=== PATIENT | male | born 1935 | race Caucasian/White ===

== ENCOUNTER 2017-06-28 01:07 | Inpatient (IN) | payer MEDICARE, BC ==
[2017-06-28] MEDS ORDERED: NS 0.9% 1000 ML* 1,000 ML IV SCH (01:30)
[2017-06-28 01:51] LABS: ABS Basophils 0 10^3/ul (0-0.2); ABS Eosinophils 0.3 10^3/ul (0-0.6); ABS Lymphocytes 0.7 10^3/ul (1.0-4.8); ABS Monocytes 0.5 10^3/ul (0-0.8); ABS Neutrophils 2.4 10^3/ul (1.5-7.7); ABS Nucleated RBC 0 10^3/ul; Eosinophil % 8.4 % (0-6); Hematocrit 36 % (42-52); Hemoglobin 11.8 g/dl (14.0-18.0); Lymphocyte % 16.8 % (25-47); Mean Corpuscular HGB Conc 33 g/dl (31-36); Mean Corpuscular Hemoglobin 34 pg (27-31); Mean Corpuscular Volume 101 fL (80-94); Mean Platelet Volume 8 um3 (7.4-10.4); Nucleated Red Blood Cells % 0.1; Platelet Count 123 10^3/ul (150-450); Red Blood Count 3.52 10^6/ul (4.0-5.4); Red Cell Distribution Width 16 % (10.5-15)
[2017-06-28 02:01] LABS: EGFR Non-African American 12.4 (>60)
[2017-06-28] MEDS ORDERED: Aspirin TAB* 325 MG PO ONE (02:47)
[2017-06-28] MEDS ORDERED: Iodixanol* (CONTRAST) 320 MG/ML 100 ML SDV IV ONE (02:54)
[2017-06-28 05:16] LABS: Urine Appearance Cloudy; Urine Blood 1+ (Negative); Urine Color Yellow; Urine Ketones Negative (Negative); Urine Protein 2+(100 mg/dL) (Negative); Urine Specific Gravity 1.014 (1.010-1.030); Urine Urobilinogen Negative (Negative)
[2017-06-28] MEDS ORDERED: cefTRIAXone(*) 1 GM in NS 0.9% 50 ML* 50 ML IVPB ONE (06:21)
--- NOTE | 2017-06-28 06:23 | ED ---
Lexa Daniel Abhishek, scribed for Kasia Boles MD on 06/28/17 at 0208 . Neurological HPI - HPI Summary HPI Summary: This patient is a 81 year old M presenting to [facility] accompanied by and daughter with a chief complaint of aphasia since 2300. The symptoms are described as intermittent. Time of the first episode was 2300. Pt was having a cocktail according to pts at the onset of the first episode. Symptoms seemed to have resolved after first episode. 2nd episode occurred around midnight. Slurred speech episodes lasted 12 to 15 minutes. When asked why the pt did not enter the ED at midnight after the occurrence of the second episode, the pts stated they are novices and she also stated he was getting better. The patient rates the pain 0/10 in severity. Symptoms aggravated by nothing. Symptoms alleviated by nothing. Patient reports confusion, slurred speech and poor memory recall. Patient denies fever, chills, RODRIGUEZ, chest pain, and SOB. - History of Current Complaint Chief Complaint: EDGeneral Stated Complaint: SLURRING WORDS/CONFUSED Time Seen by Provider: 06/28/17 01:17 Hx Obtained From: Family/Meat Slicer Onset/Duration: Sudden Onset Timing: Intermittent Episodes Lasting: - 5 to 7 minutes. 2 episodes. Pain Intensity: 0 Pain Scale Used: 0-10 Numeric Character: Impaired Speech - slurred speech, Confusion - Allergy/Home Medications Allergies/Adverse Reactions: Allergies Allergy/AdvReac Type Severity Reaction Status Date / Time Hydrochlorothiazide Allergy Unknown Verified 06/28/17 03:27 Reaction Details PMH/Surg Hx/FS Hx/Imm Hx Infectious Disease History: No Infectious Disease History: Denies: Traveled Outside the [place] in Last 30 Days Review of Systems Negative: Fever, Chills Eyes: Negative ENT: Negative Negative: Chest Pain Negative: Shortness Of Breath Gastrointestinal: Negative Genitourinary: Negative Musculoskeletal: Negative Skin: Negative Neurological: Other - aphasia, confusion, poor memory recall, Positive: Slurred Speech. Negative: Headache Psychological: Normal All Other Systems Reviewed And Are Negative: No Physical Exam - Summary Physical Exam Summary: Appearance: Alert, conversive, nontoxic appearing, Bag in place urine, Skin: Warm, dry, no mottling, no rashes, no contusions, Dry skin HEENT: EOMI, PERRL, moist mucous membranes Neck: No masses on the neck, supple Respiratory: Clear to auscultation, breath sounds present, no rales, no rhonchi , no wheezes Cardiovascular: RRR, pulses are symmetrical in both lower and upper extremities Abdomen: Soft, non-tender Bowel Sounds: Present Musculoskeletal: No CVA tenderness, no obvious deformity, moving all extremities in a grossly normal manner Neurological: Droop on the left side First time it has been to the hospital Deviates to the right Some difficulty following finger to nose, Difficulty following simple instruction Psychiatric: Normal affect and mood Triage Information Reviewed: Yes Vital Signs On Initial Exam: Initial Vitals Temp Pulse Resp BP Pulse Ox 98.9 F 57 18 201/80 100 06/28/17 01:12 06/28/17 01:12 06/28/17 01:12 06/28/17 01:12 06/28/17 01:12 Vital Signs Reviewed: Yes Diagnostics - Vital Signs Vital Signs Temp Pulse Resp BP Pulse Ox 06/28/17 01:12 98.9 F 57 18 201/80 100 - Laboratory Lab Results: Lab Results 06/28/17 06/28/17 06/28/17 Range/Units 01:32 01:32 01:32 WBC 4.0 (3.5-10.8) 10^3/ul RBC 3.52 L (4.0-5.4) 10^6/ul Hgb 11.8 L (14.0-18.0) g/dl Hct 36 L (42-52) % MCV 101 H (80-94) fL MCH 34 H (27-31) pg MCHC 33 (31-36) g/dl RDW 16 H (10.5-15) % Plt Count 123 L (150-450) 10^3/ul MPV 8 (7.4-10.4) um3 Neut % (Auto) 61.4 (38-83) % Lymph % (Auto) 16.8 L (25-47) % [place] % (Auto) 12.3 H (1-9) % Eos % (Auto) 8.4 H (0-6) % Baso % (Auto) 1.1 (0-2) % Absolute Neuts (auto) 2.4 (1.5-7.7) 10^3/ul Absolute Lymphs (auto) 0.7 L (1.0-4.8) 10^3/ul Absolute Monos (auto) 0.5 (0-0.8) 10^3/ul Absolute Eos (auto) 0.3 (0-0.6) 10^3/ul Absolute Basos (auto) 0 (0-0.2) 10^3/ul Absolute Nucleated RBC 0 10^3/ul Nucleated RBC % 0.1 INR (Anticoag Therapy) 1.00 (0.77-1.02) APTT 30.1 (26.0-36.3) seconds Sodium 138 (133-145) mmol/L Potassium 3.4 L (3.5-5.0) mmol/L Chloride 102 (101-111) mmol/L Carbon Dioxide 29 (22-32) mmol/L Anion Gap 7 (2-11) mmol/L BUN 33 H (6-24) mg/dL Creatinine 4.58 H (0.67-1.17) mg/dL Est GFR ( Amer) 16.0 (>60) Est GFR (Non-Af Amer) 12.4 (>60) BUN/Creatinine Ratio 7.2 L (8-20) Glucose 96 (70-100) mg/dL Calcium 9.4 (8.6-10.3) mg/dL Magnesium 2.4 (1.9-2.7) mg/dL Total Bilirubin 0.40 (0.2-1.0) mg/dL AST 15 (13-39) U/L ALT 7 (7-52) U/L Alkaline Phosphatase 74 (34-104) U/L Total Protein 6.9 (6.4-8.9) g/dL Albumin 3.8 (3.2-5.2) g/dL Globulin 3.1 (2-4) g/dL Albumin/Globulin Ratio 1.2 (1-3) TSH Pending Serum Alcohol Pending Blood Type Antibody Screen 06/28/17 Range/Units 01:32 WBC (3.5-10.8) 10^3/ul RBC (4.0-5.4) 10^6/ul Hgb (14.0-18.0) g/dl Hct (42-52) % MCV (80-94) fL MCH (27-31) pg MCHC (31-36) g/dl RDW (10.5-15) % Plt Count (150-450) 10^3/ul MPV (7.4-10.4) um3 Neut % (Auto) (38-83) % Lymph % (Auto) (25-47) % Kittson % (Auto) (1-9) % Eos % (Auto) (0-6) % Baso % (Auto) (0-2) % Absolute Neuts (auto) (1.5-7.7) 10^3/ul Absolute Lymphs (auto) (1.0-4.8) 10^3/ul Absolute Monos (auto) (0-0.8) 10^3/ul Absolute Eos (auto) (0-0.6) 10^3/ul Absolute Basos (auto) (0-0.2) 10^3/ul Absolute Nucleated RBC 10^3/ul Nucleated RBC % INR (Anticoag Therapy) (0.77-1.02) APTT (26.0-36.3) seconds Sodium (133-145) mmol/L Potassium (3.5-5.0) mmol/L Chloride (101-111) mmol/L Carbon Dioxide (22-32) mmol/L Anion Gap (2-11) mmol/L BUN (6-24) mg/dL Creatinine (0.67-1.17) mg/dL Est GFR ( Amer) (>60) Est GFR (Non-Af Amer) (>60) BUN/Creatinine Ratio (8-20) Glucose (70-100) mg/dL Calcium (8.6-10.3) mg/dL Magnesium (1.9-2.7) mg/dL Total Bilirubin (0.2-1.0) mg/dL AST (13-39) U/L ALT (7-52) U/L Alkaline Phosphatase (34-104) U/L Total Protein (6.4-8.9) g/dL Albumin (3.2-5.2) g/dL Globulin (2-4) g/dL Albumin/Globulin Ratio (1-3) TSH Serum Alcohol Blood Type A Positive Antibody Screen Pending Result Diagrams: 06/28/17 01:32 06/28/17 01:32 Lab Statement: Any lab studies that have been ordered have been reviewed, and results considered in the medical decision making process. - CT Head CT CT Interpretation Completed By: Radiologist - CT Head reveals no acute pathology as per radiologist ED Physician reviewed the radiology report. CTA Head and Neck CT Interpretation Completed By: Radiologist - CTA Head and Neck reveals Multiple foci of atherosclerosis in the neck and brain. The ED Physician has reviewed this radiology report and agrees. - EKG 0126 EKG Rhythm: Sinus Bradycardia - 58 bpm EKG Interpretation: Time taken at 0126 Wided QRS, normal QTC, No AMI Course/Dx - Course Course Of Treatment: This patient is a 81 year old M presenting to [facility] accompanied by and daughter with a chief complaint of slurred speech since 2300. Patient reports confusion, slurred speech and poor memory recall. Patient denies fever chills, RODRIGUEZ, chest pain, and SOB. Time of the first episode was 2300. Pt was having a cocktail according to pts at the onset of the first episode. Symptoms seemed to have resolved after first episode. 2nd episode occurred around midnight. Slurred speech episodes lasted 12 to 15 minutes. When asked why the pt did not enter the ED at midnight after the occurrence of the second episode, the pts stated they are novices and she also stated he was getting better. We contacted [facility] at 0245. We consulted Dr. Bennett at 0310, the neurologist grain operations manager, at [facility]. He recommended giving aspirin and also recommended following on CTA Head to decide admittance for the pt. We discussed pt care with Dr. Lamb at 0320 and he suggested wating on the CTA head results before deciding disposition. After recieving CTA head and neck we conveyed the results to Dr. Lamb and he accept pt care. The pt is admitted to the [facility]. Dx will be TIA and stroke. - Diagnoses Provider Diagnoses: TIA (transient ischemic attack), Stroke - Critical Care Time Critical Care Time: 30-74 min - spoke with [facility]rologist and our hospitalist. multiple reevaluations. Discharge - Discharge Plan Condition: Stable Disposition: ADMITTED TO [facility] Referrals: Mayda Morris MD [Primary Care Provider] - The documentation as recorded by the Lexa eden Abhishek accurately reflects the service I personally performed and the decisions made by , Kasia Boles MD.
--- NOTE | 2017-06-28 07:41 | RAD ---
INDICATION: Slurred speech. COMPARISON: There are no prior studies available for comparison. TECHNIQUE: Contiguous axial sections of the brain were obtained from the skull base to the vertex without contrast. FINDINGS: The ventricles, cisterns and sulci are enlarged consistent with severe diffuse atrophy. There are small areas of decreased density in the subcortical and periventricular white matter suggestive of mild chronic small vessel ischemic changes. No other focal abnormality or mass effect is seen. There is no evidence for hemorrhage. No significant focal osseous abnormality is seen. The visualized portion of the paranasal sinuses and mastoid air cells appear clear. IMPRESSION: 1. NO EVIDENCE FOR GROSS ACUTE INFARCT, MASS EFFECT OR HEMORRHAGE. 2. RELATIVELY SEVERE ATROPHY AND MILD CHRONIC SMALL VESSEL ISCHEMIC CHANGES.
[2017-06-28] MEDS ORDERED: amLODIPine TAB* 5 MG PO ONE (08:35)
[2017-06-28] MEDS ORDERED: hydrALAZINE IV* 20 MG/ML VIAL IV SLOW PU PRN (08:35)
[2017-06-28] MEDS ORDERED: Potassium Chlor TAB* 20 MEQ TAB.ER PO ONE (08:44)
--- NOTE | 2017-06-28 08:56 | RAD ---
INDICATION: Altered mental status, left facial droop. COMPARISON: Comparison is made with a prior CT of the brain from June 28 2017. TECHNIQUE: A CT angiogram of the head and neck was performed following intravenous injection of 80 ml of Visipaque 320 nonionic contrast. Contiguous axial sections were obtained from the thoracic inlet through the skull vertex. Images were reconstructed in the coronal and sagittal planes and in a 3-D volume rendered format. The distal cervical internal carotid artery diameter is used as the denominator for stenosis measurement. FINDINGS: RIGHT CAROTID: The common and internal carotid arteries appear patent without evidence for hemodynamically significant stenosis. LEFT CAROTID: The common and internal carotid arteries appear patent without evidence for hemodynamically significant stenosis. There is mild to moderate calcific plaque present within the carotid bulb and proximal internal carotid artery giving rise to approximately a 20% stenosis. VERTEBRALS: The right vertebral artery appears small in caliber throughout. The left vertebral artery is dominant with mild to moderate atherosclerotic change without gross evidence for high-grade stenosis. CTA BRAIN: The internal carotid, anterior and middle cerebral arteries appear patent without evidence for high-grade stenosis or occlusion. There is moderate calcific plaque present within the cavernous portion of the internal carotid arteries without evidence for high-grade stenosis. The vertebral, basilar and posterior cerebral arteries appear patent without evidence for high-grade stenosis or occlusion. No gross focal perfusion abnormalities are seen. No aneurysm or vascular malformation is seen. NECK: No significant enlarged lymph nodes are seen within the neck. The thyroid, parotid and submandibular glands appear to be within normal limits. The lung apices appear clear. The paranasal sinuses and mastoid air cells appear clear IMPRESSION: 1. NO EVIDENCE FOR HEMODYNAMICALLY SIGNIFICANT CAROTID STENOSIS. 2. NO EVIDENCE FOR LARGE VESSEL INTRACRANIAL THROMBUS. CPT II Codes: 3100F
[2017-06-28] MEDS: Aspirin Low Dose CHEW TAB* 81 MG PO SCH (12:27)
[2017-06-28] MEDS: Nitroglycerin 2% OINT* 1 GM PAK TOPICAL SCH ×3 (12:27→17:33)
[2017-06-28] MEDS: Enalaprilat IV* 1.25 MG/ML 1 ML VIAL (1.25 MG) IV PRN (12:47)
[2017-06-28] MEDS ORDERED: cefTRIAXone(*) 1 GM in NS 0.9% 50 ML* 50 ML IVPB SCH (15:00)
[2017-06-28] MEDS: Heparin VIAL(*) 5000 UNITS/ML VIAL (FIVE THOUSAND) SUBCUT SCH ×2 (16:34→20:37)
[2017-06-28] MEDS: Atorvastatin* 40 MG TAB PO SCH ×2 (17:31→20:36)
--- NOTE | 2017-06-28 20:08 | HP ---
CC: Dr. Morris; Dr. Wooten; Dr. Solo * HISTORY AND PHYSICAL: DATE OF ADMISSION: 06/28/17 PRIMARY CARE PROVIDER: Dr. Morris. ATTENDING PHYSICIAN WHILE IN THE HOSPITAL: Cassandra Tillman MD * (report dictated by Burton Ralph NP) CONSULTING NEUROLOGIST: Dr. Wooten. CONSULTING SPIKE MACHINE FEEDER: Dr. Solo. CHIEF COMPLAINT: Garbled speech. HISTORY OF PRESENTING ILLNESS: Mr. Montelongo is an 81-year-old male patient who has a history of hypertension, hyperlipidemia, according to the patient CAD, he has had a stent in before in [place] and he has a history of end-stage renal disease, he was born with one kidney. The patient relocated from [facility]. He is staying part-time here with his daughter and part-time in [place]. The patient states that yesterday it was noted that he had an episode about 10 minutes of garbled speech and lasting for about 10 minutes. He knew what he wanted to say but he could not get his words out. He said that he had no blurry vision, no weakness to one extremity. There was no trouble with his gait. The family was concerned particularly the patient's . They felt that this could be a warning sign for something more significant, so they came into the ED around the midnight last night. The patient denies having any recurrent symptoms. There was no facial drooping. No slurring of the words. I will note that the patient was recently seen by Dr. Ahumada for bradycardia in the outpatient setting and did have a Holter monitor ordered and echo but I do not have reports though they do not believe he had the echo done yet. The patient says he has not been feeling under the weather as of late. He denies having any upper respiratory symptoms. No abdominal pain, no nausea, no vomiting. No dysuria and no fevers or chills and no change in medications, but I will state that it was noted on Dr. Ahumada's notes that the patient was supposed to be on 5 medications and he has not really been taking the medications. The patient was evaluated in the ED today. There was a concern for TIA and we were asked to evaluate for admission. PAST MEDICAL HISTORY: Significant for: 1. End-stage renal disease, he is on dialysis. 2. Hypertension. 3. CAD. 4. Hyperlipidemia. PAST SURGICAL HISTORY: He has had an AV fistula placement. He has had a heart catheterization according to the patient. MEDICATIONS: His home medications according to the list that I was able to pull from Dr. Ahumada's notes include: 1. Benazepril 40 mg p.o. daily. 2. Linzess 145 mcg p.o. daily that has not been filled since 03/26/2017. 3. Flomax 0.4 mg daily. 4. Amlodipine 10 mg daily. 5. Simvastatin 20 mg p.o. daily. ALLERGIES TO MEDICATIONS: Include HYDROCHLOROTHIAZIDE. FAMILY HISTORY: Mother had a heart attack. Father had a history of Parkinson' s. SOCIAL HISTORY: The patient is . He is a former smoker. He does drink occasionally. Surrogate decision maker is his and daughter. REVIEW OF SYSTEMS: There is no documented fever. He denied any significant weight change. There was no double vision. He denies having any ear discharge. There was no rhinorrhea, no sore throat, no thyroid enlargement. Denied having any chest pain. There was no orthopnea, no nocturnal dyspnea. There was no abdominal pain, no nausea, no vomiting. No dysuria, no frequency. There was no seizure, no loss of consciousness. No pruritus and no skin ulcerations. Review of 14 systems completed, all others were negative. PHYSICAL EXAMINATION GENERAL: At this time, Mr. Montelongo is an 81-year-old male patient. He is sitting in the ED stretcher. He does not appear to be in any acute distress. VITAL SIGNS: Blood pressure 181/65, pulse 53, respirations 15, O2 sat 95%, temperature 98.9. HEENT: Head: Atraumatic and normocephalic. Eyes: EOMs are intact. Sclerae were anicteric and not pale. Throat: Oral mucosa appears to be moist. No oropharyngeal erythema. NECK: Supple. LUNGS: Clear to auscultation bilaterally. There were no wheezes, rales, or rhonchi. HEART: Sounds S1, S2. Regular rate and rhythm. No murmurs, rubs, or gallops. He is bradycardic. ABDOMEN: Soft, it was flat and nontender. Bowel sounds were present. EXTREMITIES: Pulses were 2+ throughout. He is moving all 4 extremities with 5/ 5 strength. NEUROLOGICAL: The patient is awake, he is alert, he is oriented x3. His tongue is midline. His automotive collision repair instructor were equal. Dijyzr-qi-aahy is intact bilaterally. Heel-to- coleman is intact bilaterally. He had no facial drooping. Speech appeared to be clear. EOMs were intact. Cranial nerves were intact. No gross focal deficits. SKIN: Intact. LABORATORY DATA/DIAGNOSTIC STUDIES: Today revealed WBC of 4.0, RBC of 3.52, hemoglobin of 11.8, hematocrit of 36, and a platelet count of 123. His INR was 1, PTT was 30. His sodium was 138, potassium was 3.4, chloride was 102, bicarb 29, BUN 33, creatinine of 4.58, glucose was 96, calcium 9.4, mag 2.4, total bili 0.4. AST 15, ALT 7, alk phos 74. Albumin was 3.8. TSH was normal. Urine showed 1+ blood, 2+ protein, 3+ leukocyte esterase, 3+ wbc's, 1+ bacteria. Toxicology: He did have a alcohol level of 39. He had a brain CT obtained today, impression: No evidence for gross or acute infarct, mass effect, or hemorrhage; relatively severe atrophy and mild chronic small vessel ischemic changes. He did have a head CTA, our radiologists were waiting for the report but the impression from the [facility]: Multiple foci or atherosclerosis in the neck and brain without hemodynamically significant stenosis involving the [place] or either ICA. He did have an EKG obtained today, unfortunately I do not have a previous for comparison. 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 Old medical records were reviewed. ASSESSMENT AND PLAN: Mr. Montelongo is an 81-year-old male patient with multiple medical problems coming into the ED today with complaints of trouble with speech and on evaluation there was concern for transient ischemic attack. He will be admitted under observation status for: 1. Transient ischemic attack. I did touch base with Dr. Wooten. At this point, he will be evaluating the patient. We will get him on aspirin, I would like to try to keep his blood pressure less than 190. The last one here was in the 200s actually, so I am going to get him back on his Norvasc and we will go ahead and continue hydralazine. We will continue to follow him closely. We will get an MRI of the brain, echo with bubble study, and Neuro checks every hour, place the patient on telemetry and we will continue to follow closely. 2. End-stage renal disease. I did touch base with Dr. Solo. He will be evaluating the patient. Hopefully, he will dialyze him tomorrow and we will continue to follow closely. 3. Hypertension. In Dr. Ahumada's office actually his blood pressure was in the 100s and now that it is 180s consistently here, I am going to get him back just on the Norvas and see if we can get him down to an acceptable range and we will follow. 4. Coronary artery disease. I am going to continue his aspirin. It is unclear if he is taking a statin or not, we will continue this. We will try to get records from his PCP and try to get records from his PCP in [place] if possible, that is going to be tough to those as today is Thursday. 5. Abnormal UA. Again at this point, he has a chronic catheter. He is not having any urinary symptoms. He has no fever, no white counts, so I am not inclined to treat this UA just yet as this could be a chronic colonization. Should he spike a fever then I would, but at this point we will hold off. 6. DVT prophylaxis. He will be placed on heparin subcutaneously. 7. Code status. He is a full code. 8. Fluids, electrolytes, and nutrition. He can have a heart healthy diet. TIME SPENT: Time spent on the admission was approximately 60 minutes, greater than half the time was spent [id number] with the patient obtaining my history and physical, other half time was spent going over the plan of care with the patient and implementing plan of care. I did discuss the plan of care with my attending, Dr. Tillman; she is in agreement. BURTON RALPH NP [id number]/[facility] #: [id number] ANTON
[2017-06-29 05:22] LABS: ABS Basophils 0.1 10^3/ul (0-0.2); ABS Eosinophils 0.3 10^3/ul (0-0.6); ABS Lymphocytes 0.8 10^3/ul (1.0-4.8); ABS Monocytes 0.5 10^3/ul (0-0.8); ABS Neutrophils 2.6 10^3/ul (1.5-7.7); ABS Nucleated RBC 0 10^3/ul; Eosinophil % 7.2 % (0-6); Hematocrit 33 % (42-52); Hemoglobin 10.9 g/dl (14.0-18.0); Lymphocyte % 19.7 % (25-47); Mean Corpuscular HGB Conc 34 g/dl (31-36); Mean Corpuscular Hemoglobin 34 pg (27-31); Mean Corpuscular Volume 100 fL (80-94); Mean Platelet Volume 8 um3 (7.4-10.4); Nucleated Red Blood Cells % 0; Platelet Count 122 10^3/ul (150-450); Red Blood Count 3.24 10^6/ul (4.0-5.4); Red Cell Distribution Width 15 % (10.5-15); White Blood Count 4.3 10^3/ul (3.5-10.8)
[2017-06-29 05:27] LABS: INR 1.03 (0.77-1.02)
[2017-06-29 05:40] LABS: EGFR Non-African American 9.6 (>60)
[2017-06-29] MEDS: Heparin VIAL(*) 5000 UNITS/ML VIAL (FIVE THOUSAND) SUBCUT SCH ×3 (06:34→20:24)
[2017-06-29] MEDS: Aspirin Low Dose CHEW TAB* 81 MG PO SCH (08:32)
[2017-06-29] MEDS: amLODIPine TAB* 5 MG PO SCH (08:32)
[2017-06-29] MEDS ORDERED: Perflutren Lipid Microsphere* 3 ML VIAL ONE (09:14)
--- NOTE | 2017-06-29 10:27 | ECHO ---
Patient: GAURI PENA [facility] Rec#: [id number] : 1935 Date: 06/29/2017 Age: 81y Height: 185.42 cm / 73.0 in Weight: 90.72 kg / 199.9 lbs Sex: M BSA: 2.15 Room#: 440 Admit Date#: 06/28/2017 Type: Inpatient Referring: Srini Ralph NP Reading: Augustin Albrecht MD Support Architect: Katalina Hewitt RDCS CC: Mayda Morris MD Transthoracic Echocardiogram Indication: TIA BP: 157/76 HR: 58 Rhythm: Bradycardia Findings History: ESRD with dialysis,HTN,CAD with PCI,HLD,bradycardia. Technical Comments: The study is technically difficult. Definity used to enhance images. The study is technically limited due to patient body habitus. Left Ventricle: The left ventricular chamber size is decreased. Posterior wall hypertrophy is observed. There is normal left ventricular systolic function. The estimated ejection fraction is 55-60%. There is no consistent Doppler evidence of clinically significant diastolic dysfunction. Left Atrium: The left atrium is normal in size. Right Ventricle: The right ventricular chamber size and systolic function are within normal limits. The right ventricular global systolic function is normal. Right Atrium: The right atrium is not well visualized. There is no patent foramen ovale visualized. There is no evidence of patent foramen ovale shunting. A patent foramen ovale is not demonstrated with color Doppler and agitated contrast. Normal saline was used as agitated contrast for the Bubble Study. Aortic Valve: The aortic valve structure is not well visualized. There is trace to mild aortic regurgitation. There is no evidence of aortic stenosis. Mitral Valve: The mitral valve leaflets are mildly thickened. There is mild mitral regurgitation. There is no evidence of mitral stenosis. Tricuspid Valve: The tricuspid valve structure is not well visualized. Pulmonic Valve: The pulmonic valve structure is not well visualized. Pericardium: The pericardium is not well visualized. Aorta: There is mild dilatation of the ascending aorta. The aortic arch is not well visualized. The aortic root is not well visualized. Pulmonary Artery: The main pulmonary artery is not well visualized. Venous: The venous system is not well visualized. Contrast: Definity was used to optimize study. A total of 4 ml used. Intravenous contrast was used to enhance endocardial border definition. Summary: There was not any prior study for comparison. Conclusions There is normal left ventricular systolic function. The estimated ejection fraction is 55-60%. The right ventricular chamber size and systolic function are within normal limits. There is no patent foramen ovale visualized. A patent foramen ovale is not demonstrated with color Doppler and agitated contrast. Normal saline was used as agitated contrast for the Bubble Study. There is trace to mild aortic regurgitation. There is no evidence of aortic stenosis. There is mild mitral regurgitation. The tricuspid valve structure is not well visualized. There is mild dilatation of the ascending aorta. Measurements Name Value Normal Range LVPWd (2D) 1.4 cm (0.6 - 1) LVIDd (2D) 3.4 cm (3.6 - 5.4) Ascending Ao 3.7 cm (2.1 - 3.4) Name Value Normal Range MV E-wave Vmax 0.7 m/sec - MV deceleration time 299 msec - MV A-wave Vmax 1.1 m/sec - MV E:A ratio 0.69 ratio - LV septal e' Vmax 0.05 m/sec - LV lateral e' Vmax 0.08 m/sec - LV E:e' septal ratio 14 ratio - LV E:e' lateral ratio 8.75 ratio - Name Value Normal Range AV Vmax 1.4 m/sec - AV VTI 31 cm - AV peak gradient 8.18 mmHg - AV mean gradient 3.59 mmHg - LVOT Vmax 1.3 m/sec - LVOT VTI 30 cm - LVOT peak gradient 6.78 mmHg - LVOT mean gradient 2.71 mmHg - AR PHT 772 msec - AR peak gradient 26.83 mmHg - Name Value Normal Range MR Vmax 2.1 m/sec - MR VTI 59 cm -
[2017-06-29] MEDS: Nitroglycerin 2% OINT* 1 GM PAK TOPICAL SCH ×2 (11:56→20:21)
[2017-06-29] MEDS ORDERED: cefTRIAXone(*) 1 GM in D5W 50 ML BAG* 50 ML IVPB SCH ×2 (15:00→20:00)
[2017-06-29] MEDS: Atorvastatin* 40 MG TAB PO SCH (20:24)
--- NOTE | 2017-06-29 20:41 | PN ---
Subjective Date of Service: 06/29/17 Interval History: Alert, no complaints at this time, resting in bed, Denies chest pain, shortness of breath or abd pain, Denies nausea , vomiting or diarrhea. Family History: Unchanged from Admission Social History: Unchanged from Admission Past Medical History: Unchanged from Admission Objective Active Medications: Amlodipine Besylate (Norvasc Tab*) 10 mg PO DAILY [facility] Last Admin: 06/29/17 08:32 Dose: 10 mg Aspirin (Aspirin Low Dose Tab*) 81 mg PO DAILY [facility] Last Admin: 06/29/17 08:32 Dose: 81 mg Atorvastatin Calcium (Lipitor*) 40 mg PO 1700 [facility] Last Admin: 06/29/17 20:24 Dose: 40 mg Enalaprilat (Vasotec Iv*) 0.625 mg IV Q6H PRN PRN Reason: BLOOD PRESSURE Last Admin: 06/28/17 12:47 Dose: 0.625 mg Heparin Sodium (Porcine) (Heparin Vial(*)) 5,000 units SUBCUT Q8HR [facility] Last Admin: 06/29/17 20:24 Dose: 5,000 units Ceftriaxone Sodium 1 gm/ (Dextrose) 50 mls @ 200 mls/hr IVPB 2000 [facility] Nitroglycerin (Nitroglycerin 2% Oint*) 0.5 inch TOPICAL 1200,1800 [facility] PRN Reason: Protocol Last Admin: 06/29/17 20:21 Dose: 0.5 inch Pharmacy Profile Note (Nitro Patch/Oint Remove*) 1 note TOPICAL DAILY@0000 [facility] Oxygen Devices in Use Now: None Appearance: alert, oriented x3 , apears comfortable, no complaints Eyes: No Scleral Icterus Ears/Nose/Mouth/Throat: NL Teeth, Lips, Gums, Mucous Membranes Moist Neck: NL Appearance and Movements; NL JVP, Trachea Midline Respiratory: Symmetrical Chest Expansion and Respiratory Effort, Clear to Auscultation Cardiovascular: NL Sounds; No Murmurs; No JVD, RRR, No Edema Abdominal: NL Sounds; No Tenderness; No Distention Extremities: No Edema, No Clubbing, Cyanosis Skin: No Rash or Ulcers Neurological: Alert and Oriented x 3 Nutrition: Taking PO's Result Diagrams: 06/30/17 05:01 06/30/17 05:01 Additional Lab and Data: Lab Results 06/28/17 06/28/17 06/28/17 Range/Units 01:32 01:32 01:32 WBC 4.0 (3.5-10.8) 10^3/ul RBC 3.52 L (4.0-5.4) 10^6/ul Hgb 11.8 L (14.0-18.0) g/dl Hct 36 L (42-52) % MCV 101 H (80-94) fL MCH 34 H (27-31) pg MCHC 33 (31-36) g/dl RDW 16 H (10.5-15) % Plt Count 123 L (150-450) 10^3/ul MPV 8 (7.4-10.4) um3 Neut % (Auto) 61.4 (38-83) % Lymph % (Auto) 16.8 L (25-47) % Isabella % (Auto) 12.3 H (1-9) % Eos % (Auto) 8.4 H (0-6) % Baso % (Auto) 1.1 (0-2) % Absolute Neuts (auto) 2.4 (1.5-7.7) 10^3/ul Absolute Lymphs (auto) 0.7 L (1.0-4.8) 10^3/ul Absolute Monos (auto) 0.5 (0-0.8) 10^3/ul Absolute Eos (auto) 0.3 (0-0.6) 10^3/ul Absolute Basos (auto) 0 (0-0.2) 10^3/ul Absolute Nucleated RBC 0 10^3/ul Nucleated RBC % 0.1 INR (Anticoag Therapy) 1.00 (0.77-1.02) APTT 30.1 (26.0-36.3) seconds Sodium 138 (133-145) mmol/L Potassium 3.4 L (3.5-5.0) mmol/L Chloride 102 (101-111) mmol/L Carbon Dioxide 29 (22-32) mmol/L Anion Gap 7 (2-11) mmol/L BUN 33 H (6-24) mg/dL Creatinine 4.58 H (0.67-1.17) mg/dL Est GFR ( Amer) 16.0 (>60) Est GFR (Non-Af Amer) 12.4 (>60) BUN/Creatinine Ratio 7.2 L (8-20) Glucose 96 (70-100) mg/dL Calcium 9.4 (8.6-10.3) mg/dL Magnesium 2.4 (1.9-2.7) mg/dL Total Bilirubin 0.40 (0.2-1.0) mg/dL AST 15 (13-39) U/L ALT 7 (7-52) U/L Alkaline Phosphatase 74 (34-104) U/L Total Protein 6.9 (6.4-8.9) g/dL Albumin 3.8 (3.2-5.2) g/dL Globulin 3.1 (2-4) g/dL Albumin/Globulin Ratio 1.2 (1-3) TSH Pending Serum Alcohol Pending Blood Type Antibody Screen 06/28/17 Range/Units 01:32 WBC (3.5-10.8) 10^3/ul RBC (4.0-5.4) 10^6/ul Hgb (14.0-18.0) g/dl Hct (42-52) % MCV (80-94) fL MCH (27-31) pg MCHC (31-36) g/dl RDW (10.5-15) % Plt Count (150-450) 10^3/ul MPV (7.4-10.4) um3 Neut % (Auto) (38-83) % Lymph % (Auto) (25-47) % Isabella % (Auto) (1-9) % Eos % (Auto) (0-6) % Baso % (Auto) (0-2) % Absolute Neuts (auto) (1.5-7.7) 10^3/ul Absolute Lymphs (auto) (1.0-4.8) 10^3/ul Absolute Monos (auto) (0-0.8) 10^3/ul Absolute Eos (auto) (0-0.6) 10^3/ul Absolute Basos (auto) (0-0.2) 10^3/ul Absolute Nucleated RBC 10^3/ul Nucleated RBC % INR (Anticoag Therapy) (0.77-1.02) APTT (26.0-36.3) seconds Sodium (133-145) mmol/L Potassium (3.5-5.0) mmol/L Chloride (101-111) mmol/L Carbon Dioxide (22-32) mmol/L Anion Gap (2-11) mmol/L BUN (6-24) mg/dL Creatinine (0.67-1.17) mg/dL Est GFR ( Amer) (>60) Est GFR (Non-Af Amer) (>60) BUN/Creatinine Ratio (8-20) Glucose (70-100) mg/dL Calcium (8.6-10.3) mg/dL Magnesium (1.9-2.7) mg/dL Total Bilirubin (0.2-1.0) mg/dL AST (13-39) U/L ALT (7-52) U/L Alkaline Phosphatase (34-104) U/L Total Protein (6.4-8.9) g/dL Albumin (3.2-5.2) g/dL Globulin (2-4) g/dL Albumin/Globulin Ratio (1-3) TSH Serum Alcohol Blood Type A Positive Antibody Screen Pending Microbiology and Other Data: Microbiology 06/28/17 16:00 Nasal Screen MRSA (PCR)(MARLENA) - Final Nasal Mrsa Negative Assess/Plan/Problems-Billing Assessment: This is an 81 y.o male with ESRD on hemo dialysis, presented to the emergency room with - Patient Problems (1) TIA (transient ischemic attack) Current Visit: Yes Status: Acute Comment: Dr. Wooten consulted Neuro checks Q2 hours ASA Echo with bubble study MRI of brain- pending Continue Norvasc and Hydralizine (2) ESRD (end stage renal disease) on dialysis Current Visit: Yes Status: Acute Code(s): N18.6 - END STAGE RENAL DISEASE; Z99.2 - DEPENDENCE ON RENAL DIALYSIS SNOMED Code(s): 782824455 Comment: inpatient HD (3) HTN (hypertension) Current Visit: Yes Status: Acute Code(s): I10 - ESSENTIAL (PRIMARY) HYPERTENSION SNOMED Code(s): 79170185 Comment: Continue Norvasc Will consider restarting benazepril (4) CAD (coronary artery disease) Current Visit: Yes Status: Acute Code(s): I25.10 - ATHSCL HEART DISEASE OF [place] CORONARY ARTERY W/O ANG PCTRS SNOMED Code(s): 72468010 (5) Full code status Current Visit: Yes Status: Acute Code(s): Z78.9 - OTHER SPECIFIED HEALTH STATUS SNOMED Code(s): 205963132 (6) Hyperlipidemia Current Visit: Yes Status: Acute Code(s): E78.5 - HYPERLIPIDEMIA, UNSPECIFIED SNOMED Code(s): 00612161 Comment: continue simvastatin (7) UTI (urinary tract infection) Current Visit: Yes Status: Acute Comment: Klebsiella pneumoniae- Continue on ceftriaxone (8) DVT prophylaxis Current Visit: Yes Status: Acute Code(s): OOC2204 - SNOMED Code(s): 380039363 Comment: Heparin Sub Q Status and Disposition: Will need PT evaluation Urinary cultures pending Neuro consult pending
--- NOTE | 2017-06-29 21:32 | RAD ---
HISTORY: TIA COMPARISONS: Head CT dated January 08, 2018 TECHNIQUE: The following sequences were obtained of the head: Sagittal T1-weighted images, axial T2-weighted images, axial FLAIR images, axial susceptibility weighted images, axial T1-weighted images. Additionally, axial diffusion-weighted images were obtained with calculated apparent diffusion coefficients. FINDINGS: HEMORRHAGE/INFARCT: There is no hemorrhage or acute infarct. MASSES/SHIFT: There is no mass or shift. EXTRA-AXIAL SPACES/MENINGES: There are no extra-axial fluid collections. SULCI AND VENTRICLES: There is diffuse and proportional enlargement of the sulci and ventricles. CEREBRUM: There is diffusely dilated T2/FLAIR signal in the periventricular and subcortical white matter. BRAINSTEM: There are no focal parenchymal abnormalities. CEREBELLUM: There are no focal parenchymal abnormalities. The cerebellar tonsils are normal in size and position. SELLA: The sella is normal. PINEAL: The pineal region is clear. CP ANGLE/TEMPORAL BONES: The labyrinthine structures are grossly normal. VESSELS: Normal flow-voids are noted within the visualized vertebral vasculature. DIFFUSION ABNORMALITIES: There are no diffusion abnormalities. PARANASAL SINUSES/MASTOIDS: The paranasal sinuses are clear. ORBITS: The orbits are unremarkable. BONES AND SOFT TISSUE: No bone or soft tissue abnormalities are noted. OTHER: None IMPRESSION: 1. DIFFUSE INVOLUTIONAL CHANGE WITH CHRONIC SMALL VESSEL ISCHEMIC CHANGES. 2. NO RESTRICTED DIFFUSION TO SUGGEST ACUTE INFARCT.
[2017-06-30] MEDS: Nitro Patch/OINT Remove TOPICAL SCH ×2 (00:41→23:44)
[2017-06-30] MEDS: Enalaprilat IV* 1.25 MG/ML 1 ML VIAL (1.25 MG) IV PRN (04:18)
[2017-06-30 05:11] LABS: Hematocrit 34 % (42-52); Hemoglobin 11.3 g/dl (14.0-18.0); Mean Corpuscular HGB Conc 34 g/dl (31-36); Mean Corpuscular Hemoglobin 34 pg (27-31); Mean Corpuscular Volume 100 fL (80-94); Mean Platelet Volume 7 um3 (7.4-10.4); Platelet Count 114 10^3/ul (150-450); Red Blood Count 3.37 10^6/ul (4.0-5.4); Red Cell Distribution Width 15 % (10.5-15)
[2017-06-30 05:26] LABS: EGFR Non-African American 14.1 (>60)
[2017-06-30 05:36] LABS: ABS Basophils 0 10^3/ul (0-0.2); ABS Eosinophils 0.3 10^3/ul (0-0.6); ABS Lymphocytes 0.7 10^3/ul (1.0-4.8); ABS Monocytes 0.4 10^3/ul (0-0.8); ABS Neutrophils 2.5 10^3/ul (1.5-7.7); ABS Nucleated RBC 0 10^3/ul; Eosinophil % 7.1 % (0-6); Lymphocyte % 17.9 % (25-47); Nucleated Red Blood Cells % 0
[2017-06-30] MEDS: Heparin VIAL(*) 5000 UNITS/ML VIAL (FIVE THOUSAND) SUBCUT SCH ×3 (06:00→20:41)
[2017-06-30] MEDS: amLODIPine TAB* 5 MG PO SCH (08:25)
[2017-06-30] MEDS: Aspirin Low Dose CHEW TAB* 81 MG PO SCH (08:25)
[2017-06-30] MEDS: Nitroglycerin 2% OINT* 1 GM PAK TOPICAL SCH ×2 (13:01→18:29)
--- NOTE | 2017-06-30 16:52 | PN ---
Subjective Date of Service: 06/30/17 Interval History: alert, no complaints at this time, resting in bed, Denies chest pain, shortness of breath or abd pain, Denies nausea , vomiting or diarrhea. Family History: Unchanged from Admission Social History: Unchanged from Admission Past Medical History: Unchanged from Admission Objective Active Medications: Amlodipine Besylate (Norvasc Tab*) 10 mg PO DAILY [facility] Last Admin: 06/30/17 08:25 Dose: 10 mg Aspirin (Aspirin Low Dose Tab*) 81 mg PO DAILY [facility] Last Admin: 06/30/17 08:25 Dose: 81 mg Atorvastatin Calcium (Lipitor*) 40 mg PO 1700 [facility] Last Admin: 06/29/17 20:24 Dose: 40 mg Ciprofloxacin (Cipro Tab*) 250 mg PO Q12HR [facility] Enalaprilat (Vasotec Iv*) 0.625 mg IV Q6H PRN PRN Reason: BLOOD PRESSURE Last Admin: 06/30/17 04:18 Dose: 0.625 mg Heparin Sodium (Porcine) (Heparin Vial(*)) 5,000 units SUBCUT Q8HR [facility] Last Admin: 06/30/17 13:00 Dose: 5,000 units Nitroglycerin (Nitroglycerin 2% Oint*) 0.5 inch TOPICAL 1200,1800 [facility] PRN Reason: Protocol Last Admin: 06/30/17 13:01 Dose: 0.5 inch Pharmacy Profile Note (Nitro Patch/Oint Remove*) 1 note TOPICAL DAILY@0000 [facility] Last Admin: 06/30/17 00:41 Dose: 1 patch Vital Signs - 8 hr 06/30/17 06/30/17 11:20 15:39 Temperature 98.0 F 98.2 F Pulse Rate 52 51 Respiratory 20 20 Rate Blood Pressure 164/63 160/72 (mmHg) O2 Sat by Pulse 99 99 Oximetry Oxygen Devices in Use Now: None Appearance: appears comfortable resting in bed Eyes: No Scleral Icterus Ears/Nose/Mouth/Throat: Clear Oropharnyx, Mucous Membranes Moist Neck: NL Appearance and Movements; NL JVP, Trachea Midline Respiratory: Symmetrical Chest Expansion and Respiratory Effort, Clear to Auscultation Cardiovascular: NL Sounds; No Murmurs; No JVD, RRR, No Edema Abdominal: NL Sounds; No Tenderness; No Distention Extremities: No Edema, No Clubbing, Cyanosis Skin: No Rash or Ulcers Neurological: Alert and Oriented x 3, NL Muscle Strength and Tone Nutrition: Taking PO's Result Diagrams: 06/30/17 05:01 06/30/17 05:01 Additional Lab and Data: Lab Results 06/28/17 06/28/17 06/28/17 Range/Units 01:32 01:32 01:32 WBC 4.0 (3.5-10.8) 10^3/ul RBC 3.52 L (4.0-5.4) 10^6/ul Hgb 11.8 L (14.0-18.0) g/dl Hct 36 L (42-52) % MCV 101 H (80-94) fL MCH 34 H (27-31) pg MCHC 33 (31-36) g/dl RDW 16 H (10.5-15) % Plt Count 123 L (150-450) 10^3/ul MPV 8 (7.4-10.4) um3 Neut % (Auto) 61.4 (38-83) % Lymph % (Auto) 16.8 L (25-47) % Quay % (Auto) 12.3 H (1-9) % Eos % (Auto) 8.4 H (0-6) % Baso % (Auto) 1.1 (0-2) % Absolute Neuts (auto) 2.4 (1.5-7.7) 10^3/ul Absolute Lymphs (auto) 0.7 L (1.0-4.8) 10^3/ul Absolute Monos (auto) 0.5 (0-0.8) 10^3/ul Absolute Eos (auto) 0.3 (0-0.6) 10^3/ul Absolute Basos (auto) 0 (0-0.2) 10^3/ul Absolute Nucleated RBC 0 10^3/ul Nucleated RBC % 0.1 INR (Anticoag Therapy) 1.00 (0.77-1.02) APTT 30.1 (26.0-36.3) seconds Sodium 138 (133-145) mmol/L Potassium 3.4 L (3.5-5.0) mmol/L Chloride 102 (101-111) mmol/L Carbon Dioxide 29 (22-32) mmol/L Anion Gap 7 (2-11) mmol/L BUN 33 H (6-24) mg/dL Creatinine 4.58 H (0.67-1.17) mg/dL Est GFR ( Amer) 16.0 (>60) Est GFR (Non-Af Amer) 12.4 (>60) BUN/Creatinine Ratio 7.2 L (8-20) Glucose 96 (70-100) mg/dL Calcium 9.4 (8.6-10.3) mg/dL Magnesium 2.4 (1.9-2.7) mg/dL Total Bilirubin 0.40 (0.2-1.0) mg/dL AST 15 (13-39) U/L ALT 7 (7-52) U/L Alkaline Phosphatase 74 (34-104) U/L Total Protein 6.9 (6.4-8.9) g/dL Albumin 3.8 (3.2-5.2) g/dL Globulin 3.1 (2-4) g/dL Albumin/Globulin Ratio 1.2 (1-3) TSH Pending Serum Alcohol Pending Blood Type Antibody Screen 06/28/17 Range/Units 01:32 WBC (3.5-10.8) 10^3/ul RBC (4.0-5.4) 10^6/ul Hgb (14.0-18.0) g/dl Hct (42-52) % MCV (80-94) fL MCH (27-31) pg MCHC (31-36) g/dl RDW (10.5-15) % Plt Count (150-450) 10^3/ul MPV (7.4-10.4) um3 Neut % (Auto) (38-83) % Lymph % (Auto) (25-47) % Quay % (Auto) (1-9) % Eos % (Auto) (0-6) % Baso % (Auto) (0-2) % Absolute Neuts (auto) (1.5-7.7) 10^3/ul Absolute Lymphs (auto) (1.0-4.8) 10^3/ul Absolute Monos (auto) (0-0.8) 10^3/ul Absolute Eos (auto) (0-0.6) 10^3/ul Absolute Basos (auto) (0-0.2) 10^3/ul Absolute Nucleated RBC 10^3/ul Nucleated RBC % INR (Anticoag Therapy) (0.77-1.02) APTT (26.0-36.3) seconds Sodium (133-145) mmol/L Potassium (3.5-5.0) mmol/L Chloride (101-111) mmol/L Carbon Dioxide (22-32) mmol/L Anion Gap (2-11) mmol/L BUN (6-24) mg/dL Creatinine (0.67-1.17) mg/dL Est GFR ( Amer) (>60) Est GFR (Non-Af Amer) (>60) BUN/Creatinine Ratio (8-20) Glucose (70-100) mg/dL Calcium (8.6-10.3) mg/dL Magnesium (1.9-2.7) mg/dL Total Bilirubin (0.2-1.0) mg/dL AST (13-39) U/L ALT (7-52) U/L Alkaline Phosphatase (34-104) U/L Total Protein (6.4-8.9) g/dL Albumin (3.2-5.2) g/dL Globulin (2-4) g/dL Albumin/Globulin Ratio (1-3) TSH Serum Alcohol Blood Type A Positive Antibody Screen Pending Microbiology and Other Data: Microbiology 06/28/17 16:00 Nasal Screen MRSA (PCR)(MARLENA) - Final Nasal Mrsa Negative Assess/Plan/Problems-Billing Assessment: This is an 81 y.o male with ESRD on hemo dialysis, who also has a history of hypertension, hyperlipidemia, according to the patient CAD, he was born with one kidney. The patient states that yesterday it was noted that he had an episode about 10 minutes of garbled speech and lasting for about 10 minutes. He knew what he wanted to say but he could not get his words out. He said that he had no blurry vision, no weakness to one extremity. - Patient Problems (1) TIA (transient ischemic attack) Current Visit: Yes Status: Acute Comment: Dr. Wooten consulted Neuro checks Q2 hours ASA Echo with bubble study- there is no patent foramen ovale visualized, There is normal left ventricular systolic function. The estimated ejection fraction is 55-60%. The right ventricular chamber size and systolic function are within normal limits. MRI of brain- pending - no infacrt Continue Norvasc and Hydralizine (2) ESRD (end stage renal disease) on dialysis Current Visit: Yes Status: Acute Code(s): N18.6 - END STAGE RENAL DISEASE; Z99.2 - DEPENDENCE ON RENAL DIALYSIS SNOMED Code(s): 234341412 Comment: inpatient HD (3) HTN (hypertension) Current Visit: Yes Status: Acute Code(s): I10 - ESSENTIAL (PRIMARY) HYPERTENSION SNOMED Code(s): 65916279 Comment: Continue Norvasc Will consider restarting benazepril (4) CAD (coronary artery disease) Current Visit: Yes Status: Acute Code(s): I25.10 - ATHSCL HEART DISEASE OF [place] CORONARY ARTERY W/O ANG PCTRS SNOMED Code(s): 33087588 (5) Full code status Current Visit: Yes Status: Acute Code(s): Z78.9 - OTHER SPECIFIED HEALTH STATUS SNOMED Code(s): 876373483 (6) Hyperlipidemia Current Visit: Yes Status: Acute Code(s): E78.5 - HYPERLIPIDEMIA, UNSPECIFIED SNOMED Code(s): 11248900 Comment: continue simvastatin (7) UTI (urinary tract infection) Current Visit: Yes Status: Acute Comment: Klebsiella pneumoniae- ESLB- will discontinue ceftriaxone and start Cipro 250 mg po bid for 7 days (8) DVT prophylaxis Current Visit: Yes Status: Acute Code(s): CYL1157 - SNOMED Code(s): 956055500 Comment: Heparin Sub Q Status and Disposition: Will need PT evaluation Urinary cultures pending Neuro consult pending
[2017-06-30] MEDS: Atorvastatin* 40 MG TAB PO SCH (18:29)
[2017-06-30] MEDS: Lisinopril TAB* 10 MG PO SCH (20:41)
[2017-06-30] MEDS: Ciprofloxacin TAB* 250 MG PO SCH (20:41)
[2017-07-01] MEDS: Heparin VIAL(*) 5000 UNITS/ML VIAL (FIVE THOUSAND) SUBCUT SCH ×2 (05:05→15:12)
[2017-07-01] MEDS: Enalaprilat IV* 1.25 MG/ML 1 ML VIAL (1.25 MG) IV PRN (07:31)
--- NOTE | 2017-07-01 09:29 | PN ---
Subjective Date of Service: 07/01/17 Interval History: Alert to verbal, states that he is feeling tired. Denies chest pain, shortness of breath or abd pain. Denies N/V/D. Family History: Unchanged from Admission Social History: Unchanged from Admission Past Medical History: Unchanged from Admission Objective Active Medications: Amlodipine Besylate (Norvasc Tab*) 10 mg PO DAILY [facility] Last Admin: 06/30/17 08:25 Dose: 10 mg Aspirin (Aspirin Low Dose Tab*) 81 mg PO DAILY [facility] Last Admin: 06/30/17 08:25 Dose: 81 mg Atorvastatin Calcium (Lipitor*) 40 mg PO 1700 [facility] Last Admin: 06/30/17 18:29 Dose: 40 mg Ciprofloxacin (Cipro Tab*) 250 mg PO Q12HR [facility] Last Admin: 06/30/17 20:41 Dose: 250 mg Enalaprilat (Vasotec Iv*) 0.625 mg IV Q6H PRN PRN Reason: BLOOD PRESSURE Last Admin: 07/01/17 07:31 Dose: 0.625 mg Heparin Sodium (Porcine) (Heparin Vial(*)) 5,000 units SUBCUT Q8HR [facility] Last Admin: 07/01/17 05:05 Dose: 5,000 units Lisinopril (Prinivil Tab*) 20 mg PO DAILY [facility] Last Admin: 06/30/17 20:41 Dose: 20 mg Nitroglycerin (Nitroglycerin 2% Oint*) 0.5 inch TOPICAL 1200,1800 [facility] PRN Reason: Protocol Last Admin: 06/30/17 18:29 Dose: 0.5 inch Pharmacy Profile Note (Nitro Patch/Oint Remove*) 1 note TOPICAL DAILY@0000 [facility] Last Admin: 06/30/17 23:44 Dose: 1 patch Vital Signs - 8 hr 07/01/17 07/01/17 07/01/17 03:32 07:19 08:00 Temperature 97.8 F 98.2 F Pulse Rate 64 56 Respiratory 16 20 16 Rate Blood Pressure 159/76 200/91 (mmHg) O2 Sat by Pulse 99 96 Oximetry Oxygen Devices in Use Now: None Appearance: alert, slow to respond but appropriate, appears comfortable Eyes: No Scleral Icterus Ears/Nose/Mouth/Throat: Clear Oropharnyx, Mucous Membranes Moist Neck: NL Appearance and Movements; NL JVP, Trachea Midline Respiratory: Symmetrical Chest Expansion and Respiratory Effort, Clear to Auscultation Cardiovascular: NL Sounds; No Murmurs; No JVD, RRR, No Edema Abdominal: NL Sounds; No Tenderness; No Distention Extremities: No Edema, No Clubbing, Cyanosis Skin: No Rash or Ulcers Neurological: Alert and Oriented x 3, - - with periods of confustion, able to be reoriented Nutrition: Taking PO's Result Diagrams: 06/30/17 05:01 06/30/17 05:01 Additional Lab and Data: Lab Results 06/28/17 06/28/17 06/28/17 Range/Units 01:32 01:32 01:32 WBC 4.0 (3.5-10.8) 10^3/ul RBC 3.52 L (4.0-5.4) 10^6/ul Hgb 11.8 L (14.0-18.0) g/dl Hct 36 L (42-52) % MCV 101 H (80-94) fL MCH 34 H (27-31) pg MCHC 33 (31-36) g/dl RDW 16 H (10.5-15) % Plt Count 123 L (150-450) 10^3/ul MPV 8 (7.4-10.4) um3 Neut % (Auto) 61.4 (38-83) % Lymph % (Auto) 16.8 L (25-47) % Smyth % (Auto) 12.3 H (1-9) % Eos % (Auto) 8.4 H (0-6) % Baso % (Auto) 1.1 (0-2) % Absolute Neuts (auto) 2.4 (1.5-7.7) 10^3/ul Absolute Lymphs (auto) 0.7 L (1.0-4.8) 10^3/ul Absolute Monos (auto) 0.5 (0-0.8) 10^3/ul Absolute Eos (auto) 0.3 (0-0.6) 10^3/ul Absolute Basos (auto) 0 (0-0.2) 10^3/ul Absolute Nucleated RBC 0 10^3/ul Nucleated RBC % 0.1 INR (Anticoag Therapy) 1.00 (0.77-1.02) APTT 30.1 (26.0-36.3) seconds Sodium 138 (133-145) mmol/L Potassium 3.4 L (3.5-5.0) mmol/L Chloride 102 (101-111) mmol/L Carbon Dioxide 29 (22-32) mmol/L Anion Gap 7 (2-11) mmol/L BUN 33 H (6-24) mg/dL Creatinine 4.58 H (0.67-1.17) mg/dL Est GFR ( Amer) 16.0 (>60) Est GFR (Non-Af Amer) 12.4 (>60) BUN/Creatinine Ratio 7.2 L (8-20) Glucose 96 (70-100) mg/dL Calcium 9.4 (8.6-10.3) mg/dL Magnesium 2.4 (1.9-2.7) mg/dL Total Bilirubin 0.40 (0.2-1.0) mg/dL AST 15 (13-39) U/L ALT 7 (7-52) U/L Alkaline Phosphatase 74 (34-104) U/L Total Protein 6.9 (6.4-8.9) g/dL Albumin 3.8 (3.2-5.2) g/dL Globulin 3.1 (2-4) g/dL Albumin/Globulin Ratio 1.2 (1-3) TSH Pending Serum Alcohol Pending Blood Type Antibody Screen 06/28/17 Range/Units 01:32 WBC (3.5-10.8) 10^3/ul RBC (4.0-5.4) 10^6/ul Hgb (14.0-18.0) g/dl Hct (42-52) % MCV (80-94) fL MCH (27-31) pg MCHC (31-36) g/dl RDW (10.5-15) % Plt Count (150-450) 10^3/ul MPV (7.4-10.4) um3 Neut % (Auto) (38-83) % Lymph % (Auto) (25-47) % [place] % (Auto) (1-9) % Eos % (Auto) (0-6) % Baso % (Auto) (0-2) % Absolute Neuts (auto) (1.5-7.7) 10^3/ul Absolute Lymphs (auto) (1.0-4.8) 10^3/ul Absolute Monos (auto) (0-0.8) 10^3/ul Absolute Eos (auto) (0-0.6) 10^3/ul Absolute Basos (auto) (0-0.2) 10^3/ul Absolute Nucleated RBC 10^3/ul Nucleated RBC % INR (Anticoag Therapy) (0.77-1.02) APTT (26.0-36.3) seconds Sodium (133-145) mmol/L Potassium (3.5-5.0) mmol/L Chloride (101-111) mmol/L Carbon Dioxide (22-32) mmol/L Anion Gap (2-11) mmol/L BUN (6-24) mg/dL Creatinine (0.67-1.17) mg/dL Est GFR ( Amer) (>60) Est GFR (Non-Af Amer) (>60) BUN/Creatinine Ratio (8-20) Glucose (70-100) mg/dL Calcium (8.6-10.3) mg/dL Magnesium (1.9-2.7) mg/dL Total Bilirubin (0.2-1.0) mg/dL AST (13-39) U/L ALT (7-52) U/L Alkaline Phosphatase (34-104) U/L Total Protein (6.4-8.9) g/dL Albumin (3.2-5.2) g/dL Globulin (2-4) g/dL Albumin/Globulin Ratio (1-3) TSH Serum Alcohol Blood Type A Positive Antibody Screen Pending Microbiology and Other Data: Microbiology 06/28/17 16:00 Nasal Screen MRSA (PCR)(MARLENA) - Final Nasal Mrsa Negative Assess/Plan/Problems-Billing Assessment: This is an 81 y.o male with ESRD on hemo dialysis, who also has a history of hypertension, hyperlipidemia, according to the patient CAD, he was born with one kidney. The patient states that yesterday it was noted that he had an episode about 10 minutes of garbled speech and lasting for about 10 minutes. He knew what he wanted to say but he could not get his words out. He said that he had no blurry vision, no weakness to one extremity. - Patient Problems (1) TIA (transient ischemic attack) Status: Acute Comment: Dr. Wooten consulted Neuro checks Q2 hours ASA Echo with bubble study- there is no patent foramen ovale visualized, There is normal left ventricular systolic function. The estimated ejection fraction is 55-60%. The right ventricular chamber size and systolic function are within normal limits. MRI of brain- pending - no infacrt Continue Norvasc and Hydralizine (2) ESRD (end stage renal disease) on dialysis Status: Acute Code(s): N18.6 - END STAGE RENAL DISEASE; Z99.2 - DEPENDENCE ON RENAL DIALYSIS SNOMED Code(s): 446477286 Comment: inpatient HD (3) HTN (hypertension) Status: Acute Code(s): I10 - ESSENTIAL (PRIMARY) HYPERTENSION SNOMED Code(s) : 77791877 Comment: Continue Norvasc Will consider restarting benazepril (4) CAD (coronary artery disease) Status: Acute Code(s): I25.10 - ATHSCL HEART DISEASE OF [place] CORONARY ARTERY W/O ANG PCTRS SNOMED Code(s): 83968690 (5) Full code status Status: Acute Code(s): Z78.9 - OTHER SPECIFIED HEALTH STATUS SNOMED Code(s) : 697482273 (6) Hyperlipidemia Status: Acute Code(s): E78.5 - HYPERLIPIDEMIA, UNSPECIFIED SNOMED Code(s): 21273555 Comment: continue simvastatin (7) UTI (urinary tract infection) Status: Acute Comment: Klebsiella pneumoniae- ESLB- will discontinue ceftriaxone and start Cipro 250 mg po bid for 7 days (8) DVT prophylaxis Status: Acute Code(s): [id number] - SNOMED Code(s): 187177075 Comment: Heparin Sub Q Status and Disposition: Will need PT evaluation Urinary cultures Esbl klebsiella pneumoniae - will continue on cipro 250 mg po 2x daily for 6 days Patient, and daughter would like the patient discharged ; advised that the patient should stay and be evaluated by PT for the ability to climb stairs, patient and family have declined this and wish to sign out AMA. Patient, and daughter were advised of the risks of leaving including fall, , permanent disability or worsening of his condition. All have verbalized understanding and wish to continue with the AMA. AMA paperwork completed.
[2017-07-01] MEDS: amLODIPine TAB* 5 MG PO SCH (15:11)
[2017-07-01 15:12] VITALS: BP 158/79
[2017-07-01] MEDS: Lisinopril TAB* 10 MG PO SCH (15:12)
[2017-07-01] MEDS: Aspirin Low Dose CHEW TAB* 81 MG PO SCH (15:12)
[2017-07-01] MEDS: Nitroglycerin 2% OINT* 1 GM PAK TOPICAL SCH (15:14)
[2017-07-01] MEDS: Ciprofloxacin TAB* 250 MG PO SCH (15:15)
[2017-07-01] MEDS: Atorvastatin* 40 MG TAB PO SCH (17:18)
--- NOTE | 2017-07-02 15:07 | DS ---
CC: Dr. Morris; Dr. Solo * DISCHARGE SUMMARY: DATE OF ADMISSION: 06/28/17 DATE OF DISCHARGE: 07/01/17 ATTENDING PHYSICIAN: Dr. Juliann Guzman * (dictated by Laura Sumner NP). PRIMARY CARE PROVIDER: Dr. Morris. CHIEF COMPLAINT: 1. Garbled speech. 2. Urinary tract infection with extended-spectrum beta lactamase Klebsiella pneumoniae noted in the culture. 3. Possible transient ischemic attack. SECONDARY DIAGNOSES: 1. End-stage renal disease, he is on hemodialysis. 2. Hypertension. 3. Coronary artery disease. 4. Hyperlipidemia. 5. Bradycardia, which he is receiving outpatient workup with Dr. Ahumada at this time. STUDIES WHILE IN THE HOSPITAL: He had a CT of the brain on 06/28/17. Impression : 1. No evidence of gross acute infarct, mass effect, or hemorrhage. 2. Relatively severe atrophy and mild chronic small vessel ischemic changes. CT of the head on 06/28/17. Impression: 1. No evidence of hemodynamically significant carotid stenosis. 2. No evidence of large vessel intracranial thrombus. He had a transthoracic echocardiogram on 06/28/17. Conclusion: There is normal left ventricular systolic function, ejection fraction was 55% to 60%. The right ventricular chamber size and systolic function were within normal limits. There is no patent foramen ovale visualized. There is a trace mild aortic regurgitation. There is no evidence of aortic stenosis. There is mild mitral regurgitation. The tricuspid valve structure is not well visualized and there is mild dilation of the ascending aorta. MRI of the brain on 06/29/17. Radiologist's impression: 1. Diffuse involutional changes with chronic small vessel ischemic changes. 2. No restrictive diffusion to suggest acute infarct. DISCHARGE MEDICATIONS: 1. Ciprofloxacin 250 mg p.o. b.i.d. x6 days for his urinary tract infection. Continued home medications: 1. Benazepril 40 mg p.o. daily. 2. Aspirin 81 mg p.o. daily. 3. Amlodipine 10 mg p.o. daily. 4. Flomax 0.4 mg p.o. daily. 5. Simvastatin 20 mg p.o. daily. 6. Linzess 145 mcg p.o. daily. HISTORY OF PRESENT ILLNESS/HOSPITAL COURSE: Mr. Montelongo is an 81-year-old male patient with a history of hypertension; hyperlipidemia and according to the patient coronary artery disease, he had a stent in [place]; has a history of end -stage renal disease and was born with 1 kidney. He recently relocated from [facility]. He is staying part-time here with his daughter and part-time in [place]. The patient states that yesterday, he noted that he had an episode of about 10 minutes of garbled speech, lasting about 10 minutes. The patient knew what he wanted, but could not get out the words. He had no blurry vision and no weakness to one extremity. There was no trouble with his gait. Family was concerned, particularly his and felt that warning signs could be more significant and was brought to the ED around midnight last night. The patient denies any recurrent symptoms. There is no facial drooping, no slurring of words. The patient was recently seen by Dr. Ahumada for bradycardia in the outpatient setting and did have a Holter monitor and an echo. I was able to get the echo report from Dr. Ahumada's office. There was normal left ventricular systolic function, estimated ejection fraction was 55% to 60%, right ventricular chamber size and systolic function were within normal limits. The echo was completed at Dr. Ahumada's office. He denied any respiratory symptoms. Due to the concern of TIA, he was placed in the hospital for admission. While in the emergency room, he had a CT of his head and a CTA of his head, which both showed ischemic small vessel disease. While in the hospital, he continued to receive his hemodialysis. He received hemodialysis on Thursday. He did receive hemodialysis today. A urinary culture was obtained and noted to have ESBL Klebsiella pneumoniae. He was placed on ciprofloxacin 250 mg p.o. b.i.d. He will be discharged home with this medication. He was noted to have episodes of bradycardia. He was asymptomatic with bradycardia. His heart rate dipped down to 39 momentarily and then back into the 50s. He was sinus bradycardic during his stay here. He denied any symptoms. He denied any dizziness. Denied any weakness. He does have periods of confusion. It was felt that he did have a PT evaluation, which showed that he would need contact guard assistance. They did not assess his ability to climb stairs. The patient was requesting to go home. It was recommended that he have a PT evaluation in the morning with evaluation on the ability to climb stairs. The patient and his family declined and wished to sign out AMA. The patient and family, daughter, "Sherice Felipe," and his were all advised of the risk of leaving including falls, , permanent disability, and worsening of his condition. They verbalized understanding and AMA form was signed. Mr. Montelongo is an 81-year-old gentleman. It was felt that he should be evaluated by PT for the ability to climb stairs. The family declined that advice and he was signed out AMA. His vital signs were 98.7, heart rate was 62 , respirations 18, O2 sat 100% on room air, and blood pressure was 158/79. DISCHARGE PLAN: The patient will be discharged AMA to his home with his and daughter. Activity as tolerated. He should follow up with his primary care physician in 4 to 7 days. He should also follow up with Dr. Ahumada, the diving judge, to continue to evaluate his bradycardia. He should also follow up with Dr. Solo from Nephrology and continue his hemodialysis as outpatient as previously scheduled. This is a summary of his complex medical history and hospital stay. For further details, please see the entire record. TIME SPENT: Time spent on this discharge was approximately 60 minutes, greater than half the time was spent with the patient discussing discharge plans and instructions. LAURA SUMNER, ALBINA [id number]/[facility] #: [id number] [place]
== END 2017-07-01 19:55 | disposition left against medical advice (07) | DRG 69 ==
LOC: ED 01:07 → MEDTELE 09:20 → OBSVTOIN 06-29 10:00
PROVIDERS: ADMIT Internal Medicine; ATTEND Internal Medicine
PROC: 5A1D70Z Performance of Urinary Filtration, Intermittent, Less than 6 Hours Per Day (ICD-10-PCS; principal; 2017-06-29)
PROC: 5A1D70Z Performance of Urinary Filtration, Intermittent, Less than 6 Hours Per Day (ICD-10-PCS; 2017-07-01)
DX: G45.9 Transient cerebral ischemic attack, unspecified (principal); 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 with stage 5 chronic kidney disease or end stage renal disease; B96.1 Klebsiella pneumoniae [K. pneumoniae] as the cause of diseases classified elsewhere; N18.6 End stage renal disease; R00.1 Bradycardia, unspecified; I34.0 Nonrheumatic mitral (valve) insufficiency; I77.819 Aortic ectasia, unspecified site; N39.0 Urinary tract infection, site not specified; Z99.2 Dependence on renal dialysis; I25.10 Atherosclerotic heart disease of native coronary artery without angina pectoris; E78.5 Hyperlipidemia, unspecified; Z88.8 Allergy status to other drugs, medicaments and biological substances; Z95.5 Presence of coronary angioplasty implant and graft; Z82.49 Family history of ischemic heart disease and other diseases of the circulatory system; Z81.8 Family history of other mental and behavioral disorders; Z87.891 Personal history of nicotine dependence; Z72.89 Other problems related to lifestyle; Z79.82 Long term (current) use of aspirin
CPT/HCPCS: 36415; 70450; 70496; 70498; 70551; 80048; 80053; 80061; 80320; 81003; 81015; 82140; 82607; 83036; 83735; 84443; 85025; 85610; 85730; 86850; 86900; 86901; 87077; 87086; 87186; 87641; 93005; 93306; 96374; 99284; A9270-GY; C8929; G0378; G0480; J0696; J1644; Q9967

== ENCOUNTER 2017-09-14 19:27 | Emergency (ER) | payer MEDICARE, BC ==
[2017-09-14 20:52] VITALS: BP 186/73
== END 2017-09-14 20:51 | disposition left against medical advice (07) ==
LOC: ED 19:27
DX: Z43.6 Encounter for attention to other artificial openings of urinary tract (principal); Z53.20 Procedure and treatment not carried out because of patient's decision for unspecified reasons
CPT/HCPCS: 99281

== ENCOUNTER 2017-09-16 17:02 | Emergency (ER) | payer MEDICARE, BC ==
[2017-09-16 21:22] LABS: ABS Basophils 0 10^3/ul (0-0.2); ABS Eosinophils 0.1 10^3/ul (0-0.6); ABS Lymphocytes 0.7 10^3/ul (1.0-4.8); ABS Monocytes 0.4 10^3/ul (0-0.8); ABS Neutrophils 2.5 10^3/ul (1.5-7.7); ABS Nucleated RBC 0 10^3/ul; Eosinophil % 3.9 % (0-6); Hematocrit 35 % (42-52); Hemoglobin 11.6 g/dl (14.0-18.0); Mean Corpuscular HGB Conc 33 g/dl (31-36); Mean Corpuscular Hemoglobin 32 pg (27-31); Mean Corpuscular Volume 97 fL (80-94); Nucleated Red Blood Cells % 0; Platelet Count 109 10^3/ul (150-450); Red Blood Count 3.59 10^6/ul (4.0-5.4); Red Cell Distribution Width 16 % (10.5-15); White Blood Count 3.7 10^3/ul (3.5-10.8)
[2017-09-16 21:32] LABS: INR 1.02 (0.77-1.02)
[2017-09-16 21:40] LABS: EGFR Non-African American 18.3 (>60)
--- NOTE | 2017-09-16 21:41 | RAD ---
CLINICAL HISTORY: Tenderness overlying the right flank nephrostomy catheter. COMPARISON: None TECHNIQUE: Noncontrast CT examination of the abdomen and pelvis from the lung bases through the initial tuberosities. FINDINGS: VISUALIZED LUNG BASES: There are pleural-based linear densities at the bilateral lung bases. There is mild groundglass opacification. There are trace bibasilar pleural effusions. ABDOMEN AND PELVIS: Evaluation of the solid organs and vasculature is limited without intravenous contrast. The liver, spleen, pancreas and adrenal glands are grossly normal in appearance. The gallbladder is normal. There is a right-sided percutaneous nephrostomy catheter in position. The pigtail loop of the catheter is extending to the ureteropelvic junction. There is no right-sided hydronephrosis. Renal cysts are noted bilaterally. Evaluation of the gastrointestinal tract is limited without oral contrast. The small and large bowel are not distended. There is no gross retroperitoneal or mesenteric lymphadenopathy. The pelvic viscera is normal in appearance. The coarsely calcified abdominal aorta and iliac arteries are normal in course and diameter. Degenerative changes include multilevel loss of intervertebral disc height involving the lower thoracic and lumbar spine.There are no sinister bone lesions. IMPRESSION: 1. The right percutaneous nephrostomy catheter pigtail loop is located at the ureteropelvic junction. There is no right-sided hydronephrosis. There is no evidence of right perinephric urinoma. If clinically warranted further characterization of the percutaneous nephrostomy catheter can be made with a nephrostogram on a nonemergent basis. 2. Additional chronic and degenerative changes described in body the report.
[2017-09-16] MEDS ORDERED: Clindamycin CAP* 150 MG PO ONE (21:50)
--- NOTE | 2017-09-16 22:19 | ED ---
Rigoberto Daniel Julia, scribed for Jayson Lr on 09/16/17 at 1958 . Complex/Multi-Sys Presentation - HPI Summary HPI Summary: This patient is a 81 year old M presenting [place] [facility] [place] by his with a chief complaint of a potentially infected nephrosomy tube. Patient reports pain at insertion (R flank). The tube was placed two years ago, but pt was not followed up with a physician the have it evaluated since then. Pt states he is a pt of Dr. Solo. Pts states urine is coming out okay. Patient had regular dialysis this morning. - History Of Current Complaint Chief Complaint: EDGeneral Time Seen by Provider: 09/16/17 19:53 Hx Obtained From: Patient Onset/Duration: Gradual Onset Location: Pain At: - R flank Related History: Other - dialysis - Allergies/Home Medications Allergies/Adverse Reactions: Allergies Allergy/AdvReac Type Severity Reaction Status Date / Time No Known Allergies Allergy Verified 09/14/17 19:33 PMH/Surg Hx/FS Hx/Imm Hx Cardiovascular History: Denies: Hx Pacemaker/ICD History: Reports: Hx Chronic Renal Failure, Hx Dialysis - CURRENT, Hx Renal Disease, Other Problems/Disorders - states he has only ever had one kidney Sensory History: Reports: Hx Contacts or Glasses - readers, Hx Hearing Aid - needs bilat, only has left here, Hx Hearing Problem - [place] Denies: Hx Cataracts Opthamlomology History: Reports: 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 hernia Infectious Disease History: No Infectious Disease History: Denies: Traveled Outside the US in Last 30 Days - Family History Known Family History: Positive: Hypertension - Social History Alcohol Use: Occasionally Substance Use Type: Reports: None Smoking Status (MU): Unknown if Ever Smoked Review of Systems Negative: Fever Positive: flank pain All Other Systems Reviewed And Are Negative: Yes Physical Exam - Summary Physical Exam Summary: Appearance: Well appearing, no pain distress Skin: warm, dry, reflects adequate perfusion Head/face: normal Eyes: EOMI, OPAL ENT: normal Neck: supple, non-tender Respiratory: CTA, breath sounds present Cardiovascular: RRR, pulses symmetrical Abdomen: tenderness in RUQ and RLQ, nephrostomy tube in R flank with mild discharge Bowel: present Musculoskeletal: normal, strength/ROM intact Neuro: normal, sensory motor intact, A&Ox3 Triage Information Reviewed: Yes Vital Signs On Initial Exam: Initial Vitals Temp Pulse Resp BP Pulse Ox 98.1 F 51 20 102/87 97 09/16/17 17:11 09/16/17 17:11 09/16/17 17:11 09/16/17 17:11 09/16/17 17:11 Vital Signs Reviewed: Yes Diagnostics - Vital Signs Vital Signs Temp Pulse Resp BP Pulse Ox 09/16/17 19:00 97.8 F 51 16 191/82 98 09/16/17 17:11 98.1 F 51 20 102/87 97 - Laboratory Lab Results: Lab Results 09/16/17 09/16/17 09/16/17 Range/Units 21:05 21:05 21:05 WBC 3.7 (3.5-10.8) 10^3/ul RBC 3.59 L (4.0-5.4) 10^6/ul Hgb 11.6 L (14.0-18.0) g/dl Hct 35 L (42-52) % MCV 97 H (80-94) fL MCH 32 H (27-31) pg MCHC 33 (31-36) g/dl RDW 16 H (10.5-15) % Plt Count 109 L (150-450) 10^3/ul MPV 7.0 L (7.4-10.4) um3 Neut % (Auto) 66.5 (38-83) % Lymph % (Auto) 18.0 L (25-47) % [place] % (Auto) 11.2 H (0-7) % Eos % (Auto) 3.9 (0-6) % Baso % (Auto) 0.4 (0-2) % Absolute Neuts (auto) 2.5 (1.5-7.7) 10^3/ul Absolute Lymphs (auto) 0.7 L (1.0-4.8) 10^3/ul Absolute Monos (auto) 0.4 (0-0.8) 10^3/ul Absolute Eos (auto) 0.1 (0-0.6) 10^3/ul Absolute Basos (auto) 0 (0-0.2) 10^3/ul Absolute Nucleated RBC 0 10^3/ul Nucleated RBC % 0 INR (Anticoag Therapy) 1.02 (0.77-1.02) APTT 31.9 (26.0-36.3) seconds Sodium 140 (139-145) mmol/L Potassium 3.6 (3.5-5.0) mmol/L Chloride 101 (101-111) mmol/L Carbon Dioxide 31 (22-32) mmol/L Anion Gap 8 (2-11) mmol/L BUN 22 (6-24) mg/dL Creatinine 3.28 H (0.67-1.17) mg/dL Est GFR ( Amer) 23.5 (>60) Est GFR (Non-Af Amer) 18.3 (>60) BUN/Creatinine Ratio 6.7 L (8-20) Glucose 98 (70-100) mg/dL Lactic Acid (0.5-2.0) mmol/L Calcium 9.5 (8.6-10.3) mg/dL Total Bilirubin 0.50 (0.2-1.0) mg/dL AST 10 L (13-39) U/L ALT 8 (7-52) U/L Alkaline Phosphatase 73 (34-104) U/L Total Protein 7.0 (6.4-8.9) g/dL Albumin 3.8 (3.2-5.2) g/dL Globulin 3.2 (2-4) g/dL Albumin/Globulin Ratio 1.2 (1-3) Lipase 122 H (11.0-82.0) U/L 09/16/17 Range/Units 21:05 WBC (3.5-10.8) 10^3/ul RBC (4.0-5.4) 10^6/ul Hgb (14.0-18.0) g/dl Hct (42-52) % MCV (80-94) fL MCH (27-31) pg MCHC (31-36) g/dl RDW (10.5-15) % Plt Count (150-450) 10^3/ul MPV (7.4-10.4) um3 Neut % (Auto) (38-83) % Lymph % (Auto) (25-47) % [place] % (Auto) (0-7) % Eos % (Auto) (0-6) % Baso % (Auto) (0-2) % Absolute Neuts (auto) (1.5-7.7) 10^3/ul Absolute Lymphs (auto) (1.0-4.8) 10^3/ul Absolute Monos (auto) (0-0.8) 10^3/ul Absolute Eos (auto) (0-0.6) 10^3/ul Absolute Basos (auto) (0-0.2) 10^3/ul Absolute Nucleated RBC 10^3/ul Nucleated RBC % INR (Anticoag Therapy) (0.77-1.02) APTT (26.0-36.3) seconds Sodium (139-145) mmol/L Potassium (3.5-5.0) mmol/L Chloride (101-111) mmol/L Carbon Dioxide (22-32) mmol/L Anion Gap (2-11) mmol/L BUN (6-24) mg/dL Creatinine (0.67-1.17) mg/dL Est GFR ( Amer) (>60) Est GFR (Non-Af Amer) (>60) BUN/Creatinine Ratio (8-20) Glucose (70-100) mg/dL Lactic Acid 0.8 (0.5-2.0) mmol/L Calcium (8.6-10.3) mg/dL Total Bilirubin (0.2-1.0) mg/dL AST (13-39) U/L ALT (7-52) U/L Alkaline Phosphatase (34-104) U/L Total Protein (6.4-8.9) g/dL Albumin (3.2-5.2) g/dL Globulin (2-4) g/dL Albumin/Globulin Ratio (1-3) Lipase (11.0-82.0) U/L Result Diagrams: 09/16/17 21:05 09/16/17 21:05 Lab Statement: Any lab studies that have been ordered have been reviewed, and results considered in the medical decision making process. - CT A/P CT Interpretation Completed By: Radiologist - 1. The right percutaneous nephrostomy catheter pigtail loop is located at the ureteropelvic junction. There is no right-sided hydronephrosis. There is no evidence of right perinephric urinoma. If clinically warranted further characterization of the percutaneous nephrostomy catheter can be made with a nephrostogram on a nonemergent basis. 2. Additional chronic and degenerative changes described in body the report. ED Physician Complex Multi-Symp Course/Dx Course Of Treatment: Pt presents with a potentially infected nephrosomy tube. Patient reports pain at insertion (R flank). The tube was placed two years ago, but pt was not followed up with a physician the have it evaluated since then. A CT A/P is of no acute conern. Bloodwork is unremarkable. Pt is given Clindamycin. Pt is instructed to follow up with a urologist. - Diagnoses Differential Diagnoses/HQI/PQRI: Sepsis, Other - NEPHROSTOMY COMPLICATIONS Provider Diagnoses: End stage renal disease, Nephrostomy complication - Physician Notifications Discussed Care Of Patient With: Deshawn Solo Time Discussed With Above Provider: 21:00 Instructed by Provider To: Other - Pt can be discharged if results vehicle return associate okay and should follow up with urology. Discharge - Sign-Out/Discharge Documenting (check all that apply): Discharge - Discharge Plan Condition: Stable Disposition: HOME Prescriptions: Clindamycin Cap(NF) [Clindamycin Cap 300 mg Cap(NF)] 300 mg PO TID #30 cap Patient Education Materials: Nephrostomy Tube Care (ED) Referrals: John Ballesteros MD [Medical Doctor] - As Soon As Possible (Follow up with the urologist as soon as possible. ) - Billing Disposition and Condition Condition: STABLE Disposition: HOME The documentation as recorded by the Rigoberto eden Julia accurately reflects the service I personally performed and the decisions made by Be mulligan Emmanuel.
[2017-09-16 22:20] VITALS: BP 152/80
== END 2017-09-16 22:17 | disposition home or self-care (01) ==
LOC: ED 17:02
DX: N99.528 Other complication of incontinent external stoma of urinary tract (principal); N18.6 End stage renal disease
CPT/HCPCS: 36415; 74176; 80053; 83605; 83690; 85025; 85610; 85730; 87040; 87070; 87205; 87640; 87641; 99284; A9270-GY

== ENCOUNTER 2017-11-05 06:15 | Emergency (ER) | payer MEDICARE, BC ==
[2017-11-05 06:24] VITALS: BP 142/89
--- NOTE | 2017-11-05 07:04 | ED ---
Dom Daniel Nilda, scribed for Raymon Williamson MD on 11/05/17 at 0650 . GI/ HPI - HPI Summary HPI Summary: This patient is an 82 year old M [facility] [place] [facility] [place] by with a chief complaint of leaking nephrostomy bag this morning. states pt had nephrostomy tubes placed yesterday by Dr. Levy. Pt states he is on dialysis 3x per week. Patient denies fever and pain. PMHx includes end stage renal disease on dialysis. - History of Current Complaint Chief Complaint: EDGeneral Time Seen by Provider: 11/05/17 06:30 Stated Complaint: GENERAL Hx Obtained From: Patient, Family/Emotional Support Teacher - Onset/Duration: Started Minutes Ago Timing: Constant Current Severity: None Pain Intensity: 0 Associated Signs and Symptoms: Positive: Other: - Patient denies fever and pain. Aggravating Factor(s): Nothing Alleviating Factor(s): Nothing - Additional Pertinent History Primary Care Physician: [id number] - Allergy/Home Medications Allergies/Adverse Reactions: Allergies Allergy/AdvReac Type Severity Reaction Status Date / Time No Known Allergies Allergy Verified 11/03/17 08:15 PMH/Surg Hx/FS Hx/Imm Hx Cardiovascular History: Denies: Hx Pacemaker/ICD History: Reports: Hx Chronic Renal Failure, Hx Dialysis - CURRENT, Hx Renal Disease, Other Problems/Disorders - states he has only ever had one kidney Sensory History: Reports: Hx Contacts or Glasses - readers, Hx Hearing Aid - needs bilat, only has left here, Hx Hearing Problem - [place] Denies: Hx Cataracts Opthamlomology History: Reports: 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 hernia Infectious Disease History: No Infectious Disease History: Denies: Traveled Outside the US in Last 30 Days - Family History Known Family History: Positive: Hypertension - Social History Alcohol Use: Occasionally Substance Use Type: Reports: None Smoking Status (MU): Unknown if Ever Smoked Review of Systems Negative: Fever Positive: other - leaking nephrostomy bag; negative pain. All Other Systems Reviewed And Are Negative: Yes Physical Exam - Summary Physical Exam Summary: Appearance: Well appearing, no pain distress Skin: warm, dry, reflects adequate perfusion Head/face: normal Eyes: EOMI, OPAL ENT: normal Neck: supple, non-tender Respiratory: CTA, breath sounds present Cardiovascular: RRR, pulses symmetrical Abdomen: non-tender, soft Bowel Sounds: present : Nephrostomy tube in right flank draining clear yellow urine with pen stuck on outlet of urine bag. Musculoskeletal: normal, strength/ROM intact Neuro: normal, sensory motor intact, A&Ox3 Triage Information Reviewed: Yes Vital Signs On Initial Exam: Initial Vitals Temp Pulse Resp BP Pulse Ox 97.9 F 61 20 142/89 98 11/05/17 06:17 11/05/17 06:17 11/05/17 06:17 11/05/17 06:17 11/05/17 06:17 Vital Signs Reviewed: Yes Diagnostics - Vital Signs Vital Signs Temp Pulse Resp BP Pulse Ox 11/05/17 06:17 97.9 F 61 20 142/89 98 - Laboratory Lab Statement: Any lab studies that have been ordered have been reviewed, and results considered in the medical decision making process. GIGU Course/Dx - Course Course Of Treatment: Patient presents after the cap from the urine bag of his nephrostomy tube fell off while in bed. We replaced the urine bag and at the family request secured it to the bag with a safety pin. There is no leaking on the patient was discharged in good condition. - Diagnoses Provider Diagnoses: Other mechanical complication of nephrostomy catheter, initial encounter, ESRD (end stage renal disease) on dialysis Discharge - Sign-Out/Discharge Documenting (check all that apply): Discharge/Admit/Transfer - Discharge Plan Condition: Improved Disposition: HOME Patient Education Materials: Nephrostomy Tube Care (ED) Referrals: Mayda Morris MD [Primary Care Provider] - Additional Instructions: Return if worse, new symptoms or other concerns. - Billing Disposition and Condition Condition: IMPROVED Disposition: HOME The documentation as recorded by the Dom eden Nilda accurately reflects the service I personally performed and the decisions made by , Raymon Williamson MD.
== END 2017-11-05 06:53 | disposition home or self-care (01) ==
LOC: ED 06:15
DX: T83.032A Leakage of nephrostomy catheter, initial encounter (principal); N18.6 End stage renal disease; Z99.2 Dependence on renal dialysis
CPT/HCPCS: 99281

== ENCOUNTER 2018-02-23 10:28 | Inpatient (IN) | payer MEDICARE, BC ==
[2018-02-23] MEDS ORDERED: ZOSYN 3.375 GM x ONE DOSE over 30 miuntes IVPB ×2 (11:00)
[2018-02-23 11:22] LABS: ABS Basophils 0 10^3/ul (0-0.2); ABS Eosinophils 0.1 10^3/ul (0-0.6); ABS Lymphocytes 0.7 10^3/ul (1.0-4.8); ABS Monocytes 0.4 10^3/ul (0-0.8); ABS Neutrophils 5.2 10^3/ul (1.5-7.7); ABS Nucleated RBC 0 10^3/ul; Eosinophil % 1.8 % (0-6); Hematocrit 29 % (42-52); Lymphocyte % 11.5 % (25-47); Mean Corpuscular HGB Conc 35 g/dl (31-36); Mean Corpuscular Hemoglobin 34 pg (27-31); Mean Corpuscular Volume 99 fL (80-94); Mean Platelet Volume 6.8 um3 (7.4-10.4); Nucleated Red Blood Cells % 0; Platelet Count 141 10^3/ul (150-450); Red Blood Count 2.92 10^6/ul (4.00-5.40); Red Cell Distribution Width 13 % (10.5-15); White Blood Count 6.4 10^3/ul (3.5-10.8)
--- NOTE | 2018-02-23 11:35 | ED ---
Sepsis HPI - HPI Summary HPI Summary: Pt is an 82 y/o male who presents to the ED c/o nausea since yesterday. Pt is a dialysis patient at [facility], and had his last dialysis yesterday. As per daughter on phone, he was recently on Cipro for a UTI with positive blood cultures, taken in [place]. As per , he felt like he had a fever last night and was restless. Pt still makes a small amount of urine. He denies any vomiting or cough. As per pharmacist Vivian, sepsis fluids were not given due to patient being on dialysis. Vitals while in room: HR 57 bpm, BP 112/70. Home Medications Medication Instructions Recorded Confirmed Type Aspirin EC TAB* [Ecotrin EC Low 81 mg PO DAILY 06/28/17 02/23/18 History Dose 81 MG*] Tamsulosin CAP* [Flomax CAP*] 0.4 mg PO DAILY 06/28/17 02/23/18 History Atorvastatin* [Lipitor 20 MG*] 20 mg PO DAILY 02/23/18 02/23/18 History Lisinopril TAB* [Prinivil TAB 10 10 mg PO DAILY 02/23/18 02/23/18 History MG*] Sevelamer Carbonate 800 mg PO AC 02/23/18 02/23/18 History - History of Current Complaint Chief Complaint: EDGeneral Time Seen by Provider: 02/23/18 10:42 Stated Complaint: FEVER/NAUSEA Hx Obtained From: Patient, Family/Packing Machine Operator - /daughter Onset/Duration: Started Days Ago - 1 Timing: Constant Current Severity: None Pain Intensity: 0 Pain Scale Used: 0-10 Numeric Aggravating Symptom(s): Nothing Alleviating Factor(s): Nothing Associated Signs & Symptoms: Nausea, Other - Fever - Additional Pertinent History Primary Care Physician: [id number] - Allergy/Home Medications Allergies/Adverse Reactions: Allergies Allergy/AdvReac Type Severity Reaction Status Date / Time No Known Allergies Allergy Verified 11/03/17 08:15 Home Medications: Home Medications Atorvastatin* [Lipitor 20 MG*] 20 mg PO DAILY 02/23/18 [History Confirmed ] Lisinopril TAB* [Prinivil TAB 10 MG*] 10 mg PO DAILY 02/23/18 [History Confirmed 02/23/18] Sevelamer Carbonate 800 mg PO AC 02/23/18 [History Confirmed 02/23/18] PMH/Surg Hx/FS Hx/Imm Hx Cardiovascular History: Denies: Hx Pacemaker/ICD History: Reports: Hx Chronic Renal Failure, Hx Dialysis - CURRENT, Hx Renal Disease, Other Problems/Disorders - states he has only ever had one kidney Sensory History: Reports: 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 hernia Infectious Disease History: No Infectious Disease History: Denies: Traveled Outside the [place] in Last 30 Days - Family History Known Family History: Positive: Hypertension - Social History Alcohol Use: Occasionally Hx Substance Use: No Substance Use Type: Reports: None Smoking Status (MU): Unknown if Ever Smoked Review of Systems Positive: Fever, Other - Restless Negative: Cough Positive: Nausea. Negative: Vomiting All Other Systems Reviewed And Are Negative: Yes Physical Exam - Summary Physical Exam Summary: Appearance: Well-appearing, moderate pain distress, well-nourished Skin: Warm, color reflects adequate perfusion, dry Head: Normal Head/Face inspection, atraumatic Eyes: Conjunctiva clear ENT: Normal inspection Neck: Supple, no nodes, no JVD Respiratory: Lungs clear, normal breath sounds, no respiratory distress Cardio: RRR, No murmur, pulses normal, brisk capillary refill Abdomen: Soft, nontender Bowel sounds: Present Musculoskeletal: Strength Intact/ROM intact, no calf tenderness, no edema. Psychological: Normal Neuro: Alert, muscle tone normal, no focal deficit Triage Information Reviewed: Yes Vital Signs On Initial Exam: Initial Vitals Temp Pulse Resp BP Pulse Ox 98.3 F 64 16 99/87 98 02/23/18 10:30 02/23/18 10:30 02/23/18 10:30 02/23/18 10:30 02/23/18 10:30 Vital Signs Reviewed: Yes Diagnostics - Vital Signs Vital Signs Temp Pulse Resp BP Pulse Ox 02/23/18 10:30 98.3 F 64 16 99/87 98 - Laboratory Lab Results: Lab Results 02/23/18 Range/Units 11:09 WBC 6.4 (3.5-10.8) 10^3/ul RBC 2.92 L (4.00-5.40) 10^6/ul Hgb 10.0 L (14.0-18.0) g/dl Hct 29 L (42-52) % MCV 99 H (80-94) fL MCH 34 H (27-31) pg MCHC 35 (31-36) g/dl RDW 13 (10.5-15) % Plt Count 141 L (150-450) 10^3/ul MPV 6.8 L (7.4-10.4) um3 Neut % (Auto) 80.2 (38-83) % Lymph % (Auto) 11.5 L (25-47) % Pettis % (Auto) 5.9 (0-7) % Eos % (Auto) 1.8 (0-6) % Baso % (Auto) 0.6 (0-2) % Absolute Neuts (auto) 5.2 (1.5-7.7) 10^3/ul Absolute Lymphs (auto) 0.7 L (1.0-4.8) 10^3/ul Absolute Monos (auto) 0.4 (0-0.8) 10^3/ul Absolute Eos (auto) 0.1 (0-0.6) 10^3/ul Absolute Basos (auto) 0 (0-0.2) 10^3/ul Absolute Nucleated RBC 0 10^3/ul Nucleated RBC % 0 ESR Pending Result Diagrams: 02/23/18 11:09 02/23/18 16:46 Lab Statement: Any lab studies that have been ordered have been reviewed, and results considered in the medical decision making process. - Radiology CXR Xray Interpretation: Positive (See Comments) - Elevated lung volumes suggest probable obstructive lung disease. No acute cardiopulmonary process evident. Mild nonspecific gas distention of the thoracic esophagus. ED physician reviewed radiology report. Radiology Interpretation Completed By: Radiologist - EKG 14:52 Cardiac Rate: Bradycardia - 56 bpm EKG Interpretation: 1st degree AV block, prolonged QRS (154), QTc, LAD (55), LBBB pattern EKG Comparison: No Significant Change - Consistent with 07/02/17 Sepsis Re-assessment - Sepsis Re-Assessment First Eval Re-Evaluation Time: 14:02 - Discussed admission with pt Patient's Vitals Signs: Vital Signs Temp Pulse Resp BP Pulse Ox 02/23/18 13:52 48 7 142/63 96 02/23/18 13:22 52 3 136/76 96 02/23/18 13:00 54 11 99 02/23/18 12:00 56 2 97 02/23/18 11:44 99.1 F 02/23/18 11:20 13 02/23/18 11:15 57 13 112/70 98 02/23/18 10:43 96 02/23/18 10:30 98.3 F 64 16 99/87 98 Course/Dx - Course Course Of Treatment: At 10:40 spoke to pharmacist Vivian about his doses for hemodialysis. Pt was not given sepsis fluids due to pt beign on dialysis. A CXR revealed Elevated lung volumes suggest probable obstructive lung disease. No acute cardiopulmonary process evident. Mild nonspecific gas distention of the thoracic esophagus. An EKG revealed bradycardia at 56 bpm, 1st degree AV block, prolonged QRS (154), QTc, LAD (55), LBBB pattern. - Differential Dx/Clinical Impression Provider Diagnosis: UTI (urinary tract infection), ESRD on hemodialysis - Provider Notifications Discussed Care Of Patient With: Juliann Guzman Time Discussed With Above Provider: 13:30 Instructed by Provider To: MD Will See In ED Discharge - Sign-Out/Discharge Documenting (check all that apply): Patient Departure - Admit - Discharge Plan Condition: Stable Disposition: ADMITTED TO [facility] - Attestation Statements Document Initiated by Scribe: Yes Documenting Scribe: Aranza Page Provider For Whom Scribe is Documenting (Include Credential): Yady Abdi MD Scribe Attestation: Aranza Daniel, scribed for Yady Abdi MD on 02/23/18 at 1906.
[2018-02-23 11:44] LABS: EGFR Non-African American 8.6 (>60)
--- NOTE | 2018-02-23 11:58 | RAD ---
Indication: Nausea since yesterday. Recent urinary tract infection. Comparison: September 16, 2017 CT abdomen. Technique: Upright AP 1115 hours Report: Elevated lung volumes. No focal pulmonary lesion, compelling alveolar consolidation, pleural effusion, pneumothorax. Costochondral calcifications noted. Upper normal heart size. Unremarkable central pulmonary vasculature. Mild gas distention of the thoracic esophagus. Negative for free air beneath the diaphragm. IMPRESSION: #. Elevated lung volumes suggest probable obstructive lung disease. No acute cardiopulmonary process evident. #. Mild nonspecific gas distention of the thoracic esophagus.
[2018-02-23] MEDS ORDERED: Zosyn per Pharmacy* NOTE FOLLOW UP SCH ×2 (12:00→15:00)
[2018-02-23 12:12] LABS: INR 0.95 (0.77-1.02)
[2018-02-23 12:29] LABS: Urine Appearance Cloudy; Urine Blood 2+ (Negative); Urine Color Yellow; Urine Ketones Negative (Negative); Urine Protein 2+(100 mg/dL) (Negative); Urine Red Blood Cell 2+(6-10/hpf) (Absent); Urine Specific Gravity 1.013 (1.010-1.030); Urine Urobilinogen Negative (Negative); Urine White Blood Cell 2+(11-20/hpf) (Absent)
[2018-02-23] MEDS ORDERED: Piperacillin/Tazobac ADVAN(*) 3.375 GM in NS 0.9% 100 ML* 100 ML IVPB ONE (14:42)
[2018-02-23] MEDS ORDERED: Ondansetron INJ* 2 MG/ML VIAL IV PRN (14:42)
[2018-02-23] MEDS ORDERED: Acetaminophen TAB* 325 MG PO PRN (14:42)
[2018-02-23] MEDS: ZOSYN 3.375 GM Q12H per EXTENDED INFUSION IVPB SCH ×2 (16:26)
[2018-02-23] MEDS: Sevelamer TAB* 800 MG PO SCH (17:04)
[2018-02-23 17:19] LABS: INR 0.96 (0.77-1.02)
[2018-02-23 17:25] LABS: EGFR Non-African American 8.3 (>60)
[2018-02-23] MEDS: Heparin VIAL(*) 5000 UNITS/ML VIAL (FIVE THOUSAND) SUBCUT SCH (20:23)
--- NOTE | 2018-02-23 21:09 | HP ---
CC: Dr. Morris; Dr. Duarte; Dr. Solo; Dr. Chapman * HISTORY AND PHYSICAL: DATE OF ADMISSION: 02/23/18 PRIMARY CARE PROVIDER: Dr. Morris. ATTENDING PROVIDER: Dr. Guzman * (DICTATED BY BURTON CAMP NP) HISTORY OF PRESENT ILLNESS: Mr. Montelongo is an 82-year-old male patient who has a history of hypertension, hyperlipidemia, BPH, history of end-stage renal disease, CAD, and a history of TIA. He is coming into the ED today, again he is a poor historian, along with his . I think his has underlying history of dementia, though it is unclear. According to the patient, he recently was in [place]. He was told that he had a UTI. He also was found to have positive blood cultures. According to the patient and the patient's daughter, the patient was told that Cipro should cover both bacteria; however, should he become more lethargic or weak or have any chills or feel warm, they should seek medical care. He this morning was feeling weak, was not feeling well. There was concern that the infection may be getting worse. They called the patient's primary. The primary instructed the patient to come to the ER to be evaluated. The patient came to the ED. It was noted that he appeared to have another UTI. Out of his right nephrostomy tube, the urine was collected and because of the recent reports of positive blood cultures, we were asked to evaluate. There was concern for subjective fevers and chills, although none was documented here. The patient denied having any chest pain. He denies any flank pain. He denied any abdominal pain. He denied any vomiting or diarrhea. He denies any dysuria or any penile discharge, but he does again have a chronic right-sided nephrostomy tube. They did not report any pain on that side. The patient denied flank pain on the right side and he denied having any discharge to their knowledge. He does state that he is due for a nephrostomy tube change. Again, because of the cultures and concern for fever, he came into the ED and we were asked to evaluate for admission. PAST MEDICAL HISTORY: Significant for: 1. Hypertension. 2. Hyperlipidemia. 3. BPH. 4. End-stage renal disease. 5. CAD. 6. History of TIA. PAST SURGICAL HISTORY: 1. The patient has had AV fistula. 2. Heart catheterization. MEDICATIONS: The home medications according to the list provided include: 1. Sevelamer carbonate 800 mg p.o. before meals. 2. Flomax 0.4 mg daily. 3. Lipitor 20 mg daily. 4. Aspirin 81 mg daily. 5. Lisinopril 10 mg daily. ALLERGIES TO MEDICATIONS: Include no known drug allergies. FAMILY HISTORY: Mother had a history of [place]. Father had a history of Parkinson' s. SOCIAL HISTORY: The patient is a former smoker. He does not drink alcohol. He may drink a glass of wine at night occasionally. Surrogate decision maker is his daughter. REVIEW OF SYSTEMS: Subjective chills. No documented fever. Denied any significant weight change. No double vision. No ear discharge. Denied having any rhinorrhea. No sore throat. No thyroid enlargement. Denied having any chest pain. There is no orthopnea. He did admit to nausea, but no vomiting. No dysuria, no frequency. No seizure, no loss of consciousness. No pruritus and no skin ulcerations. Review of 14 systems completed, all others negative. PHYSICAL EXAMINATION GENERAL: At this time, Mr. Montelongo is an 82-year-old male patient. He is sitting in the ED stretcher. He is chronically ill appearing. He does not appear to be in any acute distress. VITAL SIGNS: Blood pressure 142/63, pulse 51, respirations 17, O2 sat 96%, temperature 99.1. HEENT: Head: Atraumatic, normocephalic. Eyes: EOMs are intact. Sclerae anicteric and not pale. Throat: Oral mucosa appears to be moist. No oropharyngeal erythema. NECK: Supple. LUNGS: Clear to auscultation bilaterally. There are no wheezes, rales, or rhonchi. HEART: Heart sounds S1, S2. He is bradycardic. He had no murmurs, rubs, or gallops. ABDOMEN: Soft. It was flat, nontender. He had no CVA tenderness around the right neph tube. He had no pain on palpation on the abdominal exam. No CVA tenderness. NEUROLOGICAL: He is awake. He is alert. He is oriented. His speech is clear. His tongue is midline. He had no gross focal deficits. SKIN: Grossly intact. He does have a nephrostomy tube noted to the right flank which is covered with a dressing. There was again noted some purulent type discharge at that site but the skin did not appear to be erythematic. Otherwise, intact. LABORATORY DATA/DIAGNOSTIC STUDIES: Labs today revealing WBC 6.4, RBC of 2.92 , hemoglobin 10.0, hematocrit 29, platelet count of 141,000. ESR 57. INR 0.95. PTT 26.8. Sodium 140, potassium 4.1, chloride 101, bicarb 32, BUN 37, creatinine is 6.27, previous creatinines were 3.2 and 4.1. He does have a glucose of 120. Lactate 1.4. Calcium 9.0. Total bili 0.4, AST 15, ALT 12, alk phos 70. Troponin 0.03. BNP of 235. Albumin 3.7, procalcitonin 0.5. Urine showed 2+ protein, 2+ blood, 1+ leukocyte esterase, 2+ wbc's, 2+ rbc's, 1+ bacteria. He did have a chest x-ray obtained today as well. Impression: Elevated lung volumes suggest probable obstructive lung disease, no acute cardiopulmonary process evident, nonspecific gas distention into the thoracic esophagus. Old medical records were reviewed. ASSESSMENT AND PLAN: Mr. Montelongo is an 82-year-old male patient coming into the ED today with complaints of feeling warm and a little bit more weakness and fatigue. We were asked to evaluate for admission. He will be admitted under inpatient status for: 1. Urinary tract infection. I suspect this is contributing to the fact that he is weak. He apparently had positive blood cultures in hospital in [place], [place], and he also was seen in [place], [place]. I am trying to get records from those hospitals. We have cultured him here. A urine culture has been sent. I would like to get those records. Previous urine cultures here did show Klebsiella pneumonia which was ESBL producing, so we will put him on Zosyn. I did touch base with Dr. Chapman. He will evaluate. I left a note with Dr. Duarte as his neph tube will probably need to be changed that some point. I also did touch base with Dr. Solo given his end-stage renal disease. He has been pancultured. I am holding off on hydrating him as he is not hypotensive. He does not appear to be shocky. I think hydration could be more detrimental at this point given his end- stage renal disease. We will continue him on antibiotics and follow. 2. End-stage renal disease. Again, continue dialysis schedule as prescribed. 3. Hyperlipidemia. Continue his current medical regimen, stable. 4. Hypertension. Continue his lisinopril. 5. History of transient ischemic attack. Continue his aspirin. 6. Coronary artery disease. He is not on a beta-trino. He has baseline bradycardia. I am checking an EKG for this. We will continue to monitor this. He is asymptomatic. His blood pressure is stable. He has run this way previously. We are getting an EKG. 7. Transient ischemic attack. Continue with secondary prevention. 8. DVT prophylaxis. He is high risk. He will be placed on heparin subcu. 9. Code status. He is full code. 10. Fluids, electrolytes, and nutrition. He can have a renal diet. TIME SPENT: On admission was 60 minutes, greater than half the time was spent [id number] with the patient obtaining my history and physical, other half time was spent going over the plan of care with the patient and implementing plan of care. I did discuss the plan of care with my attending, Dr. Guzman; she is in agreement. BURTON CAMP NP [id number]/[facility] #: [id number] [place]
[2018-02-24] MEDS: ZOSYN 3.375 GM Q12H per EXTENDED INFUSION IVPB SCH ×4 (04:51→18:08)
[2018-02-24] MEDS: Heparin VIAL(*) 5000 UNITS/ML VIAL (FIVE THOUSAND) SUBCUT SCH ×3 (04:52→21:15)
[2018-02-24 07:23] LABS: ABS Basophils 0 10^3/ul (0-0.2); ABS Eosinophils 0.2 10^3/ul (0-0.6); ABS Monocytes 0.4 10^3/ul (0-0.8); ABS Neutrophils 4.1 10^3/ul (1.5-7.7); ABS Nucleated RBC 0 10^3/ul; Eosinophil % 3.2 % (0-6); Hematocrit 29 % (42-52); Hemoglobin 10.1 g/dl (14.0-18.0); Lymphocyte % 17.1 % (25-47); Mean Corpuscular HGB Conc 35 g/dl (31-36); Mean Corpuscular Hemoglobin 35 pg (27-31); Mean Corpuscular Volume 99 fL (80-94); Mean Platelet Volume 7.3 um3 (7.4-10.4); Nucleated Red Blood Cells % 0; Platelet Count 130 10^3/ul (150-450); Red Blood Count 2.94 10^6/ul (4.00-5.40); Red Cell Distribution Width 13 % (10.5-15); White Blood Count 5.7 10^3/ul (3.5-10.8)
[2018-02-24 07:40] LABS: EGFR Non-African American 7.2 (>60)
[2018-02-24] MEDS: Sevelamer TAB* 800 MG PO SCH ×3 (08:49→18:09)
[2018-02-24] MEDS ORDERED: Heparin DIALYSIS ONLY(*) 1,000 UNITS/ML VIAL DIALYSIS ONE (15:00)
--- NOTE | 2018-02-24 17:27 | PN ---
Subjective Date of Service: 02/24/18 Interval History: HD today. Pt and (especially) are poor historians and other than attesting to a fever at home can't relate symptoms or timeline with any specificity - for instance can't state when they were admitted to [place] hospitals. Pt main reported concern is how sad he is that he may have left his long time [place] house for the last time. No records received from [place] [facility] ([facility] [place] [facility]), asked to send request again. afebrile, no leukocytosis. Objective Active Medications: Acetaminophen (Tylenol Tab*) 650 mg PO Q4H PRN PRN Reason: FEVER/PAIN Aspirin (Aspirin Ec Tab*) 81 mg PO DAILY [facility] Atorvastatin Calcium (Lipitor*) 20 mg PO DAILY [facility] Heparin Sodium (Porcine) (Heparin Vial(*)) 5,000 units SUBCUT Q8HR [facility] Last Admin: 02/24/18 14:04 Dose: Not Given Piperacillin Sod/Tazobactam (Sod 3.375 gm/ Sodium Chloride) 100 mls @ 25 mls/ hr IVPB Q12H [facility] Last Admin: 02/24/18 04:51 Dose: 25 mls/hr Lisinopril (Prinivil Tab*) 10 mg PO DAILY [facility] Ondansetron HCl (Zofran Inj*) 4 mg IV Q6H PRN PRN Reason: NAUSEA Pharmacy Consult (Zosyn Per Pharmacy*) 1 note FOLLOW UP .ZOSYN PER PHARMACY [facility] Sevelamer Carbonate (Renvela Tab*) 800 mg PO AC [facility] Last Admin: 02/24/18 12:52 Dose: 800 mg Tamsulosin HCl (Flomax Cap*) 0.4 mg PO DAILY [facility] Vital Signs - 8 hr 02/24/18 11:20 Temperature 98.4 F Pulse Rate 49 Respiratory 16 Rate Blood Pressure 106/54 (mmHg) O2 Sat by Pulse 98 Oximetry Oxygen Devices in Use Now: None Appearance: NAD, getting dialysis. Eyes: No Scleral Icterus, PERRLA Ears/Nose/Mouth/Throat: NL Teeth, Lips, Gums, Mucous Membranes Moist Respiratory: Symmetrical Chest Expansion and Respiratory Effort, Clear to Auscultation Cardiovascular: NL Sounds; No Murmurs; No JVD, RRR Abdominal: NL Sounds; No Tenderness; No Distention, No Hepatosplenomegaly Extremities: No Edema, No Clubbing, Cyanosis Skin: No Rash or Ulcers, No Nodules or Sclerosis Neurological: Alert and Oriented x 3, NL Sensation Lines/Tubes/Other Access: Clean, Dry and Intact Other Access - AVF fistula, right percutaneous nephrostomy tube Nutrition: Taking PO's Result Diagrams: 02/24/18 06:47 02/24/18 06:47 Additional Lab and Data: Laboratory Results - last 24 hr 02/24/18 02/24/18 06:47 06:47 WBC 5.7 RBC 2.94 L Hgb 10.1 L Hct 29 L MCV 99 H MCH 35 H MCHC 35 RDW 13 Plt Count 130 L MPV 7.3 L Neut % (Auto) 71.8 Lymph % (Auto) 17.1 L Caswell % (Auto) 7.4 H Eos % (Auto) 3.2 Baso % (Auto) 0.5 Absolute Neuts (auto) 4.1 Absolute Lymphs (auto) 1.0 Absolute Monos (auto) 0.4 Absolute Eos (auto) 0.2 Absolute Basos (auto) 0 Absolute Nucleated RBC 0 Nucleated RBC % 0 Sodium 141 Potassium 4.1 Chloride 104 Carbon Dioxide 27 Anion Gap 10 BUN 48 H Creatinine 7.34 H Est GFR ( Amer) 8.7 Est GFR (Non-Af Amer) 7.2 BUN/Creatinine Ratio 6.5 L Glucose 92 Calcium 8.9 Microbiology and Other Data: Microbiology 02/23/18 12:47 Blood Venous Aerobic Blood Culture - Preliminary No Growth Day 1 02/23/18 12:47 Blood Venous Anaerobic Blood Culture - Preliminary No Growth Day 1 02/23/18 11:09 Blood Venous Aerobic Blood Culture - Preliminary No Growth Day 1 02/23/18 11:09 Blood Venous Anaerobic Blood Culture - Preliminary No Growth Day 1 Assess/Plan/Problems-Billing Assessment: 82 yo male PMH ESRD w/ 1 kidney and right percutaneous nephrostomy tube, dementia, HTN, BPH, CAD, TIA with recent UTI/bacteremia tx with cipro presents with fever and fatigue. On Zosyn. UA w/ 1+Le, 2+ wbc, 1+ bacteria. #UTI - continue empiric zosyn - f/u ID recs - f/u cultures - re-requested records from [facility] - may need to exchange right perc nephrostomy(last with Dr. Duarte 11/03/17) - procalcitonin 0.5 - no sepsis fluid bolus given ESRD #ESRD - s/p HD 02/24 - sevelamer #HTN - lisinopril 10 #CAD - aspirin 81mg daily #HLD - atorvastatin 10mg #BPH - flomax CODE: FULL dispo: medicine inpatient
[2018-02-24] MEDS: Aspirin EC TAB* 81 MG TAB.EC PO SCH (18:09)
[2018-02-24] MEDS: Lisinopril TAB* 10 MG PO SCH (18:09)
[2018-02-24] MEDS: Tamsulosin CAP* 0.4 MG PO SCH (18:17)
[2018-02-24] MEDS: Atorvastatin* 20 MG TAB PO SCH (21:15)
[2018-02-25] MEDS: ZOSYN 3.375 GM Q12H per EXTENDED INFUSION IVPB SCH ×6 (03:37→16:07)
[2018-02-25] MEDS: Heparin VIAL(*) 5000 UNITS/ML VIAL (FIVE THOUSAND) SUBCUT SCH (06:43)
[2018-02-25] MEDS: Atorvastatin* 20 MG TAB PO SCH (07:46)
[2018-02-25] MEDS: Sevelamer TAB* 800 MG PO SCH ×3 (07:47→16:05)
[2018-02-25] MEDS: Tamsulosin CAP* 0.4 MG PO SCH (07:47)
[2018-02-25] MEDS: Aspirin EC TAB* 81 MG TAB.EC PO SCH (07:47)
[2018-02-25] MEDS: Lisinopril TAB* 10 MG PO SCH (07:47)
--- NOTE | 2018-02-25 10:33 | CONS ---
CONSULTATION REPORT: DATE OF CONSULT: 02/25/18 REQUESTING PROVIDER: Srini Ralph NP CONSULTING SERVICE: Infectious Disease. REASON FOR CONSULTATION: Bacteremia. IMPRESSION: 1. Recent admission to a hospital in [place] with Escherichia coli bacteremia and Escherichia coli in his right nephrostomy as well as Klebsiella. Blood cultures here negative after some outpatient antibiotics. 2. Malaise, chills, and fever, all improving due to #1. 3. End-stage renal disease, on hemodialysis and also with right nephrostomy tube. 4. Coronary artery disease. RECOMMENDATIONS: Continue Zosyn while he is here that covers E. coli, which was in his blood and in his urine and is ready for discharge per the microbiology laborer [employer] in [place] with whom I spoke. E. coli in his blood was sensitive to everything other than tetracycline, so he could have Ancef before he goes, which would cover him until his next dialysis treatment. Otherwise I would plan on a course of about one more week of ciprofloxacin to which both the urine and blood islets were sensitive. He should have 500 mg every 24 hours as he does for hemodialysis. HISTORY OF PRESENT ILLNESS: This is an 82-year-old male with end-stage renal disease brought to the hospital with malaise. He cannot provide most of the history, which was obtained instead from his daughter and review of the medical record in discussion with Srini Ralph NP. He had been feeling unwell at their home in [place], so he was taken to the emergency room at [facility] in [place], [place]. We have blood and urine cultures taken and was discharged on ciprofloxacin. The urine culture was taken from his right nephrostomy tube, which grew E. coli and Klebsiella. The E. coli was resistant to ampicillin and cephalosporins but sensitive to Cipro. Blood cultures taken at time 2 of 2 were positive for E. coli only resistant to tetracycline. He had hemodialysis a couple of days later, but he was though lightheaded with ambulation and felt unwell, so he was sent back to the emergency room, had another dose of IV antibiotics, discharged home. His daughter went to [place] and brought them here where they spent much of their time. Because he was still feeling tired and lethargic, she brought him to the hospital on 02/23/18. His white blood cell count was 6. He was started on Zosyn. His blood cultures were negative. He has had no trouble with right nephrostomy tube, which is draining well. His energy and appetite are improved and today he has had no fever or chills since he has been here in the hospital for infection in the past. He has no other prosthetic material. He has a left upper extremity AV fistula. PAST MEDICAL HISTORY: 1. End-stage renal disease, on hemodialysis. 2. History of solitary kidney and right nephrostomy tubes. 3. Hyperlipidemia. 4. Hypertension. 5. Benign prostatic hypertrophy. 6. Coronary artery disease and history of cardiac catheterization. 7. History of TIA. MEDICATIONS: 1. Tylenol. 2. Aspirin. 3. Lipitor. 4. Heparin. 5. Subcutaneous injection. 6. Lisinopril. 7. Zosyn 3.375 g every 12 hours. 8. Sevelamer. 9. Tamsulosin. ALLERGIES: No known drug allergies. FAMILY HISTORY: No recurrent infections. SOCIAL HISTORY: Lives in [place], spent time in [place] and here he is with his and daughter. He is retired, nonsmoker. REVIEW OF SYSTEMS: All negative to 14 point review of systems except as noted above in history of present illness. PHYSICAL EXAM: Vital Signs: Temperature 36.7, heart rate 50, respiratory rate 14, blood pressure 140/60, oxygen saturation 95% on room air. In general, he is awake, not in distress. Neurologic: He is oriented x3. Follows all commands. Moves all extremities. He is hard of hearing. HEENT: There is no conjunctival hemorrhage. Oropharynx without lesions. Neck: Supple without mass. Heart: Regular rate and rhythm without murmurs, rubs, or gallops. Lungs : Clear to auscultation bilaterally. Abdomen: Soft, nontender, nondistended. There is bowel sounds present. There is a right flank nephrostomy tube without surrounding erythema or drainage. There is no flank tenderness to palpation. Skin: There is no rashes or splinter hemorrhage. Musculoskeletal: There is no spine tenderness to palpation. DIAGNOSTIC STUDIES/LAB DATA: Lab data, creatinine 7, potassium 4. White blood cell count 5, hemoglobin 10, MCV 99, platelets 130. Please see impression and recommendations as outlined above, which I have discussed with Dr. Edwards. Thanks for asking me to see Mr. Montelongo in consultation. [id number]/[facility] #: [id number] [facility] HOSPITALBalwinder
[2018-02-25] MEDS ORDERED: fentaNYL* 50 MCG/ML 2 ML VIAL (100 MCG VIAL) ONE (12:08)
[2018-02-25 14:55] VITALS: BP 110/56
--- NOTE | 2018-02-25 16:41 | RAD ---
CPT II Codes: G9500 Indication: Routine exchange in a patient with sepsis History: Chronic ureteral obstruction. Anaesthesia: Lidocaine 1% locally and IV fentanyl Antibiotic prophylaxis: None Contrast: 15 mL of Omnipaque 300 Fluoroscopy time: 85 seconds Procedure note and findings: Emergency informed consent was obtained from the managing hospitalist due to urgent medical necessity. The patient was appropriately positioned on the fluoroscopy table in the prone position and a formal time out was performed. The percutaneous nephrostomy tube and surrounding site was prepped and draped in standard sterile fashion. Sterile precautions including cap, mask, gown and sterile gloves were utilized. The skin surrounding the tube exit site was anesthetized with lidocaine. Injection of dilute contrast into the existing PCN tube demonstrated the pigtail loop to be positioned appropriately in the collecting system. The existing nephrostomy catheter tube was cut to release the pigtail loop. A 0.035" wire was inserted into the tube under fluoroscopic control to preserve access percutaneously into the collecting system. Under fluoroscopic guidance the tube was gently removed over the wire with the wire retaining access into the collecting system. Over the wire a new 12 Senegalese pigtail catheter was inserted into the collecting system. The wire and inner stiffener were removed under fluoroscopic control leaving the pigtail loop positioned in the collecting system. A small amount of dilute contrast was injected into the new catheter further confirming appropriate position. The pigtail loop was secured into place and the string was cut. The nephrostomy catheter was connected to a sterile drainage bag. The new percutaneous nephrostomy catheter was secured to the skin with 2-0 Surgipro tied in a "Ronni sandal" configuration. Finally the site was dressed with sterile gauze and Tegaderm. The patient tolerated the procedure well and was observed in the IR holding area prior to discharge. IMPRESSION: 1. Injection of contrast into the existing percutaneous nephrostomy catheter demonstrated appropriate position of the pigtail loop in the collecting system. 2. Over a wire the existing percutaneous nephrostomy catheter was exchanged for a new 12 Senegalese pigtail catheter.
--- NOTE | 2018-02-26 03:33 | DS ---
DISCHARGE SUMMARY: DATE OF ADMISSION: 02/23/18 DATE OF DISCHARGE: 02/25/18 ADMITTING PROVIDER: Srini Ralph NP ATTENDING PHYSICIAN: Mika Edwards MD PRIMARY CARE PHYSICIAN: Dr. Morris. CHIEF COMPLAINT: Fever. PRINCIPAL DIAGNOSES: Fever in the setting of chronic indwelling right percutaneous nephrostomy tube and recent E. coli UTI/bacteremia with suspicion _ for recurrent UTI infection. HISTORY OF PRESENT ILLNESS AND HOSPITAL COURSE: Duarte Montelongo is an 82-year-old male with past medical history of hypertension, hyperlipidemia, BPH, end-stage renal disease on hemodialysis Thursday, Thursday, Thursday, CAD, TIA, recent admission at [facility] in [place], [place], where he was found to have E. coli and Klebsiella from urine culture of his right nephrostomy tube ( resistant to ampicillin and cephalosporins, but sensitive to Cipro and that is in reference to the E. coli) and 2/2 blood cultures positive for E. coli resistant only to tetracycline. He was discharged and came back a few days later to the emergency room after hemodialysis, lightheaded with ambulation and got another dose of IV antibiotics and then discharged home. He had been on oral ciprofloxacin. His daughter, Sherice, drove to [place] and brought them home and then took them to the hospital because of concern for repeated fevers. Of note, both the patient and his were incredibly poor historians, unable to say much of anything about symptoms or timings thereof. His initial workup at [facility] showed a T-max of 99.1, absence of white count at 6.4, BNP of 235, CRP of 13.94, and a creatinine of 6.27. He had a urinalysis which demonstrated 2+ protein, 2+ blood, 1+ leukocyte esterase, 2+ wbc's, 2+ rbc 's and 1+ bacteria and was started on Zosyn again with his remote history of ESBL Klebsiella pneumonia on urine culture of 06/28/17 that was resistant to cephalosporins (though notably sensitive to Cipro). Infectious Disease consultation was entertained and Dr. Amaury Chapman found most of the pertinent information in the above HPI as records were not immediately available from either of the 2 [place] hospitals. He recommended exchange of the right nephrostomy tube and this was entertained with Dr. Duarte on the day of discharge, and of note, who had placed the previous one back in October, this was without complication. Further recommendations include 1 more week of ciprofloxacin 500 mg daily given the potential infection that the original nephrostomy tube represented. Notably, his urine culture ultimately grew no growth and the patient was afebrile throughout the admission, his blood culture has been negative x2 days. The patient and his were eager for discharge and it was confirmed that they already have their care lined up for hemodialysis Thursday, Thursday, Thursday. They should follow with Dr. Morris within 7 days of discharge and repeat nephrostomy approximately every [address] Duarte. DISCHARGE MEDICATIONS: Include: 1. Aspirin 81 mg daily. 2. Atorvastatin 20 mg daily. 3. Ciprofloxacin 500 mg p.o. daily for 7 tablets (new). 4. Lisinopril 10 mg daily. 5. Sevelamer 800 mg p.o. a.c. 6. Tamsulosin 0.4 mg p.o. daily. DISCHARGE DIET: Heart-healthy and renal diet. ACTIVITY LEVEL: No restrictions. FOLLOW-UP: Please follow up with Dr. Morris within [address] Duarte within 3 months for repeat nephrostomy exchange. TIME SPENT ON DISCHARGE: Thirty five minutes. [id number]/[facility] #: [id number] ANTON
== END 2018-02-25 16:35 | disposition home or self-care (01) | DRG 698 ==
LOC: ED 10:28 → MED 15:00
PROVIDERS: ADMIT Hospitalist; ATTEND Internal Medicine
PROC: 5A1D70Z Performance of Urinary Filtration, Intermittent, Less than 6 Hours Per Day (ICD-10-PCS; principal; 2018-02-24)
PROC: 0T25X0Z Change Drainage Device in Kidney, External Approach (ICD-10-PCS; 2018-02-25)
DX: T83.518A Infection and inflammatory reaction due to other urinary catheter, initial encounter (principal); N18.6 End stage renal disease; N39.0 Urinary tract infection, site not specified; 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 with stage 5 chronic kidney disease or end stage renal disease; Q60.0 Renal agenesis, unilateral; H91.93 Unspecified hearing loss, bilateral; I44.30 Unspecified atrioventricular block; F03.90 Unspecified dementia, unspecified severity, without behavioral disturbance, psychotic disturbance, mood disturbance, and anxiety; N40.0 Benign prostatic hyperplasia without lower urinary tract symptoms; I25.10 Atherosclerotic heart disease of native coronary artery without angina pectoris; E78.5 Hyperlipidemia, unspecified; Y73.2 Prosthetic and other implants, materials and accessory gastroenterology and urology devices associated with adverse incidents; N99.521 Infection of incontinent external stoma of urinary tract; Y73.1 Therapeutic (nonsurgical) and rehabilitative gastroenterology and urology devices associated with adverse incidents; Y84.6 Urinary catheterization as the cause of abnormal reaction of the patient, or of later complication, without mention of misadventure at the time of the procedure; Z16.11 Resistance to penicillins; Z16.19 Resistance to other specified beta lactam antibiotics; B96.20 Unspecified Escherichia coli [E. coli] as the cause of diseases classified elsewhere; Z79.82 Long term (current) use of aspirin; Z99.2 Dependence on renal dialysis; Z97.4 Presence of external hearing-aid; Z86.73 Personal history of transient ischemic attack (TIA), and cerebral infarction without residual deficits; Z87.440 Personal history of urinary (tract) infections; Y92.9 Unspecified place or not applicable; Z72.89 Other problems related to lifestyle; Z82.49 Family history of ischemic heart disease and other diseases of the circulatory system
CPT/HCPCS: 36415; 50435; 71045; 80048; 80053; 81003; 81015; 82550; 82565; 83605; 83880; 84145; 84484; 84520; 85025; 85384; 85610; 85652; 85730; 86140; 87040; 87086; 90686; 93005; 99284; A9270-GY; C1887; C1894; J1644; J2543; J3010; Q9967

== ENCOUNTER → 2018-07-02 09:16 | Day surgery (SDC) | payer MEDICARE, BC ==
[~2018-07-02 09:16] MED LIST: Heparin 2 UNITS/ML IVPREMIX* 1,000 ML IV ONE; Iodixanol 320 (CONTRAST) 100 ML SDV ONE; Lidocaine 1% INJ* 10 MG/ML 30 ML SDV ONE; Midazolam* 1 MG/ML 10 ML VIAL (10 MG) ONE; fentaNYL* 50 MCG/ML 2 ML VIAL (100 MCG VIAL) ONE
[2018-07-02 15:27] VITALS: BP 177/75
== END | disposition home or self-care (01) ==
LOC: CHICATH 09:16
PROVIDERS: ATTEND Radiology Diagnostic Radiology
DX: T82.858A Stenosis of other vascular prosthetic devices, implants and grafts, initial encounter (principal); N18.6 End stage renal disease; I25.10 Atherosclerotic heart disease of native coronary artery without angina pectoris; Z87.891 Personal history of nicotine dependence; I08.0 Rheumatic disorders of both mitral and aortic valves; D64.9 Anemia, unspecified; R00.1 Bradycardia, unspecified; I12.9 Hypertensive chronic kidney disease with stage 1 through stage 4 chronic kidney disease, or unspecified chronic kidney disease; E78.5 Hyperlipidemia, unspecified; I45.10 Unspecified right bundle-branch block
CPT/HCPCS: 36901; 36902; 76937; 99156; 99157; C1725; C1769; C1887; J1644; J2250; J3010

== ENCOUNTER → 2018-08-07 15:23 | Emergency (ER) | payer MEDICARE, BC ==
[2018-08-07 15:58] VITALS: BP 110/50
--- NOTE | 2018-08-07 17:51 | ED ---
Upper Extremity Pain - HPI Summary HPI Summary: 82-year-old male presents with left hand injury a week ago. He states he fell on his outstretched hand. he has pain over his thumb. Denies any elbow pain. He did not hit his head. He states he didd chipped his front tooth. He denies any jaw pain. No loss consciousness. Is not on blood thinners. No nausea or vomiting. No headache. No neck pain. No other injury. Has noticed decreased lab rep strength though. - History of Current Complaint Chief Complaint: EDExtremityUpper Stated Complaint: FELL, INJURED LEFT HAND Time Seen by Provider: 08/07/18 17:38 - Allergies/Home Medications Allergies/Adverse Reactions: Allergies Allergy/AdvReac Type Severity Reaction Status Date / Time No Known Allergies Allergy Verified 11/03/17 08:15 PMH/Surg Hx/FS Hx/Imm Hx Endocrine/Hematology History: Denies: Hx Anticoagulant Therapy Cardiovascular History: Denies: Hx Pacemaker/ICD History: Reports: Hx Chronic Renal Failure, Hx Dialysis - CURRENT, Hx Renal Disease, Other Problems/Disorders - states he has only ever had one kidney, nephrostomy tube on R Sensory History: Reports: 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 hernia Hx Anesthesia Reactions: No Infectious Disease History: No Infectious Disease History: Denies: Traveled Outside the [place] in Last 30 Days - Family History Known Family History: Positive: Hypertension - Social History Alcohol Use: Occasionally Alcohol Amount: 1 nightcap per day Hx Substance Use: No Substance Use Type: Reports: None Smoking Status (MU): Never Smoked Tobacco Review of Systems Negative: Fever Negative: Chest Pain Negative: Shortness Of Breath Positive: Myalgia - left hand pain All Other Systems Reviewed And Are Negative: Yes Physical Exam Triage Information Reviewed: Yes Vital Signs On Initial Exam: Initial Vitals Temp Pulse Resp BP Pulse Ox 97.3 F 63 14 110/50 98 08/07/18 15:55 08/07/18 15:55 08/07/18 15:55 08/07/18 15:55 08/07/18 15:55 Vital Signs Reviewed: Yes Appearance: Positive: Well-Appearing Skin: Positive: Warm, Dry, Other - ecchymosis noted to left thumb Head/Face: Positive: Normal Head/Face Inspection Eyes: Positive: Normal, Conjunctiva Clear ENT: Positive: Pharynx normal Respiratory/Lung Sounds: Positive: Clear to Auscultation, Breath Sounds Present Cardiovascular: Positive: Normal, RRR Musculoskeletal: Positive: Strength/ROM Intact - left hand, Other - pos snuff box tenderness, good pulses, sensation grossly intact. able to oppose all fingers Neurological: Positive: Normal Psychiatric: Positive: Normal Diagnostics - Vital Signs Vital Signs Temp Pulse Resp BP Pulse Ox 08/07/18 15:55 97.3 F 63 14 110/50 98 - Laboratory Lab Statement: Any lab studies that have been ordered have been reviewed, and results considered in the medical decision making process. - Radiology hand Radiology Interpretation Completed By: Radiologist Summary of Radiographic Findings: IMPRESSION: OSTEOPENIA. OSTEOARTHRITIS. NO ACUTE OSSEOUS INJURY. IF SYMPTOMS PERSIST, RECOMMEND REPEAT IMAGING Course/Dx - Course Course Of Treatment: 82-year-old male presents with left hand injury a week ago. He states he fell on his outstretched hand. he has pain over his thumb. Denies any elbow pain. He did not hit his head. He states he didd chipped his front tooth. He denies any jaw pain. No loss consciousness. Is not on blood thinners. No nausea or vomiting. No headache. No neck pain. No other injury. Has noticed decreased lab rep strength though. On exam has tenderness over the thumb and snuffbox tenderness. Neurovascular intact. X-ray shows no fracture. With tenderness of snuff box placed in a prefabrinated thumb spica splint. Told to keep splint on the area and to follow-up with orthopedic or primary. Patient understands and agrees with plan. - Diagnoses Differential Diagnosis/HQI/PQRI: Positive: Fracture (Closed), Strain, Sprain Provider Diagnoses: Injury of left hand Discharge - Sign-Out/Discharge Documenting (check all that apply): Patient Departure Patient Received Moderate/Deep Sedation with Procedure: No - Discharge Plan Condition: Good Disposition: HOME Patient Education Materials: R.I.C.E. Treatment (ED) Referrals: Mayda Morris MD [Primary Care Provider] - César Love MD [Medical Doctor] - Additional Instructions: leave splint on the area as much as possible ice, elevate Take tyenlol as needed for pain every 6 hours Follow up with primary or ortho Return to ED if develop any new or worsening symptoms - Billing Disposition and Condition Condition: GOOD Disposition: Home
== END | disposition home or self-care (01) ==
LOC: ED 15:23
DX: S69.92XA Unspecified injury of left wrist, hand and finger(s), initial encounter (principal); M79.642 Pain in left hand; W19.XXXA Unspecified fall, initial encounter; Y92.9 Unspecified place or not applicable; M85.80 Other specified disorders of bone density and structure, unspecified site
CPT/HCPCS: 99282

== ENCOUNTER 2019-01-29 08:10 | Emergency (ER) | payer MEDICARE, BC ==
--- NOTE | 2019-01-29 08:35 | ED ---
HPI Chest Pain - HPI Summary HPI Summary: The pt is an 83 yr old male presenting to [facility] via EMS c/o CP beginning 2 hours DECK SCALER. He states that he woke up this morning at 0600 because of CP and took an aspirin, which helped. After the pain subsided somewhat he went back to sleep. After 1 more hour of sleeping he woke up again with CP and was now feeling nauseous. At the time of onset he rates his pain severity a 5/10 but states that it has since resolved and rates his current pain severity a 0/10. He also reports chronic rhinorrhea. He has Hx of bradycardia and coronary stent. - History of Current Complaint Time Seen by Provider: 01/29/19 08:20 Hx Obtained From: Patient, Family/Access Developer - Daughter Onset/Duration: Started Hours Ago Timing: Lasting Hours Initial Severity: Moderate - 5/10 Current Severity: None Pain Intensity: 0 Pain Scale Used: 0-10 Numeric Chest Pain Location: Diffuse Chest Pain Radiates: No Aggravating Factor(s): Nothing Alleviating Factor(s): Other: - Aspirin Associated Signs and Symptoms: Positive: Shortness of Breath, Nausea, Other: - pos - rhinorrhea - Additional Pertinent History Primary Care Physician: [id number] - Allergy/Home Medications Allergies/Adverse Reactions: Allergies Allergy/AdvReac Type Severity Reaction Status Date / Time No Known Allergies Allergy Verified 11/03/17 08:15 PMH/Surg Hx/FS Hx/Imm Hx Endocrine/Hematology History: Denies: Hx Anticoagulant Therapy Cardiovascular History: Denies: Hx Pacemaker/ICD History: Reports: Hx Chronic Renal Failure, Hx Dialysis - CURRENT, Hx Renal Disease, Other Problems/Disorders - states he has only ever had one kidney, nephrostomy tube on R Sensory History: Reports: 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 hernia Hx Anesthesia Reactions: No Infectious Disease History: No Infectious Disease History: Denies: Traveled Outside the US in Last 30 Days - Family History Known Family History: Positive: Hypertension - Social History Alcohol Use: Occasionally Alcohol Amount: 1 nightcap per day Hx Substance Use: No Substance Use Type: Reports: None Smoking Status (MU): Never Smoked Tobacco Review of Systems Positive: Other - pos - rhinorrhea Positive: Chest Pain - since resolved Positive: Shortness Of Breath Positive: Nausea All Other Systems Reviewed And Are Negative: Yes Physical Exam - Summary Physical Exam Summary: GENERAL: Patient is a well-developed and nourished male who is lying comfortable in the stretcher. Patient is not in any acute respiratory distress. HEAD AND FACE: Normocephalic EYES: PERRLA, EOMI x 2. EARS: Hearing grossly intact. MOUTH: Oropharynx within normal limits. NECK: Supple, trachea is midline, no adenopathy, no JVD, no carotid bruit. CHEST: Symmetric, no tenderness at palpation LUNGS: Clear to auscultation bilaterally. No wheezing or crackles. CVS: Slow heart rate, regular rhythm, S1 and S2 present, no murmurs or gallops appreciated. ABDOMEN: Soft, non-tender. Bowel sounds are normal. No abnormal abdominal pulsations. EXTREMITIES: Full ROM in all major joints, no edema, no cyanosis or clubbing. NEURO: Alert and oriented x 3. No acute neurological deficits. Speech is normal and follows commands. SKIN: Dry and warm Triage Information Reviewed: Yes Vital Signs On Initial Exam: Initial Vitals Temp Pulse Resp BP Pulse Ox 97.7 F 53 16 181/80 95 01/29/19 08:19 01/29/19 08:19 01/29/19 08:19 01/29/19 08:19 01/29/19 08:19 Vital Signs Reviewed: Yes Diagnostics - Vital Signs Vital Signs Temp Pulse Resp BP Pulse Ox 01/29/19 08:19 97.7 F 53 16 181/80 95 - Laboratory Result Diagrams: 01/29/19 09:25 01/29/19 09:25 Lab Statement: Any lab studies that have been ordered have been reviewed, and results considered in the medical decision making process. - Radiology CXR Radiology Interpretation Completed By: Radiologist Summary of Radiographic Findings: IMPRESSION: #. Low lung volumes for this patient with the prior exam documenting elevated lung. volumes/emphysema. #. Subsegmental atelectasis. #. No evidence for pneumonia or pulmonary edema. ED Physician has reviewed this report. - EKG 0818 Cardiac Rate: NL - 61 bpm EKG Rhythm: Sinus Rhythm Summary of EKG Findings: Sinus Rhythm @ 61 BPM. Prolonged MN. RBBB. LAFB. Chest Pain Course/Dx - Course Course Of Treatment: The pt is an 83 yr old male presenting to [facility] via EMS c/ o CP beginning 2 hours DECK SCALER. The physical exam is only notable for slow heart rate. Test results normal except for RBC @ 3.38, Hgb @ 11.7, Hct @ 35, MCV @ 104 , MCH @ 35, Plt Count @ 139, MPV @ 6.6, Absolute Lymphs @ 0.4, BUN @ 50, Creatinine @ 6.11, Glucose @ 101, AST @ 12, and BNP @ 441. A CXR reveals: #. Low lung volumes for this patient with the prior exam documenting elevated lung. volumes/emphysema. #. Subsegmental atelectasis. #. No evidence for pneumonia or pulmonary edema. A EKG reveals Sinus Rhythm @ 61 BPM. Prolonged MN. RBBB. LAFB. The case was discussed with hospitalist. I discussed results with patient. The hospitalist discussed a possible admission with the pt @ 1300 but the pt is not willing to be admitted. The pt will be discharged AMA after his 3rd troponin. - Diagnoses Provider Diagnoses: Chest pain - Provider Notifications Discussed Care Of Patient With: Med Bhanuindra - pt will be discharged AMA after 3rd troponin. Time Discussed With Above Provider: 10:00 Discharge - Sign-Out/Discharge Documenting (check all that apply): Patient Departure - discharge Patient Received Moderate/Deep Sedation with Procedure: No - Discharge Plan Condition: Stable Disposition: HOME Patient Education Materials: Chest Pain (ED) Referrals: Marielos Walker MD [Primary Care Provider] - 3 Days - Billing Disposition and Condition Condition: STABLE Disposition: Home - Attestation Statements Document Initiated by Leife: Yes Documenting Scribe: Rosalio Bryan Provider For Whom Kaia is Documenting (Include Credential): Saeid Dickey MD Scribtete Attestation: Rosalio Daniel, leifed for Saeid Dickey MD on 01/29/19 at 1713. Scribe Documentation Reviewed: Yes Provider Attestation: The documentation as recorded by the Rosalio eden accurately reflects the service I personally performed and the decisions made by , Saeid Dickey MD Status of Scribe Document: Viewed
[2019-01-29 09:35] LABS: ABS Eosinophils 0.1 10^3/ul (0-0.6); ABS Lymphocytes 0.4 10^3/ul (1.0-4.8); ABS Monocytes 0.3 10^3/ul (0-0.8); ABS Neutrophils 4.4 10^3/ul (1.5-7.7); Eosinophil % 1.5 %; Hematocrit 35 % (42-52); Hemoglobin 11.7 g/dL (14.0-18.0); Lymphocyte % 7.6 %; Mean Corpuscular HGB Conc 33 g/dL (31-36); Mean Corpuscular Hemoglobin 35 pg (27-31); Mean Corpuscular Volume 104 fL (80-94); Mean Platelet Volume 6.6 fL (7.4-10.4); Platelet Count 139 10^3/uL (150-450); Red Blood Count 3.38 10^6 /uL (4.18-5.48); Red Cell Distribution Width 15 % (10-15); White Blood Count 5.2 10^3/uL (3.5-10.8)
[2019-01-29 09:44] LABS: INR 1.05 (0.82-1.09)
[2019-01-29 10:02] LABS: Calcium 9.4 mg/dL (8.6-10.3); Magnesium 2.5 mg/dL (1.9-2.7); Potassium 4.2 mmol/L (3.5-5.0); Total Bilirubin 0.5 mg/dL (0.2-1.0)
[2019-01-29] MEDS ORDERED: Aspirin 81 mg CHEW TAB* 81 MG TAB.CHEW PO ONE (10:04)
[2019-01-29 10:06] LABS: Troponin I 0.02 ng/mL (<0.04)
[2019-01-29 10:08] LABS: Albumin/Globulin Ratio 1.5 (1-3); BUN/Creatinine Ratio 8.2 (8-20); EGFR African American 10.7 (>60); EGFR Non-African American 8.9 (>60); Globulin 2.6 g/dL (2-4); Total Protein 6.6 g/dL (6.4-8.9)
[2019-01-29 15:41] VITALS: BP 143/68
--- NOTE | 2019-01-29 20:35 | CONS ---
CC: Dr. Walker * [facility]: DATE OF CONSULT: 01/29/19 - EMERGENCY DEPT PRIMARY CARE PHYSICIAN: Dr. Walker. ATTENDING PHYSICIAN: Dr. Med Clifton (dictation provided by Birdie Butterfield NP) . REASON FOR CONSULT: Question regarding need for admission. HISTORY OF PRESENT ILLNESS: Mr. Montelongo is an 83-year-old male with a past medical history of coronary artery disease with PCI in 2004, who follows with Dr. Ahumada as well as hyperlipidemia, hypertension, and BPH, who presented to the emergency room today with concern for chest pain. Mr. Montelongo states that he had chest pain on awakening this morning at 6 a.m. He went back to sleep briefly, but then woke up and felt nauseous. He discussed this with his family and they recommended that he come to the emergency room. He states that he is chest pain free now. He did just follow up recently with Dr. Ahumada in October and there were no acute issues at that time and no plans for any further interventions and he was to continue the current medical plan. The patient states that prior to having chest pain today he had been in his normal state of health. In the emergency room, Mr. Montelongo had labs which showed a troponin which was 0.02. He had an EKG which showed no evidence of ischemia. He has BUN and creatinine elevated consistent with his history of end-stage renal disease. His potassium is 4.2. Mr. Montelongo was supposed to go to dialysis today, but missed it due to this episode of chest pain. PAST MEDICAL HISTORY: 1. End-stage renal disease, on hemodialysis. 2. CAD with PCI in 2004. 3. Hypertension. 4. Hyperlipidemia. 5. BPH. 6. History of TIA. MEDICATIONS: 1. Flomax 0.4 mg p.o. daily. 2. Sevelamer with meals. 3. Multivitamin daily. 4. Lisinopril 10 mg p.o. daily. 5. Calcium carbonate daily. 6. Atorvastatin 20 mg daily. 7. Aspirin 81 mg daily. FAMILY HISTORY: Reviewed and noncontributory. SOCIAL HISTORY: No report of alcohol or tobacco use. The patient's family is at the bedside and his and daughter are the healthcare proxies. REVIEW OF SYSTEMS: A 14-point review of systems was completed with Mr. Montelongo and all other than those mentioned above were negative. PHYSICAL EXAM: Vital Signs: Temperature 97.7, pulse rate 52, respiratory rate 14, O2 saturation 96% on room air, blood pressure 143/68. General: Mr. Montelongo is sitting in the bed with his and daughter at the bedside. Neuro: He is alert. He is oriented x3. He moves all extremities equally. There is no facial asymmetry or focal weakness. Extraocular movements are intact. Heart: S1, S2. No murmur, rub, or gallop and regular. Lungs are clear to auscultation bilaterally with no accessory muscle use and good aeration. The abdomen is soft, nontender with bowel sounds positive x4. Extremities: No cyanosis or edema. Skin is intact. DIAGNOSTIC STUDIES/LAB DATA: Sodium 139, potassium 4.2, chloride 101, serum bicarbonate 29, BUN 50, creatinine 6.11, glucose 101, lactic acid 0.6. AST 12, ALT 9, alk phos 83. Troponin 0.02. WBC 5.2, hemoglobin 11.7, hematocrit 35, platelet count 139. INR 1.05. The EKG shows a sinus rhythm with no evidence of ischemia. ASSESSMENT AND PLAN: Mr. Montelongo is an 83-year-old male with past medical history of coronary artery disease with percutaneous coronary intervention, hypertension, hyperlipidemia, and end-stage renal disease, on hemodialysis, who presents today to the hospital with concern for chest pain. Our recommendations are as follows: Chest pain. The patient's first 2 troponins are actually negative at 0.02 and 0.02. I have recommended to the patient that he stay for a third troponin and for a transthoracic echocardiogram tomorrow. Unfortunately, transthoracic echocardiograms are not available today in our hospital. After a long discussion with the patient, his and his daughter, they would prefer to only complete a third troponin and then be discharged against medical advice. I have spoken to them at length about this. They understand that though the 3 negative troponins are reassuring, that without further workup, I do not feel comfortable that he is safe for discharge. I have completed the AMA paperwork with them and outlined for them our plan which would be for telemetry monitoring and echocardiogram and the possible negative side effects of not following through with this including, but not limited to, worsening chest pain , myocardial infarction, or even possibly sudden cardiac . They state understanding of such and they are advocating for the patient to be discharged to home. They will be following very closely with his primary care physician and his beater dumper, Dr. Ahumada, for further testing and for evaluation. They will also be following up with Dr. Solo regarding completion of dialysis. I reviewed this with Dr. Dickey and she is aware that the patient and his family are asking to sign out against medical advice and that this paperwork has been completed. Discharged to home against medical advice. The patient's condition is guarded. TIME SPENT: Approximately 60 minutes was spent on the consultation of this patient, more than half the time spent with the patient at the bedside reviewing the events leading up to this hospitalization, performing the physical examination, and reviewing my plan of care. BIRDIE BUTTERFIELD NP [id number]/CPS #: [id number] MTDD
== END 2019-01-29 15:39 | disposition home or self-care (01) ==
LOC: ED 08:10
DX: R07.9 Chest pain, unspecified (principal); 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 with stage 5 chronic kidney disease or end stage renal disease; N18.6 End stage renal disease; Z99.2 Dependence on renal dialysis; Q60.0 Renal agenesis, unilateral; I25.10 Atherosclerotic heart disease of native coronary artery without angina pectoris; E78.5 Hyperlipidemia, unspecified; N40.0 Benign prostatic hyperplasia without lower urinary tract symptoms; Z86.73 Personal history of transient ischemic attack (TIA), and cerebral infarction without residual deficits; Z79.899 Other long term (current) drug therapy; Z79.82 Long term (current) use of aspirin; J98.11 Atelectasis
CPT/HCPCS: 36415; 71045; 80053; 83605; 83735; 83880; 84484; 85025; 85610; 85730; 93005; 99285

== ENCOUNTER 2019-04-11 11:37 | Inpatient (IN) | payer MEDICARE, BC ==
--- NOTE | 2019-04-11 12:16 | ED ---
GI/ HPI - HPI Summary HPI Summary: Pt is an 83 y/o M presenting to the ED for a chief complaint of hematuria and malodorous urine. Pt is present with his and was previously here with his daughter. Pts daughter, Last, states the pt had red urine on the morning of 04/11/19 with chills, a fever of 100.0 F, and increased generalized weakness over the last 2 days. Pt feels improved lying on a bed and worse with movement. Pt has a cough that feels like a frog in the throat. Pt denies any erythema of eyes, sore throat, CP, SOB, abdominal pain, N/V, dysuria, myalgia, back pain , edema, rash, or dizziness. Pt receives dialysis through the arm and receives treatments on Tuesdays, , and Saturdays. Pt denies missing a dialysis treatment. Pt sees Dr. Deshawn Solo, a casting machine adjuster. Pt has a nephrostomy tube. Pts primary care provider is Dr. Walker. - History of Current Complaint Chief Complaint: EDUrogenitalProblems Stated Complaint: RED URINE/FEVER PER DAUGHTER Hx Obtained From: Patient, Family/Web Content Director - Daughter Onset/Duration: Started Minutes Ago, Atraumatic, Still Present Timing: Constant, Lasting Minutes Severity: Moderate Current Severity: Moderate Pain Intensity: 5 Location of Pain: Diffuse Associated Signs and Symptoms: Positive: Weakness - Generalized, Fever - 100.0 F , in vitals, 98.8 F, Hematuria, Chills, Cough. Negative: Dizziness, Nausea, Vomiting, Dysuria, Abdominal Pain, Chest Pain Aggravating Factor(s): Movement, Movement Alleviating Factor(s): Rest - Additional Pertinent History Primary Care Physician: [id number] - Allergy/Home Medications Allergies/Adverse Reactions: Allergies Allergy/AdvReac Type Severity Reaction Status Date / Time No Known Allergies Allergy Verified 04/11/19 11:58 Home Medications: Home Medications Acetaminophen TAB* [Tylenol TAB*] 650 mg PO Q4H PRN 04/11/19 [History Confirmed 04/11/19] Patiromer POWDER* [Veltassa POWDER*] 8.4 gm PO DAILY 04/11/19 [History Confirmed 04/11/19] Sevelamer TAB* [Renvela TAB*] 1,600 mg PO .DINNER 04/11/19 [History Confirmed ] Sodium Polystyrene ORAL.MARTHA* [Kayexalate ORAL.MARTHA*] 15 gm PO ONCE 04/11/19 [ History Confirmed 04/11/19] PMH/Surg Hx/FS Hx/Imm Hx Previously Healthy: Yes Endocrine/Hematology History: Denies: Hx Anticoagulant Therapy Cardiovascular History: Denies: Hx Pacemaker/ICD GI History: Reports: Other GI Disorders - Hx dialysis History: Reports: Hx Chronic Renal Failure, Hx Dialysis - CURRENT, Hx Renal Disease, Other Problems/Disorders - states he has only ever had one kidney, nephrostomy tube on R Sensory History: Reports: 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 hernia Hx Anesthesia Reactions: No Infectious Disease History: No Infectious Disease History: Denies: Traveled Outside the [place] in Last 30 Days - Family History Known Family History: Positive: Hypertension - Social History Alcohol Use: Occasionally Alcohol Amount: 1 nightcap per day Hx Substance Use: No Substance Use Type: Reports: None Hx Tobacco Use: No Smoking Status (MU): Never Smoked Tobacco Review of Systems Positive: Fever - 100.0 F, in vitals, 98.8 F, Chills Negative: Erythema Negative: Sore Throat Negative: Chest Pain Positive: Cough. Negative: Shortness Of Breath Negative: Abdominal Pain, Vomiting, Nausea Positive: hematuria, other - Positive malodorous urine. Negative: dysuria Negative: Myalgia - Negative back pain, Edema Negative: Rash Neurological: Other - Negative dizziness Positive: Weakness - Generalized All Other Systems Reviewed And Are Negative: Yes Physical Exam - Summary Physical Exam Summary: Constitutional: Well-developed, Well-nourished, Alert. (-) Distressed. Right- sided nephrostomy tube. Skin: Warm, Dry HENT: Normocephalic; Atraumatic Eyes: Conjunctiva normal Neck: Musculoskeletal ROM normal neck. (-) JVD, (-) Stridor, (-) Tracheal deviation Cardio: Rhythm regular, rate normal, Heart sounds normal; Intact distal pulses; The pedal pulses are 2+ and symmetric. Radial pulses are 2+ and symmetric. (-) Murmur Pulmonary/Chest wall: Effort normal. (-) Respiratory distress, (-) Wheezes, (-) Rales Abd: Soft, (-) tenderness, (-) Distension, (-) Guarding, (-) Rebound Musculoskeletal: (-) Edema Lymph: (-) Cervical adenopathy Neuro: Alert, Oriented x3 Psych: Mood and affect Normal Triage Information Reviewed: Yes Vital Signs On Initial Exam: Initial Vitals Temp Pulse Resp BP Pulse Ox 98.8 F 59 20 157/67 98 04/11/19 11:53 04/11/19 11:53 04/11/19 11:53 04/11/19 11:53 04/11/19 11:53 Vital Signs Reviewed: Yes Procedures - Sedation Patient Received Moderate/Deep Sedation with Procedure: No Diagnostics - Vital Signs Vital Signs Temp Pulse Resp BP Pulse Ox 04/11/19 11:53 98.8 F 59 20 157/67 98 - Laboratory Result Diagrams: 04/11/19 12:37 04/11/19 12:37 Lab Statement: Any lab studies that have been ordered have been reviewed, and results considered in the medical decision making process. - EKG 12:08 Cardiac Rate: Bradycardia - 49 BPM EKG Rhythm: Sinus Bradycardia ST Segment: Normal Ectopy: None Summary of EKG Findings: EKG at 12:08 shows 49 BPM with sinus or ectopic atrial bradycardia, no STEMI. Reviewed and interpreted by ED physician. GIGU Course/Dx - Course Course Of Treatment: Pt is an 83 y/o M presenting to the ED for a chief complaint of hematuria and malodorous urine. Pt is present with his and was previously here with his daughter. Pt reports a fever on 04/10/19. Pt feels improved lying on a bed and worse with movement. Pt feels generalized weakness and has a cough that feels like a frog in the throat. Pt denies any fever, chills, erythema of eyes, sore throat, CP, SOB, abdominal pain, N/V, dysuria, myalgia, back pain, edema, rash, or dizziness. Pt receives dialysis through the arm and receives treatments on Tuesdays, , and Saturdays. Pt denies missing a dialysis treatment. Pt sees Dr. Deshawn Solo, a casting machine adjuster. Pt has a nephrostomy tube. On exam, unremarkable. Pt has a right-sided nephrostomy tube. Pt is showing signs of delirium. Pts appears to have dementia and inability to care for him. In this acute case, there are no findings of sepsis at this point. Urine was foul per nursing report from the nephrostomy tube. No CVA tenderness to indicate pyelonephritis. Laboratory abnormal findings: urine protein 3+, urine blood 3+, urine leukocyte esterase 3+, urine WBC 2+, urine RBC 3+, triple phos crystals present, BUN 50, BUN/creatinine ratio 7.9, glucose 108, troponin I 0.07, plt count 94, MPV 6.9, absolute lymphs 0.4. EKG at 12:08 shows 49 BPM with sinus or ectopic atrial bradycardia, no STEMI. At 13:49, Dr. Clifton who agrees to admit the pt to [facility] with a diagnosis of UTI and delirium. Pt will be admitted to [facility] with a diagnosis of UTI and delirium. - Diagnoses Provider Diagnoses: UTI (urinary tract infection), Delirium - Physician Notifications Discussed Care Of Patient With: Med Clifton Time Discussed With Above Provider: 13:49 - At 13:49, Dr. Clifton who agrees to admit the pt with a diagnosis of UTI and delirium. Instructed by Provider To: Admit As Inpatient Discharge ED - Sign-Out/Discharge Documenting (check all that apply): Patient Departure - Admit - Discharge Plan Condition: Stable Disposition: ADMITTED TO [facility] Referrals: Marielos Walker MD [Primary Care Provider] - - Attestation Statements Document Initiated by Scribe: Yes Documenting Scribe: Katalina Lainez Provider For Whom Scribe is Documenting (Include Credential): Romulo Crespo MD Scribe Attestation: Katalina Daniel, scribed for Romulo Crespo MD on 04/11/19 at 1413. Status of Scribe Document: Ready
[2019-04-11 12:38] LABS: Urine Appearance Turbid; Urine Bacteria Absent (Absent); Urine Bilirubin Negative (Negative); Urine Blood 3+ (Negative); Urine Color Yellow; Urine Glucose Negative (Negative); Urine Ketones Negative (Negative); Urine Nitrite Negative (Negative); Urine Protein 3+(>=500 mg/dL) (Negative); Urine Red Blood Cell 3+(>10/hpf) (Absent); Urine Specific Gravity 1.011 (1.010-1.030); Urine Urobilinogen Negative (Negative); Urine White Blood Cell 2+(11-20/hpf) (Absent)
[2019-04-11 12:58] LABS: Activated Partial Thrombo Time 31.2 seconds (26.0-38.0); INR 1.09 (0.82-1.09)
[2019-04-11 13:05] LABS: ALT 10 U/L (7-52); AST 13 U/L (13-39); Albumin 3.7 g/dL (3.2-5.2); Albumin/Globulin Ratio 1.3 (1-3); Alkaline Phosphatase 70 U/L (34-104); Anion Gap 7 mmol/L (2-11); BUN/Creatinine Ratio 7.9 (8-20); Blood Urea Nitrogen 50 mg/dL (6-24); CO2 Carbon Dioxide 30 mmol/L (22-32); Calcium 9.7 mg/dL (8.6-10.3); Chloride 102 mmol/L (101-111); EGFR African American 10.4 (>60); EGFR Non-African American 8.6 (>60); Globulin 2.8 g/dL (2-4); Glucose 108 mg/dL (70-100); Potassium 3.9 mmol/L (3.5-5.0); Sodium 139 mmol/L (135-145); Total Protein 6.5 g/dL (6.4-8.9)
[2019-04-11 13:12] LABS: Troponin I 0.07 ng/mL (<0.04)
[2019-04-11 13:18] LABS: Hematocrit 34 % (42-52); Hemoglobin 11.5 g/dL (14.0-18.0); Mean Corpuscular HGB Conc 34 g/dL (31-36); Mean Corpuscular Hemoglobin 34 pg (27-31); Mean Corpuscular Volume 101 fL (80-94); Red Blood Count 3.35 10^6 /uL (4.18-5.48); Red Cell Distribution Width 13 % (10-15); White Blood Count 4.6 10^3/uL (3.5-10.8)
[2019-04-11] MEDS ORDERED: cefTRIAXone(*) 1 GM in NS 0.9% 50 ML* 50 ML IVPB ONE (13:38)
[2019-04-11 13:47] LABS: ABS Eosinophils 0.1 10^3/ul (0-0.6); ABS Lymphocytes 0.4 10^3/ul (1.0-4.8); ABS Monocytes 0.5 10^3/ul (0-0.8); ABS Neutrophils 3.6 10^3/ul (1.5-7.7); Eosinophil % 1.6 %; Mean Platelet Volume 6.9 fL (7.4-10.4); Platelet Count 94 10^3/uL (150-450)
[2019-04-11] MEDS ORDERED: Ondansetron INJ* 2 MG/ML VIAL IV PRN (15:49)
[2019-04-11 16:21] LABS: Troponin I 0.07 ng/mL (<0.04)
[2019-04-11] MEDS: Sevelamer TAB* 800 MG PO SCH (17:50)
[2019-04-11] MEDS: Meropenem 1 GM PREMIX(*) 1 GM/50 ML BAG IV SCH (17:51)
--- NOTE | 2019-04-11 18:38 | HP ---
CC: Dr. Walker; Dr. Solo * MEDICINE HISTORY AND PHYSICAL: DATE OF ADMISSION: 04/11/19 PRIMARY CARE PROVIDER: Dr. Marielos Walker. PROVIDER: Bryan Orosco NP ATTENDING PHYSICIAN: Dr. Med Clifton * (dictated by Bryan Orosco NP). OUTPATIENT FARM SERVICE CONSULTANT: Dr. Solo. CHIEF COMPLAINT: Hematuria and foul smelling urine. HISTORY OF PRESENT ILLNESS: Mr. Montelongo is an 83-year-old male who presented to the ER today with concern for red urine seen in his nephrostomy bag; there was also concern for foul odor. He was brought in by his family as he also had concerns for chills, 100.0 temperature and weakness. Reportedly, he has become more confused and somnolent while here in the ER. He is accompanied currently by his , Bessie Felipe. Neither the patient nor his are great historians, but it does appear, per their report and per the ER notes, that onset of symptoms was this morning, but weakness has been ongoing over the last 2 days. Mr. Montelongo is fairly lethargic during the course of the interview and examination, although he does open his eyes and engage somewhat. States that he does feel better and currently denies any chills. He denies having chest pain, shortness of breath, or abdominal pain. He denies nausea, vomiting, or any back pain. He is a dialysis patient and he states that he has been going to dialysis as scheduled. PAST MEDICAL HISTORY: 1. End-stage renal disease, on dialysis with a Thursday, and Thursday schedule. 2. Coronary artery disease with PCI in 2004. 3. Hyperlipidemia 4. Hypertension. 5. BPH. 6. History of TIA. PAST SURGICAL HISTORY: Includes nephrostomy tube placement, which was placed on the right hand side. HOME MEDICATIONS: 1. Kayexalate 15 g once daily as needed. 2. Veltassa 8.4 g daily. 3. Tamsulosin 0.4 mg daily. 4. Renvela 800 mg at breakfast and lunch and 1600 mg at dinner. 5. Multivitamin 1 capsule daily. 6. Calcium carbonate 1 tab daily. 7. Aspirin 81 mg daily. 8. Acetaminophen 650 mg q.4 hours p.r.n. 9. Lisinopril 10 mg daily. 10. Atorvastatin 20 mg daily. ALLERGIES: No known allergies. FAMILY HISTORY: The patient is unable to contribute. SOCIAL HISTORY: No reported alcohol or tobacco use. He is . His , Bessie Felipe, is a surrogate decision maker and his secondary surrogate decision maker is his daughter, Fish Cornejo. REVIEW OF SYSTEMS: A 12-point review of systems was attempted and all pertinent positives and negatives are as per HPI. PHYSICAL EXAMINATION GENERAL: This is a well-developed, well-nourished, elderly male seen lying in the ED stretcher, he is in no acute distress. He is drowsy, but does awaken with repeated verbal stimuli. VITAL SIGNS: Temperature 98.8, pulse rate 50, respiratory rate 20, blood pressure 151/72, and O2 saturation is 96% on room air. HEENT: Head is atraumatic. Pupils are equal and round and reactive to light and accommodation. Extraocular movements are intact. Sclerae are anicteric. Oral mucosa is moist. NECK: Supple with full range of motion. No nuchal rigidity. No JVD noted. LUNGS: Clear to auscultation. CARDIAC: Normal S1 and S2 heart sounds. Regular rate and rhythm. Rate is slightly bradycardic at 50. No peripheral edema noted. Distal pulses are 2+ in the radial and pedal regions and symmetric. ABDOMEN: Soft, nontender, nondistended. No rebound tenderness noted. No guarding. No CVA tenderness. Bowel sounds are present and normoactive. MUSCULOSKELETAL: No clubbing or cyanosis. Mr. Montelongo does not cooperative with actively moving his extremities for full evaluation. SKIN: Warm and dry. NEUROLOGIC: He does respond appropriately with repeated verbal stimuli. He does not cooperative with the neuro exam, although he does respond appropriately on withdrawal from painful stimuli or noxious stimuli. All four extremities have movement that is purposeful. DIAGNOSTIC STUDIES/LAB DATA: CBC: WBC 4.6, hemoglobin 11.5, hematocrit 34, platelet count 94. INR 1.09. CMP: Sodium 139, potassium 3.9, chloride 102, carbon dioxide 30, BUN 50, creatinine 6.29, glucose 108, lactic acid 0.8, calcium 9.7. AST 13, ALT 10, alk phos 70. Troponin 0.07, albumin 3.7. Urinalysis shows turbid appearance with 3+ protein, 3+ blood, negative nitrites , bilirubin and urobilinogen, 3+ leukocyte esterase, 2+ wbc's, 3+ rbc's, and positive crystals. EKG shows sinus bradycardia or ectopic atrial bradycardia, no ST-T wave changes to indicate acute ischemia. ASSESSMENT AND PLAN: This is an 83-year-old male who presents today with concern for urinary tract infection and toxic encephalopathy likely secondary to infection. He will be admitted as an inpatient. Plan is as follows: 1. Urinary tract infection. Does appear to be present given the foul odor, presence of blood and presence of toxic encephalopathy. He was given ceftriaxone in the ER. I did review his records. It does appear that he has previously grown out ESBL Klebsiella and, given he is having encephalopathy, it would be prudent to have broader coverage as he does have a chronic likely colonized indwelling nephrostomy tube. We will start him on meropenem and then narrow down once urine culture results come back. 2. Toxic encephalopathy. Again, I think this is likely secondary to infection , although we cannot rule out other causes and would like to obtain a CT of the brain as a baseline to rule out any acute pathology. Further labs may be warranted. He does have macrocytic anemia, and it would prudent to check his B12 and folate, which has been added on to his ER labs. Liver function appears to be intact. Further evaluation may be warranted beyond this should encephalopathy persists. 3. Elevated troponin. I suspect this is likely in response to acute infection , but we will follow to make sure that the levels may continue to increase. He is asymptomatic and currently denies having any chest pain or difficulty breathing. 4. End-stage renal disease. He received dialysis on Thursday, and Thursday. We will notify dialysis that he is here, so he can continue on inpatient dialysis. 5. Coronary artery disease. Continue on home aspirin and atorvastatin. 6. Hyperlipidemia. Continue statin. 7. Benign prostatic hyperplasia. Continue Flomax. 8. History of transient ischemic attack. Check CT brain as per above and continue aspirin. 9. FEN: He will be ordered a renal diet. 10. DVT prophylaxis: He is ordered subcu heparin. 11. Code status: He is a full code at this time, pending further discussion with his family. TIME SPENT: Approximately 65 minutes was spent on this admission with more than half that time spent [id number] with the patient and his family, obtaining history and physical, performing physical examination, and reviewing the plan of care. Plan of care was also reviewed with my attending, Dr. Clifton, who is in agreement. BRYAN OROSCO, ALBINA [id number]/CPS #: [id number] ANTON
[2019-04-11 18:52] LABS: Folate 9.62 ng/mL (>3.99)
[2019-04-11 19:56] LABS: Troponin I 0.06 ng/mL (<0.04)
[2019-04-11] MEDS ORDERED: hydrALAZINE IV* 20 MG/ML VIAL IV SLOW PU PRN (20:02)
[2019-04-11] MEDS: Heparin VIAL(*) 5000 UNITS/ML VIAL (FIVE THOUSAND) SUBCUT SCH (21:10)
[2019-04-12] MEDS: Meropenem 1 GM PREMIX(*) 1 GM/50 ML BAG IV SCH (05:02)
[2019-04-12] MEDS: Heparin VIAL(*) 5000 UNITS/ML VIAL (FIVE THOUSAND) SUBCUT SCH ×3 (05:02→22:06)
[2019-04-12 07:58] LABS: ABS Eosinophils 0.2 10^3/ul (0-0.6); ABS Lymphocytes 0.4 10^3/ul (1.0-4.8); ABS Monocytes 0.5 10^3/ul (0-0.8); ABS Neutrophils 3.7 10^3/ul (1.5-7.7); Eosinophil % 4.3 %; Hematocrit 32 % (42-52); Lymphocyte % 9.1 %; Mean Corpuscular HGB Conc 35 g/dL (31-36); Mean Corpuscular Hemoglobin 35 pg (27-31); Mean Corpuscular Volume 100 fL (80-94); Mean Platelet Volume 7.4 fL (7.4-10.4); Nucleated Red Blood Cells % 0.1; Platelet Count 97 10^3/uL (150-450); Red Blood Count 3.18 10^6 /uL (4.18-5.48); Red Cell Distribution Width 13 % (10-15); White Blood Count 4.9 10^3/uL (3.5-10.8)
[2019-04-12 08:06] LABS: Albumin 3.3 g/dL (3.2-5.2); Albumin/Globulin Ratio 1.2 (1-3); Calcium 9.2 mg/dL (8.6-10.3); EGFR African American 9.5 (>60); EGFR Non-African American 7.9 (>60); Globulin 2.7 g/dL (2-4); Potassium 3.9 mmol/L (3.5-5.0); Total Bilirubin 0.4 mg/dL (0.2-1.0)
[2019-04-12] MEDS: Tamsulosin CAP* 0.4 MG PO SCH (09:04)
[2019-04-12] MEDS: Atorvastatin* 20 MG TAB PO SCH (09:04)
[2019-04-12] MEDS: Multivitamins/Minerals TAB PO SCH (09:04)
[2019-04-12] MEDS: Aspirin EC TAB* 81 MG TAB.EC PO SCH (09:04)
[2019-04-12] MEDS: Calcium Carbonate CHEW TAB* 500 MG (TUMS) PO SCH (09:04)
[2019-04-12] MEDS: Lisinopril TAB* 10 MG PO SCH (09:04)
[2019-04-12] MEDS: Sevelamer TAB* 800 MG PO SCH ×3 (09:10→17:52)
[2019-04-12] MEDS: Patiromer POWDER* 8.4 GM PAK PO SCH (09:12)
--- NOTE | 2019-04-12 10:09 | PN ---
Subjective Date of Service: 04/12/19 Interval History: continues with confusion. feels worm to the touch. Denies any chest pain. Denies shortness of breath. n/v/d. Patient had Inpt dialysis today. Urine with foul odor Family History: Unchanged from Admission Social History: Unchanged from Admission Past Medical History: Unchanged from Admission Objective Active Medications: Acetaminophen (Tylenol Tab*) 650 mg PO Q4H PRN PRN Reason: MILD PAIN or TEMP > 100.4 Aspirin (Aspirin Ec Tab*) 81 mg PO DAILY [facility] Last Admin: 04/12/19 09:04 Dose: 81 mg Atorvastatin Calcium (Lipitor*) 20 mg PO DAILY [facility] Last Admin: 04/12/19 09:04 Dose: 20 mg Calcium Carbonate (Tums*) 500 mg PO DAILY [facility] Last Admin: 04/12/19 09:04 Dose: 500 mg Heparin Sodium (Porcine) (Heparin Vial(*)) 5,000 units SUBCUT Q8HR [facility] Last Admin: 04/12/19 05:02 Dose: 5,000 units Hydralazine HCl (Apresoline Iv*) 5 mg IV SLOW PU Q6H PRN PRN Reason: BLOOD PRESSURE Meropenem (Merrem 1 Gm Premix(*)) 1 gm in 50 mls @ 100 mls/hr IV Q12H [facility]; Protocol Last Admin: 04/12/19 05:02 Dose: 100 mls/hr Lisinopril (Prinivil Tab*) 10 mg PO DAILY [facility] Last Admin: 04/12/19 09:04 Dose: 10 mg Multivitamins/Minerals (Theragran/Minerals Tab*) 1 tab PO DAILY [facility] Last Admin: 04/12/19 09:04 Dose: 1 tab Ondansetron HCl (Zofran Inj*) 4 mg IV Q6H PRN PRN Reason: NAUSEA/VOMITING Patiromer (Veltassa Powder*) 8.4 gm PO DAILY [facility] Last Admin: 04/12/19 09:12 Dose: Not Given Sevelamer Carbonate (Renvela Tab*) 800 mg PO 0730,1200 [facility] Last Admin: 04/12/19 09:10 Dose: 800 mg Sevelamer Carbonate (Renvela Tab*) 1,600 mg PO 1700 [facility] Last Admin: 04/11/19 17:50 Dose: 1,600 mg Tamsulosin HCl (Flomax Cap*) 0.4 mg PO DAILY [facility] Last Admin: 04/12/19 09:04 Dose: 0.4 mg Vital Signs - 8 hr 04/12/19 04/12/19 03:05 07:15 Temperature 97.6 F 98.7 F Pulse Rate 50 61 Respiratory 18 20 Rate Blood Pressure 149/71 178/70 (mmHg) O2 Sat by Pulse 97 93 Oximetry Oxygen Devices in Use Now: None Appearance: confused, cheeks flushed Eyes: No Scleral Icterus Ears/Nose/Mouth/Throat: NL Teeth, Lips, Gums, - - Mucous membranes dry Neck: NL Appearance and Movements; NL JVP Respiratory: Symmetrical Chest Expansion and Respiratory Effort, Clear to Auscultation Cardiovascular: NL Sounds; No Murmurs; No JVD, No Edema Abdominal: NL Sounds; No Tenderness; No Distention Extremities: No Edema, No Clubbing, Cyanosis Skin: No Rash or Ulcers Neurological: Alert and Oriented x 3 Nutrition: Taking PO's Result Diagrams: 04/26/19 06:18 04/26/19 04:49 Microbiology and Other Data: Microbiology 04/11/19 18:05 Nasal Screen MRSA (PCR) - Final Nasal Mrsa Not Detected Assess/Plan/Problems-Billing Assessment: Mr. Montelongo is an 83 y.o male with pmhx of ESRD on dialysis. who presented with confusion and UTI. - Patient Problems (1) UTI (urinary tract infection) Status: Acute (2) CAD (coronary artery disease) Status: Acute Code(s): I25.10 - ATHSCL HEART DISEASE OF [place] CORONARY ARTERY W/O ANG PCTRS SNOMED Code(s): 49575573 Comment: - Trops mildly elevated without CP or EKG changes; likely d/t demand ischemia and ESRD - Continue Aspirin - Continue atorvastatin (3) ESRD (end stage renal disease) on dialysis Status: Acute Code(s): N18.6 - END STAGE RENAL DISEASE; Z99.2 - DEPENDENCE ON RENAL DIALYSIS SNOMED Code(s): 197432527 Comment: - Inpatient HD- will have today (4) HTN (hypertension) Status: Acute Code(s): I10 - ESSENTIAL (PRIMARY) HYPERTENSION SNOMED Code(s) : 88908530 Comment: - SBP elevated - Continue lisinopril (5) Hyperlipidemia Status: Acute Code(s): E78.5 - HYPERLIPIDEMIA, UNSPECIFIED SNOMED Code(s): 46512126 Comment: - Continue atorvastatin (6) DVT prophylaxis Status: Acute Code(s): EMY3353 - SNOMED Code(s): 939881277 Comment: - Heparin SQ (7) Full code status Status: Acute Code(s): Z78.9 - OTHER SPECIFIED HEALTH STATUS SNOMED Code(s) : 229494716 Comment: Status and Disposition: discharge when medically stable
[2019-04-12] MEDS ORDERED: Heparin DIALYSIS ONLY(*) 1,000 UNITS/ML VIAL DIALYSIS ONE (11:00)
--- NOTE | 2019-04-12 14:38 | PN ---
DIALYSIS NOTE: DATE OF DIALYSIS: 04/12/19 SUBJECTIVE: The patient is seen and examined during dialysis, tolerating the procedure well. Vitals and labs have been reviewed. PHYSICAL EXAM: HEENT: NC/AT. Heart: S1, S2 present; regular at the time of exam. Lungs: Decreased breath sounds. Abdomen: Soft. Extremities: No edema. Neuro: Alert. ASSESSMENT AND PLAN: 1. End-stage renal disease, on hemodialysis. The patient will be dialyzed today per his usual prescription. The HD orders discussed with dialysis nurse. 2. The patient appears to be 5 pounds above his target, unclear if this is a true weight. We will plan for UF of 3L as tolerated. 3. We will follow with the medical team and be available for any questions. [id number]/[facility] #: [id number] [place]
[2019-04-12 16:05] LABS: Hepatitis B Surface Antigen Nonreactive (Nonreactive)
[2019-04-12] MEDS: Acetaminophen TAB* 325 MG PO PRN (17:52)
[2019-04-12] MEDS: Meropenem 500MG PREMIX(*) 500 MG/50 ML BAG IV SCH (17:52)
[2019-04-13] MEDS: Heparin VIAL(*) 5000 UNITS/ML VIAL (FIVE THOUSAND) SUBCUT SCH ×3 (05:27→22:53)
[2019-04-13 06:44] LABS: Hematocrit 37 % (42-52); Hemoglobin 12.8 g/dL (14.0-18.0); Mean Corpuscular HGB Conc 35 g/dL (31-36); Mean Corpuscular Hemoglobin 35 pg (27-31); Mean Corpuscular Volume 100 fL (80-94); Platelet Count 101 10^3/uL (150-450); Red Blood Count 3.67 10^6 /uL (4.18-5.48); Red Cell Distribution Width 13 % (10-15); White Blood Count 3.7 10^3/uL (3.5-10.8)
[2019-04-13 07:00] LABS: BUN/Creatinine Ratio 6.8 (8-20); Calcium 9.7 mg/dL (8.6-10.3); EGFR African American 12.3 (>60); EGFR Non-African American 10.2 (>60); Potassium 3.9 mmol/L (3.5-5.0)
[2019-04-13 08:44] LABS: ABS Lymphocytes 0.2 10^3/ul (1.0-4.8); ABS Monocytes 0.3 10^3/ul (0-0.8); ABS Neutrophils 3.3 10^3/ul (1.5-7.7); Lymphocyte % 4.1 %; Nucleated Red Blood Cells % 0.2
[2019-04-13] MEDS: Multivitamins/Minerals TAB PO SCH (10:32)
[2019-04-13] MEDS: Tamsulosin CAP* 0.4 MG PO SCH (10:32)
[2019-04-13] MEDS: Lisinopril TAB* 10 MG PO SCH (10:33)
[2019-04-13] MEDS: Sevelamer TAB* 800 MG PO SCH ×4 (10:33→18:19)
[2019-04-13] MEDS: Atorvastatin* 20 MG TAB PO SCH (10:33)
[2019-04-13] MEDS: Aspirin EC TAB* 81 MG TAB.EC PO SCH (10:34)
[2019-04-13] MEDS: Calcium Carbonate CHEW TAB* 500 MG (TUMS) PO SCH (10:34)
[2019-04-13] MEDS: Patiromer POWDER* 8.4 GM PAK PO SCH (12:12)
[2019-04-13] MEDS: Meropenem 500MG PREMIX(*) 500 MG/50 ML BAG IV SCH (18:21)
--- NOTE | 2019-04-13 18:31 | PN ---
Subjective Date of Service: 04/13/19 Interval History: Patient seen and examined. No complaints other than fatigue. Denies SOB, no chest pain, no fever or chills. Family History: Unchanged from Admission Social History: Unchanged from Admission Past Medical History: Unchanged from Admission Objective Active Medications: Acetaminophen (Tylenol Tab*) 650 mg PO Q4H PRN PRN Reason: MILD PAIN or TEMP > 100.4 Last Admin: 04/12/19 17:52 Dose: 650 mg Aspirin (Aspirin Ec Tab*) 81 mg PO DAILY [facility] Last Admin: 04/13/19 10:34 Dose: 81 mg Atorvastatin Calcium (Lipitor*) 20 mg PO DAILY [facility] Last Admin: 04/13/19 10:33 Dose: 20 mg Calcium Carbonate (Tums*) 500 mg PO DAILY [facility] Last Admin: 04/13/19 10:34 Dose: 500 mg Heparin Sodium (Porcine) (Heparin Vial(*)) 5,000 units SUBCUT Q8HR [facility] Last Admin: 04/13/19 13:29 Dose: 5,000 units Hydralazine HCl (Apresoline Iv*) 5 mg IV SLOW PU Q6H PRN PRN Reason: BLOOD PRESSURE Meropenem (Merrem 500mg Premix(*)) 500 mg in 50 mls @ 100 mls/hr IV Q24H [facility] Last Admin: 04/13/19 18:21 Dose: 100 mls/hr Lisinopril (Prinivil Tab*) 10 mg PO DAILY [facility] Last Admin: 04/13/19 10:33 Dose: 10 mg Multivitamins/Minerals (Theragran/Minerals Tab*) 1 tab PO DAILY [facility] Last Admin: 04/13/19 10:32 Dose: 1 tab Ondansetron HCl (Zofran Inj*) 4 mg IV Q6H PRN PRN Reason: NAUSEA/VOMITING Sevelamer Carbonate (Renvela Tab*) 800 mg PO 0730,1200 [facility] Last Admin: 04/13/19 13:34 Dose: Not Given Sevelamer Carbonate (Renvela Tab*) 1,600 mg PO 1700 [facility] Last Admin: 04/13/19 18:19 Dose: 1,600 mg Tamsulosin HCl (Flomax Cap*) 0.4 mg PO DAILY [facility] Last Admin: 04/13/19 10:32 Dose: 0.4 mg Vital Signs - 8 hr 04/13/19 11:49 Temperature 99.2 F Pulse Rate 57 Respiratory 20 Rate Blood Pressure 125/55 (mmHg) O2 Sat by Pulse 95 Oximetry Oxygen Devices in Use Now: None Appearance: alert, NAD Eyes: PERRLA Ears/Nose/Mouth/Throat: Mucous Membranes Moist Neck: NL Appearance and Movements; NL JVP, Trachea Midline Respiratory: Symmetrical Chest Expansion and Respiratory Effort, Clear to Auscultation Cardiovascular: NL Sounds; No Murmurs; No JVD, RRR Abdominal: NL Sounds; No Tenderness; No Distention Extremities: No Clubbing, Cyanosis Neurological: Alert and Oriented x 3 Nutrition: Taking PO's Result Diagrams: 04/13/19 06:26 04/13/19 06:26 Microbiology and Other Data: Microbiology 04/11/19 18:05 Nasal Screen MRSA (PCR) - Final Nasal Mrsa Not Detected Assess/Plan/Problems-Billing Assessment: Mr. Montelongo is an 83 y.o male with pmhx of ESRD on dialysis admitted for complicated UTI. - Patient Problems (1) UTI (urinary tract infection) Comment: - Tmax 102, remains poor hisptoran but metabolic encephalopathy improving - Positive cultures 04/11/19 for ESBL klebsiella, morganella, enterococcus and providencia with multiple resistences - Continue meropenem (2) CAD (coronary artery disease) Code(s): I25.10 - ATHSCL HEART DISEASE OF [place] CORONARY ARTERY W/O ANG PCTRS SNOMED Code(s): 07942135 Comment: - Continue aspirin and atorvastatin (3) ESRD (end stage renal disease) on dialysis Code(s): N18.6 - END STAGE RENAL DISEASE; Z99.2 - DEPENDENCE ON RENAL DIALYSIS SNOMED Code(s): 959144308 Comment: - inpatient HD , , (4) HTN (hypertension) Code(s): I10 - ESSENTIAL (PRIMARY) HYPERTENSION SNOMED Code(s): 97460384 Comment: - Continue lisinopril (5) Hyperlipidemia Code(s): E78.5 - HYPERLIPIDEMIA, UNSPECIFIED SNOMED Code(s): 98214624 Comment: - continue simvastatin (6) DVT prophylaxis Code(s): XPF9326 - SNOMED Code(s): 777508871 Comment: - Heparin Sub Q Status and Disposition: Inpatient for IV meropenem.
[2019-04-14] MEDS: Heparin VIAL(*) 5000 UNITS/ML VIAL (FIVE THOUSAND) SUBCUT SCH ×3 (06:29→22:10)
[2019-04-14] MEDS: Calcium Carbonate CHEW TAB* 500 MG (TUMS) PO SCH (09:06)
[2019-04-14] MEDS: Sevelamer TAB* 800 MG PO SCH ×3 (09:06→17:59)
[2019-04-14] MEDS: Multivitamins/Minerals TAB PO SCH (09:06)
[2019-04-14] MEDS: Tamsulosin CAP* 0.4 MG PO SCH (09:08)
[2019-04-14] MEDS: Lisinopril TAB* 10 MG PO SCH (09:08)
[2019-04-14] MEDS: Aspirin EC TAB* 81 MG TAB.EC PO SCH (09:08)
[2019-04-14] MEDS: Atorvastatin* 20 MG TAB PO SCH (09:08)
[2019-04-14 09:20] LABS: Hematocrit 34 % (42-52); Hemoglobin 11.8 g/dL (14.0-18.0); Mean Corpuscular HGB Conc 35 g/dL (31-36); Mean Corpuscular Hemoglobin 34 pg (27-31); Mean Corpuscular Volume 99 fL (80-94); Mean Platelet Volume 7.3 fL (7.4-10.4); Platelet Count 98 10^3/uL (150-450); Red Blood Count 3.43 10^6 /uL (4.18-5.48); Red Cell Distribution Width 13 % (10-15); White Blood Count 3.6 10^3/uL (3.5-10.8)
[2019-04-14 09:37] LABS: BUN/Creatinine Ratio 8.5 (8-20); Calcium 9.4 mg/dL (8.6-10.3); EGFR African American 8.8 (>60); EGFR Non-African American 7.2 (>60); Potassium 3.7 mmol/L (3.5-5.0)
--- NOTE | 2019-04-14 10:47 | CONS ---
CONSULTATION REPORT: DATE OF CONSULT: 04/14/19 REQUESTING PROVIDER: Jeane Moore NP CONSULTING SERVICE: Infectious Disease. REASON FOR CONSULTATION: Urinary tract infection. IMPRESSION: 1. Admitted with encephalopathy which may have been multifactorial including some contribution from urinary tract infection in the setting of the right nephrostomy tube. His urine culture is polymicro bial including an extended spectrum beta- lactamase producing klebsiella which is sensitive to Zosyn. His blood cultures are negative. 2. End-stage renal disease, on hemodialysis via left upper extremity fistula. 3. Right nephrostomy tube, last changed in September 2018. 4. Coronary artery disease, history of percutaneous coronary intervention in 2004. RECOMMENDATIONS: We will change meropenem to Zosyn which will cover the organisms he is growing. We will contact Interventional Radiology to see if they could change his nephrostomy tube while he is h ere on IV antibiotics. HISTORY OF PRESENT ILLNESS: An 83-year-old male with end-stage renal disease, on hemodialysis and wi th a right nephrostomy tube, brought to the hospital for change in mental status. He cannot provide much of the history, which was obtained instead from review of the medical record. He came to the [facility] on 04/11/19 with a change in his mental status, some red urine in his nephrostomy bag, and fou l odor from the bag. He also had a temperature of 100 degrees at home and more weak. His workup incl uded a CBC that showed a white count of 4, troponin 0.07, blood cultures that were negative, urine cu ltures growing Klebsiella pneumoniae, ESBL patient information coordinator, as well as Providencia, Morganella, and Enteroco ccus faecalis. He has been on meropenem. He had one fever of 38.8 on 04/12/19, none so far today. He is up and eating breakfast. The nurse notes he is more conversant and making more sense today anthony n he did yesterday. PAST MEDICAL HISTORY: 1. End-stage renal disease, on hemodialysis. 2. Right nephrostomy tube, chronic. 3. Coronary disease and a history of PCI. 4. Hyperlipidemia. 5. Hypertension. 6. Benign prostatic hypertrophy. 7. History of TIA. MEDICATIONS: 1. Tylenol. 2. Aspirin. 3. Lipitor. 4. Calcium carbonate. 5. Heparin subcutaneous injection. 6. Lisinopril. 7. Meropenem 500 mg IV daily. 8. Sevelamer. 9. Tamsulosin. ALLERGIES: No known drug allergies. FAMILY HISTORY: Mother had coronary artery disease and HI. Father had Parkinson disease. SOCIAL HISTORY: His lives in [place] with his . 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 He is a nonsmoker. REVIEW OF SYSTEMS: All negative except as noted above to 12-point review of systems. PHYSICAL EXAMINATION: Vital Signs: Temperature 36.6, heart rate 58, respiratory rate 16, blood pres sure 142/70, oxygen saturation 98% on room air. General: He is awake, not in distress. Neurologic: He is oriented x2, follows commands, moves all extremities. HEENT: There is no conjunctival hemor rhage. Oropharynx without lesions. Neck is supple without mass. Heart is regular rate and rhythm w ithout murmurs, rubs, or gallops. Lungs: Clear to auscultation bilaterally. Abdomen: Soft, nontend er, nondistended. Bowel sounds present. He has a right flank nephrostomy tube with some dark colore d urine in the bag. Musculoskeletal: There is no spine tenderness to palpation. No joint synovitis . LABORATORY DATA: White blood cell count 3.6, hemoglobin 11.8, MCV 99, platelets 98, creatinine is 5.4, potassium 3.9. Please see impressions and recommendations outlined above. Thanks for asking me to see Mr. Montelongo in consultation. [id number]/[facility] #: [id number]
[2019-04-14] MEDS ORDERED: Zosyn per Pharmacy* NOTE FOLLOW UP SCH ×2 (11:00)
[2019-04-14] MEDS ORDERED: Piperacillin/Tazobac ADVAN(*) 3.375 GM in NS 0.9% 100 ML* 100 ML IVPB ONE (16:00)
--- NOTE | 2019-04-14 17:37 | PN ---
Subjective Date of Service: 04/14/19 Interval History: Patient seen and examined. Mentation greatly improved, patient conversant today and appropriate. Had some chest wall pain earlier on the left, EKG with no changes. No further complaints. States he is feeling better and wants to know when he can go home. Family History: Unchanged from Admission Social History: Unchanged from Admission Past Medical History: Unchanged from Admission Objective Active Medications: Acetaminophen (Tylenol Tab*) 650 mg PO Q4H PRN PRN Reason: MILD PAIN or TEMP > 100.4 Last Admin: 04/12/19 17:52 Dose: 650 mg Aspirin (Aspirin Ec Tab*) 81 mg PO DAILY [facility] Last Admin: 04/14/19 09:08 Dose: 81 mg Atorvastatin Calcium (Lipitor*) 20 mg PO DAILY [facility] Last Admin: 04/14/19 09:08 Dose: 20 mg Calcium Carbonate (Tums*) 500 mg PO DAILY [facility] Last Admin: 04/14/19 09:06 Dose: 500 mg Heparin Sodium (Porcine) (Heparin Vial(*)) 5,000 units SUBCUT Q8HR [facility] Last Admin: 04/14/19 14:48 Dose: 5,000 units Hydralazine HCl (Apresoline Iv*) 5 mg IV SLOW PU Q6H PRN PRN Reason: BLOOD PRESSURE Lisinopril (Prinivil Tab*) 10 mg PO DAILY [facility] Last Admin: 04/14/19 09:08 Dose: 10 mg Multivitamins/Minerals (Theragran/Minerals Tab*) 1 tab PO DAILY [facility] Last Admin: 04/14/19 09:06 Dose: 1 tab Ondansetron HCl (Zofran Inj*) 4 mg IV Q6H PRN PRN Reason: NAUSEA/VOMITING Pharmacy Consult (Zosyn Per Pharmacy*) 1 note FOLLOW UP .ZOSYN PER PHARMACY [facility] Sevelamer Carbonate (Renvela Tab*) 800 mg PO 0730,1200 [facility] Last Admin: 04/14/19 14:47 Dose: 800 mg Sevelamer Carbonate (Renvela Tab*) 1,600 mg PO 1700 [facility] Last Admin: 04/13/19 18:19 Dose: 1,600 mg Tamsulosin HCl (Flomax Cap*) 0.4 mg PO DAILY [facility] Last Admin: 04/14/19 09:08 Dose: 0.4 mg Vital Signs - 8 hr 04/14/19 04/14/19 11:23 15:16 Temperature 97.5 F 97.2 F Pulse Rate 55 58 Respiratory 20 17 Rate Blood Pressure 131/66 140/71 (mmHg) O2 Sat by Pulse 98 98 Oximetry Oxygen Devices in Use Now: None Appearance: alert, NAD Eyes: PERRLA Ears/Nose/Mouth/Throat: Mucous Membranes Moist Neck: NL Appearance and Movements; NL JVP, Trachea Midline Respiratory: Symmetrical Chest Expansion and Respiratory Effort, Clear to Auscultation Cardiovascular: NL Sounds; No Murmurs; No JVD, RRR Abdominal: NL Sounds; No Tenderness; No Distention Extremities: No Edema Skin: No Rash or Ulcers Neurological: Alert and Oriented x 3 Nutrition: Taking PO's Result Diagrams: 04/14/19 09:04 04/14/19 09:04 Microbiology and Other Data: Microbiology 04/11/19 18:05 Nasal Screen MRSA (PCR) - Final Nasal Mrsa Not Detected Assess/Plan/Problems-Billing Assessment: Mr. Montelongo is an 83 y.o male with pmhx of ESRD on dialysis admitted for complicated UTI. - Patient Problems (1) UTI (urinary tract infection) Comment: - Fever resolved, encephalopathy resolved, patient mentating appropriately and at baseline - Positive cultures 04/11/19 for ESBL klebsiella, morganella, enterococcus and providencia with multiple resistences - Changed to zosyn as per ID, appreciate recommendations - No appropriate Po atbx choices available, will require 1 week IV atbx - Will need nephrostomy tube changed during this admission, as this has not been changed in 6 months and is the likely source of infection (2) CAD (coronary artery disease) Code(s): I25.10 - ATHSCL HEART DISEASE OF [place] CORONARY ARTERY W/O ANG PCTRS SNOMED Code(s): 06254346 Comment: - Continue aspirin and atorvastatin (3) ESRD (end stage renal disease) on dialysis Code(s): N18.6 - END STAGE RENAL DISEASE; Z99.2 - DEPENDENCE ON RENAL DIALYSIS SNOMED Code(s): 446476185 Comment: - inpatient HD , , , however, patient will be here through the weekend so schedule will change - Discussed with nephro, will dialyze Thursday and thursday instead; K is 3.9 today (4) HTN (hypertension) Code(s): I10 - ESSENTIAL (PRIMARY) HYPERTENSION SNOMED Code(s): 40860736 Comment: - Continue lisinopril (5) Hyperlipidemia Code(s): E78.5 - HYPERLIPIDEMIA, UNSPECIFIED SNOMED Code(s): 86816121 Comment: - continue simvastatin (6) DVT prophylaxis Code(s): STC5235 - SNOMED Code(s): 803411920 Comment: - Heparin Sub Q Status and Disposition: Inpatient for IV zosyn and nephrostomy tube change.
[2019-04-14] MEDS: Docusate CAP* 100 MG PO SCH (17:59)
[2019-04-14] MEDS: Acetaminophen TAB* 325 MG PO PRN (22:24)
[2019-04-15] MEDS: Heparin VIAL(*) 5000 UNITS/ML VIAL (FIVE THOUSAND) SUBCUT SCH ×3 (05:06→21:15)
[2019-04-15] MEDS: Aspirin EC TAB* 81 MG TAB.EC PO SCH (08:45)
[2019-04-15] MEDS: Calcium Carbonate CHEW TAB* 500 MG (TUMS) PO SCH (08:45)
[2019-04-15] MEDS: Atorvastatin* 20 MG TAB PO SCH (08:46)
[2019-04-15] MEDS: Tamsulosin CAP* 0.4 MG PO SCH (08:46)
[2019-04-15] MEDS: Multivitamins/Minerals TAB PO SCH (08:46)
[2019-04-15] MEDS: Docusate CAP* 100 MG PO SCH (08:46)
[2019-04-15] MEDS: Lisinopril TAB* 10 MG PO SCH (08:46)
[2019-04-15] MEDS: Sevelamer TAB* 800 MG PO SCH ×3 (09:03→17:21)
[2019-04-15] MEDS ORDERED: Heparin DIALYSIS ONLY(*) 1,000 UNITS/ML VIAL DIALYSIS ONE (12:00)
--- NOTE | 2019-04-15 14:47 | PN ---
DIALYSIS NOTE: DATE OF DIALYSIS: 04/15/19 SUBJECTIVE: The patient is seen and examined. Denies any complaints. Vitals and labs have been rev iewed. PHYSICAL EXAM: HEENT: NC/AT. Heart: S1, S2 present. Regular at the time of exam. Lungs: Decrea sed breath sounds. Abdomen: Soft. Extremities: No edema. Neuro: Alert. ASSESSMENT AND PLAN: 1. End-stage renal disease, on hemodialysis 3 times a week. 2. We will plan his usual dialysis today. 3. His weights have been off and possibly inaccurate. We will plan for a UF to dry weight or 2 to 2 .5 L, will not exceed this in the setting of the urinary tract infection. 4. The patient is not short of breath. 5. Urinary tract infection management per the primary team and Infectious Disease. 6. We will follow with the medical team. 7. The patient tolerating his dialysis well and HD orders discussed with the nurse. [id number]/[facility] #: [id number]
--- NOTE | 2019-04-15 19:00 | PN ---
Subjective Date of Service: 04/15/19 Interval History: Patient seen and examined this AM in his room, at that time, patient was feeling well with no complaints. He was a little confused and said "I feel I am riding the train" but was easily reoriented. He denied pain, fever or chills. However, a CAT call was called while he was in dialysis later in the morning, where he appeared to syncopize during the treatment. The episode was brief as per blind teacher and did happen after patient was placed on bedpan for bowel movement. Concern though that patient was having some pauses on tele earlier in the day, but tele did not show any changes during this episode. Patient was alert and awake during my exam, with normal blood glucose, no changes on EKG and continued his dialysis without issue thereafter. Family History: Unchanged from Admission Social History: Unchanged from Admission Past Medical History: Unchanged from Admission Objective Active Medications: Acetaminophen (Tylenol Tab*) 650 mg PO Q4H PRN PRN Reason: MILD PAIN or TEMP > 100.4 Last Admin: 04/14/19 22:24 Dose: 650 mg Aspirin (Aspirin Ec Tab*) 81 mg PO DAILY [facility] Last Admin: 04/15/19 08:45 Dose: 81 mg Atorvastatin Calcium (Lipitor*) 20 mg PO DAILY [facility] Last Admin: 04/15/19 08:46 Dose: 20 mg Calcium Carbonate (Tums*) 500 mg PO DAILY [facility] Last Admin: 04/15/19 08:45 Dose: 500 mg Docusate Sodium (Colace Cap*) 100 mg PO QAM [facility] Last Admin: 04/15/19 08:46 Dose: 100 mg Heparin Sodium (Porcine) (Heparin Vial(*)) 5,000 units SUBCUT Q8HR [facility] Last Admin: 04/15/19 14:28 Dose: Not Given Hydralazine HCl (Apresoline Iv*) 5 mg IV SLOW PU Q6H PRN PRN Reason: BLOOD PRESSURE Lisinopril (Prinivil Tab*) 10 mg PO DAILY [facility] Last Admin: 04/15/19 08:46 Dose: 10 mg Multivitamins/Minerals (Theragran/Minerals Tab*) 1 tab PO DAILY [facility] Last Admin: 04/15/19 08:46 Dose: 1 tab Ondansetron HCl (Zofran Inj*) 4 mg IV Q6H PRN PRN Reason: NAUSEA/VOMITING Pharmacy Consult (Zosyn Per Pharmacy*) 1 note FOLLOW UP .ZOSYN PER PHARMACY [facility] Sevelamer Carbonate (Renvela Tab*) 800 mg PO 0730,1200 [facility] Last Admin: 04/15/19 11:08 Dose: 800 mg Sevelamer Carbonate (Renvela Tab*) 1,600 mg PO 1700 [facility] Last Admin: 04/15/19 17:21 Dose: 1,600 mg Tamsulosin HCl (Flomax Cap*) 0.4 mg PO DAILY [facility] Last Admin: 04/15/19 08:46 Dose: 0.4 mg Vital Signs - 8 hr 04/15/19 04/15/19 11:06 15:35 Temperature 96.5 F 97.3 F Pulse Rate 54 60 Respiratory 18 20 Rate Blood Pressure 145/71 104/61 (mmHg) O2 Sat by Pulse 100 95 Oximetry Oxygen Devices in Use Now: None Appearance: alert, NAD Eyes: No Scleral Icterus, PERRLA Ears/Nose/Mouth/Throat: NL Teeth, Lips, Gums, Mucous Membranes Moist Neck: NL Appearance and Movements; NL JVP, Trachea Midline Respiratory: Symmetrical Chest Expansion and Respiratory Effort, Clear to Auscultation Cardiovascular: NL Sounds; No Murmurs; No JVD, RRR, No Edema Abdominal: NL Sounds; No Tenderness; No Distention Lymphatic: No Cervical Adenopathy Extremities: No Edema Skin: No Rash or Ulcers Neurological: - - general weakness, alert, forgetful Lines/Tubes/Other Access: Clean, Dry and Intact Bond - neprostomy tube Nutrition: Taking PO's Result Diagrams: 04/14/19 09:04 04/14/19 09:04 Microbiology and Other Data: Microbiology 04/11/19 18:05 Nasal Screen MRSA (PCR) - Final Nasal Mrsa Not Detected Assess/Plan/Problems-Billing Assessment: Mr. Montelongo is an 83 y.o male with pmhx of ESRD on dialysis admitted for complicated UTI. - Patient Problems (1) Syncope Code(s): R55 - SYNCOPE AND COLLAPSE SNOMED Code(s): 239005144 Comment: - During dialysis today, but likely vasovagal when he was on the bedpan - Was having a few pauses on tele (2 seconds) but has afib, not likely the cause and was not having pauses on tele during the episode - EKG with no change from yesterday - Continue tele (2) UTI (urinary tract infection) Comment: - Fever resolved, encephalopathy resolved, patient mentating appropriately and at baseline with periods of forgetfulness - Positive cultures 04/11/19 for ESBL klebsiella, morganella, enterococcus and providencia with multiple resistences - Changed to zosyn as per ID, appreciate recommendations - No appropriate Po atbx choices available, will require 1 week IV atbx - Will need nephrostomy tube changed during this admission, as this has not been changed in 6 months and is the likely source of infection (3) CAD (coronary artery disease) Code(s): I25.10 - ATHSCL HEART DISEASE OF [place] CORONARY ARTERY W/O ANG PCTRS SNOMED Code(s): 40316759 Comment: - Continue aspirin and atorvastatin (4) ESRD (end stage renal disease) on dialysis Code(s): N18.6 - END STAGE RENAL DISEASE; Z99.2 - DEPENDENCE ON RENAL DIALYSIS SNOMED Code(s): 326865600 Comment: - inpatient HD , , , however, patient will be here through the weekend so schedule will change - Discussed with nephro, will dialyze Thursday and thursday instead; K is 3.9 today (5) HTN (hypertension) Code(s): I10 - ESSENTIAL (PRIMARY) HYPERTENSION SNOMED Code(s): 35402425 Comment: - Continue lisinopril (6) Hyperlipidemia Code(s): E78.5 - HYPERLIPIDEMIA, UNSPECIFIED SNOMED Code(s): 58858140 Comment: - continue simvastatin (7) DVT prophylaxis Code(s): BZY5308 - SNOMED Code(s): 327081786 Comment: - Heparin Sub Q Status and Disposition: Inpatient for IV zosyn and nephrostomy tube change early next week (Thursday or Thursday). Left message with IR to schedule.
[2019-04-16] MEDS: Heparin VIAL(*) 5000 UNITS/ML VIAL (FIVE THOUSAND) SUBCUT SCH ×3 (05:33→22:12)
[2019-04-16 06:03] LABS: Hematocrit 33 % (42-52); Hemoglobin 11.1 g/dL (14.0-18.0); Mean Corpuscular HGB Conc 34 g/dL (31-36); Mean Corpuscular Hemoglobin 34 pg (27-31); Mean Corpuscular Volume 100 fL (80-94); Mean Platelet Volume 7.8 fL (7.4-10.4); Platelet Count 114 10^3/uL (150-450); Red Blood Count 3.32 10^6 /uL (4.18-5.48); Red Cell Distribution Width 13 % (10-15); White Blood Count 5.4 10^3/uL (3.5-10.8)
[2019-04-16 06:22] LABS: BUN/Creatinine Ratio 10.1 (8-20); EGFR African American 11.5 (>60); EGFR Non-African American 9.5 (>60)
[2019-04-16] MEDS: Sevelamer TAB* 800 MG PO SCH ×3 (08:30→22:11)
[2019-04-16] MEDS: Docusate CAP* 100 MG PO SCH (08:31)
[2019-04-16] MEDS: Aspirin EC TAB* 81 MG TAB.EC PO SCH (08:32)
[2019-04-16] MEDS: Atorvastatin* 20 MG TAB PO SCH (08:32)
[2019-04-16] MEDS: Calcium Carbonate CHEW TAB* 500 MG (TUMS) PO SCH (08:33)
[2019-04-16] MEDS: Lisinopril TAB* 10 MG PO SCH (08:33)
[2019-04-16] MEDS: Multivitamins/Minerals TAB PO SCH (08:34)
[2019-04-16] MEDS: Tamsulosin CAP* 0.4 MG PO SCH (08:35)
--- NOTE | 2019-04-16 11:04 | PN ---
Subjective Date of Service: 04/16/19 Interval History: Mr. Montelongo is not feeling well this morning. He is nauseous, has not vomited. Was not nauseous prior to breakfast. Denies pain, CP, SOB. No dizziness or feelings of near syncope. Nursing reports constipation. Family History: Unchanged from Admission Social History: Unchanged from Admission Past Medical History: Unchanged from Admission Objective Active Medications: Acetaminophen (Tylenol Tab*) 650 mg PO Q4H PRN MILD PAIN or TEMP > 100.4 Aspirin (Aspirin Ec Tab*) 81 mg PO DAILY [facility] Atorvastatin Calcium (Lipitor*) 20 mg PO DAILY [facility] Calcium Carbonate (Tums*) 500 mg PO DAILY [facility] Docusate Sodium (Colace Cap*) 100 mg PO QAM [facility] Heparin Sodium (Porcine) (Heparin Vial(*)) 5,000 units SUBCUT Q8HR [facility] Hydralazine HCl (Apresoline Iv*) 5 mg IV SLOW PU Q6H PRN BLOOD PRESSURE Lisinopril (Prinivil Tab*) 10 mg PO DAILY [facility] Multivitamins/Minerals (Theragran/Minerals Tab*) 1 tab PO DAILY [facility] Ondansetron HCl (Zofran Inj*) 4 mg IV Q6H PRN NAUSEA/VOMITING Sevelamer Carbonate (Renvela Tab*) 800 mg PO 0730,1200 [facility] Sevelamer Carbonate (Renvela Tab*) 1,600 mg PO 1700 [facility] Tamsulosin HCl (Flomax Cap*) 0.4 mg PO DAILY [facility] Vital Signs - 8 hr 04/16/19 04/16/19 03:35 07:15 Temperature 98.2 F 97.4 F Pulse Rate 60 60 Respiratory 18 18 Rate Blood Pressure 117/55 138/62 (mmHg) O2 Sat by Pulse 99 96 Oximetry Oxygen Devices in Use Now: None Appearance: Elderly male lying in bed in NAD Neck: NL Appearance and Movements; NL JVP, Trachea Midline Respiratory: Symmetrical Chest Expansion and Respiratory Effort, Clear to Auscultation Cardiovascular: NL Sounds; No Murmurs; No JVD Abdominal: - - Soft, tender throughout Extremities: No Edema Neurological: - - Oriented to self and place Lines/Tubes/Other Access: Clean, Dry and Intact Peripheral IV Nutrition: Taking PO's Result Diagrams: 04/16/19 05:47 04/16/19 05:47 Assess/Plan/Problems-Billing Assessment: Mr. Montelongo is an 83 yo M with PMH of ESRD on dialysis, CAD, HTN, HLD, TIA, BPH; presented with hematuria and was found to have complicated UTI requiring IV antibiotics. - Patient Problems (1) UTI (urinary tract infection) Comment: - Previously with fever and encephalopathy, now resolved, but still having episodes of mild confusion - Cultures growing ESBL Klebsiella, Morganella, Enterococcus, and Providencia with multiple resistences - Appreciate ID consult; will need 1 week IV abx as there are no PO options - Will need nephrostomy tube changed during this admission, as this has not been changed in 6 months and is the likely source of infection - Received 1 dose of Zosyn on 04/14/19 then never received any additional doses ; spoke with Pharmacy to confirm dosing schedule which should be q12h - Continue Zosyn (day 06/28) (2) Syncope Code(s): R55 - SYNCOPE AND COLLAPSE Comment: - During dialysis 04/15/19, but likely vasovagal as he was on the bedpan during episode - Previously having a few pauses on tele (2 seconds) but has afib; not likely the cause and was not having pauses on tele during the episode - EKG remains unchanged - Telemetry monitoring (3) ESRD (end stage renal disease) on dialysis Code(s): N18.6 - END STAGE RENAL DISEASE; Z99.2 - DEPENDENCE ON RENAL DIALYSIS Comment: - Typically on TuTa schedule; Nephrology will dialyze Thursday and Thursday instead - Continue sevelamer (4) CAD (coronary artery disease) Code(s): I25.10 - ATHSCL HEART DISEASE OF [place] CORONARY ARTERY W/O ANG PCTRS Comment: - Trops mildly elevated without CP or EKG changes; likely d/t demand ischemia and ESRD - Continue aspirin, atorvastatin (5) HTN (hypertension) Code(s): I10 - ESSENTIAL (PRIMARY) HYPERTENSION Comment: - Normotensive - Continue lisinopril (6) Hyperlipidemia Code(s): E78.5 - HYPERLIPIDEMIA, UNSPECIFIED Comment: - Continue atorvastatin (7) DVT prophylaxis Comment: - Heparin SQ (8) Full code status Code(s): Z78.9 - OTHER SPECIFIED HEALTH STATUS Comment: Status and Disposition: Inpatient for IV abx. Nephrostomy tube change next week (Thursday or Thursday). Left message with IR to schedule. Attending: Loli Walters
[2019-04-16] MEDS ORDERED: NS 0.9% 100 ML* 100 ML ONE (11:39)
[2019-04-16] MEDS: Acetaminophen TAB* 325 MG PO PRN (12:03)
[2019-04-16] MEDS: ZOSYN 3.375 GM Q12H per EXTENDED INFUSION IVPB SCH ×2 (12:03)
[2019-04-16] MEDS: Senna TAB 8.6 mg* TAB PO PRN (12:04)
[2019-04-16] MEDS: Magnesium Hydroxide LIQ* 30 ML UDC PO PRN (12:05)
[2019-04-16] MEDS: Polyethylene Glycol 3350* 17 GM PACKET PO PRN (12:06)
[2019-04-17] MEDS: ZOSYN 3.375 GM Q12H per EXTENDED INFUSION IVPB SCH ×6 (00:32→23:51)
[2019-04-17 06:05] LABS: Hematocrit 32 % (42-52); Hemoglobin 11.1 g/dL (14.0-18.0); Mean Corpuscular HGB Conc 35 g/dL (31-36); Mean Corpuscular Hemoglobin 34 pg (27-31); Mean Corpuscular Volume 99 fL (80-94); Mean Platelet Volume 7.6 fL (7.4-10.4); Platelet Count 119 10^3/uL (150-450); Red Blood Count 3.22 10^6 /uL (4.18-5.48); Red Cell Distribution Width 13 % (10-15); White Blood Count 6.2 10^3/uL (3.5-10.8)
[2019-04-17 06:24] LABS: BUN/Creatinine Ratio 12.4 (8-20); Calcium 8.7 mg/dL (8.6-10.3); EGFR African American 8.8 (>60); EGFR Non-African American 7.3 (>60); Potassium 4.3 mmol/L (3.5-5.0)
[2019-04-17] MEDS: Heparin VIAL(*) 5000 UNITS/ML VIAL (FIVE THOUSAND) SUBCUT SCH ×3 (06:44→21:59)
[2019-04-17] MEDS: Tamsulosin CAP* 0.4 MG PO SCH (10:13)
[2019-04-17] MEDS: Aspirin EC TAB* 81 MG TAB.EC PO SCH (10:13)
[2019-04-17] MEDS: Atorvastatin* 20 MG TAB PO SCH (10:13)
[2019-04-17] MEDS: Docusate CAP* 100 MG PO SCH (10:13)
[2019-04-17] MEDS: Polyethylene Glycol 3350* 17 GM PACKET PO PRN (10:13)
[2019-04-17] MEDS: Multivitamins/Minerals TAB PO SCH (10:13)
[2019-04-17] MEDS: Calcium Carbonate CHEW TAB* 500 MG (TUMS) PO SCH (10:13)
[2019-04-17] MEDS: Lisinopril TAB* 10 MG PO SCH (10:13)
[2019-04-17] MEDS: Sevelamer TAB* 800 MG PO SCH ×3 (10:17→18:04)
--- NOTE | 2019-04-17 14:58 | PN ---
Subjective Date of Service: 04/17/19 Interval History: Mr. Montelongo is not feeling well today. He feels as though he needs to have a BM. No further nausea. He is not aware of any events from overnight. Denies CP, SOB. No current nursing concerns, but the patient's nephrostomy tube was pulled out approx 4 in last evening. Still draining. Family History: Unchanged from Admission Social History: Unchanged from Admission Past Medical History: Unchanged from Admission Objective Active Medications: Acetaminophen (Tylenol Tab*) 650 mg PO Q4H PRN MILD PAIN or TEMP > 100.4 Aspirin (Aspirin Ec Tab*) 81 mg PO DAILY [facility] Atorvastatin Calcium (Lipitor*) 20 mg PO DAILY [facility] Calcium Carbonate (Tums*) 500 mg PO DAILY [facility] Docusate Sodium (Colace Cap*) 100 mg PO QAM [facility] Heparin Sodium (Porcine) (Heparin Vial(*)) 5,000 units SUBCUT Q8HR [facility] Hydralazine HCl (Apresoline Iv*) 5 mg IV SLOW PU Q6H PRN BLOOD PRESSURE Piperacillin Sod/Tazobactam (Sod 3.375 gm/ Sodium Chloride) 100 mls @ 25 mls/ hr IVPB Q12H [facility] Lisinopril (Prinivil Tab*) 10 mg PO DAILY [facility] Magnesium Hydroxide (Milk Of Magnesia Liq*) 30 ml PO DAILY [facility] Multivitamins/Minerals (Theragran/Minerals Tab*) 1 tab PO DAILY [facility] Ondansetron HCl (Zofran Inj*) 4 mg IV Q6H PRN NAUSEA/VOMITING Polyethylene Glycol/Electrolytes (Miralax*) 17 gm PO DAILY [facility]STIP[facility] Senna (Senokot 8.6 Mg Tab*) 1 tab PO BEDTIME PRN [facility]ST[facility] Sevelamer Carbonate (Renvela Tab*) 800 mg PO 0730,1200 [facility] Sevelamer Carbonate (Renvela Tab*) 1,600 mg PO 1700 [facility] Tamsulosin HCl (Flomax Cap*) 0.4 mg PO DAILY [facility] Vital Signs - 8 hr 04/17/19 04/17/19 07:56 12:00 Temperature 97.0 F 97.6 F Pulse Rate 57 57 Respiratory 16 18 Rate Blood Pressure 133/61 125/58 (mmHg) O2 Sat by Pulse 94 96 Oximetry Oxygen Devices in Use Now: None Appearance: Elderly male lying in bed in NAD Ears/Nose/Mouth/Throat: Mucous Membranes Moist Neck: NL Appearance and Movements; NL JVP, Trachea Midline Respiratory: Symmetrical Chest Expansion and Respiratory Effort, Clear to Auscultation Cardiovascular: NL Sounds; No Murmurs; No JVD Abdominal: NL Sounds; No Tenderness; No Distention Extremities: No Edema Neurological: - - Oriented to self and place Lines/Tubes/Other Access: Clean, Dry and Intact Peripheral IV Nutrition: Taking PO's Result Diagrams: 04/17/19 05:29 04/17/19 05:29 Assess/Plan/Problems-Billing Assessment: Mr. Montelongo is an 83 yo M with PMH of ESRD on dialysis, CAD, HTN, HLD, TIA, BPH; presented with hematuria and was found to have complicated UTI requiring IV antibiotics. - Patient Problems (1) UTI (urinary tract infection) Comment: - Previously with fever and encephalopathy, now resolved, but still having episodes of mild confusion - Cultures growing ESBL Klebsiella, Morganella, Enterococcus, and Providencia with multiple resistences - Appreciate ID consult; will need 1 week IV abx as there are no PO options - Will need nephrostomy tube changed during this admission, as this has not been changed in 6 months and is the likely source of infection; also now is partially dislodged - Received 1 dose of Zosyn on 04/14/19 then never received any additional doses ; spoke with Pharmacy to confirm renal dosing schedule which should be q12h - Continue Zosyn (day 2) (2) Syncope Code(s): R55 - SYNCOPE AND COLLAPSE Comment: - During dialysis 04/15/19, but likely vasovagal as he was on the bedpan during episode - Previously having a few pauses on tele (2 seconds) but has afib; not likely the cause and was not having pauses on tele during the episode - EKG remains unchanged - Telemetry monitoring (3) ESRD (end stage renal disease) on dialysis Code(s): N18.6 - END STAGE RENAL DISEASE; Z99.2 - DEPENDENCE ON RENAL DIALYSIS Comment: - Typically on TuThSa schedule; Nephrology will dialyze Thursday and Thursday instead - Continue sevelamer (4) CAD (coronary artery disease) Code(s): I25.10 - ATHSCL HEART DISEASE OF [place] CORONARY ARTERY W/O ANG PCTRS Comment: - Trops mildly elevated without CP or EKG changes; likely d/t demand ischemia and ESRD - Continue aspirin, atorvastatin (5) HTN (hypertension) Code(s): I10 - ESSENTIAL (PRIMARY) HYPERTENSION Comment: - Normotensive - Continue lisinopril (6) Hyperlipidemia Code(s): E78.5 - HYPERLIPIDEMIA, UNSPECIFIED Comment: - Continue atorvastatin (7) DVT prophylaxis Comment: - Heparin SQ (8) Full code status Code(s): Z78.9 - OTHER SPECIFIED HEALTH STATUS Comment: Status and Disposition: Inpatient for IV abx. Nephrostomy tube change next week (Thursday or Thursday). Left message with IR to schedule. Attending: Loli Walters
[2019-04-18] MEDS: Heparin VIAL(*) 5000 UNITS/ML VIAL (FIVE THOUSAND) SUBCUT SCH ×3 (05:29→21:40)
[2019-04-18 07:31] LABS: Hematocrit 34 % (42-52); Hemoglobin 11.7 g/dL (14.0-18.0); Mean Corpuscular HGB Conc 34 g/dL (31-36); Mean Corpuscular Hemoglobin 34 pg (27-31); Mean Corpuscular Volume 100 fL (80-94); Mean Platelet Volume 7.7 fL (7.4-10.4); Platelet Count 138 10^3/uL (150-450); Red Blood Count 3.41 10^6 /uL (4.18-5.48); Red Cell Distribution Width 13 % (10-15); White Blood Count 5.8 10^3/uL (3.5-10.8)
[2019-04-18 07:35] LABS: INR 1.08 (0.82-1.09)
[2019-04-18 07:39] LABS: BUN/Creatinine Ratio 12.7 (8-20); EGFR African American 7.1 (>60); EGFR Non-African American 5.9 (>60); Potassium 4.1 mmol/L (3.5-5.0)
[2019-04-18] MEDS: Docusate CAP* 100 MG PO SCH (08:29)
[2019-04-18] MEDS: Tamsulosin CAP* 0.4 MG PO SCH (08:29)
[2019-04-18] MEDS: Atorvastatin* 20 MG TAB PO SCH (08:30)
[2019-04-18] MEDS: Multivitamins/Minerals TAB PO SCH (08:30)
[2019-04-18] MEDS: Sevelamer TAB* 800 MG PO SCH ×3 (08:31→17:18)
[2019-04-18] MEDS: Lisinopril TAB* 10 MG PO SCH (08:32)
[2019-04-18] MEDS: Calcium Carbonate CHEW TAB* 500 MG (TUMS) PO SCH (08:32)
[2019-04-18] MEDS: Aspirin EC TAB* 81 MG TAB.EC PO SCH (08:32)
[2019-04-18] MEDS: Polyethylene Glycol 3350* 17 GM PACKET PO PRN (08:36)
[2019-04-18] MEDS ORDERED: Magnesium CITRATE* 300 ML BTL PO ONE (10:45)
[2019-04-18] MEDS ORDERED: EPOETIN ALFA-EPBX * 4,000 UNIT/ML VIAL IV ONE (12:00)
[2019-04-18] MEDS ORDERED: EPOETIN ALFA 4000 UNIT/ML IV ONE (12:00)
[2019-04-18] MEDS ORDERED: Heparin DIALYSIS ONLY(*) 1,000 UNITS/ML VIAL DIALYSIS ONE (12:00)
[2019-04-18] MEDS: Acetaminophen TAB* 325 MG PO PRN (12:32)
[2019-04-18] MEDS: ZOSYN 3.375 GM Q12H per EXTENDED INFUSION IVPB SCH ×4 (13:34→23:50)
--- NOTE | 2019-04-18 13:58 | PN ---
Progress Note - Progress Note Date of Service: 04/18/19 SOAP: Subjective: CC: UTI in the setting of nephrostomy tube HPI: Mr. Montelongo is an 83 yo male with PMH significant for ESRD on hemodialysis, chronic right nephrostomy tube, CAD, HLD, HTN, BPH, and TIA; who presented to the hospital with complaints of AMS and was found to have encephalopathy felt to be secondary to a UTI. Denies fever, chills, nausea, vomiting, or diarrhea. Reports constipation with no BM since 04/13. Objective: Vital Signs - 8 hr 04/18/19 04/18/19 04/18/19 08:00 08:30 13:30 Temperature 98.4 F 97.1 F Pulse Rate 55 56 Respiratory 18 16 18 Rate Blood Pressure 132/61 109/55 (mmHg) O2 Sat by Pulse 100 100 98 Oximetry Physical Exam: General: NAD, laying in bed Neurological: Alert and Oriented to self HEENT: Moist MM Cardiovascular: Heart rate regular Respiratory: Lung sounds clear Abdominal: Bowel sounds present; ABD large, soft, and non tender Skin: No rash Laboratory Results - last 24 hr 04/18/19 04/18/19 04/18/19 06:57 06:57 06:57 WBC 5.8 RBC 3.41 L Hgb 11.7 L Hct 34 L MCV 100 H MCH 34 H MCHC 34 RDW 13 Plt Count 138 L MPV 7.7 INR (Anticoag Therapy) 1.08 Sodium 138 Potassium 4.1 Chloride 98 L Carbon Dioxide 26 Anion Gap 14 H BUN 111 H Creatinine 8.73 H Est GFR ( Amer) 7.1 Est GFR (Non-Af Amer) 5.9 BUN/Creatinine Ratio 12.7 Glucose 102 H Calcium 9.0 Microbiology 04/11/19 13:08 Aerobic Blood Culture - Final Blood Venous No Growth Day 5 04/11/19 12:37 Aerobic Blood Culture - Final Blood Venous No Growth Day 5 Anaerobic Blood Culture - Final No Growth Day 5 04/11/19 12:05 Urine Culture - Final Urine Esbl Klebsiella Pneumoniae Providencia Rettgeri Morganella Morganii Enterococcus Faecalis 04/11/19 18:05 Nasal Screen MRSA (PCR) - Final Nasal Mrsa Not Detected Assessment: 1. UTI in the setting of a chronic right sided nephrostomy tube. Urine culture with ESBL klebsiella, providencia, morganella, and enterococcus. Blood cultures with no growth. Afebrile and no leukocytosis. Pending nephrostomy tube change. 2. Encephalopathy. Suspect secondary to #1 3. ESRD on hemodialysis. 4. Chronic right sided nephrostomy tube. Last changed in September 2018. According to [facility] [place], family reports this tube often becomes slightly dislodged and they clean the tube with soap and reinsert. Plan for tube change, possibly tomorrow. Plan: Continue Zosyn for now. Pending nephrostomy tube change. Will plan to transition to oral ABX at discharge.
--- NOTE | 2019-04-18 15:07 | PN ---
Subjective Date of Service: 04/18/19 Interval History: Mr. Montelongo is feeling better today. Undergoing dialysis during exam. He remains constipated and feels slightly bloated, but overall feels well. Denies abdominal pain or nausea. Denies CP or SOB. Tangential speech regarding a dream he had. No concerns from nursing. Family History: Unchanged from Admission Social History: Unchanged from Admission Past Medical History: Unchanged from Admission Objective Active Medications: Acetaminophen (Tylenol Tab*) 650 mg PO Q4H PRN MILD PAIN or TEMP > 100.4 Atorvastatin Calcium (Lipitor*) 20 mg PO DAILY [facility] Calcium Carbonate (Tums*) 500 mg PO DAILY [facility] Docusate Sodium (Colace Cap*) 100 mg PO QAM [facility] Heparin Sodium (Porcine) (Heparin Vial(*)) 5,000 units SUBCUT Q8HR [facility] Hydralazine HCl (Apresoline Iv*) 5 mg IV SLOW PU Q6H PRN BLOOD PRESSURE Piperacillin Sod/Tazobactam (Sod 3.375 gm/ Sodium Chloride) 100 mls @ 25 mls/ hr IVPB Q12H [facility] Lisinopril (Prinivil Tab*) 10 mg PO DAILY [facility] Magnesium Hydroxide (Milk Of Magnesia Liq*) 30 ml PO DAILY [facility] Multivitamins/Minerals (Theragran/Minerals Tab*) 1 tab PO DAILY [facility] Ondansetron HCl (Zofran Inj*) 4 mg IV Q6H PRN NAUSEA/VOMITING Polyethylene Glycol/Electrolytes (Miralax*) 17 gm PO DAILY [facility] Senna (Senokot 8.6 Mg Tab*) 1 tab PO BEDTIME PRN [facility] Sevelamer Carbonate (Renvela Tab*) 800 mg PO 0730,1200 [facility] Sevelamer Carbonate (Renvela Tab*) 1,600 mg PO 1700 [facility] Tamsulosin HCl (Flomax Cap*) 0.4 mg PO DAILY [facility] Vital Signs - 8 hr 04/18/19 04/18/19 04/18/19 08:00 08:30 13:30 Temperature 98.4 F 97.1 F Pulse Rate 55 56 Respiratory 18 16 18 Rate Blood Pressure 132/61 109/55 (mmHg) O2 Sat by Pulse 100 100 98 Oximetry Oxygen Devices in Use Now: None Appearance: Elderly male lying in bed in NAD Neck: NL Appearance and Movements; NL JVP, Trachea Midline Respiratory: Symmetrical Chest Expansion and Respiratory Effort, Clear to Auscultation Cardiovascular: NL Sounds; No Murmurs; No JVD Abdominal: NL Sounds; No Tenderness; No Distention Extremities: No Edema Neurological: - - Oriented to self and place, tangential speech Lines/Tubes/Other Access: Clean, Dry and Intact Peripheral IV Nutrition: Taking PO's Result Diagrams: 04/18/19 06:57 04/18/19 06:57 Assess/Plan/Problems-Billing Assessment: Mr. Montelongo is an 83 yo M with PMH of ESRD on dialysis, CAD, HTN, HLD, TIA, BPH; presented with hematuria and was found to have complicated UTI requiring IV antibiotics. - Patient Problems (1) UTI (urinary tract infection) Comment: - Previously with fever and encephalopathy, now resolved, but still having episodes of mild confusion - Cultures growing ESBL Klebsiella, Morganella, Enterococcus, and Providencia with multiple resistences - Appreciate ID consult; will need 1 week IV abx as there are no PO options - Received 1 dose of Zosyn on 04/14/19 then never received any additional doses ; spoke with Pharmacy to confirm renal dosing schedule which should be q12h - Continue Zosyn (day 3/7) (2) Nephrostomy complication Code(s): N99.528 - OTHER COMP OF INCONTINENT EXTERNAL STOMA OF URINARY TRACT Comment: - Tube was partially dislodged overnight 04/16/19, but still draining appropriately - Reportedly, the tube has fallen out at home and the patient's washed the tube with soap and water and reinserted; unclear if this is true, but would certainly explain these recurrent infections - Family will need thorough teaching about tube care prior to d/c - IR may be able to replace tube tomorrow, but unclear if current Radiologist is able to perform under fluoroscopy; may need to be transferred if procedure cannot be performed here (3) Syncope Code(s): R55 - SYNCOPE AND COLLAPSE Comment: - During dialysis 04/15/19, but likely vasovagal as he was on the bedpan during episode - Previously having a few pauses on tele (2 seconds) but has afib; not likely the cause and was not having pauses on tele during the episode - EKG remains unchanged - Telemetry monitoring (4) ESRD (end stage renal disease) on dialysis Code(s): N18.6 - END STAGE RENAL DISEASE; Z99.2 - DEPENDENCE ON RENAL DIALYSIS Comment: - Typically on TuThSa schedule; Nephrology will dialyze Thursday and Thursday instead - Continue sevelamer (5) CAD (coronary artery disease) Code(s): I25.10 - ATHSCL HEART DISEASE OF [place] CORONARY ARTERY W/O ANG PCTRS Comment: - Trops mildly elevated without CP or EKG changes; likely d/t demand ischemia and ESRD - Hold aspirin pending procedure - Continue atorvastatin (6) HTN (hypertension) Code(s): I10 - ESSENTIAL (PRIMARY) HYPERTENSION Comment: - Normotensive - Continue lisinopril (7) Hyperlipidemia Code(s): E78.5 - HYPERLIPIDEMIA, UNSPECIFIED Comment: - Continue atorvastatin (8) DVT prophylaxis Comment: - Heparin SQ (9) Full code status Code(s): Z78.9 - OTHER SPECIFIED HEALTH STATUS Comment: Status and Disposition: Inpatient for IV abx. Nephrostomy tube change this week. Attending: Elva Naylor
[2019-04-18] MEDS ORDERED: NS 0.9% 250 ML* 250 ML IV ONE (17:57)
--- NOTE | 2019-04-19 00:47 | PN ---
NEPHROLOGY HOSPITAL PROGRESS NOTE: DATE OF VISIT: 04/18/19 CHIEF COMPLAINT: End-stage kidney disease, on hemodialysis. HISTORY OF PRESENT ILLNESS: The patient is admitted for severe urinary tract infection. He has a nephrostomy tube that has not been changed in 6 months and he is awaiting for replacement during this admission. Today is his regular dialysis day. He has no complaints. He is alert and oriented to place, but not to year. He is also oriented to self. He denies any chest pain, shortness of breath, sputum production, abdominal pain, decreased appetite, nausea, vomiting, or diarrhea. PHYSICAL EXAMINATION: Blood pressure is 132/61, temperature is 98.4 Fahrenheit , heart rate is 55 beats per minute. His oxygen saturation is 100 on room air. Constitutional: He is in no acute distress, pleasant and conversant, lying in bed without shortness of breath. Head is atraumatic and normocephalic. Neck shows no JVD, is supple. Chest is clear to auscultation with good respiratory effort. Heart shows S1, S2. Regular rate and rhythm. No murmurs, rubs, or gallops. Abdomen is soft, nontender, nondistended. Positive bowel sounds. No hepatosplenomegaly appreciated. Extremities: He has no lower extremity edema. No cyanosis and no clubbing. He has no dependent edema either in the posterior thighs. Psychiatric: As mentioned above, he is alert. He is oriented to person and place, but not to time. Neurological: Speech is fluent. He has no asterixis, no tremor, and is grossly nonfocal. LABORATORY DATA: Hemoglobin is 11.7, white blood cell count is 5.8, platelets are 138. Potassium 4.1, sodium 138, BUN 111, creatinine is 8.73, glucose 102. ASSESSMENT AND PLAN: Mr. Montelongo is a very nice 83-year-old gentleman who is admitted with severe urinary tract infection. Today is dialysis day. 1. End-stage kidney disease, on hemodialysis. The dialysis prescription was discussed with the dialysis nurse. He will dialyze on a 2k bath, 2.25 calcium, 30 bicarb. We will try to get him to target weight, but actually his weight is under his target weight and we will remove fluid as tolerated. I saw the patient during maintenance hemodialysis. He tolerated the dialysis well and 800 cc of fluids were removed. 2. Anemia of end-stage kidney disease. The patient is receiving EPO with dialysis, 4000 units were given today. We will continue to follow hemoglobin and try not to make changes in EPO more than every 2 weeks. 3. Urinary tract infection. The patient is receiving antibiotics and nephrostomy tube is to be changed during this admission. [id number]/CPS #: [id number] MTDD
[2019-04-19] MEDS ORDERED: Glycerin ADULT SUPP PR PRN (01:10)
[2019-04-19] MEDS: Magnesium Hydroxide LIQ* 30 ML UDC PO PRN ×2 (01:27→09:57)
[2019-04-19 06:45] LABS: Hematocrit 33 % (42-52); Hemoglobin 11.1 g/dL (14.0-18.0); Mean Corpuscular HGB Conc 34 g/dL (31-36); Mean Corpuscular Hemoglobin 34 pg (27-31); Mean Corpuscular Volume 100 fL (80-94); Mean Platelet Volume 7.3 fL (7.4-10.4); Platelet Count 146 10^3/uL (150-450); Red Blood Count 3.28 10^6 /uL (4.18-5.48); Red Cell Distribution Width 13 % (10-15); White Blood Count 5.6 10^3/uL (3.5-10.8)
[2019-04-19 06:54] LABS: Activated Partial Thrombo Time 36.4 seconds (26.0-38.0); INR 1.1 (0.82-1.09)
[2019-04-19 07:05] LABS: BUN/Creatinine Ratio 9.6 (8-20); Calcium 8.9 mg/dL (8.6-10.3); EGFR African American 10.8 (>60)
[2019-04-19 07:10] LABS: ABS Eosinophils 0.2 10^3/ul (0-0.6); ABS Lymphocytes 0.9 10^3/ul (1.0-4.8); ABS Monocytes 0.5 10^3/ul (0-0.8); Eosinophil % 4.1 %; Lymphocyte % 15.1 %; Nucleated Red Blood Cells % 0.1
[2019-04-19] MEDS: Heparin VIAL(*) 5000 UNITS/ML VIAL (FIVE THOUSAND) SUBCUT SCH ×3 (07:14→23:29)
[2019-04-19] MEDS: Tamsulosin CAP* 0.4 MG PO SCH (09:54)
[2019-04-19] MEDS: Docusate CAP* 100 MG PO SCH (09:54)
[2019-04-19] MEDS: Multivitamins/Minerals TAB PO SCH (09:55)
[2019-04-19] MEDS: Atorvastatin* 20 MG TAB PO SCH (09:55)
[2019-04-19] MEDS: Calcium Carbonate CHEW TAB* 500 MG (TUMS) PO SCH (09:56)
[2019-04-19] MEDS: Lisinopril TAB* 10 MG PO SCH (10:00)
[2019-04-19] MEDS: Sevelamer TAB* 800 MG PO SCH ×3 (10:00→16:33)
[2019-04-19] MEDS ORDERED: Aspirin 81 mg CHEW TAB* 81 MG TAB.CHEW PO SCH (10:00)
--- NOTE | 2019-04-19 12:13 | CONS ---
CC: Dr. Augustin Albrecht; Dr. Solo; Dr. Walker * CONSULTATION REPORT: DATE OF CONSULT: 04/19/19 ATTENDING PHYSICIAN: Dr. Augustin Albrecht.* (DICTATED BY AMALIA VEGA NP) PRIMARY SUPERVISOR ASSEMBLY STOCK: Dr. Solo. PRIMARY PHYSICIAN: Dr. Walker. PRIMARY QUANTOMETER OPERATOR: Remotely Dr. Car Patel, although the patient has not seen in several years CHIEF COMPLAINT: Hematuria, altered mental status, foul-smelling urine. HISTORY OF PRESENT ILLNESS: This is an 83-year-old male patient with a notable history of coronary artery disease, prior PCI in 2004 while in [facility], remotely followed by Dr. Car Patel, Cardiology; hyperlipidemia; TIA; hypertension; end-stage renal disease, on hemodialysis via left AV fistula Thursday, , Thursday with a history of recurrent UTI with chronic indwelling right nephrostomy tube. According to medical records, the patient presented to [facility] on 04/11/19 due to complaints of hematuria, low-grade temperature, foul-smelling urine and altered mental status. He was admitted to [facility] for toxic encephalopathy, urinary tract infection and troponinemia. Infectious Disease was consulted and has been following the patient. He is on Zosyn therapy. Troponin peaked on 04/11/19 at 0.7. He has been having periods of paroxysmal AFib on telemetry. Last evening, he was having intermittent episodes of ventricular standstill less than 5 seconds. It was difficult to discern whether or not the patient was symptomatic due to baseline mentation abnormalities. He has also been having periods of bradycardia, heart rate 30s to 50s. Thus we are asked to see the patient in consultation. The patient was scheduled to have right indwelling percutaneous nephrostomy tube replaced today. However, I am told by Interventional Radiology that this is put on hold until tomorrow due to room availability. Please note that information for obtaining history of present illness was limited due to the patient's cognitive baseline. I did speak to his daughter, Shamar in regards to establishing goals of care. She states that her dad would want a pacemaker, in fact he has been told remotely in the past by Dr. Car Patel that he would likely need a pacemaker in the future, however, that was 15 years ago. Last echocardiogram according to our medical records was in 2007. At that time , LVEF was 55% to 60% with posterior wall hypertrophy, normal left atrial size, trace to mild aortic insufficiency, mild mitral regurgitation. Last ischemic evaluation, unknown. PAST MEDICAL HISTORY: 1. End-stage renal disease, on hemodialysis Thursday, , Thursday via left AV fistula. 2. Recurrent UTI. 3. Coronary artery disease. 4. Hyperlipidemia. 5. Hypertension. 6. TIA. 7. BPH. 8. Anemia of chronic disease. PAST SURGICAL HISTORY: Includes: 1. Prior PCI in 2004. 2. Left AV fistula formation. 3. Indwelling percutaneous right nephrostomy tube most recent replacement was in September 2018. HOME MEDICATIONS: 1. Veltassa 8.4 g p.o. daily. 2. Flomax 0.4 mg a day. 3. Renvela 1600 mg p.o. daily. 4. Aspirin 81 mg a day. 5. Lisinopril 10 mg a day. 6. Lipitor 20 mg a day. 7. Multivitamin 1 p.o. daily. 8. Calcium carbonate 1 p.o. daily. 9. Tylenol 650 mg p.o. q.4 h. p.r.n. ALLERGIES: No known drug allergies. FAMILY HISTORY: Unable to obtain due to the patient's cognitive baseline abnormalities. SOCIAL HISTORY: The patient denies tobacco, alcohol, or drug abuse. He is , lives at home with his . REVIEW OF SYSTEMS: All systems have been reviewed, however, review of systems is limited due to the patient's cognitive abnormalities. PHYSICAL EXAM: Temperature 98.4, pulse 55, respirations 18, oxygenation 98% in room air, blood pressure 114/65. General: The patient is lying in bed upright , appears in no apparent distress. He is alert to person and time, but not place. He is pleasant. HEENT: Head is atraumatic, normocephalic. Oral mucosa is moist. Tongue is midline. Neck: Supple. Trachea midline. No JVD. No carotid bruits. Cardiac: Diminished S1, S2, bradycardic, regular rate, isa rhythm. No murmur, rub or gallop noted. Lungs: Auscultated anteriorly, no evidence of adventitious breath sounds. /GI: Abdomen is nontender, normoactive bowel sounds x4. There is a right nephrostomy tube in situ with hematuria noted in bag. Peripheral Vascular: 3+ brachial pulse palpated bilaterally and symmetrically, 2+ dorsalis pedis pulse palpated bilaterally and symmetrically. Skin: Intact although dry and flaky. DIAGNOSTIC STUDIES/LAB DATA: On 04/19/19, sodium 142, potassium 4, chloride 104 , carbon dioxide 29, BUN 58, creatinine 6.05, troponin peaked 04/11/19 at 0.07, INR 1.1. White count 5.6, hemoglobin 11.1, hematocrit 33, platelets 146. ECG 04/19/19; AFib, rate 65 with left anterior fascicular block, no ST elevation or depression appreciated, ? incomplete right bundle branch block. Telemetry reviewed. The patient had less than 5-second episode of ventricular standstill early this morning. He has had periods of bradycardia rate 30 to 35 , currently his heart rate is 50. He has also had periods of paroxysmal AFib. Brain CT 04/11/19 per radiology report, no apparent acute intracranial abnormality, stable chronic findings include involutional changes of the ventricles, appearance consistent with chronic macrovascular disease. Blood culture, no growth day 5. Urine culture final 04/11/19, ESBL, Klebsiella, Providencia rettgeri, Morganella morganii, Enterococcus faecalis. ASSESSMENT AND PLAN: 1. Ventricular standstill; the patient has had numerous episodes of ventricular standstill ranging from 2 to 4 seconds. In addition to periods of bradycardia rates in 30s at times. He informs me in the past he was told by Dr. Car Patel, his previous international exchange coordinator that he would likely need a pacemaker. I spoke to his daughter, Shamar, who assists in the patient's medical decisions and she states her dad would want a pacemaker. She is aware that due to probable colonization of right nephrostomy tube, we recommend replacement of nephrostomy tube and adequate treatment for urinary tract infection before considering implanting permanent pacemaker. He is currently stable, thus I would not recommend a temporary wire at this time. He is not on AV tong agents. We would recommend checking echocardiogram to rule out wall motion abnormality given troponinemia and prior history of coronary artery disease. He informed me that last week he did have an episode of chest pain, but none the since, although it is difficult to state the accuracy of the statement due to cognitive baseline abnormalities. We would recommend continuous telemetry monitoring. We will follow closely. 2. History of coronary artery disease. Previously on aspirin and statin therapy. Aspirin was held for replacement of right nephrostomy tube. We would recommend resuming given procedure is delayed until 04/20/19. 3. Urine polymicrobial infection. ID following the patient on Zosyn therapy. Likely has colonization involving right nephrostomy tube, which needs to be replaced. 4. End-stage renal disease, on hemodialysis. Schedule for hemodialysis tomorrow, 04/20/19. 5. Disposition. Pending course. The patient is full code. 6. Recommend continuing telemetry monitoring. The patient will need eventual permanent pacemaker implant. We will check echo to rule out wall motion abnormality and follow closely with Dr. Augustin Albrecht. The patient agrees the above assessment plan. Thank you for this kind consultation. Any future questions or concerns please do not hesitate to contact our practice. AMALIA VEGA NP [id number]/[facility] #: [id number] [place]
[2019-04-19] MEDS: ZOSYN 3.375 GM Q12H per EXTENDED INFUSION IVPB SCH ×4 (12:51→23:29)
--- NOTE | 2019-04-19 15:37 | PN ---
Subjective Date of Service: 04/19/19 Interval History: Mr. Montelongo is feeling fine this morning. He offers no complaints, but does admit to being hungry. He denies dizziness, weakness. No CP or SOB. Nursing reports bradycardia in the 30-40s this morning, asymptomatic. Overnight had multiple pauses >3 sec. Family History: Unchanged from Admission Social History: Unchanged from Admission Past Medical History: Unchanged from Admission Objective Active Medications: Acetaminophen (Tylenol Tab*) 650 mg PO Q4H PRN MILD PAIN or TEMP > 100.4 Aspirin (Aspirin 81 Mg Chew Tab*) 81 mg PO DAILY MALIKA Atorvastatin Calcium (Lipitor*) 20 mg PO DAILY MALIKA Calcium Carbonate (Tums*) 500 mg PO DAILY MALIKA Docusate Sodium (Colace Cap*) 100 mg PO QAM MALIKA Glycerin (Glycerin Adult Supp*) 1 supp MA DAILY PRN CONSTIPATION Heparin Sodium (Porcine) (Heparin Vial(*)) 5,000 units SUBCUT Q8HR MALIKA Hydralazine HCl (Apresoline Iv*) 5 mg IV SLOW PU Q6H PRN BLOOD PRESSURE Piperacillin Sod/Tazobactam (Sod 3.375 gm/ Sodium Chloride) 100 mls @ 25 mls/ hr IVPB Q12H MALIKA Lisinopril (Prinivil Tab*) 10 mg PO DAILY MALIKA Magnesium Hydroxide (Milk Of Magnesia Liq*) 30 ml PO DAILY PRN CONSTIPATION Multivitamins/Minerals (Theragran/Minerals Tab*) 1 tab PO DAILY MALIKA Ondansetron HCl (Zofran Inj*) 4 mg IV Q6H PRN NAUSEA/VOMITING Polyethylene Glycol/Electrolytes (Miralax*) 17 gm PO DAILY PRN CONSTIPATION Senna (Senokot 8.6 Mg Tab*) 1 tab PO BEDTIME PRN CONSTIPATION Sevelamer Carbonate (Renvela Tab*) 800 mg PO 0730,1200 MALIKA Sevelamer Carbonate (Renvela Tab*) 1,600 mg PO 1700 MALIKA Tamsulosin HCl (Flomax Cap*) 0.4 mg PO DAILY [facility] Vital Signs - 8 hr 04/19/19 04/19/19 04/19/19 08:00 08:21 12:02 Temperature 97.7 F Pulse Rate 37 36 Respiratory 16 16 18 Rate Blood Pressure 114/53 98/44 (mmHg) O2 Sat by Pulse 98 99 100 Oximetry Oxygen Devices in Use Now: None Appearance: Elderly male lying in bed in NAD Neck: NL Appearance and Movements; NL JVP, Trachea Midline Respiratory: Symmetrical Chest Expansion and Respiratory Effort, Clear to Auscultation Cardiovascular: NL Sounds; No Murmurs; No JVD Abdominal: NL Sounds; No Tenderness; No Distention Extremities: No Edema Neurological: - - Oriented to self and place Lines/Tubes/Other Access: Clean, Dry and Intact Peripheral IV Nutrition: Taking PO's Result Diagrams: 04/19/19 06:31 04/19/19 06:31 Assess/Plan/Problems-Billing Assessment: Mr. Montelongo is an 83 yo M with PMH of ESRD on dialysis, CAD, HTN, HLD, TIA, BPH; presented with hematuria and was found to have complicated UTI requiring IV antibiotics. - Patient Problems (1) Bradycardia Code(s): R00.1 - BRADYCARDIA, UNSPECIFIED Comment: - HR previously 50-60s; dropping down into the 30s last night with 3-4 sec pauses, but asymptomatic and remains 30-40s today - Appreciate Cardiology consult; plan will be for pacer placement after neph tube is replaced - Telemetry monitoring (2) UTI (urinary tract infection) Comment: - Previously with fever and encephalopathy, now resolved, but still having episodes of mild confusion - Cultures growing ESBL Klebsiella, Morganella, Enterococcus, and Providencia with multiple resistences - Appreciate ID consult; will need 1 week IV abx as there are no PO options - Continue Zosyn (day 4/7) (3) Nephrostomy complication Code(s): N99.528 - OTHER COMP OF INCONTINENT EXTERNAL STOMA OF URINARY TRACT Comment: - Tube was partially dislodged overnight 04/16/19, but still draining appropriately - Reportedly, the tube has fallen out at home and the patient's washed the tube with soap and water and reinserted; unclear if this is true, but would certainly explain these recurrent infections - Family will need thorough teaching about tube care prior to d/c - IR plans to replace tube tomorrow at 1030; NPO after midnight and will stop heparin tonight (4) Syncope Code(s): R55 - SYNCOPE AND COLLAPSE Comment: - During dialysis 04/15/19, but likely vasovagal as he was on the bedpan during episode and no further episodes (5) ESRD (end stage renal disease) on dialysis Code(s): N18.6 - END STAGE RENAL DISEASE; Z99.2 - DEPENDENCE ON RENAL DIALYSIS Comment: - Typically on TuThSa schedule; Nephrology will dialyze MWF while inpatient - Continue sevelamer (6) CAD (coronary artery disease) Code(s): I25.10 - ATHSCL HEART DISEASE OF [place] CORONARY ARTERY W/O ANG PCTRS Comment: - Trops mildly elevated without CP or EKG changes; likely d/t demand ischemia and ESRD - Hold aspirin pending procedure - Continue atorvastatin (7) HTN (hypertension) Code(s): I10 - ESSENTIAL (PRIMARY) HYPERTENSION Comment: - Normotensive - Continue lisinopril (8) Hyperlipidemia Code(s): E78.5 - HYPERLIPIDEMIA, UNSPECIFIED Comment: - Continue atorvastatin (9) DVT prophylaxis Comment: - Heparin SQ (10) Full code status Code(s): Z78.9 - OTHER SPECIFIED HEALTH STATUS Comment: Status and Disposition: Inpatient for IV abx. Nephrostomy tube change tomorrow at 1030. Likely pacemaker placement later this week. Attending: Elva Naylor
--- NOTE | 2019-04-19 16:09 | ECHO ---
*[facility]* [place] [address] Fax #: [phone] Transthoracic Echocardiogram Patient: Duarte Montelongo : 1935 Study Date: 04/19/2019 Age: 83 Gender: M HR: 42 bpm Height: 73 in /185.4 cm BSA: 2.2 m^2 Weight: 204.6 lb /93 kg BMI: 27 kg/m^2 *Layout Former: * Alessandra Padron RDCS RN *Referring Physician: * Sully Dennison *Reading Physician: * Augustin Albrecht MD Indications: Abnormal EKG. History: Coronary artery disease. PCI. ESRD. Transient ischemic attack. Risk factors: Hypertension. Dyslipidemia. Conclusions Summary: - Left ventricle: Systolic function is normal. The estimated ejection fraction is 60-65%. Wall motion is normal; there are no regional wall motion abnormalities. - Right ventricle: Systolic function is normal as seen in a non-standard subcostal view. - Mitral valve: There is no significant regurgitation. - Aortic valve: There is no evidence of stenosis. There is trace to mild regurgitation. - Tricuspid valve: There is no significant regurgitation. - Pericardium, extracardiac: There is no pericardial effusion. - Pulmonary arteries: Systolic pressure can not be accurately estimated. - Compared to study of 06/29/17, the is little change. Study data: Transthoracic echocardiogram. Procedure: Transthoracic echocardiography was performed. The study was technically limited due to difficult acoustic windows. Complete 2D, spectral Doppler, and color flow Doppler. Location: Bedside. Patient status: Inpatient. Patient room number: 449-02. Rhythm: Bradycardia. Findings Left ventricle: The cavity size is normal. Wall thickness is mildly increased. Systolic function is normal. The estimated ejection fraction is 60-65%. Wall motion is normal; there are no regional wall motion abnormalities. There is no consistent Doppler evidence of clinically significant diastolic dysfunction. Right ventricle: The cavity size is normal. Systolic function is normal as seen in a non-standard subcostal view. Left atrium: The atrium is mildly dilated. Right atrium: Not well visualized. Mitral valve: The leaflets are mildly thickened. There is no evidence of stenosis. There is no significant regurgitation. Aortic valve: Not well visualized. The valve is probably trileaflet. The leaflets are mildly thickened. There is no evidence of stenosis. There is trace to mild regurgitation. Tricuspid valve: The valve is structurally normal as seen in a non-standard subcostal view. There is no evidence of stenosis. There is no significant regurgitation. Pulmonic valve: Not well visualized. Aorta: Aortic root: The aortic root is mildly dilated. Ascending aorta: The ascending aorta is not visualized. Aortic arch: The aortic arch is not visualized. Pericardium: There is no pericardial effusion. Pulmonary arteries: Not well visualized. Systolic pressure can not be accurately estimated. Systemic veins: Not well visualized. Measurements Left ventricle Value Ref Right atrium Value Ref ROHIT, LAX 4.3 cm 4.2 - 5.8 Estimated RAP 8 mm Hg ---- PW, ED, LAX (H) 1.1 cm 0.6 - 1.0 E', lat [place]ingo, TDI (L) 8.7 cm/sec >=10.0 Aortic valve Value Ref E/e', lat [place], TDI 10 --------- Peak v, S 1.69 m/sec ---- E', med [place]ingo, TDI (L) 6.0 cm/sec >=7.0 VTI, S 35.1 cm ---- E/e', med [place], TDI 14 --------- Mean grad, S 6.0 mm Hg ---- E', avg, TDI 7.4 cm/sec --------- Peak grad, S 11.4 mm Hg ---- E/e', avg, TDI 12 <=14 LVOT/AV, VTI ratio 0.72 ---- LVOT Value Ref Mitral valve Value Ref Peak rabia, S 1.24 m/sec --------- Peak E 0.85 m/sec ---- VTI, S 25.1 cm --------- Peak A 0.76 m/sec ---- Peak grad, S 6 mm Hg --------- Decel time 321 ms ---- Mean grad, S 4 mm Hg --------- Peak grad, D 2.9 mm Hg ---- Peak E/A ratio 1.12 ---- Left atrium Value Ref LA ID 4.2 cm --------- Pulmonic valve Value Ref SI dim ES, LAX 4.2 cm --------- Peak v, S 1.28 m/sec ---- ML dim, A4C 5.5 cm --------- Peak grad, S 6.6 mm Hg ---- SI dim, A4C 5.5 cm --------- Vol, ES, 2-p 82 ml --------- Aortic root Value Ref Vol/bsa, ES, 2-p (H) 37 ml/m^2 16 - 34 Root diam 3.6 cm <4.3 Legend: (L) and (H) marlene values outside specified reference range. Prepared and electronically signed by Augustin Albrecht MD 04/19/2019 16:10
[2019-04-19] MEDS: Acetaminophen TAB* 325 MG PO PRN (16:33)
[2019-04-19] MEDS: Senna TAB 8.6 mg* TAB PO PRN (20:05)
[2019-04-19] MEDS: Polyethylene Glycol 3350* 17 GM PACKET PO PRN (20:06)
[2019-04-20] MEDS: Lisinopril TAB* 10 MG PO SCH (08:15)
[2019-04-20 10:00] LABS: BUN/Creatinine Ratio 9.7 (8-20); Calcium 8.8 mg/dL (8.6-10.3); EGFR African American 8.4 (>60); EGFR Non-African American 6.9 (>60); Potassium 4.1 mmol/L (3.5-5.0)
[2019-04-20] MEDS: Sevelamer TAB* 800 MG PO SCH ×3 (10:18→17:21)
[2019-04-20] MEDS ORDERED: fentaNYL* 50 MCG/ML 2 ML VIAL (100 MCG VIAL) ONE (10:19)
[2019-04-20] MEDS: ZOSYN 3.375 GM Q12H per EXTENDED INFUSION IVPB SCH ×4 (11:50→23:08)
[2019-04-20] MEDS: Tamsulosin CAP* 0.4 MG PO SCH (11:50)
[2019-04-20] MEDS: Docusate CAP* 100 MG PO SCH (11:51)
[2019-04-20] MEDS: Atorvastatin* 20 MG TAB PO SCH (11:51)
[2019-04-20] MEDS: Multivitamins/Minerals TAB PO SCH (11:51)
[2019-04-20] MEDS: Calcium Carbonate CHEW TAB* 500 MG (TUMS) PO SCH (11:51)
--- NOTE | 2019-04-20 14:35 | PN ---
Subjective Date of Service: 04/20/19 Interval History: Patient today is feeling well after his nephrostomy tube change. Patient states that it was aching before the change, but cannot further elaborate. Patient complains only of chronic pain in his shoulder and neck. Patient denies F/C, N/V , abdominal pain, diarrhea, dizziness, syncope, presyncope, or other pain. Family History: Unchanged from Admission Social History: Unchanged from Admission Past Medical History: Unchanged from Admission Objective Active Medications: Acetaminophen (Tylenol Tab*) 650 mg PO Q4H PRN PRN Reason: MILD PAIN or TEMP > 100.4 Last Admin: 04/19/19 16:33 Dose: 650 mg Atorvastatin Calcium (Lipitor*) 20 mg PO DAILY [facility] Last Admin: 04/20/19 11:51 Dose: 20 mg Calcium Carbonate (Tums*) 500 mg PO DAILY [facility] Last Admin: 04/20/19 11:51 Dose: 500 mg Docusate Sodium (Colace Cap*) 100 mg PO QAM [facility] Last Admin: 04/20/19 11:51 Dose: 100 mg Glycerin (Glycerin Adult Supp*) 1 supp IN DAILY PRN PRN Reason: CONSTIPATION Last Admin: 04/19/19 02:51 Dose: 1 supp Hydralazine HCl (Apresoline Iv*) 5 mg IV SLOW PU Q6H PRN PRN Reason: BLOOD PRESSURE Piperacillin Sod/Tazobactam (Sod 3.375 gm/ Sodium Chloride) 100 mls @ 25 mls/ hr IVPB Q12H [facility] Last Admin: 04/20/19 11:50 Dose: 25 mls/hr Lisinopril (Prinivil Tab*) 10 mg PO DAILY [facility] Last Admin: 04/20/19 08:15 Dose: Not Given Magnesium Hydroxide (Milk Of Magnesia Liq*) 30 ml PO DAILY PRN PRN Reason: CONSTIPATION Last Admin: 04/19/19 09:57 Dose: 30 ml Multivitamins/Minerals (Theragran/Minerals Tab*) 1 tab PO DAILY [facility] Last Admin: 04/20/19 11:51 Dose: 1 tab Ondansetron HCl (Zofran Inj*) 4 mg IV Q6H PRN PRN Reason: NAUSEA/VOMITING Last Admin: 04/16/19 08:45 Dose: 4 mg Pharmacy Consult (Zosyn Per Pharmacy*) 1 note FOLLOW UP .ZOSYN PER PHARMACY [facility] Polyethylene Glycol/Electrolytes (Miralax*) 17 gm PO DAILY PRN PRN Reason: CONSTIPATION Last Admin: 04/19/19 20:06 Dose: 17 gm Senna (Senokot 8.6 Mg Tab*) 1 tab PO BEDTIME PRN PRN Reason: CONSTIPATION Last Admin: 04/19/19 20:05 Dose: 1 tab Sevelamer Carbonate (Renvela Tab*) 800 mg PO 0730,1200 [facility] Last Admin: 04/20/19 12:23 Dose: Not Given Sevelamer Carbonate (Renvela Tab*) 1,600 mg PO 1700 [facility] Last Admin: 04/19/19 16:33 Dose: 1,600 mg Tamsulosin HCl (Flomax Cap*) 0.4 mg PO DAILY [facility] Last Admin: 04/20/19 11:50 Dose: 0.4 mg Vital Signs - 8 hr 04/20/19 04/20/19 04/20/19 08:00 08:11 09:56 Temperature 97.3 F 97.2 F Pulse Rate 45 45 Respiratory 18 18 16 Rate Blood Pressure 98/46 157/56 (mmHg) O2 Sat by Pulse 98 98 100 Oximetry 04/20/19 04/20/19 11:45 12:19 Temperature 98.3 F 97.8 F Pulse Rate 50 47 Respiratory 17 16 Rate Blood Pressure 137/69 152/61 (mmHg) O2 Sat by Pulse 97 99 Oximetry Oxygen Devices in Use Now: None Appearance: Patient is an 83yo male who appears stated age and is sitting in the bed in [facility]. Eyes: No Scleral Icterus, PERRLA Ears/Nose/Mouth/Throat: NL Teeth, Lips, Gums, Clear Oropharnyx, Mucous Membranes Moist Neck: NL Appearance and Movements; NL JVP, Trachea Midline Respiratory: Symmetrical Chest Expansion and Respiratory Effort, Clear to Auscultation Cardiovascular: NL Sounds; No Murmurs; No JVD, No Edema, - - Bradycardia Abdominal: NL Sounds; No Tenderness; No Distention, No Hepatosplenomegaly, - - Nephrostomy tube in place draining orange urine. Lymphatic: No Cervical Adenopathy Extremities: No Edema, No Clubbing, Cyanosis Skin: No Nodules or Sclerosis, - Neurological: - - Alert, oriented only to self, no focal deficits. Result Diagrams: 04/19/19 06:31 04/20/19 09:11 Microbiology and Other Data: Microbiology 04/11/19 18:05 Nasal Screen MRSA (PCR) - Final Nasal Mrsa Not Detected Assess/Plan/Problems-Billing Assessment: Mr. Montelongo is an 83 yo M with PMH of ESRD on dialysis, CAD, HTN, HLD, TIA, BPH; presented with hematuria and was found to have complicated UTI requiring IV antibiotics. - Patient Problems (1) Bradycardia Current Visit: Yes Status: Acute Code(s): R00.1 - BRADYCARDIA, UNSPECIFIED SNOMED Code(s): 04133496 Comment: - HR previously 50-60s; dropping down into the 30s last night with 3-4 sec pauses, but asymptomatic and remains 30-40s today - Appreciate Cardiology consult; plan will be for pacer placement after neph tube is replaced, will make NPO after midnight in case it is able to be done tomorrow. - Telemetry monitoring - On no vagotonic agents. (2) UTI (urinary tract infection) Current Visit: No Status: Acute Comment: - Previously with fever and encephalopathy, now resolved, but still having episodes of mild confusion - Cultures growing ESBL Klebsiella, Morganella, Enterococcus, and Providencia with multiple resistences - Appreciate ID consult; will need 1 week IV abx as there are no PO options - Continue Zosyn (day 10/26) (3) Nephrostomy complication Current Visit: Yes Status: Acute Code(s): N99.528 - OTHER COMP OF INCONTINENT EXTERNAL STOMA OF URINARY TRACT SNOMED Code(s): 68455742 Comment: - Tube was partially dislodged overnight 04/16/19, but still draining appropriately - Reportedly, the tube has fallen out at home and the patient's washed the tube with soap and water and reinserted; unclear if this is true, but would certainly explain these recurrent infections - Family will need thorough teaching about tube care prior to d/c and VNS. - IR changed today without complication (4) Syncope Current Visit: Yes Status: Acute Code(s): R55 - SYNCOPE AND COLLAPSE SNOMED Code(s): 089684919 Comment: - During dialysis 04/15/19, but likely vasovagal as he was on the bedpan during episode and no further episodes despite bradycardia. (5) CAD (coronary artery disease) Current Visit: No Status: Acute Code(s): I25.10 - ATHSCL HEART DISEASE OF [place] CORONARY ARTERY W/O ANG PCTRS SNOMED Code(s): 34754522 Comment: - Trops mildly elevated without CP or EKG changes; likely d/t demand ischemia and ESRD - Hold aspirin pending procedure - Continue atorvastatin - Echo unremarkable. (6) ESRD (end stage renal disease) on dialysis Current Visit: No Status: Acute Code(s): N18.6 - END STAGE RENAL DISEASE; Z99.2 - DEPENDENCE ON RENAL DIALYSIS SNOMED Code(s): 795779958 Comment: - Typically on TuThSa schedule; Nephrology will dialyze MWF while inpatient - Continue sevelamer (7) HTN (hypertension) Current Visit: No Status: Acute Code(s): I10 - ESSENTIAL (PRIMARY) HYPERTENSION SNOMED Code(s): 72043959 Comment: - Normotensive - Continue lisinopril (8) Hyperlipidemia Current Visit: No Status: Acute Code(s): E78.5 - HYPERLIPIDEMIA, UNSPECIFIED SNOMED Code(s): 66027492 Comment: - Continue atorvastatin (9) DVT prophylaxis Current Visit: No Status: Acute Code(s): PPN2145 - SNOMED Code(s): 932102821 Comment: - Heparin SQ on hold. (10) Full code status Current Visit: No Status: Acute Code(s): Z78.9 - OTHER SPECIFIED HEALTH STATUS SNOMED Code(s): 391681790 Comment: Status and Disposition: Inpatient for IV abx. S/P nephrostomy tube change, now pending pacer.
--- NOTE | 2019-04-20 16:11 | PN ---
Subjective Date of Service: 04/20/19 - CC: bradycardia, infection Interval History: The patient was a vague historian, unable to provide any history. Getting HD. and friend in the room and dialysis nurse. Medications Active Medications: Acetaminophen (Tylenol Tab*) 650 mg PO Q4H PRN PRN Reason: MILD PAIN or TEMP > 100.4 Last Admin: 04/19/19 16:33 Dose: 650 mg Atorvastatin Calcium (Lipitor*) 20 mg PO DAILY [facility] Last Admin: 04/20/19 11:51 Dose: 20 mg Calcium Carbonate (Tums*) 500 mg PO DAILY [facility] Last Admin: 04/20/19 11:51 Dose: 500 mg Docusate Sodium (Colace Cap*) 100 mg PO QAM [facility] Last Admin: 04/20/19 11:51 Dose: 100 mg Glycerin (Glycerin Adult Supp*) 1 supp [place] DAILY PRN PRN Reason: CONSTIPATION Last Admin: 04/19/19 02:51 Dose: 1 supp Hydralazine HCl (Apresoline Iv*) 5 mg IV SLOW PU Q6H PRN PRN Reason: BLOOD PRESSURE Piperacillin Sod/Tazobactam (Sod 3.375 gm/ Sodium Chloride) 100 mls @ 25 mls/ hr IVPB Q12H [facility] Last Admin: 04/20/19 11:50 Dose: 25 mls/hr Lisinopril (Prinivil Tab*) 10 mg PO DAILY [facility] Last Admin: 04/20/19 08:15 Dose: Not Given Magnesium Hydroxide (Milk Of Magnesia Liq*) 30 ml PO DAILY PRN PRN Reason: CONSTIPATION Last Admin: 04/19/19 09:57 Dose: 30 ml Multivitamins/Minerals (Theragran/Minerals Tab*) 1 tab PO DAILY [facility] Last Admin: 04/20/19 11:51 Dose: 1 tab Ondansetron HCl (Zofran Inj*) 4 mg IV Q6H PRN PRN Reason: NAUSEA/VOMITING Last Admin: 04/16/19 08:45 Dose: 4 mg Pharmacy Consult (Zosyn Per Pharmacy*) 1 note FOLLOW UP .ZOSYN PER PHARMACY [facility] Polyethylene Glycol/Electrolytes (Miralax*) 17 gm PO DAILY PRN PRN Reason: CONSTIPATION Last Admin: 04/19/19 20:06 Dose: 17 gm Senna (Senokot 8.6 Mg Tab*) 1 tab PO BEDTIME PRN PRN Reason: CONSTIPATION Last Admin: 04/19/19 20:05 Dose: 1 tab Sevelamer Carbonate (Renvela Tab*) 800 mg PO 0730,1200 [facility] Last Admin: 04/20/19 12:23 Dose: Not Given Sevelamer Carbonate (Renvela Tab*) 1,600 mg PO 1700 [facility] Last Admin: 04/19/19 16:33 Dose: 1,600 mg Tamsulosin HCl (Flomax Cap*) 0.4 mg PO DAILY [facility] Last Admin: 04/20/19 11:50 Dose: 0.4 mg Objective Vital Signs: Temp Pulse Resp BP Pulse Ox 97.8 F 47 16 152/61 99 04/20/19 12:19 04/20/19 12:19 04/20/19 12:19 04/20/19 12:19 04/20/19 12:19 Oxygen Devices in Use Now: None Appearance: Elderly, lying flat, getting HD, comfortable. Eyes: No Scleral Icterus, PERRLA Ears/Nose/Mouth/Throat: Clear Oropharnyx Neck: Trachea Midline, No Thyroid Enlargement, Masses Respiratory: Symmetrical Chest Expansion and Respiratory Effort, Clear to Auscultation, - - diminished effort. Cardiovascular: NL Sounds; No Murmurs; No JVD, RRR Abdominal: NL Sounds; No Tenderness; No Distention Extremities: No Edema - warm Skin: No Rash or Ulcers Neurological: - - vague historian c/w dementia. Laboratory Results: 04/19/19 06:31 04/20/19 09:11 INR (Anticoag Therapy) 1.10 (0.82-1.09) H 04/19/19 06:31 APTT 36.4 seconds (26.0-38.0) 04/19/19 06:31 Total Bilirubin 0.40 mg/dL (0.2-1.0) 04/12/19 07:18 AST 12 U/L (13-39) L 04/12/19 07:18 ALT 10 U/L (7-52) 04/12/19 07:18 Alkaline Phosphatase 65 U/L (34-104) 04/12/19 07:18 Total Protein 6.0 g/dL (6.4-8.9) L 04/12/19 07:18 Albumin 3.3 g/dL (3.2-5.2) 04/12/19 07:18 Globulin 2.7 g/dL (2-4) 04/12/19 07:18 Albumin/Globulin Ratio 1.2 (1-3) 04/12/19 07:18 04/11/19 04/11/19 04/11/19 12:37 15:41 19:28 Troponin I 0.07 H* 0.07 H* 0.06 H* Microbiology 04/11/19 13:08 Blood Venous Aerobic Blood Culture - Final No Growth Day 5 04/11/19 12:37 Blood Venous Aerobic Blood Culture - Final No Growth Day 5 04/11/19 12:37 Blood Venous Anaerobic Blood Culture - Final No Growth Day 5 04/11/19 12:05 Urine Urine Culture - Final Esbl Klebsiella Pneumoniae Providencia Rettgeri Morganella Morganii Enterococcus Faecalis 04/11/19 18:05 Nasal Nasal Screen MRSA (PCR) - Final Mrsa Not Detected Diagnostic Imaging: *[facility]* [place] [address] Fax #: [phone] Transthoracic Echocardiogram Patient: Duarte Montelongo : 1935 Study Date: 04/19/2019 Age: 83 Conclusions Summary: - Left ventricle: Systolic function is normal. The estimated ejection fraction is 60-65%. Wall motion is normal; there are no regional wall motion abnormalities. - Right ventricle: Systolic function is normal as seen in a non-standard subcostal view. - Mitral valve: There is no significant regurgitation. - Aortic valve: There is no evidence of stenosis. There is trace to mild regurgitation. - Tricuspid valve: There is no significant regurgitation. - Pericardium, extracardiac: There is no pericardial effusion. - Pulmonary arteries: Systolic pressure can not be accurately estimated. - Compared to study of 06/29/17, the is little change. EKG Data: Monitor strips reviewed, all in chart: NSR, sinus isa, up to 5 second sinus pauses. Assessment/Plan Mr. Montelongo is an 83 yo M with PMH of ESRD on dialysis, CAD, HTN, HLD, TIA, BPH; presented with hematuria, increased confusion, foul smelling urine and was found to have complicated UTI (multiple organisms) with ureterial stents, requiring IV antibiotics and stent revision completed today. The patient has had marked bradycardia including pauses. According to Dr Chapman, ID, OK to put pacemaker in now that stent changed over and has been getting aggressive abx. I was unable to contact the patient's daughter by phone, will tentatively plan on single chamber pacer implantation in AM.
--- NOTE | 2019-04-20 23:38 | PN ---
NEPHROLOGY HOSPITAL PROGRESS NOTE: DATE OF SERVICE: 04/20/19 CHIEF COMPLAINT: End-stage kidney disease, on hemodialysis. HISTORY OF PRESENT ILLNESS: The patient was seen in the morning before dialysis. He was sleeping comfortably. easily arousable. He denied any chest pain, shortness of breath, or abdominal pain. He was taken later on to Interventional Radiology where his nephrostomy tube was changed. I saw him back when he was on dialysis. At the time of my exam, he was tolerating dialysis very well without any complaints. He was still a little sleepy post sedation. Blood pressure was on target, heart rate was in 50s. MEDICATIONS: Current medications are: 1. Tylenol 650 mg p.o. q.4 hours. 2. Lipitor 20 mg daily. 3. Calcium carbonate Tums 500 mg daily. 4. Docusate 100 mg in the morning. 5. Glycerin suppository as needed. 6. Lisinopril 10 mg daily. 7. Magnesium hydroxide 30 mg p.o. p.r.n. constipation. 8. Multivitamins one daily. 9. Zofran 4 mg IV q.6 hours p.r.n. 10. Zosyn per pharmacy. 11. Renvela 1.6 mg p.o. at 5 p.m. and 800 mg p.o. twice a day at morning and lunch. 12. Tamsulosin 0.4 mg daily. PHYSICAL EXAM: Vital Signs: Vitals at 12 o'clock in the morning were blood pressure 152/61, oxygen saturation 99% on room air, temperature is 97.8, heart rate 47. Constitutional: He is lying in bed, in no acute distress, looking chronically ill and tired. Chest: Clear to auscultation. Heart: Shows S1, S2. Regular rate and rhythm. No murmurs, rubs or gallops. Abdomen is soft, nontender, nondistended. Extremities: He has trace lower extremity edema without clubbing or cyanosis. LABORATORY DATA: Labs today: He has a white blood cell count of 5.6, hemoglobin is 11, platelets are 146,000. Sodium 142, potassium 4.0, total CO2 is 29. ASSESSMENT AND PLAN: Mr. Montelongo is a very nice 83-year-old gentleman who is chronically ill and weak. He was admitted with severe urinary tract infection in the context of a nephrostomy tube. 1. End-stage kidney disease, on hemodialysis. Today is his dialysis day. I saw the patient during dialysis and he was tolerating dialysis well. Dialysis prescription was discussed with the dialysis nurse. He is dialyzing on a 3K bath, bicarbonate 30, 2.5 calcium. His target weight needs to be readdressed as he has lost weight during this admission. We will try to remove about 1 L of fluid if possible. 2. Anemia of end-stage kidney disease. His hemoglobin is on target at 11.1. EPO on hold. 3. Urinary tract infection. He continues on Zosyn per pharmacy and his nephrostomy tube was changed. 4. Hyperphosphatemia. He is on sevelamer. I would like to have his phosphorus checked. 5. He is on magnesium oxide as needed, which I would avoid in patients with end - stage kidney disease because of possibility of accumulation. [id number]/CPS #: [id number] MTDD
[2019-04-21 07:49] LABS: Hematocrit 31 % (42-52); Hemoglobin 10.6 g/dL (14.0-18.0); Mean Corpuscular HGB Conc 35 g/dL (31-36); Mean Corpuscular Hemoglobin 35 pg (27-31); Mean Corpuscular Volume 100 fL (80-94); Mean Platelet Volume 7.1 fL (7.4-10.4); Platelet Count 175 10^3/uL (150-450); Red Blood Count 3.07 10^6 /uL (4.18-5.48); Red Cell Distribution Width 13 % (10-15)
[2019-04-21 08:07] LABS: BUN/Creatinine Ratio 7.3 (8-20); Calcium 8.8 mg/dL (8.6-10.3); EGFR African American 13.2 (>60); EGFR Non-African American 10.9 (>60); Potassium 4.1 mmol/L (3.5-5.0)
[2019-04-21] MEDS: Sevelamer TAB* 800 MG PO SCH ×4 (08:32→17:12)
[2019-04-21 08:37] LABS: ABS Eosinophils 0.2 10^3/ul (0-0.6); ABS Monocytes 0.4 10^3/ul (0-0.8); ABS Neutrophils 3.4 10^3/ul (1.5-7.7); Eosinophil % 4.6 %; Lymphocyte % 19.1 %; Nucleated Red Blood Cells % 0.2
[2019-04-21] MEDS: Tamsulosin CAP* 0.4 MG PO SCH (08:53)
[2019-04-21] MEDS: Calcium Carbonate CHEW TAB* 500 MG (TUMS) PO SCH (08:53)
[2019-04-21] MEDS: Atorvastatin* 20 MG TAB PO SCH (08:53)
[2019-04-21] MEDS: Docusate CAP* 100 MG PO SCH (08:53)
[2019-04-21] MEDS: Multivitamins/Minerals TAB PO SCH (08:54)
[2019-04-21] MEDS ORDERED: ceFAZolin 2 GM PREMIX in ORs 2 GM/50 ML BAG IVPB ONE (10:25)
--- NOTE | 2019-04-21 11:06 | PN ---
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 I talked with the patient's daughter personally on the phone this AM. She feels she had had enough discussion recently with [employer] Sully Dennison cardiology, [facility] and prior to this discussions with laminating machine operator in [place] and Dr Ahumada here. I briefly reviewed risk/benifits again. The patient was examined today, reviewed procedure with him as well. 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 Has Hx syncope with increased vagal tone.
[2019-04-21] MEDS ORDERED: Naloxone* 0.4 MG/ML 1 ML VIAL ONE (11:19)
[2019-04-21] MEDS ORDERED: Lidocaine 1% INJ* 10 MG/ML 30 ML SDV ONE ×2 (11:19→13:07)
[2019-04-21] MEDS ORDERED: fentaNYL* 50 MCG/ML 2 ML VIAL (100 MCG VIAL) ONE (11:19)
[2019-04-21] MEDS ORDERED: Flumazenil* 0.1 MG/ML 5 ML MDV ONE (11:19)
[2019-04-21] MEDS ORDERED: Midazolam* 1 MG/ML 5 ML VIAL (5 MG) ONE (11:19)
[2019-04-21] MEDS ORDERED: Iodixanol 320 (CONTRAST) 100 ML SDV ONE (11:20)
[2019-04-21] MEDS: ceFAZolin 2 GM in NS 100 ml - ONCE (Pharmacy Admix) IVPB ONE ×2 (13:04→15:36)
[2019-04-21] MEDS: ZOSYN 3.375 GM Q12H per EXTENDED INFUSION IVPB SCH ×4 (13:05→15:38)
--- NOTE | 2019-04-21 14:25 | PN ---
Subjective Date of Service: 04/21/19 Interval History: Patient today is feeling well, complaining only of the chronic pain in his right shoulder. Patient denies dizziness, CP, SOB, diarrhea, palpitations, dizziness, or other pain. Family History: Unchanged from Admission Social History: Unchanged from Admission Past Medical History: Unchanged from Admission Objective Active Medications: Acetaminophen (Tylenol Tab*) 650 mg PO Q4H PRN PRN Reason: MILD PAIN or TEMP > 100.4 Last Admin: 04/19/19 16:33 Dose: 650 mg Atorvastatin Calcium (Lipitor*) 20 mg PO DAILY [facility] Last Admin: 04/21/19 08:53 Dose: 20 mg Calcium Carbonate (Tums*) 500 mg PO DAILY [facility] Last Admin: 04/21/19 08:53 Dose: 500 mg Docusate Sodium (Colace Cap*) 100 mg PO QAM [facility] Last Admin: 04/21/19 08:53 Dose: 100 mg Glycerin (Glycerin Adult Supp*) 1 supp [place] DAILY PRN PRN Reason: CONSTIPATION Last Admin: 04/19/19 02:51 Dose: 1 supp Hydralazine HCl (Apresoline Iv*) 5 mg IV SLOW PU Q6H PRN PRN Reason: BLOOD PRESSURE Piperacillin Sod/Tazobactam (Sod 3.375 gm/ Sodium Chloride) 100 mls @ 25 mls/ hr IVPB Q12H [facility] Last Admin: 04/20/19 23:08 Dose: 25 mls/hr Multivitamins/Minerals (Theragran/Minerals Tab*) 1 tab PO DAILY [facility] Last Admin: 04/21/19 08:54 Dose: 1 tab Ondansetron HCl (Zofran Inj*) 4 mg IV Q6H PRN PRN Reason: NAUSEA/VOMITING Last Admin: 04/16/19 08:45 Dose: 4 mg Pharmacy Consult (Zosyn Per Pharmacy*) 1 note FOLLOW UP .ZOSYN PER PHARMACY [facility] Polyethylene Glycol/Electrolytes (Miralax*) 17 gm PO DAILY PRN PRN Reason: CONSTIPATION Last Admin: 04/19/19 20:06 Dose: 17 gm Senna (Senokot 8.6 Mg Tab*) 1 tab PO BEDTIME PRN PRN Reason: CONSTIPATION Last Admin: 04/19/19 20:05 Dose: 1 tab Sevelamer Carbonate (Renvela Tab*) 800 mg PO 0730,1200 [facility] Last Admin: 04/21/19 14:10 Dose: Not Given Sevelamer Carbonate (Renvela Tab*) 1,600 mg PO 1700 [facility] Last Admin: 04/20/19 17:21 Dose: 1,600 mg Tamsulosin HCl (Flomax Cap*) 0.4 mg PO DAILY [facility] Last Admin: 04/21/19 08:53 Dose: 0.4 mg Vital Signs - 8 hr 04/21/19 04/21/19 07:15 08:00 Temperature 97.9 F Pulse Rate 50 Respiratory 20 20 Rate Blood Pressure 145/61 (mmHg) O2 Sat by Pulse 94 Oximetry Oxygen Devices in Use Now: None Appearance: Patient is an 83yo male who appears stated age and is sitting in the bed in [facility]. Eyes: No Scleral Icterus, PERRLA Ears/Nose/Mouth/Throat: NL Teeth, Lips, Gums, Clear Oropharnyx, Mucous Membranes Moist Neck: NL Appearance and Movements; NL JVP, Trachea Midline Respiratory: Symmetrical Chest Expansion and Respiratory Effort, Clear to Auscultation Cardiovascular: NL Sounds; No Murmurs; No JVD, No Edema, - - Bradycardia, irregular rhythm. Abdominal: NL Sounds; No Tenderness; No Distention, No Hepatosplenomegaly, - - Nephrostomy tube in place draining orange urine. Lymphatic: No Cervical Adenopathy Extremities: No Edema Skin: No Rash or Ulcers, No Nodules or Sclerosis Neurological: NL Sensation, NL Muscle Strength and Tone, - - CN II-XII intact. Alert and oriented only to self. Result Diagrams: 04/21/19 07:13 04/21/19 07:13 Microbiology and Other Data: Microbiology 04/11/19 18:05 Nasal Screen MRSA (PCR) - Final Nasal Mrsa Not Detected Assess/Plan/Problems-Billing Assessment: Mr. Montelongo is an 83 yo M with PMH of ESRD on dialysis, CAD, HTN, HLD, TIA, BPH; presented with hematuria and was found to have complicated UTI requiring IV antibiotics. - Patient Problems (1) Bradycardia Current Visit: Yes Status: Acute Code(s): R00.1 - BRADYCARDIA, UNSPECIFIED SNOMED Code(s): 45995088 Comment: - HR previously 50-60s; dropping down into the 30s with 3-4 sec pauses, but asymptomatic and remained in 30-40s - Appreciate Cardiology consult; S/P Dual chamber pacemaker today. - Telemetry monitoring - Arm Restriction, Antibiotics - PT/OT for possible rehab placement. (2) UTI (urinary tract infection) Current Visit: No Status: Acute Comment: - Previously with fever and encephalopathy, now resolved, but still having episodes of mild confusion - Cultures growing ESBL Klebsiella, Morganella, Enterococcus, and Providencia with multiple resistences - Appreciate ID consult; will need 1 week IV abx as there are no PO options - Continue Zosyn (day 11/26) (3) Nephrostomy complication Current Visit: Yes Status: Acute Code(s): N99.528 - OTHER COMP OF INCONTINENT EXTERNAL STOMA OF URINARY TRACT SNOMED Code(s): 98522401 Comment: - Tube was partially dislodged overnight 04/16/19, but still draining appropriately - Reportedly, the tube has fallen out at home and the patient's washed the tube with soap and water and reinserted; unclear if this is true, but would certainly explain these recurrent infections - Family will need thorough teaching about tube care prior to d/c and VNS. - IR changed without complication (4) Syncope Current Visit: Yes Status: Acute Code(s): R55 - SYNCOPE AND COLLAPSE SNOMED Code(s): 635957299 Comment: - During dialysis 04/15/19, but likely vasovagal as he was on the bedpan during episode and no further episodes despite bradycardia. (5) CAD (coronary artery disease) Current Visit: No Status: Acute Code(s): I25.10 - ATHSCL HEART DISEASE OF [place] CORONARY ARTERY W/O ANG PCTRS SNOMED Code(s): 36921000 Comment: - Trops mildly elevated without CP or EKG changes; likely d/t demand ischemia and ESRD - Resume Aspirin tomorrow. - Continue atorvastatin - Echo unremarkable. (6) ESRD (end stage renal disease) on dialysis Current Visit: No Status: Acute Code(s): N18.6 - END STAGE RENAL DISEASE; Z99.2 - DEPENDENCE ON RENAL DIALYSIS SNOMED Code(s): 813243179 Comment: - Typically on TuThSa schedule; Nephrology will dialyze MWF while inpatient - Continue sevelamer (7) HTN (hypertension) Current Visit: No Status: Acute Code(s): I10 - ESSENTIAL (PRIMARY) HYPERTENSION SNOMED Code(s): 11408754 Comment: - Normotensive - Continue lisinopril (8) Hyperlipidemia Current Visit: No Status: Acute Code(s): E78.5 - HYPERLIPIDEMIA, UNSPECIFIED SNOMED Code(s): 15832132 Comment: - Continue atorvastatin (9) DVT prophylaxis Current Visit: No Status: Acute Code(s): MFV7480 - SNOMED Code(s): 276291572 Comment: - Heparin SQ resume tomorrow. (10) Full code status Current Visit: No Status: Acute Code(s): Z78.9 - OTHER SPECIFIED HEALTH STATUS SNOMED Code(s): 392183213 Comment: Status and Disposition: Inpatient for IV abx. S/P nephrostomy tube and pacer placement. Now Pending possible ASHLEY.
--- NOTE | 2019-04-21 14:48 | OP ---
Operative Report - Blank - Operative Report Date of Operation: 04/21/19 - CC: sick sinus syndrome Note: Pt s/p dual chamber pacer implant EBL < 5 cc Complications: A lead dislodgement. Biotroic, programmed DDD 60 bpm. Hemodynamically stable throughout.
[2019-04-21] MEDS: Acetaminophen TAB* 325 MG PO PRN (15:32)
--- NOTE | 2019-04-22 00:05 | OP ---
CC: Dr. Henry Ahumada * DATE OF OPERATION: 04/21/19 - ROOM #449 DATE OF : 37 SURGEON: Sarah Manrique MD PRE-OP DIAGNOSES: Sick sinus syndrome and syncope. POST-OP DIAGNOSES: Sick sinus syndrome and syncope. OPERATIVE PROCEDURE: Dual-chamber pacemaker implantation. ESTIMATED BLOOD LOSS: Less than 5 cc. COMPLICATIONS: Atrial lead dislodgement. DESCRIPTION OF PROCEDURE: The indications, risks, and benefits of the procedure were discussed with the patient, but more importantly with his daughter as he has short-term memory problem. She was amenable to proceeding as was he. The patient has a fistula for hemodialysis in the left upper extremity, so the right upper extremity was prepped and draped in the usual sterile fashion. A time-out was called. Following this, the patient received 10 cc of Visipaque dye in the right upper extremity outlining the right axillary and right subclavian vein. Following this, the patient received a total of 1 g of Versed and 25 mcg of fentanyl as well as approximately 30 cc of 1% lidocaine throughout the procedure. Following the local lidocaine, using a 10 blade knife , a 2.5 cm incision was made, and using Bovie and blunt dissection, it was extended to the level of the pectoralis muscle. A selena was made, additional lidocaine infused inferiorly, and using blunt dissection a small pocket was fashioned. Using a modified Seldinger technique, the right subclavian vein was cannulated, and using the fluoroscopy, the guide-wire was inserted and guided into the right atrium. The procedure was proceeded with a second guidewire. Using an introducer technique, the right ventricular lead was guided into the right ventricular septum, actively fixed in place, pacing and sensing thresholds were adequate and improved to good over time. Using the second guidewire and an introducer technique, the right atrial lead was guided into the right atrial appendage, actively fixed in place, pacing and sensing thresholds were good and stable. The leads were then sewn to the pocket using 0 silk suture. The pocket was copiously irrigated. The incision was closed with 2 layers of resorbable suture, 2-0 followed by 4-0, followed by law and external dressing. Because of changes in his atrial pacing on the monitor, we fluoroscoped and found his A lead was dislodged. We had to re-prep and a second time-out was called for atrial lead revision. No additional Versed or fentanyl were given, but additional lidocaine was given. This is included in the above total. Using scissors and staple remover, the law and sutures were removed. The device was explanted and the atrial lead removed. A straight guidewire was placed. The coil was retracted. Lead was repositioned. The incision was closed again, but the atrial lead again dislodged. We again took the sutures down and again repositioned the atrial lead. At this time, it appeared to be deeper in the appendage under the prior lead placement and that was more superior and although the window wiper effect was less pronounced, this was felt to be potentially beneficial as it would be deeper and less chance of motion leading to dislodgement. Pacing and sensing thresholds were checked and found to be good. The lead was sutured to the pocket using 0 silk suture. The pocket was for the third time copiously irrigated with normal saline. Because of oozing, Arixtra powder was applied to the pocket to minimize the risk of bleeding and hemostasis was obtained. The pocket was then closed with 2 layers of resorbable suture, 2-0 followed by 4-0, followed by law and a sterile dressing. FINDINGS: The system is a [employer] MRI compatible system. The device is an Edora 8 DR-T, model number 958932, serial number [id number]. Atrial lead is a Biotronik Solia S 45, model 008129, serial number [id number], and the ventricular lead is Medtronic Solia S 53, model 248342, serial number [id number]. The atrial lead impedance was more than 29 ohms with P-wave sensed at 3 millivolts and atrial pacing threshold of 1 volt at 0.4 milliseconds. The ventricular lead senses R-waves at 6.3 millivolts with a ventricular lead impedance of 624 ohms and a ventricular pacing threshold of 0.7 volts at 0.4 milliseconds. The patient was hemodynamically stable throughout this prolonged procedure. He has intermittent mild incisional pain, but is otherwise comfortable. CONCLUSION: Successful dual-chamber pacemaker implantation with complications with atrial lead dislodgement twice. At the time the patient was transferred to the floor, vitals were stable, he was comfortable. [id number]/[facility] #: [id number] [facility]
[2019-04-22] MEDS: ZOSYN 3.375 GM Q12H per EXTENDED INFUSION IVPB SCH ×6 (03:02→23:54)
--- NOTE | 2019-04-22 08:24 | PN ---
Subjective Date of Service: 04/22/19 - CC: SSS Interval History: Pain in RUE. No SOB, not dizzy. Medications Active Medications: Acetaminophen (Tylenol Tab*) 650 mg PO Q4H PRN PRN Reason: MILD PAIN or TEMP > 100.4 Last Admin: 04/21/19 15:32 Dose: 650 mg Aspirin (Aspirin Ec Tab*) 81 mg PO DAILY [facility] Atorvastatin Calcium (Lipitor*) 20 mg PO DAILY [facility] Last Admin: 04/21/19 08:53 Dose: 20 mg Calcium Carbonate (Tums*) 500 mg PO DAILY [facility] Last Admin: 04/21/19 08:53 Dose: 500 mg Docusate Sodium (Colace Cap*) 100 mg PO QAM [facility] Last Admin: 04/21/19 08:53 Dose: 100 mg Glycerin (Glycerin Adult Supp*) 1 supp [place] DAILY PRN PRN Reason: CONSTIPATION Last Admin: 04/19/19 02:51 Dose: 1 supp Heparin Sodium (Porcine) (Heparin Vial(*)) 5,000 units SUBCUT Q12HR [facility] Hydralazine HCl (Apresoline Iv*) 5 mg IV SLOW PU Q6H PRN PRN Reason: BLOOD PRESSURE Last Admin: 04/22/19 03:02 Dose: 5 mg Piperacillin Sod/Tazobactam (Sod 3.375 gm/ Sodium Chloride) 100 mls @ 25 mls/ hr IVPB Q12H [facility] Last Admin: 04/22/19 03:02 Dose: 25 mls/hr Lisinopril (Prinivil Tab*) 10 mg PO DAILY [facility] Multivitamins/Minerals (Theragran/Minerals Tab*) 1 tab PO DAILY [facility] Last Admin: 04/21/19 08:54 Dose: 1 tab Ondansetron HCl (Zofran Inj*) 4 mg IV Q6H PRN PRN Reason: NAUSEA/VOMITING Last Admin: 04/16/19 08:45 Dose: 4 mg Pharmacy Consult (Zosyn Per Pharmacy*) 1 note FOLLOW UP .ZOSYN PER PHARMACY [facility] Polyethylene Glycol/Electrolytes (Miralax*) 17 gm PO DAILY PRN PRN Reason: CONSTIPATION Last Admin: 04/19/19 20:06 Dose: 17 gm Senna (Senokot 8.6 Mg Tab*) 1 tab PO BEDTIME PRN PRN Reason: CONSTIPATION Last Admin: 04/19/19 20:05 Dose: 1 tab Sevelamer Carbonate (Renvela Tab*) 800 mg PO 0730,1200 [facility] Last Admin: 04/21/19 14:10 Dose: Not Given Sevelamer Carbonate (Renvela Tab*) 1,600 mg PO 1700 [facility] Last Admin: 04/21/19 17:12 Dose: Not Given Tamsulosin HCl (Flomax Cap*) 0.4 mg PO DAILY [facility] Last Admin: 04/21/19 08:53 Dose: 0.4 mg Objective Vital Signs: Temp Pulse Resp BP Pulse Ox 97.3 F 60 18 155/71 95 04/22/19 03:15 04/22/19 03:15 04/22/19 03:15 04/22/19 03:15 04/22/19 03:15 Oxygen Devices in Use Now: None Appearance: Elderly, lying flat, getting HD, comfortable. Eyes: No Scleral Icterus Ears/Nose/Mouth/Throat: Clear Oropharnyx Neck: Trachea Midline Respiratory: Symmetrical Chest Expansion and Respiratory Effort, Clear to Auscultation, - Cardiovascular: NL Sounds; No Murmurs; No JVD, RRR Abdominal: NL Sounds; No Tenderness; No Distention Extremities: No Edema - warm, shoulder immobilizer on RUE. Skin: No Rash or Ulcers, - - Pacer incision R subclavian fossa free of hematoma , ecchymosis or infection. Neurological: - - vague historian c/w dementia. Laboratory Results: 04/21/19 07:13 04/21/19 07:13 INR (Anticoag Therapy) 1.10 (0.82-1.09) H 04/19/19 06:31 APTT 36.4 seconds (26.0-38.0) 04/19/19 06:31 Total Bilirubin 0.40 mg/dL (0.2-1.0) 04/12/19 07:18 AST 12 U/L (13-39) L 04/12/19 07:18 ALT 10 U/L (7-52) 04/12/19 07:18 Alkaline Phosphatase 65 U/L (34-104) 04/12/19 07:18 Total Protein 6.0 g/dL (6.4-8.9) L 04/12/19 07:18 Albumin 3.3 g/dL (3.2-5.2) 04/12/19 07:18 Globulin 2.7 g/dL (2-4) 04/12/19 07:18 Albumin/Globulin Ratio 1.2 (1-3) 04/12/19 07:18 04/11/19 04/11/19 04/11/19 12:37 15:41 19:28 Troponin I 0.07 H* 0.07 H* 0.06 H* Diagnostic Imaging: *[facility]* [place] [address] Fax #: [phone] Transthoracic Echocardiogram Patient: Duarte Montelongo : 1935 Study Date: 04/19/2019 Age: 83 Conclusions Summary: - Left ventricle: Systolic function is normal. The estimated ejection fraction is 60-65%. Wall motion is normal; there are no regional wall motion abnormalities. - Right ventricle: Systolic function is normal as seen in a non-standard subcostal view. - Mitral valve: There is no significant regurgitation. - Aortic valve: There is no evidence of stenosis. There is trace to mild regurgitation. - Tricuspid valve: There is no significant regurgitation. - Pericardium, extracardiac: There is no pericardial effusion. - Pulmonary arteries: Systolic pressure can not be accurately estimated. - Compared to study of 06/29/17, the is little change. CXR 04/22/19 good lead placement. EKG Data: Monitor strips reviewed, all in chart: NSR, sinus isa, up to 5 second sinus pauses. Assessment/Plan Mr. Montelongo is an 83 yo M with PMH of ESRD on dialysis, CAD, HTN, HLD, TIA, BPH; presented with hematuria, increased confusion, foul smelling urine and was found to have complicated UTI (multiple organisms) with ureteral stents, requiring IV antibiotics and stent revision. POD#1 pacer implant, good thresholds, CXR yesterday good lead placement, no pneumothorax. OK for PT/Rehab. OK to use walker. Avoid heavy weight bearing RUE for the next 3 days or so to prevent pocket hematoma from back pressure.
[2019-04-22] MEDS: Sevelamer TAB* 800 MG PO SCH ×3 (09:14→16:28)
[2019-04-22] MEDS: Aspirin EC TAB* 81 MG TAB.EC PO SCH (09:41)
[2019-04-22] MEDS: Heparin VIAL(*) 5000 UNITS/ML VIAL (FIVE THOUSAND) SUBCUT SCH ×2 (09:41→20:20)
[2019-04-22] MEDS: Lisinopril TAB* 10 MG PO SCH (09:41)
[2019-04-22] MEDS: Tamsulosin CAP* 0.4 MG PO SCH (09:42)
[2019-04-22] MEDS: Docusate CAP* 100 MG PO SCH (09:42)
[2019-04-22] MEDS: Calcium Carbonate CHEW TAB* 500 MG (TUMS) PO SCH (09:42)
[2019-04-22] MEDS: Multivitamins/Minerals TAB PO SCH (09:42)
[2019-04-22] MEDS: Atorvastatin* 20 MG TAB PO SCH (09:42)
[2019-04-22 11:10] LABS: ABS Eosinophils 0.2 10^3/ul (0-0.6); ABS Lymphocytes 0.6 10^3/ul (1.0-4.8); ABS Monocytes 0.6 10^3/ul (0-0.8); ABS Neutrophils 6.7 10^3/ul (1.5-7.7); Eosinophil % 2.2 %; Hematocrit 32 % (42-52); Lymphocyte % 7.8 %; Mean Corpuscular HGB Conc 34 g/dL (31-36); Mean Corpuscular Hemoglobin 34 pg (27-31); Mean Corpuscular Volume 100 fL (80-94); Mean Platelet Volume 7.4 fL (7.4-10.4); Platelet Count 188 10^3/uL (150-450); Red Cell Distribution Width 13 % (10-15); White Blood Count 8.3 10^3/uL (3.5-10.8)
[2019-04-22 11:26] LABS: BUN/Creatinine Ratio 7.6 (8-20); Calcium 8.9 mg/dL (8.6-10.3); EGFR African American 9.4 (>60); EGFR Non-African American 7.8 (>60); Potassium 4.3 mmol/L (3.5-5.0)
--- NOTE | 2019-04-22 12:12 | PN ---
Subjective Date of Service: 04/22/19 Interval History: f/u pod 1 pacemaker incision site pain not severe no chest pain or lightheadedness feels no different than prior to pacemaker tele: paced Medications Active Medications: Acetaminophen (Tylenol Tab*) 650 mg PO Q4H PRN PRN Reason: MILD PAIN or TEMP > 100.4 Last Admin: 04/21/19 15:32 Dose: 650 mg Aspirin (Aspirin Ec Tab*) 81 mg PO DAILY [facility] Last Admin: 04/22/19 09:41 Dose: 81 mg Atorvastatin Calcium (Lipitor*) 20 mg PO DAILY [facility] Last Admin: 04/22/19 09:42 Dose: 20 mg Calcium Carbonate (Tums*) 500 mg PO DAILY [facility] Last Admin: 04/22/19 09:42 Dose: 500 mg Docusate Sodium (Colace Cap*) 100 mg PO QAM [facility] Last Admin: 04/22/19 09:42 Dose: 100 mg Glycerin (Glycerin Adult Supp*) 1 supp [place] DAILY PRN PRN Reason: CONSTIPATION Last Admin: 04/19/19 02:51 Dose: 1 supp Heparin Sodium (Porcine) (Heparin Vial(*)) 5,000 units SUBCUT Q12HR [facility] Last Admin: 04/22/19 09:41 Dose: 5,000 units Hydralazine HCl (Apresoline Iv*) 5 mg IV SLOW PU Q6H PRN PRN Reason: BLOOD PRESSURE Last Admin: 04/22/19 03:02 Dose: 5 mg Piperacillin Sod/Tazobactam (Sod 3.375 gm/ Sodium Chloride) 100 mls @ 25 mls/ hr IVPB Q12H [facility] Last Admin: 04/22/19 03:02 Dose: 25 mls/hr Lisinopril (Prinivil Tab*) 10 mg PO DAILY [facility] Last Admin: 04/22/19 09:41 Dose: 10 mg Multivitamins/Minerals (Theragran/Minerals Tab*) 1 tab PO DAILY [facility] Last Admin: 04/22/19 09:42 Dose: 1 tab Ondansetron HCl (Zofran Inj*) 4 mg IV Q6H PRN PRN Reason: NAUSEA/VOMITING Last Admin: 04/16/19 08:45 Dose: 4 mg Pharmacy Consult (Zosyn Per Pharmacy*) 1 note FOLLOW UP .ZOSYN PER PHARMACY [facility] Polyethylene Glycol/Electrolytes (Miralax*) 17 gm PO DAILY PRN PRN Reason: CONSTIPATION Last Admin: 04/19/19 20:06 Dose: 17 gm Senna (Senokot 8.6 Mg Tab*) 1 tab PO BEDTIME PRN PRN Reason: CONSTIPATION Last Admin: 04/19/19 20:05 Dose: 1 tab Sevelamer Carbonate (Renvela Tab*) 800 mg PO 0730,1200 [facility] Last Admin: 04/22/19 09:14 Dose: Not Given Sevelamer Carbonate (Renvela Tab*) 1,600 mg PO 1700 [facility] Last Admin: 04/21/19 17:12 Dose: Not Given Tamsulosin HCl (Flomax Cap*) 0.4 mg PO DAILY [facility] Last Admin: 04/22/19 09:42 Dose: 0.4 mg Objective Vital Signs: Temp Pulse Resp BP Pulse Ox 98.1 F 60 20 141/83 99 04/22/19 07:37 04/22/19 07:37 04/22/19 08:00 04/22/19 07:37 04/22/19 07:37 Oxygen Devices in Use Now: None Appearance: elderly, frail, nad Eyes: No Scleral Icterus, PERRLA Ears/Nose/Mouth/Throat: Clear Oropharnyx Neck: No Thyroid Enlargement, Masses Respiratory: Symmetrical Chest Expansion and Respiratory Effort, Clear to Auscultation, - Cardiovascular: NL Sounds; No Murmurs; No JVD, RRR, - - pacemaker site right upper chest with mild oozing, law intact, firm and tender without evidence of any signficant hematoma Abdominal: NL Sounds; No Tenderness; No Distention Extremities: No Edema - warm Skin: No Rash or Ulcers Neurological: - - vague historian c/w dementia. Laboratory Results: 04/22/19 10:30 04/22/19 10:30 INR (Anticoag Therapy) 1.10 (0.82-1.09) H 04/19/19 06:31 APTT 36.4 seconds (26.0-38.0) 04/19/19 06:31 Total Bilirubin 0.40 mg/dL (0.2-1.0) 04/12/19 07:18 AST 12 U/L (13-39) L 04/12/19 07:18 ALT 10 U/L (7-52) 04/12/19 07:18 Alkaline Phosphatase 65 U/L (34-104) 04/12/19 07:18 Total Protein 6.0 g/dL (6.4-8.9) L 04/12/19 07:18 Albumin 3.3 g/dL (3.2-5.2) 04/12/19 07:18 Globulin 2.7 g/dL (2-4) 04/12/19 07:18 Albumin/Globulin Ratio 1.2 (1-3) 04/12/19 07:18 04/11/19 04/11/19 04/11/19 12:37 15:41 19:28 Troponin I 0.07 H* 0.07 H* 0.06 H* Diagnostic Imaging: Transthoracic Echocardiogram Study Date: 04/19/2019 Conclusions Summary: - Left ventricle: Systolic function is normal. The estimated ejection fraction is 60-65%. Wall motion is normal; there are no regional wall motion abnormalities. - Right ventricle: Systolic function is normal as seen in a non-standard subcostal view. - Mitral valve: There is no significant regurgitation. - Aortic valve: There is no evidence of stenosis. There is trace to mild regurgitation. - Tricuspid valve: There is no significant regurgitation. - Pericardium, extracardiac: There is no pericardial effusion. - Pulmonary arteries: Systolic pressure can not be accurately estimated. - Compared to study of 06/29/17, the is little change. Exam Date: 04/22/19 CHEST PA & LAT 2 VWS FINDINGS: CARDIOMEDIASTINAL SILHOUETTE: The cardiomediastinal silhouette is normal. YIFAN: The yifan are normal. PLEURA: The right costophrenic angle is cut off. There is no appreciable pneumothorax. LUNG PARENCHYMA: The lungs are clear. ABDOMEN: The upper abdomen is clear. There is no subphrenic gas. BONES AND SOFT TISSUES: No bone or soft tissue abnormalities are noted. OTHER: A right-sided pacemaker is noted. IMPRESSION: NO ACTIVE CARDIOPULMONARY DISEASE. 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 Montelongo is an 83 yo M with PMH of ESRD on dialysis, CAD s/p pci HTN, HLD, TIA , BPH; presented with complicated UTI (multiple organisms) with ureteral stents , requiring IV antibiotics and stent revision now s/p pacemaker for, also short provoked (infection) afib episodes POD#1 pacer implant, - No pneumothorax - Device interogation normal, see separate noted - OK for PT/Rehab. - OK to use walker. - Avoid heavy weight bearing RUE for the next 3 days or so to prevent pocket hematoma from back pressure - Needs law out in a week - Has f/u OV scheduled 05/11/2019 - Will sign off, please reconsult as needed
--- NOTE | 2019-04-22 12:22 | PROCNOTE ---
Cardiology Procedure Note 04/22/2019 Biotronik dual chamber pacemaker Current rhythm AP-[employer]MET[employer] DEMONSTRATOR 8 years 5 months battery life DDD LRL 60 bpm/URL 130 bpm A sense 5, treshold 0.7, imdedence 429 V sense 12, treshold 0.6, impendence 585 87% A), 99% [employer]MET[employer] DEMONSTRATOR Normal functioning dual chamber pacemaker
--- NOTE | 2019-04-22 13:54 | PN ---
NEPHROLOGY PROGRESS NOTE: DATE OF SERVICE: 04/22/19 CHIEF COMPLAINT: End-stage kidney disease, on hemodialysis. HISTORY OF PRESENT ILLNESS: Mr. Montelongo is unchanged today. I saw him during dialysis. He is very soft-spoken. He is lying in bed, in no acute distress. He responds slowly and very quietly to questions. He had a pacemaker procedure last night. Blood pressure is stable on dialysis. He has been tolerating treatment well. MEDICATIONS: Reviewed and he is on: 1. Aspirin 81 mg. 2. Lipitor 20 mg. 3. Tums 500 mg daily. 4. Colace 100 mg daily. 5. Glycerin suppository as needed. 6. Heparin 5000 subcu every 12 hours. 7. Lisinopril 10 mg daily. 8. Multivitamin 1 daily. 9. Zosyn per pharmacy. PHYSICAL EXAM: Temperature is 98.1 Fahrenheit, heart rate is 60 beats per minute, blood pressure is 141/83, and oxygen saturation is 99% on room air. Constitutional: No acute distress. Elderly gentleman, lying in bed. He looks tired and chronically ill. Chest is clear to auscultation. Abdomen is soft, nontender, nondistended. Heart: S1, S2. Regular rate and rhythm. No murmurs , rubs, or gallops. Extremities: No clubbing, cyanosis, or edema. LABORATORY DATA: Labs from today show a sodium of 141, potassium of 4.3, BUN of 52, creatinine of 6.82, and total CO2 of 23. Hemoglobin is 11, platelet count of 188. ASSESSMENT AND PLAN: Mr. Montelongo is an 83-year-old gentleman with chronic conditions, who is also on dialysis for end-stage kidney disease. I saw the patient during dialysis today and he tolerated treatment well. 1. End-stage kidney disease, on hemodialysis Thursday, Thursday, Thursday. Continue treatment in the hospital for as long as he is admitted. I discussed the dialysis prescription with the nurse. He is dialyzed on a 3K bath, bicarbonate of 30, no heparin because of his last night's pacemaker procedure, 1 L of volume removal, and temperature 36 degrees. 2. Hypertension, well controlled on lisinopril 10 mg daily. No changes at this time. 3. Hyperphosphatemia. He is on sevelamer. I would appreciate if you could check a phosphorus level with next blood draw. 4. Hypermagnesemia. As of yesterday, magnesium of 3.0. Some of which will be eliminated with dialysis. Avoid magnesium containing medications for GI upset or others.recheck Magnesium level. 5. Anemia of chronic kidney disease. Hemoglobin is little above 11. We are holding heparin at this time. 6. Severe urinary tract infection of urinary origin with nephrostomy tube in place. The nephrostomy tube was changed. He continues Zosyn IV per ID recommendations. [id number]/[facility] #: [id number] [facility]
--- NOTE | 2019-04-22 15:49 | PN ---
Subjective Date of Service: 04/22/19 Interval History: Patient is feeling poorly today and is annoyed he is still in the hospital. Patient has chronic, unchanged pain in the left shoulder and pain in his right chest at the incision of his pacemaker. Patient denies F/C, N/V, abdominal pain , diarrhea, CP, SOB, or other pain. Family History: Unchanged from Admission Social History: Unchanged from Admission Past Medical History: Unchanged from Admission Objective Active Medications: Acetaminophen (Tylenol Tab*) 650 mg PO Q4H PRN PRN Reason: MILD PAIN or TEMP > 100.4 Last Admin: 04/21/19 15:32 Dose: 650 mg Aspirin (Aspirin Ec Tab*) 81 mg PO DAILY [facility] Last Admin: 04/22/19 09:41 Dose: 81 mg Atorvastatin Calcium (Lipitor*) 20 mg PO DAILY [facility] Last Admin: 04/22/19 09:42 Dose: 20 mg Calcium Carbonate (Tums*) 500 mg PO DAILY [facility] Last Admin: 04/22/19 09:42 Dose: 500 mg Docusate Sodium (Colace Cap*) 100 mg PO QAM [facility] Last Admin: 04/22/19 09:42 Dose: 100 mg Glycerin (Glycerin Adult Supp*) 1 supp [place] DAILY PRN PRN Reason: CONSTIPATION Last Admin: 04/19/19 02:51 Dose: 1 supp Heparin Sodium (Porcine) (Heparin Vial(*)) 5,000 units SUBCUT Q12HR [facility] Last Admin: 04/22/19 09:41 Dose: 5,000 units Hydralazine HCl (Apresoline Iv*) 5 mg IV SLOW PU Q6H PRN PRN Reason: BLOOD PRESSURE Last Admin: 04/22/19 03:02 Dose: 5 mg Piperacillin Sod/Tazobactam (Sod 3.375 gm/ Sodium Chloride) 100 mls @ 25 mls/ hr IVPB Q12H [facility] Stop: 04/23/19 00:01 Last Admin: 04/22/19 14:16 Dose: 25 mls/hr Lisinopril (Prinivil Tab*) 10 mg PO DAILY [facility] Last Admin: 04/22/19 09:41 Dose: 10 mg Multivitamins/Minerals (Theragran/Minerals Tab*) 1 tab PO DAILY [facility] Last Admin: 04/22/19 09:42 Dose: 1 tab Ondansetron HCl (Zofran Inj*) 4 mg IV Q6H PRN PRN Reason: NAUSEA/VOMITING Last Admin: 04/16/19 08:45 Dose: 4 mg Pharmacy Consult (Zosyn Per Pharmacy*) 1 note FOLLOW UP .ZOSYN PER PHARMACY [facility] Polyethylene Glycol/Electrolytes (Miralax*) 17 gm PO DAILY PRN PRN Reason: CONSTIPATION Last Admin: 04/19/19 20:06 Dose: 17 gm Senna (Senokot 8.6 Mg Tab*) 1 tab PO BEDTIME PRN PRN Reason: CONSTIPATION Last Admin: 04/19/19 20:05 Dose: 1 tab Sevelamer Carbonate (Renvela Tab*) 800 mg PO 0730,1200 [facility] Last Admin: 04/22/19 12:24 Dose: Not Given Sevelamer Carbonate (Renvela Tab*) 1,600 mg PO 1700 [facility] Last Admin: 04/21/19 17:12 Dose: Not Given Tamsulosin HCl (Flomax Cap*) 0.4 mg PO DAILY [facility] Last Admin: 04/22/19 09:42 Dose: 0.4 mg Vital Signs - 8 hr 04/22/19 04/22/19 04/22/19 08:00 14:00 14:10 Temperature 97.6 F Pulse Rate 60 Respiratory 20 14 Rate Blood Pressure 137/57 (mmHg) O2 Sat by Pulse 97 97 Oximetry Oxygen Devices in Use Now: None Appearance: Patient is an 83yo male who appears stated age and is sitting in the bed in [facility]. Eyes: No Scleral Icterus, PERRLA Ears/Nose/Mouth/Throat: NL Teeth, Lips, Gums, Clear Oropharnyx, Mucous Membranes Moist Neck: NL Appearance and Movements; NL JVP, Trachea Midline Respiratory: Symmetrical Chest Expansion and Respiratory Effort, Clear to Auscultation Cardiovascular: NL Sounds; No Murmurs; No JVD, RRR, No Edema Abdominal: NL Sounds; No Tenderness; No Distention, No Hepatosplenomegaly, - - Nephrostomy tube in place draining orange urine. Lymphatic: No Cervical Adenopathy Extremities: No Edema, No Clubbing, Cyanosis Skin: No Nodules or Sclerosis, - Neurological: - - Alert and oriented only to self. No other focal deficits. Result Diagrams: 04/22/19 10:30 04/22/19 10:30 Microbiology and Other Data: Microbiology 04/11/19 18:05 Nasal Screen MRSA (PCR) - Final Nasal Mrsa Not Detected Assess/Plan/Problems-Billing Assessment: Mr. Motnelongo is an 83 yo M with PMH of ESRD on dialysis, CAD, HTN, HLD, TIA, BPH; presented with hematuria and was found to have complicated UTI requiring IV antibiotics. - Patient Problems (1) Bradycardia Current Visit: Yes Status: Acute Code(s): R00.1 - BRADYCARDIA, UNSPECIFIED SNOMED Code(s): 21073210 Comment: - HR previously 50-60s; dropping down into the 30s with 3-4 sec pauses, but asymptomatic and remained in 30-40s - Appreciate Cardiology consult; S/P Dual chamber pacemaker on 04/21 - Telemetry monitoring - Arm Restriction, Antibiotics - PT/OT for possible rehab placement. Avoid full weight bearing on RUE for 2-3 days. (2) UTI (urinary tract infection) Current Visit: No Status: Acute Comment: - Previously with fever and encephalopathy, now resolved, but still having episodes of mild confusion - Cultures growing ESBL Klebsiella, Morganella, Enterococcus, and Providencia with multiple resistences - Appreciate ID consult; will need 1 week IV abx as there are no PO options - Continue Zosyn (day 12/26) discontinue after today. (3) Nephrostomy complication Current Visit: Yes Status: Acute Code(s): N99.528 - OTHER COMP OF INCONTINENT EXTERNAL STOMA OF URINARY TRACT SNOMED Code(s): 76237144 Comment: - Tube was partially dislodged overnight 04/16/19, but still draining appropriately - Reportedly, the tube has fallen out at home and the patient's washed the tube with soap and water and reinserted; unclear if this is true, but would certainly explain these recurrent infections - Family will need thorough teaching about tube care prior to d/c and VNS. - IR changed without complication - Records from [facility] states patient may benefit from stenting for chronic UPJ obstruction, which might allow removal of nephrostomy. - Will need to be evaluated by Urology outpatient. (4) Syncope Current Visit: Yes Status: Acute Code(s): R55 - SYNCOPE AND COLLAPSE SNOMED Code(s): 326647786 Comment: - During dialysis 04/15/19, but likely vasovagal as he was on the bedpan during episode and no further episodes despite bradycardia. (5) CAD (coronary artery disease) Current Visit: No Status: Acute Code(s): I25.10 - ATHSCL HEART DISEASE OF [place] CORONARY ARTERY W/O ANG PCTRS SNOMED Code(s): 92993968 Comment: - Trops mildly elevated without CP or EKG changes; likely d/t demand ischemia and ESRD - Resume Aspirin. - Continue atorvastatin - Echo unremarkable. (6) ESRD (end stage renal disease) on dialysis Current Visit: No Status: Acute Code(s): N18.6 - END STAGE RENAL DISEASE; Z99.2 - DEPENDENCE ON RENAL DIALYSIS SNOMED Code(s): 268460542 Comment: - Typically on TuThSa schedule; Nephrology will dialyze MWF while inpatient - Continue sevelamer (7) HTN (hypertension) Current Visit: No Status: Acute Code(s): I10 - ESSENTIAL (PRIMARY) HYPERTENSION SNOMED Code(s): 26398722 Comment: - Normotensive - Continue lisinopril (8) Hyperlipidemia Current Visit: No Status: Acute Code(s): E78.5 - HYPERLIPIDEMIA, UNSPECIFIED SNOMED Code(s): 61746674 Comment: - Continue atorvastatin (9) DVT prophylaxis Current Visit: No Status: Acute Code(s): ZMO5873 - SNOMED Code(s): 536567042 Comment: - Heparin SQ resume tomorrow. (10) Full code status Current Visit: No Status: Acute Code(s): Z78.9 - OTHER SPECIFIED HEALTH STATUS SNOMED Code(s): 724637968 Comment: Status and Disposition: Inpatient for IV abx. S/P nephrostomy tube and pacer placement. Now Pending ASHLEY , likely D/C Thursday.
--- NOTE | 2019-04-22 16:26 | PN ---
Hospitalist Progress Note Date of Service: 04/22/19 Paged at approximately 1600 about Patient pulling out Nephrostomy tube and IV. Minimal blood at nephrostomy tube site, patient unable to provide insight into why he did this. Radiology called and they will be able to replace tube tonight.
[2019-04-22] MEDS ORDERED: hydrOXYzine HCL TAB* 10 MG PO PRN (22:04)
[2019-04-23] MEDS: Sevelamer TAB* 800 MG PO SCH ×3 (09:42→20:05)
[2019-04-23] MEDS: Aspirin EC TAB* 81 MG TAB.EC PO SCH (11:01)
[2019-04-23] MEDS: Lisinopril TAB* 10 MG PO SCH (11:02)
[2019-04-23] MEDS: Tamsulosin CAP* 0.4 MG PO SCH (11:02)
[2019-04-23] MEDS: Docusate CAP* 100 MG PO SCH (11:03)
[2019-04-23] MEDS: Atorvastatin* 20 MG TAB PO SCH (11:04)
[2019-04-23] MEDS: Calcium Carbonate CHEW TAB* 500 MG (TUMS) PO SCH (11:04)
[2019-04-23] MEDS: Heparin VIAL(*) 5000 UNITS/ML VIAL (FIVE THOUSAND) SUBCUT SCH ×2 (11:04→21:00)
[2019-04-23] MEDS: Multivitamins/Minerals TAB PO SCH (11:04)
[2019-04-23 12:13] LABS: BUN/Creatinine Ratio 6.2 (8-20); EGFR African American 12.6 (>60); EGFR Non-African American 10.4 (>60); Potassium 4.4 mmol/L (3.5-5.0)
--- NOTE | 2019-04-23 13:54 | PN ---
Subjective Date of Service: 04/23/19 Interval History: Patient Today denies pain except for pain with palpation on right chest with palpation. Patient denies CP, SOB, Dizziness, N/V, abdominal pain, dysuria, or other pain. Patient has appetite, but feels very dry today. Family History: Unchanged from Admission Social History: Unchanged from Admission Past Medical History: Unchanged from Admission Objective Active Medications: Acetaminophen (Tylenol Tab*) 650 mg PO Q4H PRN PRN Reason: MILD PAIN or TEMP > 100.4 Last Admin: 04/21/19 15:32 Dose: 650 mg Aspirin (Aspirin Ec Tab*) 81 mg PO DAILY [facility] Last Admin: 04/23/19 11:01 Dose: 81 mg Atorvastatin Calcium (Lipitor*) 20 mg PO DAILY [facility] Last Admin: 04/23/19 11:04 Dose: 20 mg Calcium Carbonate (Tums*) 500 mg PO DAILY [facility] Last Admin: 04/23/19 11:04 Dose: 500 mg Docusate Sodium (Colace Cap*) 100 mg PO QAM [facility] Last Admin: 04/23/19 11:03 Dose: 100 mg Glycerin (Glycerin Adult Supp*) 1 supp [place] DAILY PRN PRN Reason: CONSTIPATION Last Admin: 04/19/19 02:51 Dose: 1 supp Heparin Sodium (Porcine) (Heparin Vial(*)) 5,000 units SUBCUT Q12HR [facility] Last Admin: 04/23/19 11:04 Dose: 5,000 units Hydroxyzine HCl (Atarax Tab*) 10 mg PO Q4H PRN PRN Reason: ANXIETY Lisinopril (Prinivil Tab*) 10 mg PO DAILY [facility] Last Admin: 04/23/19 11:02 Dose: 10 mg Multivitamins/Minerals (Theragran/Minerals Tab*) 1 tab PO DAILY [facility] Last Admin: 04/23/19 11:04 Dose: 1 tab Ondansetron HCl (Zofran Inj*) 4 mg IV Q6H PRN PRN Reason: NAUSEA/VOMITING Last Admin: 04/16/19 08:45 Dose: 4 mg Polyethylene Glycol/Electrolytes (Miralax*) 17 gm PO DAILY PRN PRN Reason: CONSTIPATION Last Admin: 04/19/19 20:06 Dose: 17 gm Senna (Senokot 8.6 Mg Tab*) 1 tab PO BEDTIME PRN PRN Reason: CONSTIPATION Last Admin: 04/19/19 20:05 Dose: 1 tab Sevelamer Carbonate (Renvela Tab*) 800 mg PO 0730,1200 [facility] Last Admin: 04/23/19 13:23 Dose: Not Given Sevelamer Carbonate (Renvela Tab*) 1,600 mg PO 1700 [facility] Last Admin: 04/22/19 16:28 Dose: Not Given Tamsulosin HCl (Flomax Cap*) 0.4 mg PO DAILY [facility] Last Admin: 04/23/19 11:02 Dose: 0.4 mg Vital Signs - 8 hr 04/23/19 04/23/19 05:51 07:15 Temperature 96.8 F Pulse Rate 60 Respiratory 18 Rate Blood Pressure 156/85 (mmHg) O2 Sat by Pulse 96 100 Oximetry Oxygen Devices in Use Now: None Appearance: Patient is an 83yo male who appears stated age and is sitting in the bed in [facility]. Eyes: No Scleral Icterus, PERRLA Ears/Nose/Mouth/Throat: NL Teeth, Lips, Gums, Clear Oropharnyx, Mucous Membranes Moist Neck: NL Appearance and Movements; NL JVP, Trachea Midline Respiratory: Symmetrical Chest Expansion and Respiratory Effort, Clear to Auscultation Cardiovascular: NL Sounds; No Murmurs; No JVD, RRR, No Edema Abdominal: NL Sounds; No Tenderness; No Distention, No Hepatosplenomegaly Lymphatic: No Cervical Adenopathy Extremities: No Edema, No Clubbing, Cyanosis Skin: No Nodules or Sclerosis, - - Right flank incision covered in dressing and not visualized. Neurological: Alert and Oriented x 3, NL Sensation Result Diagrams: 04/22/19 10:30 04/23/19 11:42 Microbiology and Other Data: Microbiology 04/11/19 18:05 Nasal Screen MRSA (PCR) - Final Nasal Mrsa Not Detected Assess/Plan/Problems-Billing Assessment: Mr. Montelongo is an 83 yo M with PMH of ESRD on dialysis, CAD, HTN, HLD, TIA, BPH; presented with hematuria and was found to have complicated UTI requiring IV antibiotics. - Patient Problems (1) Bradycardia Current Visit: Yes Status: Acute Code(s): R00.1 - BRADYCARDIA, UNSPECIFIED SNOMED Code(s): 14042404 Comment: - HR previously 50-60s; dropping down into the 30s with 3-4 sec pauses, but asymptomatic and remained in 30-40s - Appreciate Cardiology consult; S/P Dual chamber pacemaker on 04/21 - Telemetry monitoring - Arm Restriction, Antibiotics completed - PT/OT for possible rehab placement. Avoid full weight bearing on RUE for 1-2 more days. (2) UTI (urinary tract infection) Current Visit: No Status: Acute Comment: - Previously with fever and encephalopathy, now resolved, but still having episodes of mild confusion - Cultures growing ESBL Klebsiella, Morganella, Enterococcus, and Providencia with multiple resistences - Appreciate ID consult; will need 1 week IV abx as there are no PO options - Zosyn Finished. (3) Nephrostomy complication Current Visit: Yes Status: Acute Code(s): N99.528 - OTHER COMP OF INCONTINENT EXTERNAL STOMA OF URINARY TRACT SNOMED Code(s): 04294678 Comment: - Tube was partially dislodged overnight 04/16/19, but still draining appropriately - Patient pulled out tube overnight, unable to be replaced. Wait 3 days for hydronephrosis to reaccumulate before reattempting. Appreciate Radiology input. - Family will need thorough teaching about tube care prior to d/c and VNS. - Records from [facility] states patient may benefit from stenting for chronic UPJ obstruction, which might allow removal of nephrostomy. - Will need to be evaluated by Urology outpatient. (4) CAD (coronary artery disease) Current Visit: No Status: Acute Code(s): I25.10 - ATHSCL HEART DISEASE OF [place] CORONARY ARTERY W/O ANG PCTRS SNOMED Code(s): 84016786 Comment: - Trops mildly elevated without CP or EKG changes; likely d/t demand ischemia and ESRD - Resume Aspirin. - Continue atorvastatin - Echo unremarkable. (5) ESRD (end stage renal disease) on dialysis Current Visit: No Status: Acute Code(s): N18.6 - END STAGE RENAL DISEASE; Z99.2 - DEPENDENCE ON RENAL DIALYSIS SNOMED Code(s): 814170542 Comment: - Typically on TuThSa schedule; Nephrology will dialyze MWF while inpatient - Continue sevelamer (6) HTN (hypertension) Current Visit: No Status: Acute Code(s): I10 - ESSENTIAL (PRIMARY) HYPERTENSION SNOMED Code(s): 47217141 Comment: - Normotensive - Continue lisinopril (7) Hyperlipidemia Current Visit: No Status: Acute Code(s): E78.5 - HYPERLIPIDEMIA, UNSPECIFIED SNOMED Code(s): 14955743 Comment: - Continue atorvastatin (8) DVT prophylaxis Current Visit: No Status: Acute Code(s): TRT5775 - SNOMED Code(s): 700426421 Comment: - Heparin SQ (9) Full code status Current Visit: No Status: Acute Code(s): Z78.9 - OTHER SPECIFIED HEALTH STATUS SNOMED Code(s): 537487225 Comment: Status and Disposition: Inpatient for IV abx. S/P nephrostomy tube and pacer placement. Now Pending ASHLEY , likely D/C Thursday.
[2019-04-23] MEDS: Acetaminophen TAB* 325 MG PO PRN (21:00)
[2019-04-24 07:13] LABS: BUN/Creatinine Ratio 7.4 (8-20); Calcium 8.8 mg/dL (8.6-10.3); EGFR African American 10.1 (>60); EGFR Non-African American 8.3 (>60); Magnesium 3.2 mg/dL (1.9-2.7); Potassium 4.3 mmol/L (3.5-5.0)
[2019-04-24 07:50] LABS: ABS Eosinophils 0.2 10^3/ul (0-0.6); ABS Lymphocytes 0.9 10^3/ul (1.0-4.8); ABS Monocytes 0.6 10^3/ul (0-0.8); ABS Neutrophils 3.4 10^3/ul (1.5-7.7); Eosinophil % 4.5 %; Hematocrit 30 % (42-52); Hemoglobin 10.3 g/dL (14.0-18.0); Lymphocyte % 17.1 %; Mean Corpuscular HGB Conc 34 g/dL (31-36); Mean Corpuscular Hemoglobin 35 pg (27-31); Mean Corpuscular Volume 101 fL (80-94); Mean Platelet Volume 6.7 fL (7.4-10.4); Platelet Count 157 10^3/uL (150-450); Red Cell Distribution Width 14 % (10-15); White Blood Count 5.2 10^3/uL (3.5-10.8)
[2019-04-24] MEDS: Calcium Carbonate CHEW TAB* 500 MG (TUMS) PO SCH (09:47)
[2019-04-24] MEDS: Multivitamins/Minerals TAB PO SCH (09:48)
[2019-04-24] MEDS: Aspirin EC TAB* 81 MG TAB.EC PO SCH (09:48)
[2019-04-24] MEDS: Lisinopril TAB* 10 MG PO SCH (09:48)
[2019-04-24] MEDS: Tamsulosin CAP* 0.4 MG PO SCH (09:48)
[2019-04-24] MEDS: Atorvastatin* 20 MG TAB PO SCH (09:49)
[2019-04-24] MEDS: Heparin VIAL(*) 5000 UNITS/ML VIAL (FIVE THOUSAND) SUBCUT SCH ×2 (09:49→20:56)
[2019-04-24] MEDS: Docusate CAP* 100 MG PO SCH (09:49)
[2019-04-24] MEDS: Sevelamer TAB* 800 MG PO SCH ×3 (11:06→17:29)
--- NOTE | 2019-04-24 13:51 | PN ---
Subjective Date of Service: 04/24/19 Interval History: Patient is feeling "anxious" today about his incisional pain, but cannot say if it has gotten worse from yesterday. Patient denies F/C, N/V, abdominal pain, diarrhea, CP, SOB, dizziness, Palpitations, or other pain. Family History: Unchanged from Admission Social History: Unchanged from Admission Past Medical History: Unchanged from Admission Objective Active Medications: Acetaminophen (Tylenol Tab*) 650 mg PO Q4H PRN PRN Reason: MILD PAIN or TEMP > 100.4 Last Admin: 04/23/19 21:00 Dose: 650 mg Aspirin (Aspirin Ec Tab*) 81 mg PO DAILY [facility] Last Admin: 04/24/19 09:48 Dose: 81 mg Atorvastatin Calcium (Lipitor*) 20 mg PO DAILY [facility] Last Admin: 04/24/19 09:49 Dose: 20 mg Calcium Carbonate (Tums*) 500 mg PO DAILY [facility] Last Admin: 04/24/19 09:47 Dose: 500 mg Docusate Sodium (Colace Cap*) 100 mg PO QAM [facility] Last Admin: 04/24/19 09:49 Dose: 100 mg Glycerin (Glycerin Adult Supp*) 1 supp [place] DAILY PRN PRN Reason: CONSTIPATION Last Admin: 04/19/19 02:51 Dose: 1 supp Heparin Sodium (Porcine) (Heparin Vial(*)) 5,000 units SUBCUT Q12HR [facility] Last Admin: 04/24/19 09:49 Dose: 5,000 units Hydroxyzine HCl (Atarax Tab*) 10 mg PO Q4H PRN PRN Reason: ANXIETY Lisinopril (Prinivil Tab*) 10 mg PO DAILY [facility] Last Admin: 04/24/19 09:48 Dose: 10 mg Multivitamins/Minerals (Theragran/Minerals Tab*) 1 tab PO DAILY [facility] Last Admin: 04/24/19 09:48 Dose: 1 tab Ondansetron HCl (Zofran Inj*) 4 mg IV Q6H PRN PRN Reason: NAUSEA/VOMITING Last Admin: 04/16/19 08:45 Dose: 4 mg Polyethylene Glycol/Electrolytes (Miralax*) 17 gm PO DAILY PRN PRN Reason: CONSTIPATION Last Admin: 04/19/19 20:06 Dose: 17 gm Senna (Senokot 8.6 Mg Tab*) 1 tab PO BEDTIME PRN PRN Reason: CONSTIPATION Last Admin: 04/19/19 20:05 Dose: 1 tab Sevelamer Carbonate (Renvela Tab*) 800 mg PO 0730,1200 [facility] Last Admin: 04/24/19 12:40 Dose: 800 mg Sevelamer Carbonate (Renvela Tab*) 1,600 mg PO 1700 [facility] Last Admin: 04/23/19 20:05 Dose: Not Given Tamsulosin HCl (Flomax Cap*) 0.4 mg PO DAILY [facility] Last Admin: 04/24/19 09:48 Dose: 0.4 mg Oxygen Devices in Use Now: None Appearance: Patient is an 83yo male who appears stated age and is sitting in the bed in [facility]. Eyes: No Scleral Icterus, PERRLA Ears/Nose/Mouth/Throat: NL Teeth, Lips, Gums, Clear Oropharnyx, Mucous Membranes Moist Neck: NL Appearance and Movements; NL JVP, Trachea Midline Respiratory: Symmetrical Chest Expansion and Respiratory Effort, Clear to Auscultation Cardiovascular: NL Sounds; No Murmurs; No JVD, RRR, No Edema Abdominal: NL Sounds; No Tenderness; No Distention, No Hepatosplenomegaly Lymphatic: No Cervical Adenopathy Extremities: No Edema, No Clubbing, Cyanosis Skin: No Nodules or Sclerosis, - - Incision on right chest covered in dressing and not visualized, no discharge. Neurological: - - Alert, Oriented only to self. Result Diagrams: 04/24/19 07:43 04/24/19 06:50 Microbiology and Other Data: Microbiology 04/11/19 18:05 Nasal Screen MRSA (PCR) - Final Nasal Mrsa Not Detected Assess/Plan/Problems-Billing Assessment: Mr. Montelongo is an 83 yo M with PMH of ESRD on dialysis, CAD, HTN, HLD, TIA, BPH; presented with hematuria and was found to have complicated UTI requiring IV antibiotics. - Patient Problems (1) Bradycardia Current Visit: Yes Status: Acute Code(s): R00.1 - BRADYCARDIA, UNSPECIFIED SNOMED Code(s): 62330979 Comment: - HR previously 50-60s; dropping down into the 30s with 3-4 sec pauses, but asymptomatic and remained in 30-40s - Appreciate Cardiology consult; S/P Dual chamber pacemaker on 04/21 - Telemetry monitoring - Arm Restriction, Antibiotics completed - PT/OT for possible rehab placement. (2) UTI (urinary tract infection) Current Visit: No Status: Acute Comment: - Previously with fever and encephalopathy, now resolved - Cultures growing ESBL Klebsiella, Morganella, Enterococcus, and Providencia with multiple resistences - Appreciate ID consult - Micasyn Finished x1 week (3) Nephrostomy complication Current Visit: Yes Status: Acute Code(s): N99.528 - OTHER COMP OF INCONTINENT EXTERNAL STOMA OF URINARY TRACT SNOMED Code(s): 71001286 Comment: - Patient pulled out tube overnight on 04/22, unable to be replaced. Wait 3 days for hydronephrosis to reaccumulate before reattempting. Appreciate Radiology input. - Family will need thorough teaching about tube care prior to d/c and VNS. - Records from [facility] states patient may benefit from stenting for chronic UPJ obstruction, which might allow removal of nephrostomy. - Will need to be evaluated by Urology outpatient. (4) CAD (coronary artery disease) Current Visit: No Status: Acute Code(s): I25.10 - ATHSCL HEART DISEASE OF [place] CORONARY ARTERY W/O ANG PCTRS SNOMED Code(s): 77536515 Comment: - Trops mildly elevated without CP or EKG changes; likely d/t demand ischemia and ESRD - Continue Aspirin. - Continue atorvastatin - Echo unremarkable. (5) ESRD (end stage renal disease) on dialysis Current Visit: No Status: Acute Code(s): N18.6 - END STAGE RENAL DISEASE; Z99.2 - DEPENDENCE ON RENAL DIALYSIS SNOMED Code(s): 617295729 Comment: - Typically on TuThSa schedule; Nephrology will dialyze MWF while inpatient - Continue sevelamer (6) HTN (hypertension) Current Visit: No Status: Acute Code(s): I10 - ESSENTIAL (PRIMARY) HYPERTENSION SNOMED Code(s): 65955956 Comment: - Normotensive - Continue lisinopril (7) Hyperlipidemia Current Visit: No Status: Acute Code(s): E78.5 - HYPERLIPIDEMIA, UNSPECIFIED SNOMED Code(s): 52302820 Comment: - Continue atorvastatin (8) DVT prophylaxis Current Visit: No Status: Acute Code(s): MGW9453 - SNOMED Code(s): 204660375 Comment: - Heparin SQ (9) Full code status Current Visit: No Status: Acute Code(s): Z78.9 - OTHER SPECIFIED HEALTH STATUS SNOMED Code(s): 588298187 Comment: Status and Disposition: Inpatient for IV abx. S/P nephrostomy tube and pacer placement. Now Pending ASHLEY , likely D/C Thursday.
[2019-04-24] MEDS: Polyethylene Glycol 3350* 17 GM PACKET PO PRN (21:10)
[2019-04-24] MEDS: Acetaminophen TAB* 325 MG PO PRN (21:11)
--- NOTE | 2019-04-25 09:07 | PN ---
Progress Note - Progress Note Date of Service: 04/25/19 Note: Dialysis Note: Performed by Dr. Devika Adames, [facility] Nephrology 04/25/2019 I had the pleasure seeing him today, a pleasant 83 YO M He was seen and examined on HD. He accidentally pulled his Rt Perc. Nephrostomy 04/22. It was indicated for severe UPJ. Radiology suggested waiting for HN to re accumulate before placing a new one. Last Renal US Severe Rt HN 04/24. There was a failed attempt to re insert it on 04/22 HD Routine: MWF HD Duration: 3.0 Hr UF Goal: 1-2 L/Rx Vitals: 30 min into HD his BP dropped 150-100 Temp Pulse Resp BP Pulse Ox 97.9 F 60 20 154/69 99 04/25/19 04:33 04/25/19 04:33 04/25/19 08:00 04/25/19 04:33 04/25/19 04:59 Blood Flow: 400 cc/min Dialysate Flow: 600 cc/min Bath: K: 2K Ca: 2.5Ca Na: 138 Hco3: 35 Temp: 36 C Dialyzer: Revaclear 300 Access: Lt UE AVF No Access Related Issues Tattooer 90 at BF 400 Meds with HD: None Tolerates HD well. No Intradialytic Hypotension. A/P: HD MWF Scheduled for Perc tube later today Lytes Ok BP Ok
[2019-04-25 10:33] LABS: ABS Eosinophils 0.2 10^3/ul (0-0.6); ABS Lymphocytes 0.7 10^3/ul (1.0-4.8); ABS Monocytes 0.6 10^3/ul (0-0.8); ABS Neutrophils 5.7 10^3/ul (1.5-7.7); Eosinophil % 3.1 %; Hematocrit 29 % (42-52); Hemoglobin 10.1 g/dL (14.0-18.0); Lymphocyte % 9.7 %; Mean Corpuscular HGB Conc 35 g/dL (31-36); Mean Corpuscular Hemoglobin 35 pg (27-31); Mean Corpuscular Volume 99 fL (80-94); Mean Platelet Volume 7.2 fL (7.4-10.4); Platelet Count 164 10^3/uL (150-450); Red Blood Count 2.92 10^6 /uL (4.18-5.48); Red Cell Distribution Width 13 % (10-15); White Blood Count 7.2 10^3/uL (3.5-10.8)
[2019-04-25 10:43] LABS: Activated Partial Thrombo Time 35.9 seconds (26.0-38.0); INR 1.03 (0.82-1.09)
[2019-04-25] MEDS ORDERED: Heparin DIALYSIS ONLY(*) 1,000 UNITS/ML VIAL DIALYSIS ONE (11:00)
[2019-04-25] MEDS: Tamsulosin CAP* 0.4 MG PO SCH ×2 (11:04→16:06)
[2019-04-25] MEDS: Docusate CAP* 100 MG PO SCH ×2 (11:04→16:08)
[2019-04-25] MEDS: Multivitamins/Minerals TAB PO SCH ×2 (11:04→16:08)
[2019-04-25] MEDS: Lisinopril TAB* 10 MG PO SCH ×2 (11:04→16:01)
[2019-04-25] MEDS: Calcium Carbonate CHEW TAB* 500 MG (TUMS) PO SCH ×2 (11:04→16:08)
[2019-04-25] MEDS: Sevelamer TAB* 800 MG PO SCH ×3 (11:04→16:03)
[2019-04-25] MEDS: Atorvastatin* 20 MG TAB PO SCH ×2 (11:04→16:02)
[2019-04-25] MEDS ORDERED: Piperacillin/Tazobac ADVAN(*) 3.375 GM in NS 0.9% 100 ML* 100 ML IVPB ONE (11:25)
[2019-04-25] MEDS ORDERED: fentaNYL* 50 MCG/ML 2 ML VIAL (100 MCG VIAL) ONE (11:55)
[2019-04-25] MEDS ORDERED: Ciprofloxacin 400MG IVPREMIX(* 400 MG/200 ML BAG IVPB ONE (12:00)
[2019-04-25] MEDS ORDERED: AMPICILLIN IVPB ONE (12:00)
[2019-04-25] MEDS ORDERED: NS 0.9% IVPB ONE (12:00)
--- NOTE | 2019-04-25 12:06 | PN ---
Subjective Date of Service: 04/25/19 Interval History: Pt feels well. Had 4 runs of monomorphic v. tach max 9 beats, asymptomatic, during dialysis, resolved Pt is a very poor historian, denies pain, CP or SOB Family History: Unchanged from Admission Social History: Unchanged from Admission Past Medical History: Unchanged from Admission Objective Active Medications: Acetaminophen (Tylenol Tab*) 650 mg PO Q4H PRN PRN Reason: MILD PAIN or TEMP > 100.4 Last Admin: 04/24/19 21:11 Dose: 650 mg Atorvastatin Calcium (Lipitor*) 20 mg PO DAILY [facility] Last Admin: 04/25/19 11:04 Dose: Not Given Calcium Carbonate (Tums*) 500 mg PO DAILY [facility] Last Admin: 04/25/19 11:04 Dose: Not Given Docusate Sodium (Colace Cap*) 100 mg PO QAM [facility] Last Admin: 04/25/19 11:04 Dose: Not Given Glycerin (Glycerin Adult Supp*) 1 supp TN DAILY PRN PRN Reason: CONSTIPATION Last Admin: 04/19/19 02:51 Dose: 1 supp Hydroxyzine HCl (Atarax Tab*) 10 mg PO Q4H PRN PRN Reason: ANXIETY Ciprofloxacin/Dextrose (Cipro 400 Mg Ivpremix(*)) 400 mg in 200 mls @ 200 mls/ hr IVPB ONCE ONE Stop: 04/25/19 12:59 Last Admin: 04/25/19 11:54 Dose: 200 mls/hr Piperacillin Sod/Tazobactam (Sod 3.375 gm/ Sodium Chloride) 100 mls @ 200 mls/ hr IVPB ONCE ONE Stop: 04/25/19 11:54 Lisinopril (Prinivil Tab*) 10 mg PO DAILY [facility] Last Admin: 04/25/19 11:04 Dose: Not Given Multivitamins/Minerals (Theragran/Minerals Tab*) 1 tab PO DAILY [facility] Last Admin: 04/25/19 11:04 Dose: Not Given Ondansetron HCl (Zofran Inj*) 4 mg IV Q6H PRN PRN Reason: NAUSEA/VOMITING Last Admin: 04/16/19 08:45 Dose: 4 mg Polyethylene Glycol/Electrolytes (Miralax*) 17 gm PO DAILY PRN PRN Reason: CONSTIPATION Last Admin: 04/24/19 21:10 Dose: 17 gm Senna (Senokot 8.6 Mg Tab*) 1 tab PO BEDTIME PRN PRN Reason: CONSTIPATION Last Admin: 04/19/19 20:05 Dose: 1 tab Sevelamer Carbonate (Renvela Tab*) 800 mg PO 0730,1200 [facility] Last Admin: 04/25/19 11:04 Dose: Not Given Sevelamer Carbonate (Renvela Tab*) 1,600 mg PO 1700 [facility] Last Admin: 04/24/19 17:29 Dose: 1,600 mg Tamsulosin HCl (Flomax Cap*) 0.4 mg PO DAILY [facility] Last Admin: 04/25/19 11:04 Dose: Not Given Vital Signs - 8 hr 04/25/19 04/25/19 04/25/19 04:33 04:59 07:42 Temperature 97.9 F 98 F Pulse Rate 60 60 Respiratory 18 20 Rate Blood Pressure 154/69 154/78 (mmHg) O2 Sat by Pulse 99 99 100 Oximetry 04/25/19 04/25/19 08:00 09:00 Temperature Pulse Rate Respiratory 20 Rate Blood Pressure (mmHg) O2 Sat by Pulse 100 100 Oximetry Oxygen Devices in Use Now: None Appearance: 83 yo m in nAD, AAOx2 Eyes: No Scleral Icterus, PERRLA Ears/Nose/Mouth/Throat: NL Teeth, Lips, Gums, Mucous Membranes Moist Neck: NL Appearance and Movements; NL JVP, Trachea Midline Respiratory: Symmetrical Chest Expansion and Respiratory Effort, Clear to Auscultation Cardiovascular: NL Sounds; No Murmurs; No JVD, RRR Abdominal: NL Sounds; No Tenderness; No Distention, - - no flank tenderness b/l Extremities: No Edema Skin: No Rash or Ulcers, No Nodules or Sclerosis Neurological: NL Muscle Strength and Tone Result Diagrams: 04/25/19 10:00 04/25/19 11:00 Microbiology and Other Data: Microbiology 04/11/19 18:05 Nasal Screen MRSA (PCR) - Final Nasal Mrsa Not Detected Assess/Plan/Problems-Billing Assessment: Mr. Montelongo is an 83 yo M with PMH of ESRD on dialysis, CAD, HTN, HLD, TIA, BPH; presented with hematuria and was found to have complicated UTI requiring IV antibiotics. - Patient Problems (1) Ventricular tachycardia Comment: noted today during HD d/w Dr. Albrecht: tachyarrythmia likely related to electrolyte shift during dialysis-resolved aftre HD. Labs pending, but there is not contraindication to having the nephrostomy tube placed today. (2) Bradycardia Comment: - S/P Dual chamber pacemaker on 04/21 - HR previously 50-60s; dropping down into the 30s with 3-4 sec pauses, but asymptomatic and remained in 30-40s - Appreciate Cardiology consult; - Telemetry monitoring paced QRS's - Arm Restriction, Antibiotics completed - PT/OT for possible rehab placement. (3) Nephrostomy complication Comment: - Patient pulled out tube overnight on 04/22, unable to be replaced. raidology recommendations was to wait 3 days for hydronephrosis to reaccumulate before reattempting. Appreciate Radiology input. Today severe /r hydronephrosis- nephrostomy to be placed in PM. - Family will need thorough teaching about tube care prior to d/c and VNS. - Records from [facility] states patient may benefit from stenting for chronic UPJ obstruction, which might allow removal of nephrostomy. - Will need to be evaluated by Urology outpatient. (4) CAD (coronary artery disease) Comment: - Trops mildly elevated without CP or EKG changes; likely d/t demand ischemia and ESRD - Continue Aspirin-held for nephrostomy placement. - Continue atorvastatin - Echo unremarkable. (5) ESRD (end stage renal disease) on dialysis Comment: - Typically on TuThSa schedule; Nephrology will dialyze MWF while inpatient - Continue sevelamer (6) HTN (hypertension) Comment: - Normotensive - Continue lisinopril (7) Hyperlipidemia Comment: - Continue atorvastatin (8) UTI (urinary tract infection) Comment: - Previously with fever and encephalopathy, now resolved - Cultures growing ESBL Klebsiella, Morganella, Enterococcus, and Providencia with multiple resistences - Appreciate ID consult - Zosyn Finished x1 week. (9) DVT prophylaxis Comment: - Heparin SQ-held for nephrostomy placement Status and Disposition: Inpatient, will need STR when medically clear
[2019-04-25 12:19] LABS: BUN/Creatinine Ratio 7.1 (8-20); Calcium 8.7 mg/dL (8.6-10.3); EGFR African American 26.2 (>60); EGFR Non-African American 21.6 (>60); Magnesium 2.2 mg/dL (1.9-2.7)
--- NOTE | 2019-04-25 14:11 | BRIEFOPN ---
Brief Operative/Procedure Note - Operation Details Pre-Op Diagnosis: Right hydronephrosis status post extraction of right PCN. Post-Op Diagnosis: Right hydronephrosis status post extraction of right PCN. Procedures: Wire and catheter rescue of right PCN tract followed by placement of right 12 [place] pigtail catheter in the right renal collecting system. Surgeon(s)/Proceduralists: Felicia Anesthesia: Lidocaine 1% locally and IV fentanyl Estimated Blood Loss: Minimal Findings: Gross dilatation of the right renal collecting system with severe hydronephrosis. 400 mL of hematuria drained with blood clots aspirated. Specimen(s)/Culture(s) Description: 40 mL blood stained urine. Complications: None.
[2019-04-25] MEDS: Metoprolol Tartrate TAB* 25 MG PO SCH (20:34)
[2019-04-26 05:44] LABS: Calcium 8.6 mg/dL (8.6-10.3); Potassium 4.1 mmol/L (3.5-5.0)
[2019-04-26 05:50] LABS: BUN/Creatinine Ratio 6.6 (8-20); EGFR African American 11.2 (>60); EGFR Non-African American 9.3 (>60)
[2019-04-26 06:49] LABS: ABS Eosinophils 0.2 10^3/ul (0-0.6); ABS Lymphocytes 0.8 10^3/ul (1.0-4.8); ABS Monocytes 0.6 10^3/ul (0-0.8); ABS Neutrophils 4.3 10^3/ul (1.5-7.7); Eosinophil % 3.5 %; Hematocrit 29 % (42-52); Lymphocyte % 12.8 %; Mean Corpuscular HGB Conc 34 g/dL (31-36); Mean Corpuscular Hemoglobin 34 pg (27-31); Mean Corpuscular Volume 101 fL (80-94); Mean Platelet Volume 7.1 fL (7.4-10.4); Platelet Count 157 10^3/uL (150-450); Red Blood Count 2.91 10^6 /uL (4.18-5.48); Red Cell Distribution Width 14 % (10-15); White Blood Count 5.9 10^3/uL (3.5-10.8)
[2019-04-26] MEDS: Multivitamins/Minerals TAB PO SCH (09:29)
[2019-04-26] MEDS: Tamsulosin CAP* 0.4 MG PO SCH (09:29)
[2019-04-26] MEDS: Docusate CAP* 100 MG PO SCH (09:29)
[2019-04-26] MEDS: Calcium Carbonate CHEW TAB* 500 MG (TUMS) PO SCH (09:29)
[2019-04-26] MEDS: Metoprolol Tartrate TAB* 25 MG PO SCH (09:29)
[2019-04-26] MEDS: Lisinopril TAB* 10 MG PO SCH (09:29)
[2019-04-26] MEDS: Atorvastatin* 20 MG TAB PO SCH (09:35)
--- NOTE | 2019-04-26 09:39 | PN ---
Progress Note - Progress Note Date of Service: 04/26/19 SOAP: Subjective: CC: UTI in the setting of nephrostomy tube HPI: Mr. Montelongo is an 83 yo male with PMH significant for ESRD on hemodialysis, chronic right nephrostomy tube, CAD, HLD, HTN, BPH, and TIA; who presented to the hospital with complaints of AMS and was found to have encephalopathy felt to be secondary to a UTI. He states that he is doing well. Denies fever, chills , nausea, vomiting, or diarrhea. Objective: Vital Signs - 8 hr 04/26/19 03:15 Temperature 97.6 F Pulse Rate 60 Respiratory 16 Rate Blood Pressure 137/66 (mmHg) O2 Sat by Pulse 98 Oximetry Physical Exam: General: NAD, sitting in the bed Neurological: Alert and Oriented to person and place HEENT: Moist MM, no thrush Cardiovascular: Herat rate regular Respiratory: Lung sounds clear Abdominal: Bowel sounds present; ABD soft, non tender and non distended Skin: No rash Laboratory Results - last 24 hr 04/25/19 04/25/19 04/25/19 10:00 10:00 11:00 WBC 7.2 RBC 2.92 L Hgb 10.1 L Hct 29 L MCV 99 H MCH 35 H MCHC 35 RDW 13 Plt Count 164 MPV 7.2 L Neut % (Auto) 79.1 Lymph % (Auto) 9.7 [place] % (Auto) 7.7 Eos % (Auto) 3.1 Baso % (Auto) 0.4 Absolute Neuts (auto) 5.7 Absolute Lymphs (auto) 0.7 L Absolute Monos (auto) 0.6 Absolute Eos (auto) 0.2 Absolute Basos (auto) 0.0 Absolute Nucleated RBC 0.0 Nucleated RBC % 0.0 INR (Anticoag Therapy) 1.03 APTT 35.9 Sodium 141 Potassium 3.0 L Chloride 100 L Carbon Dioxide 32 Anion Gap 9 BUN 20 Creatinine 2.82 H Est GFR ( Amer) 26.2 Est GFR (Non-Af Amer) 21.6 BUN/Creatinine Ratio 7.1 L Glucose 100 Calcium 8.7 Magnesium 2.2 04/26/19 04/26/19 04:49 06:18 WBC 5.9 RBC 2.91 L Hgb 10.0 L Hct 29 L MCV 101 H MCH 34 H MCHC 34 RDW 14 Plt Count 157 MPV 7.1 L Neut % (Auto) 73.1 Lymph % (Auto) 12.8 [place] % (Auto) 10.2 Eos % (Auto) 3.5 Baso % (Auto) 0.4 Absolute Neuts (auto) 4.3 Absolute Lymphs (auto) 0.8 L Absolute Monos (auto) 0.6 Absolute Eos (auto) 0.2 Absolute Basos (auto) 0.0 Absolute Nucleated RBC 0.0 Nucleated RBC % 0.0 INR (Anticoag Therapy) APTT Sodium 140 Potassium 4.1 Chloride 100 L Carbon Dioxide 32 Anion Gap 8 BUN 39 H Creatinine 5.88 H Est GFR ( Amer) 11.2 Est GFR (Non-Af Amer) 9.3 BUN/Creatinine Ratio 6.6 L Glucose 93 Calcium 8.6 Microbiology 04/11/19 13:08 Aerobic Blood Culture - Final Blood Venous No Growth Day 5 04/11/19 12:37 Aerobic Blood Culture - Final Blood Venous No Growth Day 5 Anaerobic Blood Culture - Final No Growth Day 5 04/11/19 12:05 Urine Culture - Final Urine Esbl Klebsiella Pneumoniae Providencia Rettgeri Morganella Morganii Enterococcus Faecalis 04/11/19 18:05 Nasal Screen MRSA (PCR) - Final Nasal Mrsa Not Detected Assessment: 1. UTI in the setting of a chronic right sided nephrostomy tube. Urine culture with ESBL klebsiella, providencia, morganella, and enterococcus. Blood cultures with no growth. Afebrile and no leukocytosis. S/P nephrostomy tube change. 2. Encephalopathy. Suspect secondary to #1, now resolved 3. ESRD on hemodialysis. 4. Chronic right sided nephrostomy tube. Changed on 04/22/19. Plan: Completed 1 week of Zosyn, no further ABX needed at this time.
[2019-04-26] MEDS: Sevelamer TAB* 800 MG PO SCH ×2 (09:42→12:28)
[2019-04-26 12:05] VITALS: BP 108/52
--- NOTE | 2019-04-26 15:57 | DS ---
CC: Dr. Walker; Dr. Manrique; Dr. Ahumada; Nyasia Nguyen NP; Dr. Ballesteros; Dr. Eli ; Dr. Duarte; Dr. Chapman DATE OF ADMISSION: 04/11/2019. DATE OF DISCHARGE: 04/26/2019. PRIMARY CARE PHYSICIAN: Dr. Walker. DISCHARGE DIAGNOSES: 1. ESBL klebsiella pneumoniae UTI, status post seven days treatment with Zosyn. 2. Acute encephalopathy related to an ongoing infection that resolved. 3. Dementia. 4. Bradycardia for which he had a dual chamber pacemaker placement by Dr. Manrique on 04/21/2019. The patient pulled his nephrostomy tube that needed to be placed back in by Dr. Duarte on 04/25/2019 on the right. DISPOSITION AT DISCHARGE: To [facility]. CONDITION ON DISCHARGE: Stable. SECONDARY DIAGNOSES: 1. An episode of ventricular tachycardia on 04/25/2019 when patient had dialysis, likely due to electrolyte shift. That resolved after the patient was placed on a beta trino. 2. History of end stage renal disease on dialysis Tuesdays, , and Saturdays. The patient is planned for his next dialysis on , 2018. 3. History of coronary artery disease, status post stent placement in 2004. 4. Hyperlipidemia. 5. Hypertension. 6. BPH. 7. History of TIA. 8. History of right ureteral obstruction, status post nephrostomy tube placement in [place] earlier this year in September. MEDICATIONS AT DISCHARGE: 1. Acetaminophen on a prn basis. 2. Aspirin 81 mg daily. 3. Lipitor 20 mg daily. 4. Calcium Carbonate 500 mg daily. 5. Lisinopril 10 mg daily. 6. Multivitamin one tablet daily. 7. Sevelamer 800 mg before breakfast and lunch and 1,600 mg with dinner. 8. Tamsulosin 0.4 mg daily. 9. Colace 100 mg q.a.m. 10. Glycerin suppository daily prn. 11. Hydroxyzine 10 mg every 4 hours prn anxiety. 12. Lopressor, Metoprolol Tartrate 12.5 mg b.i.d. 13. MiraLax 17 gm daily prn. The patient is being discharged with a nephrostomy tube in place. At discharge, recommendation is to follow-up the post pacemaker placement precaution and instructions that are included in the post pacemaker packet and the discharge documentation. The patient is to follow-up with Nyasia Nguyen NP with Dr. Ahumada on 04/29/2019 at 11:15 at the [facility] office in [place] for pacemaker placed. The patient is also requested to call Dr. Ballesteros and Dr. Eli's office and schedule an appointment in approximately one to two weeks to consider possibility of stenting of the patient's right ureter and to discontinue the nephrostomy that was originally placed in [place] at the beginning of 2018. LABORATORY DATA/DIAGNOSTIC STUDIES DURING THE HOSPITAL STAY: Included on 2018, white blood cell count 5.9, hemoglobin 10.0, hematocrit 29, MCV 101, platelets 157; sodium 140, potassium 4.1, chloride 100, carbon dioxide 32, BUN 39, creatinine 5.88. Urine cultures were positive for ESBL klebsiella pneumoniae, Providencia rettgeri, Morganella morganii, and enterococcus faecalis. Blood cultures obtained at admission were negative in growth. PROCEDURES DURING THE HOSPITAL STAY: Pacemaker placement by Dr. Manrique on . It was a dual chamber pacemaker placement. The system is a [employer] Reality MRI compatible system with device Edora 8 DR-T, model number 741274, serial number [id number]. The atrial lead is a Biotronik Solia S 45, model 793903, serial number [id number]. The ventricular lead is Medtronic Solia S 53, model 923224, serial number [id number]. Nephrostomy tube- needed to be placed back in by Dr. Duarte on 04/25/2019 on the right. CONSULTATIONS DURING THE HOSPITAL STAY: Dr. Duarte for nephrostomy tube placement from Interventional Radiology, and Dr. Manrique and Dr. Ahumada from Cardiology for bradycardia. HOSPITALIZATION COURSE: Duarte Montelongo is an 83-year-old male who just recently moved to the [facility] from [place] and has been having right nephrostomy tube in place ever since approximately September of 2018 who presented to the hospital complaining of hematuria, foul smelling urine, and confusion. The patient was noted to be in acute toxic encephalopathy likely secondary to the UTI. His urine cultures grew ESBL klebsiella apart from three other organism reported. Dr. Chapman saw the patient in Infectious Disease consultation and recommended for the patient to have treatment with Zosyn for seven days which was completed during the hospital stay. Unfortunately, on 04/22/2019, the patient dislodged his nephrostomy tube that needed to be replaced by Dr. Duarte on 04/25/2019, that was placed without any problems. Please note that on 2018, Dr. Kirk attempted to place the nephrostomy tube, but it was not possible at that point. Please note that during the patient's hospital stay, our Urology service was not construction technology instructor for the hospital and at that point, a formal consult was not obtained in regards of possibility of a discontinuation of the nephrostomy tube and the possibility of cystoscopy and stent placement in the right ureter which apparently was discussed in the past in [place] with the patient's family. Please also note that during the patient's hospital stay, the patient was noted to have bradycardia and he was found to be a good candidate for a dual chamber pacemaker placement that occurred on 04/21/2019. It was performed by Dr. Manrique. The patient also a history of end stage renal disease and he had been dialyzed throughout his hospital stay. His last dialysis prior to the patient's discharge was on 04/25/2019 during which he was noted to have short bursts of ventricular tachycardia. We placed the patient on low dose of beta trino and his ventricular tachycardia did not recur. I also discussed the case briefly with Dr. Albrecht and we both felt that it was likely related to the patient's electrolyte shift during dialysis. The patient has significant dementia and he underwent physical therapy and occupational therapy evaluation and was deemed to be a good candidate for placement in a rehabilitation facility. He is going to be going to [facility] today on 04/26/2019. CONDITION ON DISCHARGE: Stable. DISPOSITION ON DISCHARGE: Rehab at [facility]. PHYSICAL EXAMINATION AT THE TIME OF THE PATIENT'S DISCHARGE: Vital Signs: Blood pressure 108/52, heart rate of 60 and regular, respiratory rate 16, oxygen saturation 98 percent on room air, temperature 99.0. General: The patient is a pleasant 83-year-old male in no acute distress. The patient is alert and oriented times two. HEENT: Head: Atraumatic, normocephalic. Eyes: Pupils are equal, reactive to light and accommodation. Oropharynx is clear. Mucosa moist. Neck: Supple. No JVD. No bruits bilaterally. Cardiovascular: Regular rate and rhythm. No murmur. Respiratory: Clear to auscultation bilaterally. Abdomen: Soft, nontender. Bowel sounds in all four quadrants. Extremities: There is no edema. Pulses are +2 bilaterally. There is no clubbing or cyanosis. Neuro Evaluation: Speech clear. Cranial nerves II through XII grossly intact. Motor strength is 5/5 bilaterally. The patient has a right-sided nephrostomy tube in place with no evidence of skin abnormalities at the point of insertion of the tube. Please note, this is a very short description of patient's long and complicated hospitalization. Please refer to further medical records for details. TIME SPENT: Approximately 45 minutes were spent on this patient's discharge. [id number]/CPS #: [id number]
== END 2019-04-26 17:30 | DRG 981 ==
LOC: ED 11:37 → MEDTELE 15:22
PROVIDERS: ADMIT Internal Medicine; ATTEND Internal Medicine
PROC: 5A1D70Z Performance of Urinary Filtration, Intermittent, Less than 6 Hours Per Day (ICD-10-PCS; 2019-04-12)
PROC: 0T25X0Z Change Drainage Device in Kidney, External Approach (ICD-10-PCS; principal; 2019-04-20)
PROC: 0JH606Z Insertion of Pacemaker, Dual Chamber into Chest Subcutaneous Tissue and Fascia, Open Approach (ICD-10-PCS; 2019-04-21)
PROC: 02HK3JZ Insertion of Pacemaker Lead into Right Ventricle, Percutaneous Approach (ICD-10-PCS; 2019-04-21)
PROC: 02H63JZ Insertion of Pacemaker Lead into Right Atrium, Percutaneous Approach (ICD-10-PCS; 2019-04-21)
PROC: 3C1ZX8Z Irrigation of Indwelling Device using Irrigating Substance, External Approach (ICD-10-PCS; 2019-04-25)
PROC: BT11ZZZ Fluoroscopy of Right Kidney (ICD-10-PCS; 2019-04-25)
DX: T83.512A Infection and inflammatory reaction due to nephrostomy catheter, initial encounter (principal); N18.6 End stage renal disease; I46.9 Cardiac arrest, cause unspecified; 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 with stage 5 chronic kidney disease or end stage renal disease; Z16.10 Resistance to unspecified beta lactam antibiotics; I47.2 Ventricular tachycardia; N13.6 Pyonephrosis; G93.49 Other encephalopathy; Y65.8 Other specified misadventures during surgical and medical care; H91.93 Unspecified hearing loss, bilateral; N40.0 Benign prostatic hyperplasia without lower urinary tract symptoms; E78.5 Hyperlipidemia, unspecified; I25.10 Atherosclerotic heart disease of native coronary artery without angina pectoris; R79.89 Other specified abnormal findings of blood chemistry; I48.0 Paroxysmal atrial fibrillation; I08.0 Rheumatic disorders of both mitral and aortic valves; R31.9 Hematuria, unspecified; I45.10 Unspecified right bundle-branch block; K59.00 Constipation, unspecified; R11.0 Nausea; T83.022A Displacement of nephrostomy catheter, initial encounter; Y69 Unspecified misadventure during surgical and medical care; Y92.239 Unspecified place in hospital as the place of occurrence of the external cause; I49.5 Sick sinus syndrome; E83.41 Hypermagnesemia; B96.4 Proteus (mirabilis) (morganii) as the cause of diseases classified elsewhere; E83.39 Other disorders of phosphorus metabolism; B95.2 Enterococcus as the cause of diseases classified elsewhere; B96.1 Klebsiella pneumoniae [K. pneumoniae] as the cause of diseases classified elsewhere; B96.89 Other specified bacterial agents as the cause of diseases classified elsewhere; F03.90 Unspecified dementia, unspecified severity, without behavioral disturbance, psychotic disturbance, mood disturbance, and anxiety; D63.1 Anemia in chronic kidney disease; Z96.0 Presence of urogenital implants; Y92.9 Unspecified place or not applicable; Z99.2 Dependence on renal dialysis; Z72.89 Other problems related to lifestyle; Z86.73 Personal history of transient ischemic attack (TIA), and cerebral infarction without residual deficits; Z97.4 Presence of external hearing-aid; Z79.82 Long term (current) use of aspirin; Z79.899 Other long term (current) drug therapy
CPT/HCPCS: 33208; 36415; 50432; 50435; 70450; 71045; 71046; 76775; 80048; 80053; 81003; 81015; 82607; 82746; 83605; 83735; 84484; 85025; 85027; 85060; 85610; 85730; 87040; 87077; 87086; 87186; 87340; 87641; 90935; 93005; 93306; 96365; 99156; 99157; 99284; A9270-GY; C1769; C1786; C1887; C1892; C1894; C1898; G0257; G8978-GP-CM; G8979-GP-CK; J0290; J0360; J0690; J0696; J0744; J0885; J1644; J2185; J2250; J2310; J2405; J2543; J3010; Q5106; Q9967

== ENCOUNTER 2019-04-30 09:39 | Emergency (ER) | payer MEDICARE, BC ==
--- OUTSIDE RECORDS SUMMARY | 2019-04-30 10:10 | XMS REPORT | Continuity of Care Document ---
:1935 External Reference #:[id number] Author Name Nyasia Nguyen N.P. (transmitted by agent of provider Negrita Lambert) Address [address] 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 Provider Date Diarrhea Mika Edwards MD Onset: 09/14/2018 End-stage renal disease Mika Edwards MD Onset: 09/14/2018 Hyperlipidemia Mika Edwards MD Onset: 09/14/2018 O/E - pulse rate very slow Mika Edwards MD Onset: 09/14/2018 Mechanical complication of suprapubic catheter Mika Edwards MD Onset: 2018 Social History Type Date Description Comments Sex Unknown Tobacco Use Start: Unknown End: Former Cigarette Smoker Unknown Smoking Status Reviewed: 04/29/19 Former Cigarette Smoker ETOH Use Denies alcohol use Tobacco Use Start: Unknown End: Patient is a former smoker Unknown Recreational Drug Use Denies Drug Use Exercise Type/Frequency Does not exercise Allergies, Adverse Reactions, Alerts Description No Known Drug Allergies Medications Active Medications SIG Qnty Indications Ordering Date Provider Atorvastatin Calcium 1 by mouth every day 90tabs I25.10 Henry Jarrett 2017 DO LEWIS Ahumada 20mg Tablets Tylenol 2 tablets every 4 Unknown 325mg Tablets hours as needed pain Aspirin (Enteric coated) 1 90tabs Henry Jarrett 81mg Tablets by mouth every day DO LEWIS Ahumada DR 1 tablet by mouth at Unknown 800mg Tablets 0900 and 1300 Tamsulosin HCL 1 by mouth every day Unknown 0.4mg Capsules Polyethylene Glycol one capful mixed Unknown 3350 with 17 ounces of 3350 Granules liquid for constipation Tums Tums 200 mg calcium Unknown 500 mg chewable tablet 1 tablet by mouth daily Metoprolol Tartrate 1/2 tablet by mouth Unknown twice a day 25mg Tablets Atarax 10 mg 1 tablet by Unknown mouth every hours as needed Colace 1 tablet by mouth Unknown 100mg Capsules as needed for constipation Renvela 2 tablets by mouth Unknown 800mg Tablets at 1730 Immunizations Description No Information Available Vital Signs Date Vital Result Comment 04/29/2019 10:50am Heart Rate 64 /min BP Systolic Sitting 80 mmHg Rue (Regular cuff) BP Diastolic Sitting 40 mmHg Rue (Regular cuff) Ejection Fraction 60-65% Echocardiogram 04/19/2019 11/08/2018 2:12pm Height 72 inches 6'0" Weight 195.75 lb with shoes Heart Rate 58 /min BP Systolic Sitting 128 mmHg rue reg cuff BP Diastolic Sitting 64 mmHg rue reg cuff BP Systolic Standing 130 mmHg rue reg cuff BP Diastolic Standing 64 mmHg [address] reg cuff Respiratory Rate 14 /min BMI (Body Mass Index) 26.5 kg/m2 Ejection Fraction 55-60% echo. 06/29/17 Results Test Acquired Facility Test Result H/L Range Note Date Laboratory 04/11/2019 [facility] Troponin-I 0.07 ng/mL Critical <0.[address] (TnI) [place] [address] [phone] Inr/Protime 04/11/2019 [facility] Inr 1.09 Normal 0.82-1.[address] [place] [address] [phone] Laboratory 04/11/2019 [facility] Partial 31.2 Normal 26.0-38. test finding [address] Th[address] seconds 0 [place] [address] Time PTT [phone] Lactic Acid 0.8 mmol/L Normal 0.5-2.0 3 Comp Metabolic 04/11/2019 [facility] Sodium 139 mmol/L Normal 135-[address] [place] [address] [phone] Potassium 3.9 mmol/L Normal 3.5-5.0 Chloride 102 mmol/L Normal 101-111 Co2 Carbon Dioxide 30 mmol/L Normal 22-32 Anion Gap 7 mmol/L Normal 2-11 Glucose 108 mg/dL High 70-100 Blood Urea Nitrogen 50 mg/dL High 6-24 Creatinine 6.29 mg/dL High 0.67-1.17 BUN/Creatinine Ratio 7.9 Low 8-20 Calcium 9.7 mg/dL Normal 8.6-10.3 Total Protein 6.5 g/dL Normal 6.4-8.9 Albumin 3.7 g/dL Normal 3.2-5.2 Globulin 2.8 g/dL Normal 2-4 Albumin/Globulin Ratio 1.3 Normal 1-3 Total Bilirubin 0.40 mg/dL Normal 0.2-1.0 Alkaline Phosphatase 70 U/L Normal 34-104 Alt 10 U/L Normal 7-52 Ast 13 U/L Normal 13-39 Egfr Non- 8.6 >60 Egfr 10.4 >60 4 Laboratory 04/11/2019 [facility] Troponin-I 0.07 Critical < 0.04 5 test finding [address] (TnI) ng/[place] [address] [phone] CBC Auto Diff 04/11/2019 [facility] White Blood 4.6 Normal 3.5 -10.[address] Count 10^3/[place] [address] [phone] Red Blood Count 3.35 10^6/uL Low 4.18-5.48 Hemoglobin 11.5 g/dL Low 14.0-18.0 Hematocrit 34 % Low 42-52 Mean Corpuscular Volume 101 fL High 80-94 Mean Corpuscular Hemoglobin 34 pg High 27-31 Mean Corpuscular HGB Conc 34 g/dL Normal 31-36 Red Cell Distribution Width 13 % Normal 10-15 Platelet Count 94 10^3/uL Low 150-450 Mean Platelet Volume 6.9 fL Low 7.4-10.4 Abs Neutrophils 3.6 10^3/uL Normal 1.5-7.7 Abs Lymphocytes 0.4 10^3/uL Low 1.0-4.8 Abs Monocytes 0.5 10^3/uL Normal 0-0.8 Abs Eosinophils 0.1 10^3/uL Normal 0-0.6 Abs Basophils 0.0 10^3/uL Normal 0-0.2 Abs Nucleated RBC 0.0 10^3/uL Granulocyte % 78.2 % Lymphocyte % 9.0 % Monocyte % 10.9 % Eosinophil % 1.6 % Basophil % 0.3 % Nucleated Red Blood Cells % 0.0 Laboratory test 04/11/2019 [facility] Pathologist Review (SEE NOTE) [address] [place] [address] [phone] Blood Culture SEE RESULT BELOW 7 Urinalysis Profile 04/11/2019 [facility] Urine Color Yellow [address] [place] [address] [phone] Urine Appearance Turbid Urine Specific [place] 1.011 Normal 1.010-1.030 Urine pH 9.0 Normal 5-9 Urine Urobilinogen Negative Negative Urine Ketones Negative Negative Urine Protein 3+(>=500 mg/dL) Abnormal Negative Urine Leukocytes 3+ Abnormal Negative Urine Blood 3+ Abnormal Negative Urine Nitrite Negative Negative Urine Bilirubin Negative Negative Urine Glucose Negative Negative Urine White Blood Cell 2+(11-20/hpf) Abnormal Absent Urine Red Blood Cell 3+(>10/hpf) Abnormal Absent Urine Bacteria Absent Absent Urine Triple Phosphate Cryst Present Abnormal Absent Urine Culture And 04/11/2019 [facility] Urine Culture SEE RESULT [address] [place] [address] [phone] Laboratory test 01/29/2019 [facility] Magnesium 2.5 mg/dL Normal 1.9- finding [address]IVE [address].7 [place] [address] [phone] Troponin-I (TnI) 0.02 ng/mL <0.04 9 Comp Metabolic 01/29/2019 [facility] Sodium 139 mmol/L Normal 135-[address] [place] [address] [phone] Potassium 4.2 mmol/L Normal 3.5-5.0 Chloride 101 mmol/L Normal 101-111 Co2 Carbon Dioxide 29 mmol/L Normal 22-32 Anion Gap 9 mmol/L Normal 2-11 Calcium 9.4 mg/dL Normal 8.6-10.3 Albumin 4.0 g/dL Normal 3.2-5.2 Total Bilirubin 0.50 mg/dL Normal 0.2-1.0 Glucose 101 mg/dL High 70-100 Blood Urea Nitrogen 50 mg/dL High 6-24 Creatinine 6.11 mg/dL High 0.67-1.17 BUN/Creatinine Ratio 8.2 Normal 8-20 Total Protein 6.6 g/dL Normal 6.4-8.9 Globulin 2.6 g/dL Normal 2-4 Albumin/Globulin Ratio 1.5 Normal 1-3 Alkaline Phosphatase 83 U/L Normal 34-104 Alt 9 U/L Normal 7-52 Ast 12 U/L Low 13-39 Egfr Non- 8.9 >60 Egfr 10.7 >60 10 Laboratory test 01/29/2019 [facility] B-Type 441 pg/mL High <= [address] [place] [address] Peptide BNP [phone] Lactic Acid 0.6 mmol/L Normal 0.5-2.0 11 CBC Auto 01/29/2019 [facility] White Blood 5.2 10^3/uL Normal 3.5-10.[address] [place] [address] [phone] Red Blood Count 3.38 10^6/uL Low 4.18-5.48 Hemoglobin 11.7 g/dL Low 14.0-18.0 Hematocrit 35 % Low 42-52 Mean Corpuscular Volume 104 fL High 80-94 Mean Corpuscular Hemoglobin 35 pg High 27-31 Mean Corpuscular HGB Conc 33 g/dL Normal 31-36 Red Cell Distribution Width 15 % Normal 10-15 Platelet Count 139 10^3/uL Low 150-450 Mean Platelet Volume 6.6 fL Low 7.4-10.4 Abs Neutrophils 4.4 10^3/uL Normal 1.5-7.7 Abs Lymphocytes 0.4 10^3/uL Low 1.0-4.8 Abs Monocytes 0.3 10^3/uL Normal 0-0.8 Abs Eosinophils 0.1 10^3/uL Normal 0-0.6 Abs Basophils 0.0 10^3/uL Normal 0-0.2 Abs Nucleated RBC 0.0 10^3/uL Granulocyte % 83.8 % Lymphocyte % 7.6 % Monocyte % 6.7 % Eosinophil % 1.5 % Basophil % 0.4 % Nucleated Red Blood Cells % 0.0 Laboratory 01/29/2019 [facility] Partial 32.0 Normal 26.0- 38.0 test finding [address] [place] [address] Time PTT [phone] Inr/Protime 01/29/2019 [facility] Inr 1.05 Normal 0.82-1.[address] [place] [address] [phone] Laboratory 01/29/2019 [facility] Troponin-I 0.02 ng/mL <0.04 13 test finding [address] (TnI) [place] [address] [phone] Laboratory 01/29/2019 [facility] Troponin-I 0.02 ng/mL <0.04 14 test finding [address] (TnI) [place], [place] [address] [phone] 1 Result TnIDx:0.07 Called to [id number] at: 16:18:31 by:[id number] Read back by: [id number] Troponin-I testing on Plasma Separator Tubes (PST) has a known false positive rate of 0.20-0.40%. All positive troponins reflex immediately to secondary confirmatory testing. Using the X[employer] Kitchen DxI 800 Access Immunoassay systems, the 99th percentile upper reference limit was demonstrated to be < 0.03 ng/mL. 2 Standard intensity warfarin therapeutic range: 2.0-3.0 High intensity warfarin therapeutic range: 2.5-3.5 3 [facility] Severe Sepsis and Septic Shock Management Bundle Measure requires all lactic acids initially measuring >2.0 mmol/L be repeated. 4 Because ethnic data is not always readily available, this report includes an eGFR for both -Americans and non- Americans. The National Kidney Disease Education Program (NKDEP) does not endorse the use of the MDRD equation for patients that are not between the ages of 18 and 70, are , have extremes of body size, muscle mass, or nutritional status, or are non- or non-. According to the National Kidney Foundation, irrespective of diagnosis, the stage of the disease is based on the level of kidney function: Stage Description GFR(mL/min/1.73 m(2)) 1 Kidney damage with normal or decreased GFR 90 2 Kidney damage with mild decrease in GFR 60-89 3 Moderate decrease in GFR 30-59 4 Severe decrease in GFR 15-29 5 Kidney failure <15 (or dialysis) 5 Result TnIDx:0.07 Called to [id number] at: 13:08:45 by:[id number] Read back by: [id number] Troponin-I testing on Plasma Separator Tubes (PST) has a known false positive rate of 0.20-0.40%. All positive troponins reflex immediately to secondary confirmatory testing. Using the X[employer] Kitchen DxI 800 Access Immunoassay systems, the 99th percentile upper reference limit was demonstrated to be < 0.03 ng/mL. 6 Mild macrocytic anemia with thrombocytopenia noted. No blasts or evidence of hemolysis identified. Reviewed by Dr. Lawton 7 SEE RESULT BELOW Name: GAURI MONTELONGO Lamine : [address]: Loli Walters MD Acct: [id number] Unit: [id number] AGE: 83 Location: [place] [address] Re04/11/19 SEX: M Status: ADM IN SPEC: [id number] OLESYA: 04/11/[address] [facility] [address]: Romulo Crespo MD REQ: [id number] RECD: 04/11/19 STATUS: COMP OT DR: Marielos Walker MD _ SOURCE: BLOOD,VENO SPDESC: ORDERED: Blood Cult COMMENTS: ONLY AEROBIC CULTURE RECEIVEDC Blood Culture bottle(s) are underfilled. Testing may be less sensitive due to less than recommended fill level. Verbal to [id number] by [id number] at 1324 on 04/11/19. ONLY RESTRICTED ARM LIMITED [id number] RIGHT HAND Procedure Result Reported Site Aerobic Culture Bottle Final 04/16/19- 1318 ML No Growth Day 5 * ML - Main Lab . END OF REPORT DEPARTMENT OF PATHOLOGY, [address] [place] [address] Gerardo Lawton M.D. Director [facility] # [id number] SEE RESULT BELOW Name: GAURI MONTELONGO : [address]: Loli Walters MD Acct: [id number] Unit: [id number] AGE: 83 Location: [place] [address] Re04/11/19 SEX: M Status: ADM IN SPEC: [id number] OLESYA: 04/11/19-[address]: Salas Taylor MD REQ: [id number] RECD: 04/11/19 STATUS: AMADO RYAN DR: Marielos Walker MD _ SOURCE: URINE [facility]: ORDERED: Urine Culture Procedure Result Reported Site Urine Culture Final 04/15/19- 0842 ML Organism 1 ESBL KLEBSIELLA PNEUMONIAE [place] Count 75-100,000 (Many) CFU/ML Organism 2 PROVIDENCIA RETTGERI [place] Count >100,000 (Many) CFU/ML Organism 3 MORGANELLA MORGANII [place] Count 75-100,000 (Many) CFU/ML Organism 4 ENTEROCOCCUS FAECALIS [place] Count 25-50,000 (Moderate) CFU/ML ESBL KLEB PNEUMONIAE: Consistent with previous results. This isolate is an Extended Spectrum Beta-Lactamase Earring Maker (ESBL) strain, and as such is considered resistant for all penicillins, cephalosporins and aztreonam. 1. ESBL KLEBSIELLA PNEUMONIAE [facility] RX --------- ------ Ampicillin >=32 R Cefazolin >=64 R Cefepime R Ceftriaxone R Ciprofloxacin 1 S Gentamicin <=1 S Levofloxacin 1 S Meropenem <=0.25 S Nitrofurantoin 128 R Tetracycline >=16 R CONTINUED ON NEXT PAGE DEPARTMENT OF PATHOLOGY, [address] [place] [address] Gerardo Lawton M.D. Director [facility] # [id number] Specimen: [id number] Collected: 04/11/19 Received: 04/11/19 (Continued) Procedure Result Reported Site Urine Culture Final (continued) 04/15/19841 1. ESBL KLEBSIELLA PNEUMONIAE (continued) [facility] RX --------- ------ Pipercillin/Tazobactam <=4 S Trimethoprim/Sulfamethoxazole >=320 R Amoxicillin/Clavulanic Acid 4 S Aztreonam R 2. PROVIDENCIA RETTGERI [facility] RX --------- ------ Ampicillin >=32 R Cefazolin >=64 R Cefepime <=1 S Ceftriaxone <=1 S Ciprofloxacin <=0.25 S Gentamicin <=1 S Levofloxacin <=0.12 S Meropenem <=0.25 S Nitrofurantoin R Tetracycline >=16 R Pipercillin/Tazobactam <=4 S Trimethoprim/Sulfamethoxazole <=20 S Aztreonam <=1 S 3. MORGANELLA MORGANII [facility] RX --------- ------ Ampicillin >=32 R Cefazolin >=64 R Cefepime <=1 S Ceftriaxone <=1 S Ciprofloxacin <=0.25 S Gentamicin <=1 S Levofloxacin <=0.12 S Meropenem <=0.25 S Nitrofurantoin 128 R Tetracycline R CONTINUED ON NEXT PAGE DEPARTMENT OF PATHOLOGY, [address] [place] [address] Gerardo Lawton M.D. Director [facility] # [id number] Specimen: [id number] Collected: 04/11/19 Received: 04/11/19 (Continued) Procedure Result Reported Site Urine Culture Final (continued) 04/15/19841 3. MORGANELLA MORGANII (continued) [facility] RX --------- ------ Pipercillin/Tazobactam <=4 S Trimethoprim/Sulfamethoxazole <=20 S Amoxicillin/Clavulanic Acid >=32 R Aztreonam 8 S 4. ENTEROCOCCUS FAECALIS [facility] RX --------- ------ Ampicillin <=2 S Penicillin 4 S Ciprofloxacin >=8 R Levofloxacin >=8 R Nitrofurantoin 32 S * Quinupristin/Dalfopristin 8 R Tetracycline >=16 R Tigecycline <=0.12 S Vancomycin S Imipenem-Deduced S * Ampicillin/Sulbactam-Deduced S * These antibiotics are not available in the [facility] Formulary Contact the Microbiology Department for any additional antibiotic reporting. Contact the Microbiology Department for any additional antibiotic reporting. * ML - Main Lab . END OF REPORT DEPARTMENT OF PATHOLOGY, [address] [place] [address] Gerardo Lawton M.D. Director [facility] # [id number] 9 Troponin-I testing on Plasma Separator Tubes (PST) has a known false positive rate of 0.20-0.40%. All positive troponins reflex immediately to secondary confirmatory testing. Using the X[employer] Kitchen DxI 800 Access Immunoassay systems, the 99th percentile upper reference limit was demonstrated to be < 0.03 ng/mL. 10 Because ethnic data is not always readily available, this report includes an eGFR for both -Americans and non- Americans. The National Kidney Disease Education Program (NKDEP) does not endorse the use of the MDRD equation for patients that are not between the ages of 18 and 70, are , have extremes of body size, muscle mass, or nutritional status, or are non- or non-. According to the National Kidney Foundation, irrespective of diagnosis, the stage of the disease is based on the level of kidney function: Stage Description GFR(mL/min/1.73 m(2)) 1 Kidney damage with normal or decreased GFR 90 2 Kidney damage with mild decrease in GFR 60-89 3 Moderate decrease in GFR 30-59 4 Severe decrease in GFR 15-29 5 Kidney failure <15 (or dialysis) 11 [facility] Severe Sepsis and Septic Shock Management Bundle Measure requires all lactic acids initially measuring >2.0 mmol/L be repeated. 12 Standard intensity warfarin therapeutic range: 2.0-3.0 High intensity warfarin therapeutic range: 2.5-3.5 13 Troponin-I testing on Plasma Separator Tubes (PST) has a known false positive rate of 0.20-0.40%. All positive troponins reflex immediately to secondary confirmatory testing. Using the XOX[employer] Kitchen DxI 800 Access Immunoassay systems, the 99th percentile upper reference limit was demonstrated to be < 0.03 ng/mL. 14 Troponin-I testing on Plasma Separator Tubes (PST) has a known false positive rate of 0.20-0.40%. All positive troponins reflex immediately to secondary confirmatory testing. Using the [employer] DxI 800 Access Immunoassay systems, the 99th percentile upper reference limit was demonstrated to be < 0.03 ng/mL. Procedures Date Code Description Status 11/08/2018 39032 EKG Tracing & Interpretation Completed Medical Devices Description No Information Available Encounters Type Date Location Provider Dx Diagnosis Office Visit 04/25/2019 [facility] Cassandra Tillman, I47.2 Ventricular 10:46a kingsley Gunter M.D. 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 Office Visit 04/23/2019 10:45a [facility] Julian N39.0 Urinary tract Assoc,[facility] [place] infection, site Hospitalists not specified 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.0 Hyp chr kidney disease w stage 5 chr kidney disease or Esrd N18.6 End stage renal disease Z99.2 Dependence on renal dialysis Z95.0 Presence of cardiac pacemaker Office Visit 04/22/2019 10:45a [facility] Julian N39.0 Urinary tract Assoc,pc [place], [place] infection, site Hospitalists not specified 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.0 Hyp chr kidney disease w stage 5 chr kidney disease or Esrd N18.6 End stage renal disease Z99.2 Dependence on renal dialysis Z95.0 Presence of cardiac pacemaker Office Visit 04/21/2019 10:44a [facility] Julian N39.0 Urinary tract Assoc,pc [place] infection, site Hospitalists not specified R00.1 Bradycardia, unspecified 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.0 Hyp chr kidney disease w stage 5 chr kidney disease or Esrd N18.6 End stage renal disease Z99.2 Dependence on renal dialysis Office Visit 04/20/2019 10:43a [facility] N39.0 Urinary tract Assoc,pc [place] infection, site Hospitalists not specified R00.1 Bradycardia, unspecified 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.0 Hyp chr kidney disease w stage 5 chr kidney disease or Esrd N18.6 End stage renal disease Z99.2 Dependence on renal dialysis Office Visit 04/19/2019 10:43a [facility] Marian Scott, N39.0 Urinary tract Assoc,pc [employer] [employer] infection, site Hospitalists not specified R00.1 Bradycardia, unspecified 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.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.0 Hyp chr kidney disease w stage 5 chr kidney disease or Esrd N18.6 End stage renal disease Z99.2 Dependence on renal dialysis Office Visit 04/18/2019 12:47p [facility] Lida Espinosa N39.0 Urinary tract For Infectious Kohli, [employer] infection, site Diseases not specified G93.40 Encephalopathy, unspecified N18.6 End stage renal disease Z99.2 Dependence on renal dialysis Office Visit 04/18/2019 10:42a [facility] Marian Scott, N39.0 Urinary tract Assoc,pc [employer] infection, site Hospitalists not specified N99.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.0 Hyp chr kidney disease w stage 5 chr kidney disease or Esrd N18.6 End stage renal disease Z99.2 Dependence on renal dialysis B96.1 Klebsiella pneumoniae as the cause of diseases classd elswhr B95.2 Enterococcus as the cause of diseases classified elsewhere Office Visit 04/17/2019 10:42a [facility] Marian Scott, N39.0 Urinary tract Assoc,pc [employer] infection, site Hospitalists not specified B96.1 Klebsiella pneumoniae as the cause of diseases classd elswhr B95.2 Enterococcus as the cause of diseases classified elsewhere 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.0 Hyp chr kidney disease w stage 5 chr kidney disease or Esrd N18.6 End stage renal disease Z99.2 Dependence on renal dialysis Office Visit 04/16/2019 10:41a [facility] Marian Scott, N39.0 Urinary tract Assoc,pc [employer] infection, site Hospitalists not specified 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.0 Hyp chr kidney disease w stage 5 chr kidney disease or Esrd N18.6 End stage renal disease Z99.2 Dependence on renal dialysis Office Visit 04/15/2019 10:41a [facility] Jeane N39.0 Urinary tract Assoc,pc [facility] Doto, infection, site Hospitalists [employer] not specified R55 Syncope and collapse 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.0 Hyp chr kidney disease w stage 5 chr kidney disease or Esrd N18.6 End stage renal disease Z99.2 Dependence on renal dialysis B96.1 Klebsiella pneumoniae as the cause of diseases classd elswhr B95.2 Enterococcus as the cause of diseases classified elsewhere Office Visit 04/14/2019 12:45p [facility] Amaury Cristina N39.0 Urinary tract Infectious Douglas Whelan infection, site Diseases not specified G93.40 Encephalopathy, unspecified N18.6 End stage renal disease Z99.2 Dependence on renal dialysis Office Visit 04/14/2019 10:40a [facility] N39.0 Ur[facility] tract Assoc,pc [facility] [place], infection, site Hospitalists [employer] not specified B95.2 Enterococcus as the cause of diseases classified elsewhere B96.1 Klebsiella pneumoniae as the cause of diseases classd elswhr I12.0 Hyp chr kidney disease w stage 5 chr kidney disease or Esrd N18.6 End stage renal disease Z99.2 Dependence on renal dialysis Office Visit 04/13/2019 10:40a [facility] B96.1 Klebsiella Assoc,pc [facility] [place], pneumoniae as Hospitalists [employer] the cause of diseases classd elswhr B95.2 Enterococcus as the cause of diseases classified elsewhere N39.0 Urinary tract infection, site not specified G93.40 Encephalopathy, unspecified I12.0 Hyp chr kidney disease w stage 5 chr kidney disease or Esrd N18.6 End stage renal disease Z99.2 Dependence on renal dialysis E78.5 Hyperlipidemia, unspecified Office Visit 04/12/2019 10:39a [facility] Laura N39.0 Urinary tract Assoc,pc Burak, [employer] infection, site Hospitalists not specified N18.6 End stage renal disease I12.0 Hyp chr kidney disease w stage 5 chr kidney disease or Esrd I25.10 Athscl heart disease of [place] coronary artery w/o ang pctrs Z99.2 Dependence on renal dialysis E78.5 Hyperlipidemia, unspecified Office Visit 04/11/2019 10:39a [facility] Chyna N39.0 Urinary tract Assoc,pc Kamla, [employer] infection, site Hospitalists not specified G92 Toxic encephalopathy R79.89 Other specified abnormal findings of blood chemistry N18.6 End stage renal disease Z99.2 Dependence on renal dialysis Office Visit 01/29/2019 11:44a [facility] Joana Butterfield, R07.9 Chest pain , Assoc,pc N.P. 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 04/29/2019 Z95.0 Presence of cardiac pacemaker Nyasia Nguyen N.P. 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 with stage 5 chronic kidney disease or end stage renal disease 04/29/2019 I95.89 Other hypotension Nyasia Nguyen N.Galo. 04/25/2019 I47.2 Ventricular tachycardia Cassandra Tillman M.D. 04/25/2019 Z95.0 Presence of cardiac pacemaker Cassandra Tillman M.D. 04/25/2019 N99.528 Other complication of incontinent Cassandra Tillman M.D. 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 04/23/2019 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 PAMELA Schroeder with stage 5 chronic kidney disease or end stage renal disease 04/23/2019 N18.6 End stage renal disease PAMELA Schroeder 04/23/2019 Z99.2 Dependence on renal dialysis PAMELA Schroeder 04/23/2019 Z95.0 Presence of cardiac pacemaker PAMELA Schroeder 04/22/2019 N39.0 Urinary tract infection, site not PAMELA Schroeder specified 04/22/2019 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 04/22/2019 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 PAMELA Schroeder with stage 5 chronic kidney disease or end stage renal disease 04/22/2019 N18.6 End stage renal disease PAMELA Schroeder 04/22/2019 Z99.2 Dependence on renal dialysis PAMELA Schroeder 04/22/2019 Z95.0 Presence of cardiac pacemaker PAMELA Schroeder 04/21/2019 N39.0 Urinary tract infection, site not PAMELA Schroeder specified 04/21/2019 R00.1 Bradycardia, unspecified PAMELA Schroeder 04/21/2019 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 04/21/2019 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 PAMELA Schroeder with stage 5 chronic kidney disease or end stage renal disease 04/21/2019 N18.6 End stage renal disease PAMELA Schroeder 04/21/2019 Z99.2 Dependence on renal dialysis PAMELA Schroeder 04/20/2019 N39.0 Urinary tract infection, site not PAMELA Schroeder specified 04/20/2019 R00.1 Bradycardia, unspecified PAMELA Schroeder 04/20/2019 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 04/20/2019 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 PAMELA Schroeder with stage 5 chronic kidney disease or end stage renal disease 04/20/2019 N18.6 End stage renal disease PAMELA Schroeder 04/20/2019 Z99.2 Dependence on renal dialysis PAMELA Schroeder 04/19/2019 N39.0 Urinary tract infection, site not Marian Scott, WEAVER TIRE CORD specified 04/19/2019 R00.1 Bradycardia, unspecified Marian Scott, WEAVER TIRE CORD 04/19/2019 N99.528 Other complication of incontinent Marian Scott, WEAVER TIRE CORD external stoma of urinary tract 04/19/2019 I25.10 Atherosclerotic heart disease of Marian Scott, WEAVER TIRE CORD [place] coronary artery without angina pectoris 04/19/2019 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 Marian Scott, WEAVER TIRE CORD with stage 5 chronic kidney disease or end stage renal disease 04/19/2019 N18.6 End stage renal disease Marian Scott, WEAVER TIRE CORD 04/19/2019 Z99.2 Dependence on renal dialysis Marian Scott, WEAVER TIRE CORD 04/18/2019 N39.0 Urinary tract infection, site not Marian Scott, WEAVER TIRE CORD specified 04/18/2019 N39.0 Urinary tract infection, site not Lida Kohli NP specified 04/18/2019 N99.528 Other complication of incontinent Marian Scott, WEAVER TIRE CORD external stoma of urinary tract 04/18/2019 G93.40 Encephalopathy, unspecified Lida Kohli NP 04/18/2019 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 pneumoniae] Marian Scott, WEAVER TIRE CORD as the cause of diseases classified elsewhere 04/18/2019 B95.2 Enterococcus as the cause of diseases Marian Scott, WEAVER TIRE CORD classified elsewhere 04/17/2019 N39.0 Urinary tract infection, site not Marian Scott, WEAVER TIRE CORD specified 04/17/2019 B96.1 Klebsiella pneumoniae [K. 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 Marian Scott, WEAVER TIRE CORD with stage 5 chronic kidney disease or end stage renal disease 04/17/2019 N18.6 End stage renal disease Marian Scott, WEAVER TIRE CORD 04/17/2019 Z99.2 Dependence on renal dialysis Marian Scott, WEAVER TIRE CORD 04/16/2019 N39.0 Urinary tract infection, site not Marian Scott, WEAVER TIRE CORD specified 04/16/2019 I25.10 Atherosclerotic heart disease of Marian Scott, WEAVER TIRE CORD [place] coronary artery without angina pectoris 04/16/2019 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 Marian Scott, WEAVER TIRE CORD with stage 5 chronic kidney disease or end stage renal disease 04/16/2019 N18.6 End stage renal disease Marian Scott, WEAVER TIRE CORD 04/16/2019 Z99.2 Dependence on renal dialysis Marian Scott, WEAVER TIRE CORD 04/15/2019 N39.0 Urinary tract infection, site not Jeane Patiencefield Oscar NP specified 04/15/2019 R55 Syncope and collapse Jeane Carreonfield Oscar NP 04/15/2019 I25.10 Atherosclerotic heart disease of Jeane LaresALBINA cano [place] coronary artery without angina pectoris 04/15/2019 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 pneumoniae] Jeane Carreonfield Oscar NP as the cause of diseases classified elsewhere 04/15/2019 B95.2 Enterococcus as the cause of diseases Jeane Carreonfield Oscar NP classified elsewhere 04/14/2019 N39.0 Urinary tract infection, site not Jeane Morin ALBINA Moore specified 04/14/2019 N39.0 Urinary tract infection, site not Amaury Whelan M.D. specified 04/14/2019 B95.2 Enterococcus as the cause of diseases Jeane Carreonfield Oscar NP classified elsewhere 04/14/2019 G93.40 Encephalopathy, unspecified Amaury Whelan M.D. 04/14/2019 B96.1 Klebsiella pneumoniae [K. pneumoniae] Jeane Carreonfield Oscar NP as the cause of diseases classified elsewhere 04/14/2019 N18.6 End stage renal disease Amaury Whelan M.D. 04/14/2019 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 Jeane Carreonfield Oscar NP with stage 5 chronic kidney disease or end stage renal disease 04/14/2019 Z99.2 Dependence on renal dialysis Amaury Whelan M.D. 04/14/2019 N18.6 End stage renal disease Jeane Carreonfield Oscar NP 04/14/2019 Z99.2 Dependence on renal dialysis Jeane Carreonfield Oscar NP 04/13/2019 B95.2 Enterococcus as the cause of diseases Jeane Carreonfield Oscar NP classified elsewhere 04/13/2019 B96.1 Klebsiella pneumoniae [K. 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 Jeanejake Moore NP with stage 5 chronic kidney disease or end stage renal disease 04/13/2019 N18.6 End stage renal disease Jeane Carreonfield Moore, ALBINA 04/13/2019 Z99.2 Dependence on renal dialysis Jeane Carreonfield Oscar NP 04/13/2019 E78.5 Hyperlipidemia, unspecified Jeane Carreonfield Oscar NP 04/12/2019 N39.0 Urinary tract infection, site not Laura SumenrALBINA specified 04/12/2019 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 Laura Sumner NP with stage 5 chronic kidney disease or end stage renal disease 04/12/2019 N18.6 End stage renal disease Laura ALBINA Sumner 04/12/2019 I25.10 Atherosclerotic heart disease of Laura SumnerALBINA [place] coronary artery without angina pectoris 04/12/2019 Z99.2 Dependence on renal dialysis Laura ALBINA Sumner 04/12/2019 E78.5 Hyperlipidemia, unspecified Laura Haileney, ALBINA 04/11/2019 N39.0 Urinary tract infection, site not Chyna ALBINA Cason specified 04/11/2019 G92 Toxic encephalopathy Chyna Cason, ALBINA 04/11/2019 R79.89 Other specified abnormal findings of Chyna Cason NP blood chemistry 04/11/2019 N18.6 End stage renal disease Chyna Cason NP 04/11/2019 Z99.2 Dependence on renal dialysis Chyna Cason NP 01/29/2019 R07.9 Chest pain, unspecified Joana Butterfield, N.P. 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2 Ventricular mghwypbylucO09.0 Presence of cardiac pacemakerNew Xrays:Chest PA & Lat 2 VWS , Ordered: 04/29/19Follow up:OV BS 05/11 please schedule PO prior to OVRecommendations:I would like to get a chest x-ray to make sure there is no fluid in your lungs.I25.10 Atherosclerotic heart disease of [place] coronary artery without angina hubmahynV75.0 Hypertensive chronic kidney disease with stage 5 chronic kidney disease or end stage renal keklazlK78.89 Other hypotensionRecommendations:STOP lisinopril for low blood pressure Functional Status Description No Information Available Mental Status Description No Information Available Referrals Description No Information Available
--- OUTSIDE RECORDS SUMMARY | 2019-04-30 10:10 | XMS REPORT | Continuity of Care Document ---
:1935 External Reference #:[id number] Author Name Rubén Daley Care Team Providers Name Role Phone Marielos Walker MD - Internal Medicine Care Team Information Project Intern Problems Active Problems Provider Date Diarrhea Mika [...] Former Cigarette Smoker Unknown Smoking Status Reviewed: 11/08/18 Former Cigarette Smoker ETOH Use Consumes liquor once daily Tobacco Use Start: Unknown End: Patient is a former smoker Unknown Recreational Drug Use Denies Drug Use Exercise Type/Frequency Exercises sporadically Allergies, Adverse Reactions, Alerts Description No Known Drug Allergies Medications Active Medications SIG Qnty Indications Ordering Date Provider Lisinopril 1 by mouth every 90tabs Henry Ahumada, 04/22/2018 10mg Tablets day DO FACC Atorvastatin Calcium 1 by mouth every 90tabs I25.10 Henry Ahumada, 07/21 day DO FACC 20mg Tablets Tylenol 2 tablets every 4 Unknown 325mg Tablets hours as needed pain (not taking) Aspirin 1 by mouth every 90tabs Henry Ahumada, 81mg Tablets DR day DO FACC Multivitamin Adults 1 by mouth every Unknown day Tablets Tums prn Unknown 500mg Chewtabs Renvela 1 tabs po with Unknown 800mg Tablets breakfast and lunch, two with dinner. Tamsulosin HCL 1 by mouth every Unknown 0.4mg day Capsules Veltassa for dialysis Unknown 8.4gm Packet Kionex for dialysis Unknown 15GM/60ML Suspension Immunizations Description No Information Available Vital Signs Date Vital Result Comment 11/08/2018 2:12pm Height 72 inches 6'0" Weight 195.75 lb with shoes Heart Rate 58 /min BP Systolic Sitting [address] cuff BP Diastolic Sitting 64 [address] cuff BP Systolic Standing [address] cuff BP Diastolic Standing [address] cuff Respiratory Rate 14 /min BMI (Body Mass Index) 26.5 kg/m2 Ejection Fraction 55-60% echo. 06/29/17 10/15/2018 2:59pm Height 72 inches 6'0" Weight 195.31 lb Heart Rate 58 /min BP Systolic 117 mmHg BP Diastolic 67 mmHg Body Temperature 97.1 F O2 % BldC Oximetry 99 % BMI (Body Mass Index) 26.5 kg/m2 Results Test Acquired Facility Test Result H/L Range Note Date Laboratory 04/11/2019 [facility] Troponin-I 0.07 ng/mL Critical <0.[address] (TnI) [place] [address] [phone] Inr/Protime 04/11/2019 [facility] Inr 1.09 Normal 0.82-1.[address] [place] [address] [phone] Laboratory 04/11/2019 [facility] Partial 31.2 Normal 26.0-38. test finding [address] Thrombo seconds 0 [place] [address] Time PTT [phone] Lactic Acid 0.8 mmol/L Normal 0.5-2.0 3 Comp Metabolic 04/11/2019 [facility] Sodium 139 mmol/L Normal 135-[address] [place] [address] [phone] Potassium 3.9 mmol/L Normal 3.5-5.0 Chloride 102 [...] >60 Egfr 10.4 >60 4 Laboratory 04/11/2019 [facility] Troponin-I 0.07 Critical < 0.04 5 test finding [address] (TnI) ng/mL high [place], [place] [id number] [phone] CBC Auto Diff 04/11/2019 [facility] White Blood 4.6 Normal 3.5 -10.[address] Count 10^3/uL [place], [place] [id number] [phone] Red Blood Count 3.35 10^6/uL Low 4.18-5.48 [...] Blood Cells % 0.0 Laboratory test 04/11/2019 [facility] Pathologist Review (SEE NOTE) [address] [place] [address] [phone] Blood Culture SEE RESULT BELOW 7 Urinalysis Profile 04/11/2019 [facility] Urine Color Yellow [address] [place] [address] [phone] Urine Appearance Turbid Urine Specific [place] 1.011 Normal 1.010-1.030 Urine pH 9.0 Normal [...] Present Abnormal Absent Urine Culture And 04/11/2019 [facility] Urine Culture SEE RESULT [address] [place] [address] [phone] Laboratory test 01/29/2019 [facility] Magnesium 2.5 mg/dL Normal 1.9- finding [address].7 [place] [address] [phone] Troponin-I (TnI) 0.02 ng/mL <0.04 9 Comp Metabolic 01/29/2019 [facility] Sodium 139 mmol/L Normal 135-[address] [place] [address] [phone] Potassium 4.2 mmol/L Normal 3.5-5.0 Chloride 101 [...] Egfr 10.7 >60 10 Laboratory test 01/29/2019 [facility] B-Type 441 pg/mL High <= [address] [place] [address] Peptide BNP [phone] Lactic Acid 0.6 mmol/L Normal 0.5-2.0 11 CBC Auto 01/29/2019 [facility] White Blood 5.2 10^3/uL Normal 3.5-10.[address] [place] [address] [phone] Red Blood Count 3.38 10^6/uL Low 4.18-5.48 [...] Red Blood Cells % 0.0 Laboratory 01/29/2019 [facility] Partial 32.0 Normal 26.0- 38.0 test finding [address] [place] [address] Time PTT [phone] Inr/Protime 01/29/2019 [facility] Inr 1.05 Normal 0.82-1.[address] [place] [address] [phone] Laboratory 01/29/2019 [facility] Troponin-I 0.02 ng/mL <0.04 13 test finding [address] (TnI) [place] [address] [phone] Laboratory 01/29/2019 [facility] Troponin-I 0.02 ng/mL <0.04 14 test finding [address] (TnI) [place] [address] [phone] 1 Result TnIDx:0.07 Called to [id number] at: 16:18:31 by:[id number] Read back by: [id number] Troponin-I testing on Plasma Separator Tubes (PST) has a known false positive rate of 0.20-0.40%. All positive troponins reflex immediately to secondary confirmatory testing. Using the [employer] DxI 800 Access Immunoassay systems, the 99th percentile upper reference limit was demonstrated to be < 0.03 ng/mL. 2 Standard intensity warfarin therapeutic range: 2.0-3.0 High intensity warfarin therapeutic range: 2.5-3.5 3 [facility] Severe Sepsis and Septic Shock Management Bundle [...] (or dialysis) 5 Result TnIDx:0.07 Called to [id number] at: 13:08:45 by:[id number] Read back by: [id number] Troponin-I testing on Plasma Separator Tubes (PST) has a known false positive rate of 0.20-0.40%. All positive troponins reflex immediately to secondary confirmatory testing. Using the [employer] DxI 800 Access Immunoassay systems, the 99th percentile upper reference limit was demonstrated to be < 0.03 ng/mL. 6 Mild macrocytic anemia with thrombocytopenia noted. No blasts or evidence of hemolysis identified. Reviewed by Dr. Lawton 7 SEE RESULT BELOW Name: GAURI MONTELONGO : [address]: Loli Walters MD Acct: [id number] Unit: [id number] AGE: 83 Location: [place] [address] Re04/11/19 SEX: M Status: ADM IN SPEC: [id number] OLESYA: 04/11/[address] [facility] [address]: Romulo Crespo MD REQ: [id number] RECD: 04/11/19 STATUS: COMP [facility] DR: Marielos Walker MD _ SOURCE: BLOOD,VENO SPDESC: ORDERED: Blood Cult COMMENTS: ONLY AEROBIC CULTURE RECEIVEDC Blood Culture bottle(s) are underfilled. Testing may be less sensitive due to less than recommended fill level. Verbal to [id number] by [id number] at 1324 on 04/11/19. ONLY RESTRICTED ARM LIMITED [id number] RIGHT HAND Procedure Result Reported Site Aerobic Culture Bottle Final 04/16/19- 1318 ML No Growth Day 5 * ML - Main Lab . END OF REPORT DEPARTMENT OF PATHOLOGY, [address] [place] [address] Gerardo Lawton M.D. Director [facility] # [id number] 8 SEE RESULT BELOW Name: GAURI MONTELONGO Lamine : [address]: Loli Walters MD Acct: [id number] Unit: [id number] AGE: 83 Location: [place] [address] Re04/11/19 SEX: M Status: ADM IN SPEC: [id number] OLESYA: 04/11/19-[address]: Salas Taylor MD REQ: [id number] RECD: 04/11/192 STATUS: AMADO RYAN DR: Marielos Walker MD _ SOURCE: URINE SPDESC: ORDERED: Urine Culture Procedure Result Reported Site Urine Culture Final 04/15/1941 ML Organism 1 ESBL KLEBSIELLA PNEUMONIAE [place] Count 75-100,000 (Many) CFU/ML Organism 2 PROVIDENCIA RETTGERI [place] Count >100,000 (Many) CFU/ML Organism 3 MORGANELLA MORGANII [place] Count 75-100,000 (Many) CFU/ML Organism 4 ENTEROCOCCUS FAECALIS [place] Count 25-50,000 (Moderate) CFU/ML ESBL KLEB PNEUMONIAE: Consistent with previous results. This isolate is an Extended Spectrum Beta-Lactamase Administrative Support Assistant (ESBL) strain, and as such is considered resistant for all penicillins, cephalosporins and aztreonam. 1. ESBL KLEBSIELLA PNEUMONIAE M.I.C. RX --------- ------ Ampicillin >=32 R Cefazolin >=64 R Cefepime R Ceftriaxone R Ciprofloxacin 1 S Gentamicin <=1 S Levofloxacin 1 S Meropenem <=0.25 S Nitrofurantoin 128 R Tetracycline >=16 R CONTINUED ON NEXT PAGE DEPARTMENT OF PATHOLOGY, [address] [place] [address] Gerardo Lawton M.D. Director [facility] # [id number] Specimen: [id number] Collected: 04/11/19 Received: 04/11/19121 (Continued) Procedure Result Reported Site Urine Culture [...] CONTINUED ON NEXT PAGE DEPARTMENT OF PATHOLOGY, [address] [place] [address] Gerardo Lawton M.D. Director [facility] # [id number] Specimen: [id number] Collected: 04/11/19 Received: 04/11/19 (Continued) Procedure Result [...] These antibiotics are not available in the [facility] Formulary Contact the Microbiology Department for any additional antibiotic reporting. Contact the Microbiology Department for any additional antibiotic reporting. * ML - Main Lab . END OF REPORT DEPARTMENT OF PATHOLOGY, [address] [place] [address] Gerardo Lawton M.D. Director [facility] # [id number] 9 Troponin-I testing on Plasma Separator Tubes (PST) has a known false positive rate of 0.20-0.40%. All positive troponins reflex immediately to secondary confirmatory testing. Using the [employer] DxI 800 Access Immunoassay systems, the 99th [...] 5 Kidney failure <15 (or dialysis) 11 [facility] Severe Sepsis and Septic Shock Management Bundle [...] immediately to secondary confirmatory testing. Using the [employer] DxI 800 Access Immunoassay systems, the 99th percentile upper reference limit was demonstrated to be < 0.03 ng/mL. Procedures Date Code Description Status 11/08/2018 18384 EKG Tracing & Interpretation Completed Medical Devices Description No Information Available Encounters Type Date Location Provider Dx Diagnosis Office Visit 01/29/2019 [facility] Joana Butterfield, R07.9 Chest pain, 11:44a Assoc,pc N.P. 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 Henry Ahumada DO FACC 11/08/2018 N18.6 End stage renal disease Henry Ahumada, DO FACC 11/08/2018 E78.5 Hyperlipidemia, unspecified Henry Ahumada DO FACC 11/08/2018 I10 Essential (primary) hypertension Henry Ahumada DO FACC 11/08/2018 I25.10 Atherosclerotic heart disease of [place] Henry Ahumada DO FACC coronary artery with 11/03/2018 L89.151 Pressure ulcer of sacral region, stage 1 Magdy Wray MD Plan of Treatment Future Appointment(s):05/11/2019 1:40 pm - Henry Ahumada DO [facility] at [facility]11/08/2018 - Henry Ahumada DO FACCI45.3 Trifascicular blockFollow up:f/u 6 months with ekgN18.6 End stage renal xsfxtjrR06.5 Hyperlipidemia, [id number] Essential (primary) fpdpxbzgjleeQ30.10 Atherosclerotic heart disease of [place] coronary artery with Functional Status Description No Information Available Mental Status Description No Information Available Referrals Description No Information Available
[2019-04-30 10:35] LABS: ABS Eosinophils 0.2 10^3/ul (0-0.6); ABS Lymphocytes 0.5 10^3/ul (1.0-4.8); ABS Monocytes 0.4 10^3/ul (0-0.8); ABS Neutrophils 3.6 10^3/ul (1.5-7.7); Eosinophil % 4.3 %; Hematocrit 30 % (42-52); Lymphocyte % 10.6 %; Mean Corpuscular HGB Conc 34 g/dL (31-36); Mean Corpuscular Hemoglobin 34 pg (27-31); Mean Corpuscular Volume 102 fL (80-94); Mean Platelet Volume 7.3 fL (7.4-10.4); Platelet Count 124 10^3/uL (150-450); Red Cell Distribution Width 14 % (10-15); White Blood Count 4.7 10^3/uL (3.5-10.8)
--- NOTE | 2019-04-30 10:38 | ED ---
GI/ HPI - HPI Summary HPI Summary: This patient is an 83 year old male with a Hx of chronic renal disease presenting to [facility] with a chief complaint of weakness since 2 days ago. He reports pain in the upper part of his neck and spine have caused this while he was riding in a car. He states he feels to weak to sit up. He rates his neck pain 4/10 in severity. He states his last dialysis was 2 days ago. Medications reviewed, allergies noted. Aspirin EC TAB* [Ecotrin EC Low Dose 81 MG*] 81 mg PO DAILY 06/28/17 [History Confirmed 04/11/19] Tamsulosin CAP* [Flomax CAP*] 0.4 mg PO DAILY 06/28/17 [History Confirmed ] Atorvastatin* [Lipitor 20 MG*] 20 mg PO DAILY 02/23/18 [History Confirmed ] Lisinopril TAB* [Prinivil TAB 10 MG*] 10 mg PO DAILY 02/23/18 [History Confirmed 04/11/19] Sevelamer Carbonate 800 mg PO .BREAKFAST, LUNCH 02/23/18 [History Confirmed ] Calcium Carbonate CHEW TAB* [Tums*] 1 tab PO DAILY 07/01/18 [History Confirmed 04/11/19] Multivitamin [Multivitamins] 1 cap PO DAILY 07/01/18 [History Confirmed 04/11/19 ] Acetaminophen TAB* [Tylenol TAB*] 650 mg PO Q4H PRN 04/11/19 [History Confirmed 04/11/19] Sevelamer TAB* [Renvela TAB*] 1,600 mg PO .DINNER 04/11/19 [History Confirmed ] Docusate CAP* [Colace Cap*] 100 mg PO QAM cap 04/26/19 [Rx] Glycerin ADULT SUPP* 1 supp [place] DAILY PRN supp 04/26/19 [Rx] Metoprolol Tartrate TAB* [Lopressor TAB*] 12.5 mg PO Q12HR tab 04/26/19 [Rx] Polyethylene Glycol 3350* [Miralax*] 17 gm PO DAILY PRN packet 04/26/19 [Rx] hydrOXYzine HCL TAB* [Atarax 10 MG TAB*] 10 mg PO Q4H PRN tab 04/26/19 [Rx] - History of Current Complaint Chief Complaint: EDWeakness Time Seen by Provider: 04/30/19 10:01 Stated Complaint: CANT SIT UP/WEAKNESS PER PT Hx Obtained From: Patient Onset/Duration: Started Days Ago Pain Intensity: 4 - Additional Pertinent History Primary Care Physician: JULIO CÉSAR - Allergy/Home Medications Allergies/Adverse Reactions: Allergies Allergy/AdvReac Type Severity Reaction Status Date / Time No Known Allergies Allergy Verified 04/30/19 12:08 PMH/Surg Hx/FS Hx/Imm Hx Endocrine/Hematology History: Denies: Hx Anticoagulant Therapy, Hx Diabetes Cardiovascular History: Reports: Hx Angina, Hx Coronary Artery Disease, Hx Hypertension, Hx Myocardial Infarction Denies: Hx Hypercholesterolemia, Hx Pacemaker/ICD, Hx Valvular Heart Disease Respiratory History: Denies: Hx Asthma, Hx Chronic Obstructive Pulmonary Disease (COPD) GI History: Reports: Other GI Disorders - Hx dialysis History: Reports: Hx Chronic Renal Failure, Hx Dialysis, Hx Renal Disease, Other Problems/Disorders - 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 hernia Hx Anesthesia Reactions: No Infectious Disease History: No Infectious Disease History: Denies: Traveled Outside the [place] in Last 30 Days - Family History Known Family History: Positive: Hypertension - Social History Alcohol Use: Daily Alcohol Amount: 1 nightcap per day Hx Substance Use: No Substance Use Type: Reports: None Hx Tobacco Use: No Smoking Status (MU): Never Smoked Tobacco Review of Systems Positive: Other - Neck pain Positive: Weakness All Other Systems Reviewed And Are Negative: Yes Physical Exam - Summary Physical Exam Summary: Constitutional: Well-developed, Well-nourished, Alert. (-) Distressed Skin: Warm, Dry HENT: Normocephalic; Atraumatic Eyes: Conjunctiva normal Neck: Musculoskeletal ROM normal neck. (-) JVD, (-) Stridor, (-) Tracheal deviation Cardio: Rhythm regular, rate normal, Heart sounds normal; Intact distal pulses; Radial pulses are 2+ and symmetric. (-) Murmur Pulmonary/Chest wall: Effort normal. (-) Respiratory distress, (-) Wheezes, (-) Rales. Patient has pacemaker in the right chest wall. Abd: Soft, (-) tenderness, (-) Distension, (-) Guarding, (-) Rebound. Nephrostomy tube on the right pulled 2 inches. There is urine in the bag. Fistula in the left AV with palpable thrill. Musculoskeletal: (-) Edema Lymph: (-) Cervical adenopathy Neuro: Alert, Oriented x3 Psych: Mood and affect Normal Triage Information Reviewed: Yes Vital Signs On Initial Exam: Initial Vitals Temp Pulse Resp BP Pulse Ox 96.9 F 60 16 115/69 95 04/30/19 09:41 04/30/19 09:41 04/30/19 09:41 04/30/19 09:41 04/30/19 09:41 Vital Signs Reviewed: Yes Procedures - Sedation Patient Received Moderate/Deep Sedation with Procedure: No Diagnostics - Vital Signs Vital Signs Temp Pulse Resp BP Pulse Ox 04/30/19 10:05 60 97 04/30/19 09:41 96.9 F 60 16 115/69 95 - Laboratory Result Diagrams: 04/30/19 10:27 04/30/19 10:27 Lab Statement: Any lab studies that have been ordered have been reviewed, and results considered in the medical decision making process. - Radiology CXR Radiology Interpretation Completed By: Radiologist Summary of Radiographic Findings: No active cardiopulmonary disease. ED Provider has reviewed this report. - CT Abd/Pel CT Interpretation Completed By: Radiologist Summary of CT Findings: A right percutaneous nephrostomy catheter is noted with the tip overlying the right renal pelvis. The hydronephrosis noted on the previous nephrostogram is no longer evident. ED Provider has reviewed this report. - EKG 1016 Cardiac Rate: NL - 60 BPM Summary of EKG Findings: AV dual-paced rhythm. No STEMI. ED Physician has reviewed and interpreted this EKG. GIGU Course/Dx - Course Course Of Treatment: Patient arrived to the ED after getting pain in his neck during a bumpy car ride to dialysis. Patient was recently admitted for ESBL Klebsiella UTI, pacemaker placement, and right nephrostomy tube placement. Patient was overall well-appearing upon arrival. There is questionable removal of his right nephrostomy tube so a CT scan was performed which showed no displacement. Patient had blood performed which was at his baseline. Patient had no emergent condition necessitating admission so he was discharged. - Diagnoses Provider Diagnoses: Neck pain, Weakness Discharge ED - Sign-Out/Discharge Documenting (check all that apply): Patient Departure - Discharge - Discharge Plan Condition: Stable Disposition: HOME Patient Education Materials: Weakness (ED), Neck Pain (ED) Referrals: Marielos Walker MD [Primary Care Provider] - Additional Instructions: Return with fever, chills, tube not draining, or any other concerning symptoms. - Billing Disposition and Condition Condition: STABLE Disposition: Home - Attestation Statements Document Initiated by Kaia: Yes Documenting Navidibe: Josh Wells Provider For Whom Kaia is Documenting (Include Credential): Sid Youngblood MD Scribe Attestation: Josh Daniel, scribed for Sid Youngblood MD on 04/30/19 at 2144. Scribe Documentation Reviewed: Yes Provider Attestation: The documentation as recorded by the Josh eden accurately reflects the service I personally performed and the decisions made by Sid mulligan MD Status of Scribtete Document: Viewed
[2019-04-30 10:45] LABS: INR 1.03 (0.82-1.09)
[2019-04-30 10:53] LABS: ALT 10 U/L (7-52); AST 24 U/L (13-39); Albumin 3.3 g/dL (3.2-5.2); Albumin/Globulin Ratio 1.2 (1-3); Alkaline Phosphatase 74 U/L (34-104); Anion Gap 10 mmol/L (2-11); BUN/Creatinine Ratio 8.4 (8-20); Blood Urea Nitrogen 61 mg/dL (6-24); CO2 Carbon Dioxide 28 mmol/L (22-32); Chloride 102 mmol/L (101-111); Creatine Kinase 50 U/L (10-223); EGFR African American 8.8 (>60); EGFR Non-African American 7.2 (>60); Globulin 2.7 g/dL (2-4); Glucose 108 mg/dL (70-100); Magnesium 2.9 mg/dL (1.9-2.7); Potassium 3.8 mmol/L (3.5-5.0); Sodium 140 mmol/L (135-145)
[2019-04-30 10:55] LABS: Troponin I 0.05 ng/mL (<0.04)
[2019-04-30 12:36] LABS: Urine Appearance Turbid; Urine Bacteria Absent (Absent); Urine Bilirubin Negative (Negative); Urine Blood 3+ (Negative); Urine Color Amber; Urine Glucose Negative (Negative); Urine Ketones Negative (Negative); Urine Nitrite Negative (Negative); Urine Protein 2+(100 mg/dL) (Negative); Urine Red Blood Cell 3+(>10/hpf) (Absent); Urine Specific Gravity 1.014 (1.010-1.030); Urine Urobilinogen Negative (Negative); Urine White Blood Cell 3+(>20/hpf) (Absent)
[2019-04-30 14:59] VITALS: BP 144/71
--- NOTE | 2019-05-02 06:33 | ED ---
Imaging and Labs Follow Up Follow Up Type: Labs/Cultures Labs/Culture Result: Preliminary urine culture shows 50-75,000 Klebsiella pneumonia. This patient has been followed by urology and infectious disease for known ESBL Klebsiella UTI. Awaiting sensitivity report. The sensitivity report will be faxed to the patient's residence at [facility]. Patient Communication/Plan: Sensitivity report will be sent to [facility], nothing further at this time. Provider Diagnoses: Neck pain, Weakness
== END 2019-04-30 14:40 | disposition home or self-care (01) ==
LOC: ED 09:39
DX: M54.2 Cervicalgia (principal); R53.1 Weakness; 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 with stage 5 chronic kidney disease or end stage renal disease; N18.6 End stage renal disease; Z99.2 Dependence on renal dialysis; I25.10 Atherosclerotic heart disease of native coronary artery without angina pectoris; I25.2 Old myocardial infarction; Q60.0 Renal agenesis, unilateral; Z93.6 Other artificial openings of urinary tract status; Z79.82 Long term (current) use of aspirin; Z79.899 Other long term (current) drug therapy
CPT/HCPCS: 36415; 71045; 74176; 80053; 81003; 81015; 82550; 83735; 84484; 85025; 85610; 87077; 87086; 87186; 93005; 99284

== ENCOUNTER 2019-10-11 00:47 | Emergency (ER) | payer MEDICARE, BC, OTHER ==
[2019-10-11] MEDS ORDERED: Albuterol/Ipratropium NEB.SOL* (2.5/0.5 MG) 3 ML NEB.SOLN INH ONE (01:31)
[2019-10-11] MEDS ORDERED: NS 0.9% 1000 ML** 1,000 ML IV ONE (01:31)
--- OUTSIDE RECORDS SUMMARY | 2019-10-11 01:55 | XMS REPORT | Continuity of Care Document ---
:1935 External Reference #:[id number] Author Name Qi Capellan MD (transmitted by agent of provider Sharon Bishop) Address [address] , [address] [place] [address] Care Team Providers Name Role Phone Marielos Walker MD - Internal Medicine Care Team Information [employer] Problems Active Problems Provider Date Diarrhea Mika [...] Fraction 55-60% echo. 06/29/17 Results Test Acquired Date Facility Test Result H/L Range Note Urinalysis Profile 04/30/2019 [facility] Urine Color Yolanda [address] [place] [address] [phone] Urine Appearance Turbid Urine Specific [place] 1.014 Normal 1.010-1.030 Urine pH 8.0 Normal 5-9 Urine Urobilinogen Negative Negative Urine Ketones Negative Negative Urine Protein 2+(100 mg/dL) Abnormal Negative Urine Leukocytes 2+ Abnormal Negative Urine Blood 3+ Abnormal Negative Urine Nitrite Negative Negative Urine Bilirubin Negative Negative Urine Glucose Negative Negative Urine White Blood Cell 3+(>20/hpf) Abnormal Absent Urine Red Blood Cell 3+(>10/hpf) Abnormal Absent Urine Bacteria Absent Absent Urine Culture And 04/30/2019 [facility] Urine SEE RESULT [address] [place] [address] [phone] Inr/Protime 04/30/2019 [facility] Inr 1.03 Normal 0.82- [address] 1.09 [place], [place] [id number] [phone] CBC Auto Diff 04/30/2019 [facility] White Blood 4.7 10^3/uL Normal 3.5-[address] Count 0.8 [place] [address] [phone] Red Blood Count 2.90 10^6/uL Low 4.18-5.48 Hemoglobin 10.0 g/dL Low 14.0-18.0 Hematocrit 30 % Low 42-52 Mean Corpuscular Volume 102 fL High 80-94 Mean Corpuscular Hemoglobin 34 pg High 27-31 Mean Corpuscular HGB Conc 34 g/dL Normal 31-36 Red Cell Distribution Width 14 % Normal 10-15 Platelet Count 124 10^3/uL Low 150-450 Mean Platelet Volume 7.3 fL Low 7.4-10.4 Abs Neutrophils 3.6 10^3/uL Normal 1.5-7.7 Abs Lymphocytes 0.5 10^3/uL Low 1.0-4.8 Abs Monocytes 0.4 10^3/uL Normal 0-0.8 Abs Eosinophils 0.2 10^3/uL Normal 0-0.6 Abs Basophils 0.0 10^3/uL Normal 0-0.2 Abs Nucleated RBC 0.0 10^3/uL Granulocyte % 76.7 % Lymphocyte % 10.6 % Monocyte % 7.8 % Eosinophil % 4.3 % Basophil % 0.6 % Nucleated Red Blood Cells % 0.0 Comp Metabolic 04/30/2019 [facility] Sodium 140 mmol/L Normal 135-[address] [place] [address] [phone] Potassium 3.8 mmol/L Normal 3.5-5.0 Chloride 102 mmol/L Normal 101-111 Co2 Carbon Dioxide 28 mmol/L Normal 22-32 Anion Gap 10 mmol/L Normal 2-11 Glucose 108 mg/dL High 70-100 Blood Urea Nitrogen 61 mg/dL High 6-24 Creatinine 7.27 mg/dL High 0.67-1.17 BUN/Creatinine Ratio 8.4 Normal 8-20 Calcium 9.0 mg/dL Normal 8.6-10.3 Total Protein 6.0 g/dL Low 6.4-8.9 Albumin 3.3 g/dL Normal 3.2-5.2 Globulin 2.7 g/dL Normal 2-4 Albumin/Globulin Ratio 1.2 Normal 1-3 Total Bilirubin 0.50 mg/dL Normal 0.2-1.0 Alkaline Phosphatase 74 U/L Normal 34-104 Alt 10 U/L Normal 7-52 Ast 24 U/L Normal 13-39 Egfr Non- 7.2 >60 Egfr 8.8 >60 3 Laboratory test 04/30/2019 [facility] Magnesium 2.9 mg/dL High 1.9-2.[address] [place] [address] [phone] Creatine Kinase(CK) 50 U/L Normal 10-223 Troponin-I (TnI) 0.05 ng/mL Critical high <0.04 4 Urine Culture And 04/11/2019 [facility] Urine Culture SEE RESULT [address] [place] [address] [phone] Urinalysis Profile 04/11/2019 [facility] Urine Color Yellow [address] [place] [address] [phone] Urine Appearance Turbid Urine Specific [place] 1.011 Normal 1.010-1.030 Urine pH 9.0 Normal [...] Urine Triple Phosphate Cryst Present Abnormal Absent Laboratory test 04/11/2019 [facility] Pathologist Review (SEE NOTE) [address] [place] [address] [phone] Blood Culture SEE RESULT BELOW 7 CBC Auto 04/11/2019 [facility] White Blood 4.6 10^3/uL Normal 3.5-10.[address] [place] [address] [phone] Red Blood Count 3.35 10^6/uL Low 4.18-5.48 [...] Nucleated Red Blood Cells % 0.0 Laboratory 04/11/2019 [facility] Troponin-I 0.07 Critical < 0.04 8 test finding [address] (TnI) ng/mL high [place], [place] [address] [phone] Comp Metabolic 04/11/2019 [facility] Sodium 139 Normal 135- [address] mmol/[place] [address] [phone] Potassium 3.9 mmol/L Normal 3.5-5.0 Chloride 102 [...] Egfr Non- 8.6 >60 Egfr 10.4 >60 9 Laboratory test 04/11/2019 [facility] Partial 31.2 Normal 26.0 -38.[address] [place] [address] Time PTT [phone] Lactic Acid 0.8 mmol/L Normal 0.5-2.0 10 Inr/Protime 04/11/2019 [facility] Inr 1.09 Normal 0.82-1.[address] [place] [address] [phone] Laboratory 04/11/2019 [facility] Troponin-I 0.07 Critical < 0.04 12 test finding [address] (TnI) ng/[place] [address] [phone] # Days/WK 04/06/2019 N2N/CCD Import # Days/WK 3 2 - 3 Treated Treated VT (KT/V TX 04/06/2019 N2N/CCD Import VT (KT/V TX 41.9 Vol) Vol) VM (KT/V Mean 04/06/2019 N2N/CCD Import VM (KT/V Mean 41.4 Vol) Vol) KT/V 04/06/2019 N2N/CCD Import KT/V 1.68 Prescribed Prescribed SPKT/V Total 04/06/2019 N2N/CCD Import SPKT/V Total 1.43 NPCR HD Ukm 04/06/2019 N2N/CCD Import NPCR HD Ukm 0.95 Gender 04/06/2019 N2N/CCD Import Gender M Race 04/06/2019 N2N/CCD Import Race C Amputation 04/06/2019 N2N/CCD Import Amputation 0.000 Factor Factor TBW (Arellano) 04/06/2019 N2N/CCD Import TBW (Arellano) 43.57 STDKRT/V Renal 04/06/2019 N2N/CCD Import STDKRT/V N/A Renal STDKT/V Total 04/06/2019 N2N/CCD Import STDKT/V Total N/A HRS/Week 04/06/2019 N2N/CCD Import HRS/Week 9.0 Treated Treated Blood Flow-QWB 04/06/2019 N2N/CCD Import Blood 500 Flow-QWB Hemoglobin 04/06/2019 N2N/CCD Import Hemoglobin 11.2 Low 14.0 - 18.0 HCT Calc 04/06/2019 N2N/CCD Import HCT Calc 33.6 Low 42.0 - 52.0 (HGBX3) (HGBX3) PTH Intact 04/06/2019 N2N/CCD Import PTH Intact 479 High 18 - 80 CA/Phos 04/06/2019 N2N/CCD Import Calcium 9.1 8.7 - 10.4 W/Products Phosphorus 4.6 2.4 - 5.1 Caxphos Product 41.9 21 - 53 Caxphos Corrected 42.8 21 - 53 KT/V By Ukm Panel 04/06/2019 N2N/CCD Import Urr 74 65 - 100 BUN 65 High 9 - 23 BUN - Post 17 9 - 23 Dialyzer Series 04/06/2019 N2N/CCD Import Dialyzer Series Revaclr Dialyzer Model 04/06/2019 N2N/CCD Import Dialyzer Model 300 Dialyzer Make(MFG) 04/06/2019 N2N/CCD Import Dialyzer Make(MFG) Gambro Dialyzer Flow-qd 04/06/2019 N2N/CCD Import Dialyzer Flow-qd 600 Dialyzer Jarek 04/06/2019 N2N/CCD Import Dialyzer Jarek 1209 Minutes Dialyzed 04/06/2019 N2N/CCD Import Minutes Dialyzed 197 Calcium Corrected 04/06/2019 N2N/CCD Import Calcium Corrected 9.3 8.7 - 10.4 SPKDT/V Dialysis 04/06/2019 N2N/CCD Import SPKDT/V Dialysis 1.43 Ekdt/V Dialysis 04/06/2019 N2N/CCD Import Ekdt/V Dialysis 1.21 STDKDT/V Dialysis 04/06/2019 N2N/CCD Import STDKDT/V Dialysis N/A Age Of Patient 04/06/2019 N2N/CCD Import Age Of Patient 83 Bsa (Ashvin) 04/06/2019 N2N/CCD Import Bsa (Mills) 2.10 Weight-Post (KG) 04/06/2019 N2N/CCD Import Weight-Post (KG) 87.1 Weight-Pre (KG) 04/06/2019 N2N/CCD Import Weight-Pre (KG) 87.2 Height (Inches) 04/06/2019 N2N/CCD Import Height (Inches) 72 Weight (KG) 04/06/2019 N2N/CCD Import Weight (KG) 87.5 Hemoglobin 03/30/2019 N2N/CCD Import Hemoglobin 12.0 Low 14.0 - 18.0 HCT Calc (HGBX3) 03/30/2019 N2N/CCD Import HCT Calc (HGBX3) 36.0 Low 42.0 - 52.0 Hemoglobin 03/23/2019 N2N/CCD Import Hemoglobin 11.7 Low 14.0 - 18.0 HCT Calc (HGBX3) 03/23/2019 N2N/CCD Import HCT Calc (HGBX3) 35.1 Low 42.0 - 52.0 1 SEE RESULT BELOW Name: GAURI MONTELONGO : [address]: Sid Youngblood MD Acct: [id number] Unit: [id number] AGE: 83 Location: ED Re04/30/19 SEX: M Status: DEP ER SPEC: [id number] OLESYA: 04/30/19 [facility] DR: Sid Youngblood MD REQ: [id number] RECD: 04/30/19 STATUS:AMADO RYAN DR: Marielos Walker MD _ SOURCE: URINE SPDESC: ORDERED: Urine Culture Procedure Result Reported Site Urine Culture Final 05/02/19945 ML Organism 1 ESBL KLEBSIELLA PNEUMONIAE [place] Count 50-75,000 (Many) CFU/ML ESBL KLEBSILLEA PNEUMONIAE: Consistent with previous results. This isolate is an Extended Spectrum Beta-Lactamase Special Education Classroom Aide (ESBL) strain, and as such is considered resistant for all penicillins, cephalosporins and aztreonam. 1. ESBL KLEBSIELLA PNEUMONIAE M.I.C. RX --------- ------ Ampicillin >=32 R Cefazolin >=64 R Cefepime R Ceftriaxone R Ciprofloxacin 1 S Gentamicin <=1 S Levofloxacin 1 S Meropenem <=0.25 S Nitrofurantoin 128 R Tetracycline >=16 R Pipercillin/Tazobactam <=4 S Trimethoprim/Sulfamethoxazole >=320 R Amoxicillin/Clavulanic Acid 8 S CONTINUED ON NEXT PAGE DEPARTMENT OF PATHOLOGY, [address] [place] [address] Gerardo Lawton M.D. Director [facility] # [id number] Specimen: [id number] Collected: 04/30/19 Received: 04/30/19 (Continued) Procedure Result Reported Site Urine Culture Final (continued) 05/02/19945 1. ESBL KLEBSIELLA PNEUMONIAE (continued) M.I.C. RX --------- ------ Aztreonam R Contact the Microbiology Department for any additional antibiotic reporting. * ML - Main Lab . END OF REPORT DEPARTMENT OF PATHOLOGY, [address] [place] [address] Gerardo Lawton M.D. Director [facility] # [id number] 2 Standard intensity warfarin therapeutic range: 2.0-3.0 High intensity warfarin therapeutic range: 2.5-3.5 3 Because ethnic data is not always readily [...] 15-29 5 Kidney failure <15 (or dialysis) 4 Result TnIDx:0.05 Called to [id number] at: 10:54:34 by:[id number] Read back by: [id number] Troponin-I testing on Plasma Separator Tubes (PST) has a known false positive rate of 0.20-0.40%. All positive troponins reflex immediately to secondary confirmatory testing. Using the [employer] 800 Access Immunoassay systems, the 99th percentile upper reference limit was demonstrated to be < 0.03 ng/mL. 5 SEE RESULT BELOW Name: GAURI MONTELONGO : [address]: Loli Walters MD Acct: [id number] Unit: [id number] AGE: 83 Location: [place] [address] Re04/11/19 SEX: M Status: ADM IN SPEC: [id number] OLESYA: 04/11/[address]: Salas Taylor MD REQ: [id number] RECD: 04/11/19 STATUS: AMADO LAO DR: Marielos Walker MD _ SOURCE: URINE SPDESC: ORDERED: Urine Culture Procedure Result Reported Site Urine Culture Final 04/15/19- 0842 ML Organism 1 ESBL KLEBSIELLA PNEUMONIAE [place] Count 75-100,000 (Many) CFU/ML Organism 2 PROVIDENCIA RETTGERI [place] Count >100,000 (Many) CFU/ML Organism 3 MORGANELLA MORGANII [place] Count 75-100,000 (Many) CFU/ML Organism 4 ENTEROCOCCUS FAECALIS [place] Count 25-50,000 (Moderate) CFU/ML ESBL KLEB PNEUMONIAE: Consistent with previous results. This isolate is an Extended Spectrum Beta-Lactamase Special Education Classroom Aide (ESBL) strain, and as such is considered resistant for all penicillins, cephalosporins and aztreonam. 1. ESBL KLEBSIELLA PNEUMONIAE M.I.C. RX --------- ------ Ampicillin >=32 R Cefazolin >=64 R Cefepime R Ceftriaxone R Ciprofloxacin 1 S Gentamicin <=1 S Levofloxacin 1 S Meropenem <=0.25 S Nitrofurantoin 128 R Tetracycline >=16 R CONTINUED ON NEXT PAGE DEPARTMENT OF PATHOLOGY, [address] [place] [address] Gerardo Lawton M.D. Director [facility] # [id number] Specimen: [id number] Collected: 04/11/19120 Received: 04/11/19 (Continued) Procedure Result Reported Site [...] CONTINUED ON NEXT PAGE DEPARTMENT OF PATHOLOGY, [address] [place] [address] Gerardo Lawton M.D. Director [facility] # [id number] Specimen: [id number] Collected: 04/11/19 Received: 04/11/19 (Continued) Procedure Result Reported Site Urine Culture Final (continued) 10/25/19- 0842 3. MORGANELLA MORGANII (continued) M.I.C. RX --------- [...] These antibiotics are not available in the [facility] Formulary Contact the Microbiology Department for any additional antibiotic reporting. Contact the Microbiology Department for any additional antibiotic reporting. * ML - Main Lab . END OF REPORT DEPARTMENT OF PATHOLOGY, [address] [place] [address] Gerardo Lawton M.D. Director [facility] # [id number] 6 Mild macrocytic anemia with thrombocytopenia noted. No blasts or evidence of hemolysis identified. Reviewed by Dr. Lawton 7 SEE RESULT BELOW Name: GAURI MONTELONGO : [address]: Loli Walters MD Acct: [id number] Unit: [id number] AGE: 83 Location: [place] [address] Re04/11/19 SEX: M Status: ADM IN SPEC: [id number] OLESYA: 04/11/19 [facility] DR: Romulo Crespo MD REQ: [id number] RECD: 04/11/19 STATUS: COMP OTHR DR: Marielos Walker MD _ SOURCE: BLOOD,VENO SPDESC: ORDERED: Blood Cult COMMENTS: ONLY AEROBIC CULTURE RECEIVEDC Blood Culture bottle(s) are underfilled. Testing may be less sensitive due to less than recommended fill level. Verbal to [id number] by [id number] at 1324 on 04/11/19. ONLY RESTRICTED ARM LIMITED [id number] RIGHT HAND Procedure Result Reported Site Aerobic Culture Bottle Final 04/16/19- 1318 ML No Growth Day 5 * ML - Main Lab . END OF REPORT DEPARTMENT OF PATHOLOGY, [address] [place] [address] Gerardo Lawton M.D. Director [facility] # [id number] 8 Result TnIDx:0.07 Called to [id number] at: 13:08:45 by:[id number] Read back by: [id number] Troponin-I testing on Plasma Separator Tubes (PST) has a known false positive rate of 0.20-0.40%. All positive troponins reflex immediately to secondary confirmatory testing. Using the [employer] DxI 800 Access Immunoassay systems, the 99th percentile upper reference limit was demonstrated to be < 0.03 ng/mL. 9 Because ethnic data is not always readily [...] 15-29 5 Kidney failure <15 (or dialysis) 10 [facility] Severe Sepsis and Septic Shock Management Bundle Measure requires all lactic acids initially measuring >2.0 mmol/L be repeated. 11 Standard intensity warfarin therapeutic range: 2.0-3.0 High intensity warfarin therapeutic range: 2.5-3.5 12 Result TnIDx:0.07 Called to [id number] at: 16:18:31 by:[id number] Read back by: [id number] Troponin-I testing on Plasma Separator Tubes (PST) has a known false positive rate of 0.20-0.40%. All positive troponins reflex immediately to secondary confirmatory testing. Using the [facility] DxI 800 Access Immunoassay systems, the 99th percentile upper reference limit was demonstrated to be < 0.03 ng/mL. Procedures Date Code Description Status 09/20/2019 48135 [facility] 20Yrs 4/More Lkuy-Lp-Pbzz Visits Per Month Completed 08/20/2019 21007 [facility] 20Yrs 4/More Sanp-Zo-Rvtr Visits Per Month Completed 08/12/2019 76450 Icd Eval Sing,Dual,Multi Lead Remote Recpt Transm Tech Rev Completed Tech S 08/12/2019 05781 Icd Eval Sing,Dual,Multi Lead Remote Recpt Transm Tech Rev Completed Tech S 08/12/2019 64302 Pacemaker Check Remote Up To 90Days Single,Dual,Multiple Completed Lead 08/12/2019 58626 Pacemaker Check Remote Up To 90Days Single,Dual,Multiple Completed Lead 07/22/2019 05487 [facility] 20Yrs 4/More Hctv-Wo-Urxp Visits Per Month Completed 06/21/2019 53591 [facility] 20Yrs 4/More Qpcm-Qu-Rraz Visits Per Month Completed 04/25/2019 45489 Hemodialysis, One Evaluation Completed 04/22/2019 33612 Hemodialysis, One Evaluation Completed 04/22/2019 15317 EKG, Interpretation Only Completed 04/21/2019 50306 EKG, Interpretation Only Completed 04/21/2019 93891 Perm Pacemaker Av Sequential Atrial And Ventricular Completed 04/20/2019 13940 Hemodialysis, One Evaluation Completed 04/19/2019 79088 ECHO Transthorasic Realtime 2D W Doppler & Color Flow Hosp Completed 04/19/2019 60543 EKG, Interpretation Only Completed 04/18/2019 31985 Hemodialysis, One Evaluation Completed 04/15/2019 85104 EKG, Interpretation Only Completed 04/15/2019 37232 Hemodialysis, One Evaluation Completed 04/14/2019 38172 EKG, Interpretation Only Completed 04/12/2019 26468 Hemodialysis, One Evaluation Completed Medical Devices Description No Information Available Encounters Type Date Location Provider Dx Diagnosis Office Visit 04/29/2019 [facility] Nyasia Nguyen, I47.2 Ventricular 11:30a N.P. 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 infection, site Hospitalists not specified B96.1 Klebsiella pneumoniae as the cause of diseases classd elswhr G93.40 Encephalopathy, unspecified F03.90 Unspecified dementia without behavioral disturbance R00.1 Bradycardia, unspecified Office Visit 04/26/2019 10:40a [facility] Lida Espinosa N39.0 Urinary tract For Infectious Kohli, IT SYSTEMS MANAGER infection, site Diseases not specified N18.6 End stage renal disease Z99.2 Dependence on renal dialysis Z96.0 Presence of urogenital implants Office Visit 04/25/2019 [facility] Cassandra Layne, I47.2 Ventricular 10:46a Assockingsley M.D. 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 N18.6 End stage renal disease Z99.2 Dependence on renal dialysis Z95.0 Presence of cardiac pacemaker Office Visit 04/21/2019 10:44a [facility] Julian N39.0 Urinary tract Assoc,pc [place], [place] infection, site Hospitalists not specified R00.1 Bradycardia, unspecified 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 N18.6 End stage renal disease Z99.2 Dependence on renal dialysis Office Visit 04/19/2019 7:15a [facility] Sully Dennison, I47.2 Ventricular Of Inventory Assistant IT SYSTEMS MANAGER tachycardia I25.10 Athscl heart disease of [place] coronary artery w/o ang pctrs N18.6 End stage renal disease Z99.2 Dependence on renal dialysis Office Visit 04/18/2019 12:47p [facility] Lida Espinosa N39.0 Urinary tract For Infectious Kohli, IT SYSTEMS MANAGER infection, site Diseases not specified G93.40 Encephalopathy, unspecified N18.6 End stage renal disease Z99.2 Dependence on renal dialysis Office Visit 04/18/2019 10:42a [facility] Marian Scott, N39.0 Urinary tract Assoc,pc IT SYSTEMS MANAGER infection, site Hospitalists not specified N99.528 Other comp of incontinent external stoma of urinary tract 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 w stage 5 chr kidney disease or Esrd N18.6 End stage renal disease Z99.2 Dependence on renal dialysis B96.1 Klebsiella pneumoniae as the cause of diseases classd elswhr B95.2 Enterococcus as the cause of diseases classified elsewhere Office Visit 04/17/2019 10:42a [facility] Marian Scott, N39.0 Urinary tract Assoc,pc IT SYSTEMS MANAGER infection, site Hospitalists not specified B96.1 Klebsiella pneumoniae as the cause of diseases classd elswhr B95.2 Enterococcus as the cause of diseases classified elsewhere 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 w stage 5 chr kidney disease or Esrd N18.6 End stage renal disease Z99.2 Dependence on renal dialysis Office Visit 04/16/2019 10:41a [facility] Marian Scott, N39.0 Urinary tract Assoc,pc IT SYSTEMS MANAGER infection, site Hospitalists not specified 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 w stage 5 chr kidney disease or Esrd N18.6 End stage renal disease Z99.2 Dependence on renal dialysis Office Visit [facility]2019 [facility] N[facility] Assoc,pc [facility] Doto, infection, site Hospitalists IT SYSTEMS MANAGER not specified R55 Syncope and collapse 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 w stage 5 chr kidney disease or Esrd N18.6 End stage renal disease Z99.2 Dependence on renal dialysis B96.1 Klebsiella pneumoniae as the cause of diseases classd elswhr B95.2 Enterococcus as the cause of diseases classified elsewhere Office Visit 04/14/2019 12:45p [facility] Brittany Cristina N39.0 Urinary tract Infectious Douglas Whelan infection, site Diseases not specified G93.40 Encephalopathy, unspecified N18.6 End stage renal disease Z99.2 Dependence on renal dialysis Office Visit 04/14/2019 10:40a [facility] Jeane N39.0 Urinary tract Assoc,pc [facility] [place], infection, site Hospitalists IT SYSTEMS MANAGER not specified B95.2 Enterococcus as the cause of diseases classified elsewhere B96.1 Klebsiella pneumoniae as the cause of diseases classd elswhr I12.0 Hyp chr kidney disease w stage 5 chr kidney disease or Esrd N18.6 End stage renal disease Z99.2 Dependence on renal dialysis Office Visit 04/13/2019 10:40a [facility] Jeane B96.1 Klebsiella Assoc,pc Patience Moore, pneumoniae as Hospitalists IT SYSTEMS MANAGER the cause of diseases classd elswhr B95.2 Enterococcus as the cause of diseases classified elsewhere N39.0 Urinary tract infection, site not specified G93.40 Encephalopathy, unspecified I12.0 Hyp chr kidney disease w stage 5 chr kidney disease or Esrd N18.6 End stage renal disease Z99.2 Dependence on renal dialysis E78.5 Hyperlipidemia, unspecified Office Visit 04/12/2019 10:39a [facility] Laura N39.0 Urinary tract Assoc,kingsley Sumner NP infection, site Hospitalists not specified N18.6 End stage renal disease I12.0 Hyp chr kidney disease w stage 5 chr kidney disease or Esrd 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 E78.5 Hyperlipidemia, unspecified Office Visit 04/11/2019 10:39a [facility] Chyna N39.0 Urinary tract Assoc,kingsley Cason NP infection, site Hospitalists not specified G92 Toxic encephalopathy R79.89 Other specified abnormal findings of blood chemistry N18.6 End stage renal disease Z99.2 Dependence on renal dialysis Assessments Date Code Description Provider 09/20/2019 N18.6 End stage renal disease Qi Capellan MD 08/20/2019 N18.6 End stage renal disease Qi Capellan MD 08/12/2019 Z95.0 Presence of cardiac pacemaker Henry Ahumada DO [facility] 08/12/2019 Z95.0 Presence of cardiac pacemaker Remote Device Checks 08/12/2019 I49.5 Sick sinus syndrome Henry Ahumada DO [facility] 08/12/2019 I49.5 Sick sinus syndrome Remote Device Checks 07/22/2019 N18.6 End stage renal disease Qi Capellan MD 06/21/2019 N18.6 End stage renal disease Qi Capellan MD 04/29/2019 I47.2 Ventricular tachycardia Debra Mckinnon.P. 04/29/2019 Z95.0 Presence of cardiac pacemaker Nyasia Nguyen, N.P. 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 with stage 5 chronic kidney disease or end stage renal disease 04/29/2019 I95.89 Other hypotension Nyasia Nguyen, N.P. 04/29/2019 N18.6 End stage renal disease Nyasia Nguyen, N.P. 04/29/2019 Z99.2 Dependence on renal dialysis Nyasia Nguyen, N.P. 04/26/2019 N39.0 Urinary tract infection, site not Cassandra Tillman M.D. specified 04/26/2019 N39.0 Urinary tract infection, site not Lida Kohli , [place] specified 04/26/2019 B96.1 Klebsiella pneumoniae [Rick Tillman M.D. pneumoniae] as the cause of diseases classified elsewhere 04/26/2019 N18.6 End stage renal disease Lida Kohli, [place] 04/26/2019 G93.40 Encephalopathy, unspecified Cassandra Tillman M.D. 04/26/2019 Z99.2 Dependence on renal dialysis Lida Kohli NP 04/26/2019 F03.90 Unspecified dementia without Cassandra Tillman M.D. behavioral disturbance 04/26/2019 Z96.0 Presence of urogenital implants Lida Kohli NP 04/26/2019 R00.1 Bradycardia, unspecified Cassandra Tillman M.D. 04/25/2019 N18.6 End stage renal disease Trey Adames MD 04/25/2019 I47.2 Ventricular tachycardia Cassandra Tillman M.D. 04/25/2019 Z95.0 Presence of cardiac pacemaker Cassandra Tillman M.D. 04/25/2019 N99.528 Other complication of incontinent Cassandra Tillman M.D. 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 PAMELA Schroeder with stage 5 chronic kidney disease or end stage renal disease 04/23/2019 N18.6 End stage renal disease PAMELA Schroeder 04/23/2019 Z99.2 Dependence on renal dialysis PAMELA Schroeder 04/23/2019 Z95.0 Presence of cardiac pacemaker PAMELA Schroeder 04/22/2019 Z95.0 Presence of cardiac pacemaker Henry Ahumada, DO FACC 04/22/2019 Z95.0 Presence of cardiac pacemaker Henry SZoila Ahumada, DO FACC 04/22/2019 N18.6 End stage renal disease Qi Capellan MD 04/22/2019 N39.0 Urinary tract infection, site not PAMELA Schroeder specified 04/22/2019 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 04/21/2019 I49.5 Sick sinus syndrome Sarah Manrique M.D. 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 04/20/2019 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 PAMELA Schroeder with stage 5 chronic kidney disease or end stage renal disease 04/20/2019 N18.6 End stage renal disease PAMELA Schroeder 04/20/2019 Z99.2 Dependence on renal dialysis PAMELA Schroeder 04/19/2019 R94.31 Abnormal electrocardiogram [ECG] Henry Ahumada DO [facility] [EKG] 04/19/2019 I47.2 Ventricular tachycardia Sully Dennison NP 04/19/2019 I25.10 Atherosclerotic heart disease of Sully Dennison NP diomede coronary artery without angina pectoris 04/19/2019 N18.6 End stage renal disease Sully Dennison NP 04/19/2019 Z99.2 Dependence on renal dialysis Sully Dennison NP 04/19/2019 R94.31 Abnormal electrocardiogram [ECG] Augustin Albrecht M.D. [EKG] 04/19/2019 N39.0 Urinary tract infection, site not Marian Scott, IT SYSTEMS MANAGER specified 04/19/2019 R00.1 Bradycardia, unspecified Marian Scott, IT SYSTEMS MANAGER 04/19/2019 N99.528 Other complication of incontinent Marian Scott, IT SYSTEMS MANAGER external stoma of urinary tract 04/19/2019 I25.10 Atherosclerotic heart disease of Marian Scott, IT SYSTEMS MANAGER diomede coronary artery without angina pectoris 04/19/2019 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 Marian Scott, IT SYSTEMS MANAGER with stage 5 chronic kidney disease or end stage renal disease 04/19/2019 N18.6 End stage renal disease Marian Scott, IT SYSTEMS MANAGER 04/19/2019 Z99.2 Dependence on renal dialysis Marian Scott, IT SYSTEMS MANAGER 04/18/2019 N18.6 End stage renal disease Qi Capellan MD 04/18/2019 N39.0 Urinary tract infection, site not Marian Scott, IT SYSTEMS MANAGER specified 04/18/2019 D63.1 Anemia in chronic kidney disease Qi Capellan MD 04/18/2019 N39.0 Urinary tract infection, site not Lida Kohli NP specified 04/18/2019 N99.528 Other complication of incontinent Marian Scott, IT SYSTEMS MANAGER external stoma of urinary tract 04/18/2019 G93.40 Encephalopathy, unspecified Lida Kohli NP 04/18/2019 I25.10 Atherosclerotic heart disease of Marian Scott, IT SYSTEMS MANAGER diomede coronary artery without angina pectoris 04/18/2019 N18.6 End stage renal disease Lida Kohli NP 04/18/2019 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 Marian Scott, IT SYSTEMS MANAGER with stage 5 chronic kidney disease or end stage renal disease 04/18/2019 Z99.2 Dependence on renal dialysis Lida Kohli NP 04/18/2019 N18.6 End stage renal disease Marian Scott, IT SYSTEMS MANAGER 04/18/2019 Z99.2 Dependence on renal dialysis Marian Scott, IT SYSTEMS MANAGER 04/18/2019 B96.1 Klebsiella pneumoniae [K. Marian Scott, IT SYSTEMS MANAGER pneumoniae] as the cause of diseases classified elsewhere 04/18/2019 B95.2 Enterococcus as the cause of Marian Scott, IT SYSTEMS MANAGER diseases classified elsewhere 04/17/2019 N39.0 Urinary tract infection, site not Marian Scott, IT SYSTEMS MANAGER specified 04/17/2019 B96.1 Klebsiella pneumoniae [K. Marian Scott, IT SYSTEMS MANAGER pneumoniae] as the cause of diseases classified elsewhere 04/17/2019 B95.2 Enterococcus as the cause of Marian Scott, IT SYSTEMS MANAGER diseases classified elsewhere 04/17/2019 I25.10 Atherosclerotic heart disease of Marian Clarkx, IT SYSTEMS MANAGER diomede coronary artery without angina pectoris 04/17/2019 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 Marian Scott, IT SYSTEMS MANAGER with stage 5 chronic kidney disease or end stage renal disease 04/17/2019 N18.6 End stage renal disease Marian Scott, IT SYSTEMS MANAGER 04/17/2019 Z99.2 Dependence on renal dialysis Marian Scott, IT SYSTEMS MANAGER 04/16/2019 N39.0 Urinary tract infection, site not Marian Scott, IT SYSTEMS MANAGER specified 04/16/2019 I25.10 Atherosclerotic heart disease of Marian Scott, IT SYSTEMS MANAGER diom[place] coronary artery without angina pectoris 04/16/2019 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 Marian Scott, IT SYSTEMS MANAGER with stage 5 chronic kidney disease or end stage renal disease 04/16/2019 N18.6 End stage renal disease Marian Scott, IT SYSTEMS MANAGER 04/16/2019 Z99.2 Dependence on renal dialysis Marian Scott, IT SYSTEMS MANAGER 04/15/2019 R94.31 Abnormal electrocardiogram [ECG] Giancarlo Arroyo M.D., [facility], [EKG] [facility] 04/15/2019 N18.6 End stage renal disease Namita Denise MD 04/15/2019 N39.0 Urinary tract infection, site not Jeane Carreonfield Oscar NP specified 04/15/2019 R55 Syncope and collapse Jeane Patience Moore NP 04/15/2019 I25.10 Atherosclerotic heart disease of Jeane Laresrachael, IT SYSTEMS MANAGER diomede coronary artery without angina pectoris 04/15/2019 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 Jeane Carreonfield Moore IT SYSTEMS MANAGER with stage 5 chronic kidney disease or end stage renal disease 04/15/2019 N18.6 End stage renal disease Jeane Carreonfield Moore, IT SYSTEMS MANAGER 04/15/2019 Z99.2 Dependence on renal dialysis Jeane Carreonfield Moore IT SYSTEMS MANAGER 04/15/2019 B96.1 Klebsiella pneumoniae [K. Jeane Carreonfield Moore, ALBINA pneumoniae] as the cause of diseases classified elsewhere 04/15/2019 B95.2 Enterococcus as the cause of Jeane Morin Doto, IT SYSTEMS MANAGER diseases classified elsewhere 04/14/2019 R94.31 Abnormal electrocardiogram [ECG] Giancarlo Arroyo M.D., [facility], [EKG] [facility] 04/14/2019 N39.0 Urinary tract infection, site not Jeane Morin Ludao, IT SYSTEMS MANAGER specified 04/14/2019 N39.0 Urinary tract infection, site not Amaury Whelan M.D. specified 04/14/2019 B95.2 Enterococcus as the cause of Jeane Morin Doto, IT SYSTEMS MANAGER diseases classified elsewhere 04/14/2019 G93.40 Encephalopathy, unspecified Amaury Whelan M.D. 04/14/2019 B96.1 Klebsiella pneumoniae [K. Jeane Morin Oscar, IT SYSTEMS MANAGER pneumoniae] as the cause of diseases classified elsewhere 04/14/2019 N18.6 End stage renal disease Amaury Whelan M.D. 04/14/2019 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 Jeane Carreonfield Moore, IT SYSTEMS MANAGER with stage 5 chronic kidney disease or end stage renal disease 04/14/2019 Z99.2 Dependence on renal dialysis Amaury Whelan M.D. 04/14/2019 N18.6 End stage renal disease Jeane Carreonfield Moore, IT SYSTEMS MANAGER 04/14/2019 Z99.2 Dependence on renal dialysis Jeane Patience Moore IT SYSTEMS MANAGER 04/13/2019 B96.1 Klebsiella pneumoniae [K. Jeane Morin Oscar, IT SYSTEMS MANAGER pneumoniae] as the cause of diseases classified elsewhere 04/13/2019 B95.2 Enterococcus as the cause of Jeane Morin Doto, IT SYSTEMS MANAGER diseases classified elsewhere 04/13/2019 N39.0 Urinary tract infection, site not Jeane Morin Ludao, IT SYSTEMS MANAGER specified 04/13/2019 G93.40 Encephalopathy, unspecified Jeane Patience Moore, IT SYSTEMS MANAGER 04/13/2019 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 Jeanejake Moore IT SYSTEMS MANAGER with stage 5 chronic kidney disease or end stage renal disease 04/13/2019 N18.6 End stage renal disease Jeane Patience Moore, IT SYSTEMS MANAGER 04/13/2019 Z99.2 Dependence on renal dialysis Jeane Moore [place] 04/13/2019 E78.5 Hyperlipidemia, unspecified Jeane Moore, [place] 04/12/2019 N18.6 End stage renal disease Namita Denise MD 04/12/2019 N39.0 Urinary tract infection, site not Laura Sumner NP specified 04/12/2019 N18.6 End stage renal disease Laura Sumner NP 04/12/2019 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 Laura Sumner NP with stage 5 chronic kidney disease or end stage renal disease 04/12/2019 I25.10 Atherosclerotic heart disease of Laura SumnerALBINA diomede coronary artery without angina pectoris 04/12/2019 Z99.2 Dependence on renal dialysis Laura Sumner NP 04/12/2019 E78.5 Hyperlipidemia, unspecified Laura Sumner NP 04/11/2019 N39.0 Urinary tract infection, site not Chyna Cason NP specified 04/11/2019 G92 Toxic encephalopathy Chyna Cason NP 04/11/2019 R79.89 Other specified abnormal findings of Chyna Cason NP blood chemistry 04/11/2019 N18.6 End stage renal disease Chyna Cason NP 04/11/2019 Z99.2 Dependence on renal dialysis Chyna Cason NP Plan of Treatment 04/29/2019 - Nyasia Nguyen, N.P.I47.2 Ventricular xlzvagdzncgI17.0 Presence of cardiac pacemakerFollow up:OV [facility] 05/11 please schedule PO prior to OVRecommendations:I would like to get a chest x-ray to make sure there is no fluid in your lungs.I25.10 Atherosclerotic heart disease of diomede coronary artery without angina khekkaxtW55.0 Hypertensive chronic kidney disease with stage 5 chronic kidney disease or end stage renal odowlmvM47.89 Other hypotensionRecommendations:STOP lisinopril for low blood hawgjrhdJ19.6 End stage renal kqlhfjfF40.2 Dependence on renal dialysis Functional Status Description No Information Available Mental Status Description No Information Available Referrals Description No Information Available
[2019-10-11] MEDS: Albuterol/Ipratropium NEB.SOL* (2.5/0.5 MG) 3 ML NEB.SOLN INH SCH (01:56)
[2019-10-11 01:57] LABS: ABS Eosinophils 0.1 10^3/ul (0-0.6); ABS Lymphocytes 0.6 10^3/ul (1.0-4.8); ABS Monocytes 0.4 10^3/ul (0-0.8); ABS Neutrophils 4.2 10^3/ul (1.5-7.7); Eosinophil % 2.4 %; Hematocrit 28 % (42-52); Hemoglobin 9.2 g/dL (14.0-18.0); Mean Corpuscular HGB Conc 33 g/dL (31-36); Mean Corpuscular Hemoglobin 34 pg (27-31); Mean Corpuscular Volume 104 fL (80-94); Mean Platelet Volume 8.1 fL (7.4-10.4); Nucleated Red Blood Cells % 0.1; Platelet Count 148 10^3/uL (150-450); Red Blood Count 2.72 10^6 /uL (4.18-5.48); Red Cell Distribution Width 16 % (10-15); White Blood Count 5.2 10^3/uL (3.5-10.8)
[2019-10-11 02:00] LABS: INR 1.31 (0.82-1.09)
[2019-10-11 02:10] LABS: ALT 7 U/L (7-52); Alkaline Phosphatase 75 U/L (34-104); BUN/Creatinine Ratio 6.4 (8-20); Blood Urea Nitrogen 48 mg/dL (6-24); CO2 Carbon Dioxide 26 mmol/L (22-32); Calcium 8.9 mg/dL (8.6-10.3); Chloride 104 mmol/L (101-111); EGFR African American 8.5 (>60); Globulin 2.9 g/dL (2-4); Glucose 113 mg/dL (70-100); Sodium 140 mmol/L (135-145); Total Protein 5.9 g/dL (6.4-8.9)
[2019-10-11 02:16] LABS: Troponin I 1.05 ng/mL (<0.03)
[2019-10-11 02:28] LABS: AST 17 U/L (13-39); Anion Gap 10 mmol/L (2-11); Potassium 5.1 mmol/L (3.5-5.0)
--- NOTE | 2019-10-11 02:47 | ED ---
Complex/Multi-Sys Presentation - HPI Summary HPI Summary: Patient is an 83 y/o M presenting to [facility] with complaints of SOB, cough and chest pain. He states that he had onset of chest pain a week ago, but this pain has since resolved. SOB for the past week and an intermittent cough are also reported. He has been increasingly fatigued and reports some difficulty tasting and smelling. Fever denied. Patient is on dialysis x3 days a week. PMHx of DE and pacemaker noted. Home medications and allergies are reviewed. Patient is poor historian. - History Of Current Complaint Chief Complaint: EDShortnessOfBreath Time Seen by Provider: 10/11/19 01:25 Hx Obtained From: Patient Onset/Duration: Lasting Weeks, Resolved - CP Timing: Weeks Severity Currently: None Location: Pain At: - chest Associated Signs And Symptoms: Positive: SOB, Cough, Chest Pain, Other - fatigue , difficulty tasting and smelling. Negative: Fever - Allergies/Home Medications Allergies/Adverse Reactions: Allergies Allergy/AdvReac Type Severity Reaction Status Date / Time No Known Allergies Allergy Verified 04/30/19 12:08 Home Medications: Home Medications Aspirin EC TAB* [Ecotrin EC Low Dose 81 MG*] 81 mg PO DAILY 06/28/17 [History Confirmed 10/11/19] Tamsulosin CAP* [Flomax CAP*] 0.4 mg PO DAILY 06/28/17 [History Confirmed ] Atorvastatin* [Lipitor 20 MG*] 20 mg PO DAILY 02/23/18 [History Confirmed ] Lisinopril TAB* [Prinivil TAB 10 MG*] 10 mg PO DAILY 02/23/18 [History Confirmed 10/11/19] Sevelamer Carbonate 800 mg PO .BREAKFAST, LUNCH 02/23/18 [History Confirmed ] Multivitamin [Multivitamins] 1 cap PO DAILY 07/01/18 [History Confirmed 10/11/19 ] Acetaminophen TAB* [Tylenol TAB*] 650 mg PO Q4H PRN 04/11/19 [History Confirmed 10/11/19] Sevelamer TAB* [Renvela TAB*] 1,600 mg PO .DINNER 04/11/19 [History Confirmed ] Docusate CAP* [Colace Cap*] 100 mg PO QAM cap 04/26/19 [Rx Confirmed 10/11/19] Glycerin ADULT SUPP* 1 supp TX DAILY PRN supp 04/26/19 [Rx Confirmed 10/11/19] Metoprolol Tartrate TAB* [Lopressor TAB*] 12.5 mg PO Q12HR tab 04/26/19 [Rx Confirmed 10/11/19] Polyethylene Glycol 3350* [Miralax (17 GM DOSE RITCHIE)] 17 gm PO DAILY PRN packet 04/26/19 [Rx Confirmed 10/11/19] hydrOXYzine HCL TAB* [Atarax 10 MG TAB*] 10 mg PO Q4H PRN tab 04/26/19 [Rx Confirmed 10/11/19] PMH/Surg Hx/FS Hx/Imm Hx Endocrine/Hematology History: Denies: Hx Anticoagulant Therapy, Hx Diabetes Cardiovascular History: Reports: Hx Angina, Hx Coronary Artery Disease, Hx Hypertension, Hx Myocardial Infarction Denies: Hx Hypercholesterolemia, Hx Pacemaker/ICD, Hx Valvular Heart Disease Respiratory History: Denies: Hx Asthma, Hx Chronic Obstructive Pulmonary Disease (COPD) GI History: Reports: Other GI Disorders - Hx dialysis History: Reports: Hx Chronic Renal Failure, Hx Dialysis, Hx Renal Disease, Other Problems/Disorders - 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 hernia Hx Anesthesia Reactions: No Infectious Disease History: No Infectious Disease History: Denies: Traveled Outside the [place] in Last 30 Days - Family History Known Family History: Positive: Hypertension - Social History Alcohol Use: Daily Alcohol Amount: 1 nightcap per day Hx Substance Use: No Substance Use Type: Reports: None Hx Tobacco Use: No Smoking Status (MU): Never Smoked Tobacco Review of Systems - ROS Summary Review of Systems Summary: Home Medications Medication Instructions Recorded Confirmed Type Aspirin EC TAB* [Ecotrin EC Low 81 mg PO DAILY 06/28/17 04/30/19 History Dose 81 MG*] Tamsulosin CAP* [Flomax CAP*] 0.4 mg PO DAILY 06/28/17 04/30/19 History Atorvastatin* [Lipitor 20 MG*] 20 mg PO DAILY 02/23/18 04/30/19 History Lisinopril TAB* [Prinivil TAB 10 10 mg PO DAILY 02/23/18 04/30/19 History MG*] Sevelamer Carbonate 800 mg PO .BREAKFAST, LUNCH 02/23/18 04/30/19 History Multivitamin [Multivitamins] 1 cap PO DAILY 07/01/18 04/30/19 History Acetaminophen TAB* [Tylenol TAB*] 650 mg PO Q4H PRN 04/11/19 04/30/19 History Sevelamer TAB* [Renvela TAB*] 1,600 mg PO .DINNER 04/11/19 04/30/19 History Docusate CAP* [Colace Cap*] 100 mg PO QAM cap 04/26/19 04/30/19 Rx Glycerin ADULT SUPP* 1 supp TX DAILY PRN supp 04/26/19 04/30/19 Rx Metoprolol Tartrate TAB* 12.5 mg PO Q12HR tab 04/26/19 04/30/19 Rx [Lopressor TAB*] Polyethylene Glycol 3350* [Miralax 17 gm PO DAILY PRN packet 04/26/19 04/30/19 Rx (17 GM DOSE RITCHIE)] hydrOXYzine HCL TAB* [Atarax 10 MG 10 mg PO Q4H PRN tab 04/26/19 04/30/19 Rx TAB*] Negative: Fever ENT: Other - positive - difficulty smelling and tasting Positive: Chest Pain Positive: Shortness Of Breath, Cough All Other Systems Reviewed And Are Negative: Yes Physical Exam - Summary Physical Exam Summary: General: Well-developed, Well-nourished male. No acute distress. HEENT: Normocephalic, Atraumatic. Eyes: Conjuctiva normal, PERRL. Oropharynx: Clear, mucous membranes moist, (-) exudates. Neck: Soft, FROM, (-) lymphadenopathy, (-) thyromegaly, (-) JVD. Cardiovascular: Normal sinus rhythm, (-) murmur. Lungs: Wheezing bilaterally, bibasilar crackles noted. Abdomen: Soft, non-tender, non-distended, (-) organomegaly, normal bowel sounds. Back: (-) CVA tenderness Extremities: 1+ BLE edema. Skin: Warm, dry, (-) rash. Neuro: Alert and oriented x3, moves all extremities equally. No ataxia. No gait disturbance. No sensory deficit. Normal strength, normal sensation. Psychiatric: Mood normal, affect normal. Triage Information Reviewed: Yes Vital Signs On Initial Exam: Initial Vitals Resp 19 10/11/19 01:04 Vital Signs Reviewed: Yes Procedures - Sedation Patient Received Moderate/Deep Sedation with Procedure: No Diagnostics - Vital Signs Vital Signs Temp Pulse Resp BP Pulse Ox 10/11/19 01:58 92 10/11/19 01:50 70 12 92/58 100 10/11/19 01:35 88 21 97/61 96 10/11/19 01:20 76 19 101/64 92 10/11/19 01:05 98.2 F 74 23 102/65 97 10/11/19 01:04 19 - Laboratory Lab Results: Lab Results 10/11/19 10/11/19 10/11/19 Range/Units 01:24 01:24 01:24 WBC 5.2 (3.5-10.8) 10^3/uL RBC 2.72 L (4.18-5.48) 10^6 /uL Hgb 9.2 L (14.0-18.0) g/dL Hct 28 L (42-52) % MCV 104 H (80-94) fL MCH 34 H (27-31) pg MCHC 33 (31-36) g/dL RDW 16 H (10-15) % Plt Count 148 L (150-450) 10^3/uL MPV 8.1 (7.4-10.4) fL Neut % (Auto) 79.7 % Lymph % (Auto) 11.0 % [place] % (Auto) 6.8 % Eos % (Auto) 2.4 % Baso % (Auto) 0.1 % Absolute Neuts (auto) 4.2 (1.5-7.7) 10^3/ul Absolute Lymphs (auto) 0.6 L (1.0-4.8) 10^3/ul Absolute Monos (auto) 0.4 (0-0.8) 10^3/ul Absolute Eos (auto) 0.1 (0-0.6) 10^3/ul Absolute Basos (auto) 0.0 (0-0.2) 10^3/ul Absolute Nucleated RBC 0.0 10^3/ul Nucleated RBC % 0.1 INR (Anticoag Therapy) 1.31 H (0.82-1.09) Sodium 140 (135-145) mmol/L Potassium 5.1 H (3.5-5.0) mmol/L Chloride 104 (101-111) mmol/L Carbon Dioxide 26 (22-32) mmol/L Anion Gap 10 (2-11) mmol/L BUN 48 H (6-24) mg/dL Creatinine 7.50 H (0.67-1.17) mg/dL Est GFR ( Amer) 8.5 (>60) Est GFR (Non-Af Amer) 7.0 (>60) BUN/Creatinine Ratio 6.4 L (8-20) Glucose 113 H (70-100) mg/dL Lactic Acid (0.5-2.0) mmol/L Calcium 8.9 (8.6-10.3) mg/dL Total Bilirubin 0.50 (0.2-1.0) mg/dL AST 17 (13-39) U/L ALT 7 (7-52) U/L Alkaline Phosphatase 75 (34-104) U/L Troponin I 1.05 H* (<0.03) ng/mL B-Natriuretic Peptide (<=100) pg/mL Total Protein 5.9 L (6.4-8.9) g/dL Albumin 3.0 L (3.2-5.2) g/dL Globulin 2.9 (2-4) g/dL Albumin/Globulin Ratio 1.0 (1-3) 10/11/19 10/11/19 Range/Units 01:24 01:24 WBC (3.5-10.8) 10^3/uL RBC (4.18-5.48) 10^6 /uL Hgb (14.0-18.0) g/dL Hct (42-52) % MCV (80-94) fL MCH (27-31) pg MCHC (31-36) g/dL RDW (10-15) % Plt Count (150-450) 10^3/uL MPV (7.4-10.4) fL Neut % (Auto) % Lymph % (Auto) % [place] % (Auto) % Eos % (Auto) % Baso % (Auto) % Absolute Neuts (auto) (1.5-7.7) 10^3/ul Absolute Lymphs (auto) (1.0-4.8) 10^3/ul Absolute Monos (auto) (0-0.8) 10^3/ul Absolute Eos (auto) (0-0.6) 10^3/ul Absolute Basos (auto) (0-0.2) 10^3/ul Absolute Nucleated RBC 10^3/ul Nucleated RBC % INR (Anticoag Therapy) (0.82-1.09) Sodium (135-145) mmol/L Potassium (3.5-5.0) mmol/L Chloride (101-111) mmol/L Carbon Dioxide (22-32) mmol/L Anion Gap (2-11) mmol/L BUN (6-24) mg/dL Creatinine (0.67-1.17) mg/dL Est GFR ( Amer) (>60) Est GFR (Non-Af Amer) (>60) BUN/Creatinine Ratio (8-20) Glucose (70-100) mg/dL Lactic Acid 1.7 (0.5-2.0) mmol/L Calcium (8.6-10.3) mg/dL Total Bilirubin (0.2-1.0) mg/dL AST (13-39) U/L ALT (7-52) U/L Alkaline Phosphatase (34-104) U/L Troponin I (<0.03) ng/mL B-Natriuretic Peptide > 1300 H (<=100) pg/mL Total Protein (6.4-8.9) g/dL Albumin (3.2-5.2) g/dL Globulin (2-4) g/dL Albumin/Globulin Ratio (1-3) Result Diagrams: 10/11/19 01:24 10/11/19 01:24 Lab Statement: Any lab studies that have been ordered have been reviewed, and results considered in the medical decision making process. - Radiology CXR Radiology Interpretation Completed By: ED Physician Summary of Radiographic Findings: Increased interstitial markings consistent with CHF. Pending official report. - EKG 0113 Cardiac Rate: Other Rate - paced rhythm with rate of 68 BPM Summary of EKG Findings: EKG showed paced rhythm with rate of 68 BPM. No STEMI. ED physician has reviewed and interpreted this EKG. Re-Evaluation - Re-Evaluation First Eval Re-Evaluation Time: 03:17 Comment: Report given to transfer center. Patient's case was discussed with Dr. Luciano from [facility], patient transferred to [facility]. Complex Multi-Symp Course/Dx Course Of Treatment: 83-year-old male presents from home by ambulance for shortness of breath and weakness. Apparently he lives at home, is being cared for by his and daughter. He has dialysis Thursday and Saturdays. he denies any fever. Admits to mild cough. States he has been getting progressively weak over the last week. No tingling or numbness or weakness in any single extremity. Decreased appetite. Patient told the nurse he has had changes in smell and taste. He had chest pain a week agohe states that went away. No further chest pain. on physical exam patient is very sleepy and weak. Wheezing bilaterally. Bibasilar crackles. Blood pressure is on the soft side but patient states that's normal. 90s to 100s over 50s to 60s. Afebrile. Normal respirations. Pulse ox normal on room air. Patient given 3 duo nebs. X -ray consistent with CHF. Discussed with hospitalist. Hospitalist does not feel the patient will be able to be safe discharged to home within 24 hours for patient to get his outpatient dialysis. Since admission diagnosis is not available here he will be transferred. He is accepted in transfer to [facility], Dr. Luciano. CT of the chest is pending upon discharge. Patient has coded taken and is pending. does not meet criteria for sepsis. blood thinners so that this time as patient is not a good history for PE. During ED course, patient received duoneb treatment. - Diagnoses Provider Diagnoses: Elevated troponin, CHF (congestive heart failure), Chronic kidney failure, Chronic anemia - Physician Notifications Discussed Care Of Patient With: Josh Meadows Time Discussed With Above Provider: 02:51 Instructed by Provider To: Other - Patient's case was discussed with Dr. Meadows , Dr. Meadows recommends transfer of the patient to a higher level of care facility for dialysis. 0317 - Report given to transfer center. Patient's case was discussed with Dr. Luciano from [facility], patient transferred to [facility]. - Critical Care Time Critical Care Statement: Critical care time is provided exclusive of any time spent performing procedures. Discharge ED - Sign-Out/Discharge Documenting (check all that apply): Patient Departure - transfer - Discharge Plan Condition: Fair Disposition: TRANS HIGHER LVL OF CARE FAC Referrals: Marielos Walker MD [Primary Care Provider] - - Billing Disposition and Condition Condition: FAIR Disposition: Trans Higher Lvl of Care Fac - Attestation Statements Document Initiated by Scribe: Yes Documenting Scribe: CHRISTINE SETHI Provider For Whom Kaia is Documenting (Include Credential): DELORES MELGOZA MD Scribe Attestation: CHRISTINE Daniel, scribed for DELORES MELGOZA MD on 10/11/19 at 0347. Scribe Documentation Reviewed: Yes Provider Attestation: The documentation as recorded by the CHRISTINE eden accurately reflects the service I personally performed and the decisions made by me, DELORES MELGOZA MD Status of Scribe Document: Viewed
[2019-10-11] MEDS ORDERED: Iodixanol* (CONTRAST) 320 MG/ML 100 ML SDV IV ONE (03:19)
[2019-10-11 04:32] VITALS: BP 96/61
== END 2019-10-11 04:31 | disposition short-term general hospital (02) ==
LOC: ED 00:47
DX: R79.89 Other specified abnormal findings of blood chemistry (principal); I13.2 Hypertensive heart and chronic kidney disease with heart failure and with stage 5 chronic kidney disease, or end stage renal disease; D64.9 Anemia, unspecified; R06.02 Shortness of breath; R05 Cough; R07.9 Chest pain, unspecified; R53.83 Other fatigue; I50.9 Heart failure, unspecified; N18.6 End stage renal disease; I25.10 Atherosclerotic heart disease of native coronary artery without angina pectoris; I25.2 Old myocardial infarction; Z99.2 Dependence on renal dialysis; Z79.899 Other long term (current) drug therapy; Z79.82 Long term (current) use of aspirin
CPT/HCPCS: 36415; 71045; 71275; 80053; 83605; 83880; 84484; 85025; 85610; 87040; 87635; 93005; 99285; J7620; Q9967; U0003

== ENCOUNTER 2020-04-05 10:37 | Inpatient (IN) ==
[2020-04-05 12:48] LABS: ABS Eosinophils 0.1 10^3/ul (0-0.6); ABS Lymphocytes 0.5 10^3/ul (1.0-4.8); ABS Monocytes 0.5 10^3/ul (0-0.8); Eosinophil % 3.4 %; Hematocrit 30 % (42-52); Hemoglobin 9.9 g/dL (14.0-18.0); Lymphocyte % 11.5 %; Mean Corpuscular HGB Conc 33 g/dL (31-36); Mean Corpuscular Hemoglobin 34 pg (27-31); Mean Corpuscular Volume 103 fL (80-94); Mean Platelet Volume 7.5 fL (7.4-10.4); Platelet Count 92 10^3/uL (150-450); Red Blood Count 2.94 10^6 /uL (4.18-5.48); Red Cell Distribution Width 16 % (10-15)
[2020-04-05 12:58] LABS: Albumin 3.7 g/dL (3.2-5.2); Albumin/Globulin Ratio 1.4 (1-3); Calcium 10.1 mg/dL (8.6-10.3); EGFR African American 7.8 (>60); EGFR Non-African American 6.5 (>60); Globulin 2.7 g/dL (2-4); Potassium 4.3 mmol/L (3.5-5.0); Total Bilirubin 0.5 mg/dL (0.2-1.0); Total Protein 6.4 g/dL (6.4-8.9)
[2020-04-05] MEDS ORDERED: Zosyn per Pharmacy NOTE FOLLOW UP SCH (14:00)
[2020-04-05] MEDS ORDERED: Zosyn 3.375 GM IV - ED ONCE IV ONE (14:00)
[2020-04-05] MEDS ORDERED: Heparin 1,000 UNIT/ML 10 ml (10,000 UNITS) CATHLAB/DIALYSIS DIALYSIS ONE (15:00)
[2020-04-05 19:50] LABS: Hepatitis B Surface Antigen Nonreactive (Nonreactive)
[2020-04-05 20:08] LABS: Hepatitis B Surface Ab Immune (Immune)
[2020-04-05] MEDS: Heparin 5000 UNITS/ML 1 mL VIAL SUBCUT SCH (23:02)
[2020-04-05] MEDS: Piperacillin/Tazobactam VIAL 3.375 GM in NS 0.9% 100 ml BAG 100 ML IVPB SCH (23:06)
[2020-04-06] MEDS: Heparin 5000 UNITS/ML 1 mL VIAL SUBCUT SCH ×3 (04:59→21:36)
[2020-04-06] MEDS: Polyethylene Glycol 3350 17 GM PACKET PO SCH (07:19)
[2020-04-06] MEDS: Piperacillin/Tazobactam VIAL 3.375 GM in NS 0.9% 100 ml BAG 100 ML IVPB SCH ×2 (07:19→21:42)
[2020-04-06] MEDS: Aspirin EC 81 mg TAB.EC (enteric coated) PO SCH (07:19)
[2020-04-06 08:29] LABS: BUN/Creatinine Ratio 5.4 (8-20); Calcium 9.9 mg/dL (8.6-10.3); EGFR African American 11.4 (>60); EGFR Non-African American 9.5 (>60); Potassium 3.9 mmol/L (3.5-5.0)
[2020-04-06 08:42] LABS: ABS Eosinophils 0.2 10^3/ul (0-0.6); ABS Lymphocytes 0.6 10^3/ul (1.0-4.8); ABS Monocytes 0.4 10^3/ul (0-0.8); ABS Neutrophils 2.5 10^3/ul (1.5-7.7); Eosinophil % 6.3 %; Hematocrit 29 % (42-52); Hemoglobin 9.9 g/dL (14.0-18.0); Lymphocyte % 16.3 %; Mean Corpuscular HGB Conc 34 g/dL (31-36); Mean Corpuscular Hemoglobin 35 pg (27-31); Mean Corpuscular Volume 103 fL (80-94); Platelet Count 91 10^3/uL (150-450); Red Blood Count 2.83 10^6 /uL (4.18-5.48); Red Cell Distribution Width 16 % (10-15); White Blood Count 3.7 10^3/uL (3.5-10.8)
[2020-04-06 09:12] LABS: Urine Appearance Turbid; Urine Bilirubin Negative (Negative); Urine Blood 1+ (Negative); Urine Color Yellow; Urine Glucose Negative (Negative); Urine Ketones Negative (Negative); Urine Nitrite Negative (Negative); Urine Protein 2+(100 mg/dL) (Negative); Urine Specific Gravity 1.025 (1.010-1.030); Urine Urobilinogen Negative (Negative)
[2020-04-06 09:46] LABS: Urine Bacteria Absent (Absent); Urine Red Blood Cell 3+(>10/hpf) (Absent); Urine White Blood Cell 3+(>20/hpf) (Absent)
[2020-04-06 10:22] LABS: TSH Ultra Thyroid Stim Horm 3.88 mcIU/mL (0.34-5.60)
[2020-04-07] MEDS: Heparin 5000 UNITS/ML 1 mL VIAL SUBCUT SCH (05:39)
[2020-04-07] MEDS: Piperacillin/Tazobactam VIAL 3.375 GM in NS 0.9% 100 ml BAG 100 ML IVPB SCH (07:13)
[2020-04-07 07:43] VITALS: BP 101/58
[2020-04-07] MEDS: Aspirin EC 81 mg TAB.EC (enteric coated) PO SCH (08:32)
[2020-04-07] MEDS: Polyethylene Glycol 3350 17 GM PACKET PO SCH (08:32)
== END 2020-04-07 15:00 | disposition home or self-care (01) | DRG 100 ==
LOC: ED 10:37 → MEDTELE 14:18
PROVIDERS: ADMIT Hospitalist; ATTEND Student in an Organized Health Care Education/Training Program

== ENCOUNTER 2020-04-11 16:01 | Observation (INO) ==
[2020-04-11] MEDS ORDERED: Piperacillin/Tazobac ADVAN 3.375 GM in NS 0.9% 100 ml BAG 100 ML IV ONE (16:23)
[2020-04-11] MEDS ORDERED: Zosyn per Pharmacy NOTE FOLLOW UP SCH (17:00)
[2020-04-11 17:01] LABS: ABS Eosinophils 0.2 10^3/ul (0-0.6); ABS Lymphocytes 0.6 10^3/ul (1.0-4.8); ABS Monocytes 0.5 10^3/ul (0-0.8); ABS Neutrophils 2.8 10^3/ul (1.5-7.7); Eosinophil % 4.6 %; Hematocrit 31 % (42-52); Hemoglobin 10.5 g/dL (14.0-18.0); Lymphocyte % 13.9 %; Mean Corpuscular HGB Conc 34 g/dL (31-36); Mean Corpuscular Hemoglobin 35 pg (27-31); Mean Corpuscular Volume 104 fL (80-94); Mean Platelet Volume 7.5 fL (7.4-10.4); Nucleated Red Blood Cells % 0.1; Platelet Count 141 10^3/uL (150-450); Red Blood Count 3.02 10^6 /uL (4.18-5.48); Red Cell Distribution Width 16 % (10-15); White Blood Count 4.2 10^3/uL (3.5-10.8)
[2020-04-11 17:26] LABS: Albumin 3.8 g/dL (3.2-5.2); Albumin/Globulin Ratio 1.4 (1-3); BUN/Creatinine Ratio 5.4 (8-20); Calcium 10.2 mg/dL (8.6-10.3); EGFR African American 9.3 (>60); EGFR Non-African American 7.7 (>60); Globulin 2.8 g/dL (2-4); Potassium 4.5 mmol/L (3.5-5.0); Total Bilirubin 0.4 mg/dL (0.2-1.0); Total Protein 6.6 g/dL (6.4-8.9)
[2020-04-11 18:14] LABS: C Reactive Protein 7.42 mg/L (<8.01)
[2020-04-11] MEDS ORDERED: NS 0.9% 100 ml BAG 100 ML ONE (22:28)
[2020-04-11] MEDS: ZOSYN 3.375 GM Q12H per EXTENDED INFUSION IV SCH (22:52)
[2020-04-11] MEDS: Heparin 5000 UNITS/ML 1 mL VIAL SUBCUT SCH (22:54)
[2020-04-12] MEDS: Heparin 5000 UNITS/ML 1 mL VIAL SUBCUT SCH ×3 (05:40→22:53)
[2020-04-12] MEDS: ZOSYN 3.375 GM Q12H per EXTENDED INFUSION IV SCH ×2 (11:21→22:56)
[2020-04-12] MEDS: Aspirin EC 81 mg TAB.EC (enteric coated) PO SCH (11:26)
[2020-04-12] MEDS: Polyethylene Glycol 3350 17 GM PACKET PO SCH (11:32)
[2020-04-12 15:45] LABS: Urine Appearance Turbid; Urine Bacteria Absent (Absent); Urine Bilirubin Negative (Negative); Urine Blood 1+ (Negative); Urine Color Yellow; Urine Glucose Negative (Negative); Urine Ketones Negative (Negative); Urine Nitrite Negative (Negative); Urine Protein 2+(100 mg/dL) (Negative); Urine Red Blood Cell 3+(>10/hpf) (Absent); Urine Specific Gravity 1.013 (1.010-1.030); Urine Urobilinogen Negative (Negative); Urine White Blood Cell 3+(>20/hpf) (Absent)
[2020-04-13] MEDS: Heparin 5000 UNITS/ML 1 mL VIAL SUBCUT SCH ×3 (04:21→20:50)
[2020-04-13] MEDS: Polyethylene Glycol 3350 17 GM PACKET PO SCH (11:11)
[2020-04-13] MEDS: Aspirin EC 81 mg TAB.EC (enteric coated) PO SCH (11:12)
[2020-04-13] MEDS: ZOSYN 3.375 GM Q12H per EXTENDED INFUSION IV SCH (11:18)
[2020-04-14] MEDS: Heparin 5000 UNITS/ML 1 mL VIAL SUBCUT SCH ×2 (05:34→14:06)
[2020-04-14 05:38] LABS: INR 1.09 (0.82-1.09)
[2020-04-14 05:45] LABS: ABS Eosinophils 0.2 10^3/ul (0-0.6); ABS Lymphocytes 0.7 10^3/ul (1.0-4.8); ABS Monocytes 0.4 10^3/ul (0-0.8); ABS Neutrophils 2.9 10^3/ul (1.5-7.7); Eosinophil % 5.3 %; Hematocrit 31 % (42-52); Hemoglobin 10.5 g/dL (14.0-18.0); Lymphocyte % 15.5 %; Mean Corpuscular HGB Conc 34 g/dL (31-36); Mean Corpuscular Hemoglobin 35 pg (27-31); Mean Corpuscular Volume 103 fL (80-94); Mean Platelet Volume 7.1 fL (7.4-10.4); Nucleated Red Blood Cells % 0.1; Platelet Count 141 10^3/uL (150-450); Red Blood Count 3.03 10^6 /uL (4.18-5.48); Red Cell Distribution Width 16 % (10-15); White Blood Count 4.3 10^3/uL (3.5-10.8)
[2020-04-14 06:21] LABS: BUN/Creatinine Ratio 6.4 (8-20); Calcium 9.9 mg/dL (8.6-10.3); EGFR African American 9.1 (>60); EGFR Non-African American 7.5 (>60); Potassium 4.8 mmol/L (3.5-5.0)
[2020-04-14] MEDS: Aspirin EC 81 mg TAB.EC (enteric coated) PO SCH (08:30)
[2020-04-14] MEDS: Polyethylene Glycol 3350 17 GM PACKET PO SCH (08:32)
[2020-04-14 08:49] VITALS: BP 97/49
[2020-04-14] MEDS ORDERED: Albumin Human 25% 12.5 GM/50 ML BTL IV PRN (09:02)
== END 2020-04-14 17:18 | disposition home or self-care (01) ==
LOC: MEDTELE 16:01 → ED 16:01 → MEDTELE 21:35
PROVIDERS: ADMIT Internal Medicine; ATTEND Internal Medicine